=== PATIENT | male | born 1955 | race Caucasian/White ===

== ENCOUNTER 2017-06-27 03:10 | Emergency (ER) | payer OTHER, SELFPAY ==
[2017-06-27 03:13] VITALS: BP 129/83; PULSE 72; RESP 16; TEMP 36.5; O2SAT 94; BMI 28.9
[2017-06-27 03:59] LABS: Absolute Lymphocyte Count 0.93 X10^3/ul (0.83-4.51); Absolute Neutrophil Count 5.7 X10^3/uL (2.0-7.7); Basophil# 0.02 X10^3/uL; Basophil% 0.3 % (0-1); Eosinophil# 0.29 X10^3/uL; Eosinophils% 3.7 % (0-5); Hematocrit 41.4 % (40-54); Hemoglobin 13.8 g/dl (13.0-16.5); Lymphocyte # 0.93 X10^3/ul (4.0); Mean Corp Hgb Conc 33.3 g/gl (32-36); Mean Corpuscular Hgb 29.1 pg (27.0-32.0); Mean Corpuscular Volume 87.3 fL (80-94); Mean Platelet Vol. 12.3 fl (6.2-12.0); Monocyte# 0.78 X10^3/uL; Monocyte% 10.1 % (0-10); Neutrophil # 5.73 X10^3/uL (2.7-7.7); Neutrophil % 73.8 % (47-70); Platelet Count 155 K/mm3 (150-450); RBC Distribution Width CV 13.3 % (11.6-14.6); RBC Distribution Width SD 42.4 fl (35.1-43.9); Red Blood Count 4.74 M/mm3 (4.6-6.2); White Blood Count 7.8 K/mm3 (4.4-11.0)
[2017-06-27 04:02] LABS: POSITIVE COUNT NO; POSITIVE DIFFERENTIAL NO; POSITIVE MORPHOLOGY NO
[2017-06-27 04:16] LABS: Anion Gap 7 (5-15); BUN 22 mg/dL (7-18); BUN/Creat Ratio 22.8 RATIO (10-20); Calcium,Total 8.3 mg/dL (8.5-10.1); Chloride 105 mmol/L (98-107); Creatinine, Serum 0.96 mg/dL (0.70-1.30); EST Glomerular Filtration Rate 84 mL/min (>60); Est Glom Filt Rate - Afr Amer 102 mL/min (>60); Estimated Creatinine Clearance 81.83 ml/min; Glucose 116 mg/dL (74-106); Potassium 4.2 mmol/L (3.5-5.1); Sodium Level 140 mmol/L (136-145)
--- NOTE | 2017-06-27 04:36 | ED.VISSUMM ---
- ER Visit Summary Date of Service: 06/27/17 Chief Complaint: [] Diarrhea, concern for food poisoning History of Present Illness: The patient is a 61 M [] complaining of large episode of diarrhea prior to arrival with concern for possible food poisoning. Patient denies nausea or vomiting. Reports slight tingling in his bilateral upper extremities. Reports calling the nurse line I suggested he come in for evaluation of possible neurologic event. Patient reports he is completely symptomatic now. Physical Examination: [] Afebrile, vital signs stable. 61-year-old male in no acute distress, conversational. Cardiovascular exam is regular rate and rhythm. Lungs are clear to auscultation. Abdomen is soft and nontender. Test Results: [] CBC and BMP are within normal limits. Emergency Department Course and Treatment: [] Patient underwent routine laboratory testing and this was normal. Patient had a very very benign examination. He was encouraged to follow-up with his primary care physician and return if symptoms recur. Treatment Plan: [] Follow-up with PCP. Disposition: [] Discharge, stable. Impression: [] Diarrhea This note was generated with [employer] dictation software. It may contain incorrect words, spelling, and punctuation that were not noted in review of the chart prior to signing ED Disposition - Plan for ED Patient: Chief Complaint: Diarrhea Referrals: Tr Puentes MD [Primary Care Provider] -
--- NOTE | 2017-06-27 04:38 | ED.DEP ---
ED Disposition - Plan for ED Patient: Disposition: Home or Assisted Living Chief Complaint: Diarrhea Instructions: ED Vomiting Diarrhea Nonspecific Ad Referrals: Tr Puentes MD [Primary Care Provider] -
[2017-06-27 04:53] VITALS: BP 152/72; PULSE 77; RESP 16; O2SAT 99
== END 2017-06-27 04:57 | disposition home or self-care (01) ==
PROVIDERS: Emergency Provider Emergency Medicine; Family Provider Family Medicine; PCP Family Medicine
DX: R19.7 Diarrhea, unspecified (principal); R20.2 Paresthesia of skin; I10 Essential (primary) hypertension; Z79.899 Other long term (current) drug therapy
CPT/HCPCS: 80048; 85025; 99282; J7030; A4216

== ENCOUNTER → 2018-05-09 13:51 | Outpatient (CLI) | payer OTHER, SELFPAY ==
[2018-05-09 06:27] VITALS: BMI 26.2
== END ==
PROVIDERS: Family Provider Family Medicine; PCP Family Medicine; Referring Provider Physician Assistant Surgical; Visit Provider Physician Assistant Surgical
DX: J02.9 Acute pharyngitis, unspecified (principal)
CPT/HCPCS: 87081

== ENCOUNTER 2019-03-26 08:00 | Outpatient (RCR) | payer OTHER, SELFPAY ==
[2018-05-09 06:27] VITALS: BMI 26.2
--- NOTE | 2019-01-01 12:07 | HP.PTEVAL ---
Patient's Visit Information CARSON MCCLURE is a 63 year old M referred to Physical Therapy by TOBY VELIZ with a diagnosis of r RCR ASD. Date of Evaluation: 01/01/19 Physical Therapist: Ranjeet Madrigal, PT, RIANNA, SCS, CSCS - Visit Plan Frequency: 1-2x /Week Duration: 3 Months Plan: plan to see 1xweek for 4 weeksn then gradually increase frequency as we near Phase 3. - Subjective Findings: Mr Mcclure states he began to have shoulder problems after bench pressing on August 25. At the time he rated his pain as 5/10 and has had difficulty sleeping since. He did a conservative bout of PT prior to seeing Dr Wharton. he subsequently had R RCR and ASD surgery on 11.23.18 - Pain Right Shoulder Pain Intensity (Out of 10): 2 Pain Intensity Range: 2, 6 - Objective Mr Mcclure is a pleasant 63 who was referred to our care by Dr Wharton. He presnts 6 weeks from his R RCR repair and ASD on 11.23.18 His incision site is healing well. 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 He denies any numbness or tingling down into his hand. His PROM was shd flexion 80, shd abd 80 and ext rotation 0. MMT was deferred secondary to the healing process. - Goals Goal 1:: Return DEMO HEP and Understand the healing process Goal Time Frame: 1 Week Goal 2:: Associate Curator with respect to ADL and help managment skills Goal Time Frame: 2-4 Weeks Goal 3:: Progress from Phase 1 to Phase 3 program Goal Time Frame: 12-16 Weeks - Rehabilitation Potential Physical Therapy Diagnosis: R rotator cuff repair with decrease ROM and Strength Rehabilitation Potential: Good - Anticipated Interventions Patient/Client Instruction: Educate patient on: Condition, Plan of Care For the Purpose of:: To decrease pain, To decrease swelling/inflammation, To increase ROM Manual Therapy Techniques to Include: Passive ROM For the Purpose of:: To decrease pain, To decrease swelling/inflammation, To increase ROM, To increase flexibility/ROM Thank you for the opportunity to evaluate your patient. For Medicare and Medicare HMO plans, please review the plan of care and approve it. It will need to be FAXED BACK to us at [phone] for Medicare purposes. For Medicare only, by signing this I certify the plan of care. Please let me know if there are questions or concerns regarding this plan of care. Physician Signature: Date:
--- NOTE | 2019-03-26 10:59 | HP.PTDCSUM ---
HP - PT D/C Summary It has been my pleasure to treat CARSON ECKERT under orders from TOBY VELIZ, for the diagnosis of r RCR ASD for a total of 16 visit(s). Discharge Date: 03/26/19 Please see the following information for a summary of their discharge status. - Subjective Subjective: Doing well eager to start wellness program - Pain Right Shoulder Pain Intensity (Out of 10): 1 - Overall Improvement % Improvement: 100 - Objective Objective/Function: r. 41.4 20.6. 42.3 32.9 - Goals Goal 1:: Return DEMO HEP and Understand the healing process Goal Progress: Goal Met Goal 2:: Emergency Room Rn with respect to ADL and help managment skills Goal Progress: Goal Met Goal 3:: Progress from Phase 1 to Phase 3 program Goal Progress: Progressing - Plan Plan: dc - D/C Information Discharge Comments: Carson is progressing well we have designed a rehab program for him and he is going to join as a wellness member. He should do fine over jasmine next couple of months. If there are questions or concerns regarding this patient's physical therapy, please feel free to call me at [phone]. Thank you for the referral of this patient. Sincerely, Ranjeet Madrigal, PT, RIANNA, SCS, CSCS
== END 2019-03-26 19:00 | disposition home or self-care (01) ==
LOC: PT 08:00
PROVIDERS: Family Provider Family Medicine; PCP Family Medicine
DX: S46.011D Strain of muscle(s) and tendon(s) of the rotator cuff of right shoulder, subsequent encounter (principal)
CPT/HCPCS: 97014; 97110; 97140; 97161; G0283

== ENCOUNTER 2021-02-24 18:52 | Emergency (ER) | payer OTHER, SELFPAY ==
[2021-02-24 18:53] VITALS: BP 137/92; PULSE 66; RESP 18; TEMP 37.1; O2SAT 99; BMI 24.6
--- NOTE | 2021-02-24 18:57 | CT_ITS ---
STUDY: CT BRAIN WITHOUT CONTRAST REASON FOR EXAM: Male, 65 years old. VISUAL PROBLEMS TECHNIQUE: Transaxial CT imaging of the brain was performed without administration of intravenous contrast material. Individualized dose optimization techniques were used for this CT. COMPARISON: None FINDINGS: Normal calvarium. Normal soft tissues. Normal size ventricles and extra-axial spaces for the patient''s age. Normal white matter tracts of the cerebral hemispheres. Normal basal ganglia and thalami. Normal brainstem. Normal cerebellum. There are calcifications noted in the distal vertebral arteries. There are calcifications noted in the cavernous carotid arteries. This is consistent for atherosclerotic disease. There is no intracranial hemorrhage. There are no findings of an acute ischemic infarction. There is sinus disease. ASPECTS 10 CT/Brain/Head without Contrast IMPRESSION: There are no acute intracranial findings. Electronically Signed: Te Cox MD at 19:39 EST , Service support ,
[2021-02-24 19:58] VITALS: PULSE 60; RESP 14; O2SAT 99
[2021-02-24 20:06] LABS: Absolute Neutrophil Count 3.8 X10^3/uL (2.0-7.7); Basophil# 0.04 X10^3/uL; Basophil% 0.6 % (0-1); Eosinophils% 3.1 % (0-5); Hemoglobin 15.1 g/dL (13.0-16.5); Mean Corp Hgb Conc 32.8 g/dL (32-36); Mean Corpuscular Hgb 28.7 pg (27.0-32.0); Mean Corpuscular Volume 87.5 fL (80-94); Mean Platelet Vol. 11.6 fl (6.2-12.0); Monocyte% 12.2 % (0-10); NRBC Flagged by Analyzer 0 % (0-5); Neutrophil # 3.78 X10^3/uL (2.7-7.7); Neutrophil % 57.8 % (47-70); Platelet Count 227 K/mm3 (150-450); RBC Distribution Width CV 13.2 % (11.6-14.6); RBC Distribution Width SD 42.3 fl (35.1-43.9); Red Blood Count 5.26 M/mm3 (4.6-6.2); White Blood Count 6.5 K/mm3 (4.4-11.0)
--- NOTE | 2021-02-24 20:12 | EKG12_ITS ---
Test Reason : GEN LL Blood Pressure : / mmHG Vent. Rate : 056 BPM Atrial Rate : 056 BPM P-R Int : 172 ms QRS Dur : 100 ms QT Int : 430 ms P-R-T Axes : 057 110 040 degrees QTc Int : 414 ms Sinus bradycardia Otherwise normal ECG Confirmed by DAYLIN GARCIA, ANNABELLE ([id number]), social media editor KAREN SNOW ([id number]) on 02/26/2021 8:23:12 AM Referred By: MARY Confirmed By:ANNABELLE MAO MD
[2021-02-24 20:20] LABS: Anion Gap 6 (5-15); BUN 15 mg/dL (7-18); BUN/Creat Ratio 16.7 RATIO (10-20); Calcium,Total 9.8 mg/dL (8.5-10.1); Chloride 100 mmol/L (98-107); EST Glomerular Filtration Rate 91 mL/min (>60); Est Glom Filt Rate - Afr Amer 110 mL/min (>60); Estimated Creatinine Clearance 82.92 ml/min; Glucose 93 mg/dL (74-106); Potassium 4.4 mmol/L (3.5-5.1); Sodium Level 137 mmol/L (136-145)
--- NOTE | 2021-02-24 20:35 | EX.ED.DYSGE1 ---
HPI History of Present Illness Chief Complaint: General Illness Narrative Narrative: 65-year-old male presenting for evaluation. He states that this morning he had some hearing loss in the left ear, but was not concerned because he wears hearing aids at baseline and his hearing is not that great. He states he noted this while he was washing his left ear. Patient had no other symptoms at that time he denies lightheadedness, dizziness, headache, nausea, vomiting, facial droop, slurred speech, inability to use an extremity, and he was not near syncopal. Patient went to work and was working throughout the day since he felt well. His called to tell him she was here to pick him up, and she noted that his speech sounded little slurred. When he got to the car this was not present. He is unsure if this was due to the mask that he was wearing. He did not have any facial droop. He had none of the symptoms listed above. Patient states that he was in a dark car and felt like he might have been seeing flashing lights on the left side of his left eye. He looked in the backseat to see if his 7-year-old was shining light and pleasant. He is not sure if it was a passing car or another light that had reflected. He states he currently does not have this symptom at all. No history of stroke and no risk factors. [facility] Medical History Asthma Back pain Bloody stools Broken wrist Hemorrhoids Hypertension Home Medications lisinopril 5 mg PO DAILY 02/03/13 [History Last Taken 02/03/13] calcium carbonate 500 mg calcium (1,250 mg) capsule 500 mg PO BID cap 05/09/18 [History Last Taken Unknown] Allergy/AdvReac Type Severity Reaction Status Date / Time No Known Allergies Allergy Verified 02/24/21 18:56 Surgical History H/O hernia repair Social History Smoking Status: Never smoker alcohol intake: never ROS ROS ED Constitutional Constitutional ED: Denies chills or fever(s) Eyes Eyes: Reports other Details: Flashing light left eye ENT ENT ED: Reports rhinorrhea; Denies sore throat Cardiovascular Cardiovascular: Denies chest pain or palpitations Respiratory/Chest Respiratory/Chest: Denies cough or dyspnea Gastrointestinal Gastrointestinal: Denies abdominal pain, nausea or vomiting Genitourinary Genitourinary ED: Denies dysuria or hematuria Musculoskeletal Musculoskeletal: Denies arthralgias or myalgias Integumentary Denies abscess or rash Neurologic Neurologic: Denies headache(s), paresthesias or weakness EXAM Physical Exam Const Vital Signs: 02/24/21 18:53 02/24/21 19:58 02/24/21 19:59 Temperature 98.7 F Temperature Source Temporal Pulse Rate 66 60 Respiratory Rate 18 14 Respiratory Effort Normal Non-Labored Blood Pressure 137/92 H Blood Pressure Mean 107 Pulse Ox 99 99 Oxygen Delivery Method Room Air Room Air 02/24/21 21:13 02/24/21 21:46 Temperature Temperature Source Pulse Rate 60 74 Respiratory Rate 19 H 18 Respiratory Effort Blood Pressure 121/86 H 115/84 H Blood Pressure Mean 97 Pulse Ox 94 98 Oxygen Delivery Method Positive well nourished General Appearance ED: NAD; Negative for pallor HEENT Reports moist mucous membranes Negative for trauma Eyes PERRL and EOMs intact bilaterally Resp normal respiratory effort and clear to auscultation bilaterally Cardio regular rate and regular rhythm Neuro oriented x3, CN's II-XII intact bilaterally and no sensory deficits noted Neuro Narrative: NIH equals 0 Sensorium / Orientation: alert Motor Exam: strength 5/5 throughout Psych mental status grossly normal Skin General Skin Exam: Negative for jaundice or pallor MDM MDM MDM Narrative Medical decision making narrative: Patient's neurologic exam is normal. It is unclear whether he actually had slurred speech but he has not felt well. No facial droop or other signs or symptoms of stroke has occurred. It is unclear whether it was because of his mask but he does not think he was slurring his speech. Patient also has a vague symptom of seeing some lights in the left side of his left eye however is unsure if this is a passing car or another light on the road that he saw. He does not have this symptom currently. His blood work including CBC, BMP, troponin are normal. EKG on my interpretation is a sinus bradycardia with a ventricular rate of 56 bpm without sign of ischemic change. Chest x-ray on my interpretation shows no acute cardiopulmonary process and the radiologist does agree. CT of the brain is negative. I do not feel this patient had a TIA and he does not have any neurologic findings. He also does not have any risk factors for stroke. His ABCD2 score makes him low risk. His only risk factor is his age over 60 if you do not include the speech disturbance. It is 2 if you include it. And is unclear whether the patient even had a slurred speech or it was his mask over the phone. Either way he would be extremely low risk.Patient is counseled on this and I feel he is safe to be discharged home to follow-up with his primary care physician. I did also encourage him to follow-up with an endocrinology physician. Impression: 1. Visual disturbance Lab Data Labs: Laboratory Results - last 24 hr 02/24/21 02/24/21 02/24/21 19:59 19:59 19:59 WBC 6.5 RBC 5.26 Hgb 15.1 Hct 46.0 MCV 87.5 MCH 28.7 MCHC 32.8 RDW Std Deviation 42.3 RDW Coeff of Hoa 13.2 Plt Count 227 MPV 11.6 Immature Gran % (Auto) 0.300 Neut % (Auto) 57.8 Lymph % (Auto) 26.0 Grayson % (Auto) 12.2 H Eos % (Auto) 3.1 Baso % (Auto) 0.6 Absolute Neuts (auto) 3.8 Absolute Lymphs (auto) 1.70 Nucleated RBC % 0 Sodium 137 Potassium 4.4 Chloride 100 Carbon Dioxide 31.0 Anion Gap 6 BUN 15 Creatinine 0.90 Estim Creat Clear Calc 82.92 Est GFR (MDRD) Af Amer 110 Est GFR (MDRD) Non-Af 91 BUN/Creatinine Ratio 16.7 Glucose 93 Calcium 9.8 Troponin I High Sens 5 Radiography Diagnostic Testing: Clinical Impression(s) from Imaging Studies Brain CT 02/24/21 18:57 IMPRESSION: There are no acute intracranial findings. Electronically Signed: Te Cox MD at 19:39 EST , Service support , Discharge Plan Triage Chief Complaint: General Illness ED Provider: Raul Cooper Dx/Rx/DC Orders Prescriptions: No Action calcium carbonate 500 mg calcium (1,250 mg) capsule 500 mg calcium (1,250 mg) capsule 500 mg PO BID RF: 0 lisinopril 5 MG tablet 5 mg PO DAILY RF: 0 Primary Care Provider: Tr Puentes Referrals: Tr Puentes MD [Primary Care Provider] - Activity Restrictions/Additional Instructions: You were seen today for light flashing in the left eye as well as possible slurred speech. Your neurologic exam is normal today. All of your blood work and imaging is normal. Your constellation of symptoms does not appear to be a TIA or a stroke. I believe you are safe to follow-up with your primary care provider. Disposition Disposition: Home, Self Care Discharge Date/Time: 02/24/21 21:48
[2021-02-24 21:02] LABS: Troponin-I HS 5 pg/mL (3.0-78.0)
[2021-02-24 21:13] VITALS: BP 121/86; PULSE 60; RESP 19; O2SAT 94
[2021-02-24 21:46] VITALS: BP 115/84; PULSE 74; RESP 18; O2SAT 98
== END 2021-02-24 21:48 | disposition home or self-care (01) ==
PROVIDERS: Emergency Medicine; Emergency Provider Student in an Organized Health Care Education/Training Program; PCP Family Medicine
DX: H53.9 Unspecified visual disturbance (principal); I10 Essential (primary) hypertension; J45.909 Unspecified asthma, uncomplicated; Z79.899 Other long term (current) drug therapy
CPT/HCPCS: 70450; 80048; 84484; 85025; 93005; 99284; A4216

== ENCOUNTER 2022-05-06 06:35 | Emergency (ER) | payer MEDICARE, SELFPAY ==
[2022-05-06 06:36] VITALS: BP 119/66; PULSE 78; RESP 18; TEMP 36.2; O2SAT 100; BMI 25.3
--- NOTE | 2022-05-06 06:56 | EKG12_ITS ---
Test Reason : DIZZY Blood Pressure : / mmHG Vent. Rate : 081 BPM Atrial Rate : 081 BPM P-R Int : 184 ms QRS Dur : 102 ms QT Int : 388 ms P-R-T Axes : 061 144 044 degrees QTc Int : 450 ms Normal sinus rhythm Incomplete right bundle branch block Right ventricular hypertrophy with repolarization abnormality Nonspecific T wave abnormality Abnormal ECG Confirmed by YOSELIN GARCIA, DOMINICK ([id number]), news videotape editor KAREN SNOW ([id number]) on 05/07/2022 10:21:14 AM Referred By: KALIA Confirmed By:DOMINICK WYATT MD
--- NOTE | 2022-05-06 06:58 | EX.ED.DYSGE1 ---
HPI History of Present Illness Chief Complaint: Weakness Informant: patient Onset/Context/Timing Onset: Today Current Severity: Mild Maximum Severity: Moderate Narrative Narrative: Patient presents secondary to a near syncopal episode. Patient states that he woke around 3:00 this morning which is not unusual for him. He got up for short time and made some chili. He went back to bed and when he awoke at 6 did not feel well. He states he had a very heavy feeling in his stomach. He became lightheaded, sweaty, dizzy. He thought that he may pass out. He called 911 himself but started to feel better before EMS arrived. He denies chest pain or palpitations. [facility] Medical History Asthma Back pain Bloody stools Broken wrist Hemorrhoids Hypertension Home Medications lisinopril 5 mg tablet 5 mg PO DAILY 02/03/13 [History Last Taken 02/03/13] calcium carbonate 500 mg calcium (1,250 mg) capsule 500 mg PO BID 05/09/18 [History Last Taken Unknown] Allergy/AdvReac Type Severity Reaction Status Date / Time No Known Allergies Allergy Verified 05/06/22 06:42 Surgical History H/O hernia repair Social History Smoking Status: Never smoker alcohol intake: never ROS ROS ED Constitutional Constitutional ED: Denies chills or fever(s) Eyes Eyes: Denies change in vision or discharge from eye(s) ENT ENT ED: Denies discharge from eye(s), rhinorrhea or sore throat Cardiovascular Cardiovascular: Denies chest pain or palpitations Respiratory/Chest Respiratory/Chest: Denies cough or dyspnea Gastrointestinal Gastrointestinal: Reports abdominal pain and nausea; Denies diarrhea or vomiting Genitourinary Genitourinary ED: Denies difficulty urinating or dysuria Musculoskeletal Musculoskeletal: Denies back pain or extremity pain Integumentary Denies Abrasions or rash Neurologic Neurologic: Reports weakness; Denies headache(s) Psychiatric Psychiatric: Denies anxiety or depression Allergic/Immunologic Allergic/Immunologic ED: Denies lip swelling or urticaria EXAM Physical Exam Const Vital Signs: 05/06/22 06:36 05/06/22 06:36 Temperature 97.1 F L Temperature Source Temporal Pulse Rate 78 Respiratory Rate 18 Respiratory Effort Normal Respiratory Pattern Normal Blood Pressure 119/66 Blood Pressure Mean 83 Pulse Ox 100 Oxygen Delivery Method Room Air Positive well nourished and well developed General Appearance ED: well developed HEENT Reports normocephalic and head/scalp atraumatic Eyes PERRL and EOMs intact bilaterally Neck supple Chest Wall inspection of chest normal and palpation of chest normal Resp normal respiratory effort and clear to auscultation bilaterally Cardio regular rate and regular rhythm GI non-tender Auscultation: hypoactive bowel sounds Palpation: soft Back/Spine no CVA tenderness Extremity normal to inspection Neuro oriented x3 and no sensory deficits noted Sensorium / Orientation: alert Motor Exam: strength 5/5 throughout Psych mental status grossly normal Skin no rashes or lesions noted MDM MDM MDM Narrative Medical decision making narrative: Patient is placed on electronic device monitor. EKG obtained to evaluate for cardiac arrhythmia or ischemia. Lab work obtained to evaluate for leukocytosis, anemia, electrolyte derangement. Patient's evaluation and work-up was initiated the end of my shift. Patient will be signed out to oncoming physician for further monitoring and treatment. Discharge Plan Triage Chief Complaint: Weakness ED Provider: Vani Reyes Dx/Rx/DC Orders Clinical Impression: Near syncope Prescriptions: No Action calcium carbonate 500 mg calcium (1,250 mg) capsule 500 mg calcium (1,250 mg) capsule 500 mg PO BID lisinopril 5 MG tablet 5 mg PO DAILY Primary Care Provider: Tr Puentes Referrals: Tr Puentes MD [Primary Care Provider] -
[2022-05-06 07:13] LABS: Absolute Lymphocyte Count 0.43 X10^3/uL (0.83-4.51); Absolute Neutrophil Count 7.4 X10^3/uL (2.0-7.7); Basophil# 0.02 X10^3/uL; Basophil% 0.2 % (0-1); Eosinophil# 0.11 X10^3/uL; Eosinophils% 1.3 % (0-5); Hematocrit 44.3 % (40-54); Hemoglobin 14.6 g/dL (13.0-16.5); Lymphocyte # 0.43 X10^3/ul (0.83-4.51); Lymphocyte % 5.1 % (19-41); Mean Corpuscular Hgb 29.3 pg (27.0-32.0); Mean Corpuscular Volume 88.8 fL (80-94); Mean Platelet Vol. 12.3 fl (6.2-12.0); Monocyte# 0.55 X10^3/uL; Monocyte% 6.5 % (0-10); NRBC Flagged by Analyzer 0 % (0-5); Neutrophil # 7.37 X10^3/uL (2.7-7.7); Neutrophil % 86.7 % (47-70); POSITIVE DIFFERENTIAL YES; Platelet Count 165 K/mm3 (150-450); RBC Distribution Width CV 13.3 % (11.6-14.6); RBC Distribution Width SD 43.3 fl (35.1-43.9); Red Blood Count 4.99 M/mm3 (4.6-6.2); White Blood Count 8.5 K/mm3 (4.4-11.0)
[2022-05-06 07:19] LABS: Differential Indicated SCAN CRITERIA MET
[2022-05-06] MEDS: 0.9% Normal Saline 1,000 ML 150 ML IV (07:26)
[2022-05-06 07:36] LABS: AST(SGOT) 21 U/L (15-37); Alanine Aminotransfer ALT/SGPT 28 U/L (16-61); Albumin, Serum 3.6 g/dL (3.2-5.0); Alkaline Phosphatase 68 U/L (45-117); Anion Gap 8 (5-15); BUN 24 mg/dL (7-18); BUN/Creat Ratio 22.9 RATIO (10-20); Bilirubin, Direct 0.17 mg/dL (0.00-0.30); Calcium,Total 8.4 mg/dL (8.5-10.1); Chloride 104 mmol/L (98-107); Creatinine, Serum 1.05 mg/dL (0.70-1.30); EST Glomerular Filtration Rate 75 mL/min (>60); Est Glom Filt Rate - Afr Amer 91 mL/min (>60); Estimated Creatinine Clearance 70.14 ml/min; Globulin 3.9 g/dL (2.2-4.2); Glucose 153 mg/dL (74-106); Potassium 4.2 mmol/L (3.5-5.1); Protein, Total 7.5 g/dL (6.4-8.2); Sodium Level 138 mmol/L (136-145); Troponin-I HS (w/2H Reflex) 3 pg/mL (3.0-78.0)
[2022-05-06 09:05] LABS: Reflex Troponin-HS? (from REC) Y
[2022-05-06 09:31] LABS: Troponin-I HS 4 pg/mL (3.0-78.0)
[2022-05-06 10:20] VITALS: BP 134/69; PULSE 75; RESP 16; O2SAT 98
== END 2022-05-06 10:21 | disposition home or self-care (01) ==
PROVIDERS: Emergency Provider Emergency Medicine; PCP Family Medicine; Visit Provider Emergency Medicine
DX: R55 Syncope and collapse (principal); I10 Essential (primary) hypertension; R53.1 Weakness; Z79.899 Other long term (current) drug therapy
CPT/HCPCS: 80048; 80076; 84484; 85025; 93005; 99285; J7030; A4216

== ENCOUNTER → 2022-05-31 | Outpatient (CLI) | payer MEDICARE, SELFPAY ==
--- NOTE | 2022-05-31 10:29 | STEWCON_ITS ---
Reason For Study: CHEST PAIN Stress Results Protocol: Thomas Protocol WITH DEFINITY Maximum Predicted HR: 155 bpm Target HR: 132 bpm % Maximum Predicted HR: 86 % DurationHeart Rate Stage (mm:ss) (bpm) BP Comment BASELINE 59 132/843.5 CC DEFINITY FOR TEST STAGE 1 3:00 109 160/86 STAGE 2 3:00 125 158/86 STAGE 3 3:00 133 162/82 RECOVERY 86 130/88 Stress Duration: 9:00 mm:ss Maximum Stress HR: 133 bpm Baseline Echocardiogram Findings Stress Echo Wall motion Data Resting WM Intermediate WM Stress WM Doppler Measurements & Calculations TR max marissa: 230.1 cm/sec TR max P.2 mmHg ECHO/Stress Test Echo W/Contrast Interpretation Summary Exercise stress echo. 66-year-old lady with a history of chest pain. Stress protocol: Resting EKG demonstrates normal sinus rhythm with an incomplete right bundle br anch block and a rate of 57 bpm. Resting blood pressure is 132/84 mmHg. The patient exercised accordi ng to the regular Thomas protocol for total duration of 9 minutes. Patient completed stage III of the Thomas protocol. The maximum heart rate attained was 164 bpm which was 105% of max impacted hear t rate the maximum workload was 10.1 metabolic equivalents. At rest there were no ST or T wave lynn nges noted to suggest ischemia and at peak exercise upsloping ST changes only were noted but did not meet the criteria for ischemia. No clinical angina was noted the test was terminated due to the targe t heart rate being achieved. The peak blood pressure was 162/82 which was a good blood pressure re sponse to exercise and the rate-pressure product was 21,700. Stress echocardiogram. The resting echocardiogram performed with Definity enhancement demonstrated pre served left ventricular systolic function at rest and with exercise there was improvement i n all blount with reduction in cavity size and improvement of ejection fraction to 60%. Conclusion: Normal exercise stress echo with no evidence of ischemia and good functional ae robic capacity. Ordering Physician: Marsha Butts Performed By: Homer Thomson RCS
== END | disposition home or self-care (01) ==
LOC: CVS 10:25
PROVIDERS: PCP Family Medicine; Visit Provider Physician Assistant
DX: R55 Syncope and collapse (principal); R42 Dizziness and giddiness; R61 Generalized hyperhidrosis; R07.89 Other chest pain; R01.1 Cardiac murmur, unspecified
CPT/HCPCS: 93017; 93350; Q9957; A4216; C8928

== ENCOUNTER 2024-09-15 18:04 | Emergency (ER) | payer MEDICARE, SELFPAY ==
[2024-09-15 18:04] VITALS: BP 147/87; PULSE 81; RESP 16; TEMP 36.8; O2SAT 97; BMI 23.6
--- NOTE | 2024-09-15 18:34 | RAD_ITS ---
PROCEDURE: RIBS UNI MIN 3V W/PA CHEST 09/15/2024 REASON FOR EXAM: PAIN TECHNIQUE: RIBS UNI MIN 3V W/PA CHEST COMPARISON: None. FINDINGS: Hardware: None. Heart: The heart is normal in size. Tortuous thoracic aorta. Retrocardiac lucency, compatible with hiatal hernia. Lungs: Low left lung volume. Bibasilar atelectasis/scarring. Bones: Bilateral glenohumeral joint arthrosis. Thoracolumbar spondylosis with scoliosis of the lower thoracic and upper lumbar spine. Probable left anterior mid rib fracture deformity. RAD/Ribs Uni Min 3V w/PA Chest IMPRESSION: Probable left anterior mid rib fracture deformity. Reading Location: [id number]
--- NOTE | 2024-09-15 18:40 | EDS_ITS ---
HPI History of Present Illness Chief Complaint: Chest Other Informant: patient Narrative Narrative: Presenting pain left rib bending over on his lawnmower 2:30 PM. Pain worse with movement. No dyspnea. History of GERD and hiatal hernia on omeprazole. Denies gastric ulcer history. No medications taken. No osteopenia history. Prior similar symptoms: No PFSH PFSH Medical History Broken wrist Back pain Bloody stools Asthma Hemorrhoids Hypertension Home Medications ?Medication ?Instructions ?Recorded ?Last Taken ?Type lisinopril 5 mg tablet 5 mg PO DAILY 02/03/1302/03 History calcium carbonate 500 mg PO BID 05/09/18 Unkno wn History Allergy/AdvReac Type Severity Reaction Status Date / Time No Known Allergies Allergy Verified 09/15/24 18:04 Surgical History H/O hernia repair Social History Smoking Status: Never smoker alcohol intake: never ROS ROS ED Constitutional Constitutional ED: Denies fever(s) Cardiovascular Cardiovascular: Denies chest pain Respiratory/Chest Respiratory/Chest: Reports other Details: Left rib pain ; Denies cough or dyspnea Gastrointestinal Gastrointestinal: Denies diarrhea or vomiting Musculoskeletal Musculoskeletal: Denies none Integumentary Denies rash or wounds Neurologic Neurologic: Denies weakness EXAM Physical Exam Const Vital Signs: 09/15/24 18:04 09/15/24 19:54 Temperature 98.2 F 98.9 F Temperature Source Oral Pulse Rate 81 61 Respiratory Rate 16 18 Blood Pressure 147/87 H 137/83 H Blood Pressure Mean 107 101 Pulse Ox 97 100 Oxygen Delivery Method Room Air Positive well nourished and well developed General Appearance ED: well developed HEENT normocephalic and atraumatic Eyes General Eye ED: Yes normal appearance of both eyes Neck full ROM Chest Wall Chest Narrative: Reproduced tenderness left lateral lower ribs with no crepitus. Resp normal respiratory effort and normal air movement Resp Narrative: Symmetric breath sounds. Cardio regular rate and regular rhythm GI soft to palpation Extremity normal to inspection and full ROM Neuro oriented x3 Skin no rashes or lesions noted and no wounds MDM MDM MDM Narrative Medical decision making narrative: Interventions / MDM: Differential diagnosis: Rib strain, rib fracture Diagnosis considered but do not suspect: Pneumothorax however image negative. My EKG interpretation: N/A Imaging independently reviewed and interpreted by myself: 4 view left ribs with PA chest x-ray: Single left anterior rib fracture no pneumothorax. External documents reviewed: N/A Test considered but not ordered:N/A ED course: Patient declines any pain medicines. Reproducible lab rib pain. Left rib series x-ray ordered for further evaluation. X-ray also read by radiology left anterior rib fracture. No pneumothorax. Discussed results with patient. He declines incentive spirometer states he will take deep breath he will use Tylenol as needed. Outpatient follow-up with his doctors. All questions were answered. Re-evaluation: stable Disposition discussed with patient/family/significant other: Patient Case discussed with consulting clinician: N/A This note was generated with [employer] dictation software. It may contain incorrect words, spelling, and punctuation that were not noted in checking the note before signing. Radiography Diagnostic Testing: Clinical Impression(s) from Imaging Studies Ribs w/Chest X-Ray 09/15/24 18:34 IMPRESSION: Probable left anterior mid rib fracture deformity. Reading Location: [facility] Discharge Plan Triage Chief Complaint: Chest Other ED Provider: Sarkis Wilson Dx/Rx/DC Orders Clinical Impression: Closed rib fracture, Rib sprain Instructions: ED Rib Fracture Prescriptions: No Action calcium carbonate 500 mg calcium (1,250 mg) capsule 500 mg PO BID lisinopril 5 MG tablet 5 mg PO DAILY Primary Care Provider: Tr Puentes Referrals: Tr Puentes MD [Primary Care Provider] - 1 Week Activity Restrictions/Additional Instructions: Left anterior rib fracture appears to be rib 8. No pneumothorax. Use Tylenol 1 g every 6 hours as needed. Take deep breaths multiple times a day. Follow-up with your doctor. Print Language: Macedonian Disposition Disposition: Home, Self Care Discharge Date/Time: 09/15/24 19:55
--- OUTSIDE RECORDS SUMMARY | 2024-09-15 18:57 | XMS RPT_ITS | CCD ---
Author Organization [facility] CliniSyct Care Team Providers Care Care Nurse Rn Name Role Phone Tr Montana MD Primary Care Provider [phone] Dr. Tr Montana Primary Care Provider Dr. Raudel Sheridan Attending Provider [phone] Tr Montana MD Primary Care Provider Raudel Sheridan Attending Unavailable Tr Montana Primary Care Unavailable Marsha Moreau Attending Unavailable Tr [place] Primary Care Unavailable Tr [place] Primary Care Unavailable Vani Reyes Attending Unavailable TR [place] Primary Care Unavailable SELF Referring Unavailable MARSHA BUTTS Referring Unavailable TR [place] Primary Care Unavailable MARSHA BUTTS Referring Unavailable TR [place] Primary Care Unavailable MARSHA BUTTS Referring Unavailable TR [place] Primary Care Unavailable MARSHA BUTTS Referring Unavailable TR [place] Primary Care Unavailable MARSHA BUTTS Referring Unavailable TR [place] Primary Care Unavailable TR [place] Primary Care Unavailable SELF Referring Unavailable Tr [place] MD Primary Care Provider TR [place] Primary Care Unavailable PROVIDER, UNKNOWN Attending Unavailable PROVIDER, UNKNOWN Admitting Unavailable Tr [place] MD Primary Care Provider TR [place] MD Primary Care Physician OLIMPIA GAMBLE MD Attending Unavailable TR [place] MD Primary Care Unavailable Paul STOKES Hailey Unavailable Marsha Butts PA-C Unavailable Hailey Miller APRN.CNP Unavailable Benjamín LEON Marsha Unavailable MARSHA BUTTS Attending Unavailable TR [place] Primary Care Unavailable TR [place] Attending Unavailable TR [place] Primary Care Unavailable TR [place] Primary Care Unavailable TR [place] Primary Care Unavailable TR [place] Attending Unavailable TR [place] Primary Care Unavailable TR [place] Attending Unavailable TR [place] Primary Care Unavailable TR [place] Attending Unavailable TR [place] Primary Care Unavailable TR [place] Primary Care Unavailable TR [place] Referring Unavailable TR [place] Primary Care Unavailable TR [place] Attending Unavailable TR [place] Primary Care Unavailable TR [place] Referring Unavailable TR [place] Primary Care Unavailable Medications Current Medications Medication Drug Class(es) Dates Sig (Normalized) Sig (Original) amoxicillin 875 mg / clavulanate 125 mg oral tablet (2 sources) Penicillin-class Antibacterial Start: 03-02-2024 End: 03-05-2024 take 1 tablet by mouth twice daily amoxicillin-clav ulanate potassium (AUGMENTIN) 875-125 mg per tablet Take 1 tablet by mouth two times a day for 3 days. 6 tablet 03/02/2024 03/05/2024 Active Start: 09-20-2023 End: 09-25-2023 take 1 tablet by mouth every twelve hours amoxicillin-clavulanate 875 mg-125 mg or al tablet 1 tab(s), Oral, q12h, X 5 day(s), # 10 tab(s), 0 Refill(s), 09/25/23 6:43:00 AM EDT, Pharmacy: [id number], 172.7, cm, 09/20/23 6:27:00 EDT, Height, 70.5, kg, 09/20/23 6:27:00 EDT, Dosing Weight Start Date: 09/20/23 Stop Date: 09/25/23 Status: Ordered calcium carbonate 1250 mg oral capsule (4 sources) Start: 05-09-2018 take 1 capsule by mouth twice daily calcium carbonate 500 mg calcium (1,250 mg) capsule Active 500 MG PO TWICE A DAY May 09, 2018 1:00am Start: 06-27-2017 End: 05-09-2018 take 500 mg by mouth once daily Calcium Carbonate Discontinued 500 MG PO DAILY June 27, 2017 12:00am May 09, 2018 7:17am calcium carbonate 1500 mg / cholecalciferol 200 unt oral tablet (20 sources) Vitamin D Start: 03-15-2013 take 1 tablet by mouth once daily calcium carbonate 600 mg-cholecalciferol 200 units 600 mg-5 mcg (200 unit) tab Take 1 tablet by mouth once daily. 03/15/2013 Active Comment on above: Take 1 tablet by fidencio once daily. GLUC/CHND/OM3/DHA/EPA /FISH/STR (GLUCOSAMINE CHONDROITIN PLUS ORAL) (20 sources) End: 09-03-2024 GLUC/CHND/OM3/DHA/EPA/F ABILIO/STR (GLUCOSAMINE CHONDROITIN PLUS ORAL) Take by mouth. 09/03/2024 Discontinued GLUC/CHND/OM3/DH A/EPA/FISH/STR (GLUCOSAMINE CHONDROITIN PLUS ORAL) Take by mouth. Active GLUC/CHND/OM3/DH A/EPA/FISH/STR (GLUCOSAMINE CHONDROITIN PLUS ORAL) Take by mouth. 0 Active Comment on above: Take by mouth. iv contrast (will be provided with radiology test) (1 source) Start: 023 End: 023 inject 1 dose intravenously once iv contrast (will be provided with radiology test) MRI Brain Inject, intravenously, once for 1 dose.No IV access, insert saline lock prior to beginning of sedation, infusion, injection of imaging exam.Discontinue saline lock post exam. If Pt. has a central line or IVAD, may access for administration according to line specific nursing protocol.Once exam is complete flush line and de-access according to line specific nursing protocol in the MR contrast administration guidelines link 1 Each 0 07/07/2022 07/08/2022 Active Comment on above: MRI Brain Inject, in travenously, once for 1 dose.No IV access, insert saline lock prior to beginning of sedation, infusion, injection of imaging exam.Discontinue saline lock post exam. If Pt. has a central line or IVAD, may access for administration according to line specific nursing protocol.Once exam is complete flush line and de-access according to line specific nursing protocol in the MR contrast administration guidelines link lisinopril 5 mg oral tablet (20 sources) Angiotensin Converting Enzyme Inhibitor Start: 025 take 1 tablet by mouth once daily lisinopril (ZESTRIL) 5 mg tablet Take 1 tablet by mouth once daily. 90 tablet 1 09/03/2024 Active Start: 04-04-2023 End: 09-03-2024 take 1 tablet by mouth once daily lisinopril (ZESTRIL) 5 mg tablet Take 1 tablet by mouth once daily. 90 tablet 1 02/07/2024 09/03/2024 Discontinued Start: 10-13-2022 take 1 tablet by fidencio th once daily lisinopril (ZESTRIL) 5 mg tablet Take 1 tablet by mouth once daily. 90 tablet 1 10/13/2022 Active Start: 02-03-2013 End: 02-16-2022 take 1 tablet by mouth once daily lisinopril (ZESTRIL, PRINIVIL) 5 mg tablet Take 1 tablet by mouth once daily. 90 tablet 1 07/14/2020 01/05/2021 Discontinued Comment on above: Take 1 tablet by fidencio th once daily. nystatin [id number] unt/ml topical cream (1 source) Polyene Antifungal Start: End: nystatin (MYCOSTATIN) cream Indications: Rash Apply 1 application to affected area three times a day for 7 days. 30 g 2 12/05/2023 12/12/2023 Active omeprazole 40 mg delayed release oral capsule (20 sources) Proton Pump Inhibitor Start: 3 End: take 1 capsule by mouth once daily omeprazole (PRILOSEC) 40 mg capsule Take 1 capsule by mouth once daily. 30 capsule 5 06/26/2024 12/23/2024 Active Start: 11-30-2022 End: 02-28-2023 take 1 capsule by mouth once daily omeprazole (PRILOSEC) 40 mg capsule Take 1 capsule by mouth once daily. 30 capsule 2 11/30/2022 02/28/2023 Active Comment on above: Take 1 capsule by mo [facility] once daily. oxyCODONE hydrochloride 5 mg oral tablet (2 sources) Opioid Agonist Start: 4 End: take 1 tablet by mouth every six hours as needed oxyCODONE IR (ROXICODONE) 5 mg immediate release tablet Indications: Bilateral recurrent inguinal hernia without obstruction or gangrene Take 1 tablet by mouth every 6 hours as needed for up to 3 days. 12 tablet 0 08/04/2023 08/07/2023 Active perflutren lipid microspheres 1.3 mL in NaCl (PF) 0.9% 10 mL injection (DEFINITY) (20 sources) Start: End: perflutren lipid microspheres 1.3 mL in NaCl (PF) 0.9% 10 mL injection (DEFINITY) polyethylene glycol 3350 76807 mg powder for oral solution (20 sources) Osmotic Laxative polyethylene gl ycol 3350 17 gram/dose powder Take 17 g by mouth once daily. Dissolve dose in 4 - 8 ounces of liquid and take as directed. Active Comment on above: Take 17 g by mouth o nce daily. Dissolve dose in 4 - 8 ounces of liquid and take as directed. Polyethylene Glycols (10 sources) End: polyethylene glycol 3350 (MIRALAX ORAL) Take by mouth once daily. 0 06/09/2022 Discontinued polyethylene gly col 3350 (MIRALAX ORAL) Take by mouth once daily. 0 Active Comment on above: Take by mouth once d aily. 125 ml sodium chloride 9 mg/ml prefilled syringe (20 sources) Start: 05-10-2022 End: 08-10-2023 sodium chloride 0.9 % (flush) 10 mL (BD POSIFLUSH) Completed/Discontinued Medications Medication Drug Class(es) Dates Sig (Normalized) Sig (Original) docusate sodium 100 mg oral capsule (3 sources) Start: 07-14-2020 End: 07-20-2021 take 1 capsule by mouth once daily docusate sodium (COLACE) 100 mg capsule Take 1 capsule by mouth once daily. 90 capsule 1 07/14/2020 07/20/2021 Discontinued Comment on above: Take 1 capsule by [facility] once daily. fluconazole 200 mg oral tablet (6 sources) Azole Antifungal Start: 12-06-2022 End: 05-25-2023 fluconazole (DIFLUCAN) 200 mg tablet Take TWO tablets by mouth on day 1, then take ONE tablet by mouth daily on days 2-14 15 tablet 0 12/06/2022 05/25/2023 Discontinued (Course of therapy completed) Comment on above: Take TWO tablets by mouth on day 1, then take ONE tablet by mouth daily on days 2-14 fluticasone propionate 0.05 mg/actuat metered dose nasal spray (20 sources) Corticosteroid Start: 05-27-2022 End: 11-09-2022 take 2 spray(s) by mouth once daily fluticasone (FLONASE) 50 mcg/actuation nasal spray Use 2 Sprays in each nostril once daily. Rinse mouth after use. 1 Each 0 05/27/2022 11/09/2022 Discontinued Comment on above: Use 2 Sprays in each nostril once daily. Rinse mouth after use. Zrmeveqtghx-N1-Ijh wellia Serr (2 sources) Start: 06-27-2017 End: 05-09-2018 Yfxkklhstks-A3-Zmx wellia Serr Discontinued 1 EACH PO DAILY June 27, 2017 12:00am May 09, 2018 7:17am Start: 06-27-2017 End: 05-09-2018 Drtdmfdihws-F5-Dmvmovxob Ser r Discontinued 1 EACH PO DAILY June 26, 2017 11:00pm May 09, 2018 6:17am meclizine hydrochloride 25 mg oral tablet (7 sources) Antiemetic Start: 06-09-2022 take 1 tablet by mouth every six hours as needed meclizine (ANTIVERT) 25 mg tab Take 1 tablet by mouth every 6 hours as needed (dizziness). 30 tablet 0 06/09/2022 Active Comment on above: Take 1 tablet by fidencio th every 6 hours as needed (dizziness). pantoprazole 20 mg delayed release oral tablet (1 source) Proton Pump Inhibitor Start: 07-14-2020 End: 01-05-2021 take 1 tablet by mouth once daily before breakfast pantoprazole DR (PROTONIX) 20 mg tablet Take 1 tablet by mouth daily before breakfast. Take on empty stomach, 1/2 hr before meal. 90 tablet 1 07/14/2020 01/05/2021 Discontinued Problems Active Problems Problem Classification Problem Date Documented Da te Episodic/Chronic Administrative/social admission (20 sources) Advance directive discussed with patient; Translations: [Other specified counseling] Onset: 2 Episodic Anxiety disorders (20 sources) Anxiety; Translations: [Anxiety disorder, unspecified] Onset: 9 02-08-2019 Chronic Asthma (20 sources) Mild intermittent asthma; Translations: [Mild intermittent asthma, uncomplicated] Onset: 9 Chronic Cardiac dysrhythmias (20 sources) Supraventricular tachycardia; Translations: [Supraventricular tachycardia] Onset: 7 Chronic Chronic ulcer of skin (2 sources) Pressure ulcer of unspecified buttock, unstageable; Translations: [Pressure ulcer, buttock] Onset: 4 12-16-2023 Chronic Disorders of lipid metabolism (20 sources) Mixed hyperlipidemia; Translations: [Mixed hyperlipidemia] Onset: 0 Chronic E Codes: Natural/environment (1 source) Rat bite; Translations: [Bitten by rat, initial encounter] Onset: 4 Episodic Esophageal disorders (20 sources) Gastroesophageal reflux disease without esophagitis; Translations: [Gastro-esophageal reflux disease without esophagitis] Onset: 8 Chronic Esophageal disorders (1 source) Fungal esophagitis; Translations: [Fungal esophagitis] 12-06-2022 Episodic Essential hypertension (20 sources) Essential hypertension; Translations: [Essential (primary) hypertension] Onset: 5 Chronic Gastritis and duodenitis (1 source) Gastroduodenitis; Translations: [Gastroduodenitis, unspecified, without bleeding] 01-10-2023 Episodic Heart valve disorders (1 source) Heart murmur; Translations: [Cardiac murmur, unspecified] Episodic Hyperplasia of prostate (20 sources) Benign prostatic hyperplasia; Translations: [Benign prostatic hyperplasia without lower urinary tract symptoms] Onset: 6 11-05-2015 Chronic Immunizations and screening for infectious disease (3 sources) Vaccination needed; Translations: [Encounter for immunization] Onset: 5 Episodic Malaise and fatigue (1 source) Weakness; Translations: [Weakness] Onset: 3 Episodic Occlusion or stenosis of precerebral arteries (20 sources) Left carotid artery stenosis; Translations: [Occlusion and stenosis of left carotid artery] Onset: 3 06-03-2022 Chronic Open wounds of extremities (1 source) Open wound of toe; Translations: [Unspecified open wound of unspecified toe(s) without damage to nail, initial encounter] Onset: 4 Episodic Other acquired deformities (20 sources) Scoliosis deformity of spine; Translations: [Scoliosis, unspecified] Onset: 0 Chronic Other aftercare (1 source) Wound finding; Translations: [Encounter for other specified aftercare] 03-02-2024 Episodic Other connective tissue disease (2 sources) Pain of left heel; Translations: [Pain in left foot] Episodic Other ear and sense organ disorders (20 sources) Decreased hearing ; Translations: [Unspecified hearing loss, unspecified ear] Onset: 9 03-05-2019 Chronic Other ear and sense organ disorders (2 sources) Sensorineural hearing loss, bilateral; Translations: [Sensorineural hearing loss, bilateral] Chronic Other gastrointestinal disorders (2 sources) Dysphagia; Translations: [Dysphagia, unspecified] 12-06-2022 Episodic Other nervous system disorders (1 source) Unsteady when standing; Translations: [Unsteadiness on feet] Episodic Other nervous system disorders (5 sources) Impairment of balance; Translations: [Other abnormalities of gait and mobility] Episodic Other nervous system disorders (1 source) Other abnormalities of gait and mobility; Translations: [Imbalance] Onset: 3 Episodic Other non-traumatic joint disorders (1 source) Effusion of right knee joint; Translations: [Effusion, right knee] 10-08-2023 Episodic Other non-traumatic joint disorders (1 source) Bilateral wrist pain; Translations: [Pain in right wrist] 08-27-2020 Episodic Other screening for suspected conditions (not mental disorders or infectious disease) (20 sources) Patient encounter status; Translations: [Encounter for screening for malignant neoplasm of prostate] Onset: 6 07-06-2015 Episodic Other skin disorders (1 source) Excessive sweating; Translations: [Generalized hyperhidrosis] Episodic Other skin disorders (1 source) Eruption; Translations: [Rash and other nonspecific skin eruption] 12-05-2023 Episodic Other skin disorders (3 sources) [place] - lesion ; Translations: [Corns and callosities] Onset: 5 02-07-2024 Episodic Other skin disorders (1 source) Corns and callosities; Translations: [[place]] Onset: 5 Episodic Other upper respiratory infections (3 sources) Acute pharyngitis; Translations: [Acute pharyngitis, unspecified] 05-09-2018 Episodic Residual codes; unclassified (2 sources) History of hernia repair; Translations: [Other specified postprocedural states] 08-18-2023 Episodic Screening and history of mental health and substance abuse codes (1 source) Encounter for screening for depression; Translations: [Screening for depression] Onset: 5 Episodic Syncope (5 sources) Near syncope; Translations: [Syncope and collapse] Onset: 3 05-06-2022 Episodic Unclassified (1 source) Physical Therapy Onset: 3 Past or Other Problems Problem Classification Problem Date Documented Da te Episodic/Chronic Abdominal hernia (20 sources) Hiatal hernia; Translations: [Diaphragmatic hernia without obstruction or gangrene] Onset: 05-25-2023 01-10-2023 Episodic Anal and rectal conditions (20 sources) Anal fissure; Translations: [Anal fissure, unspecified] Onset: 05-27-2009 05-17-2014 Episodic Conditions associated with dizziness or vertigo (20 sources) Lightheadedness; Translations: [Dizziness and giddiness] Onset: 06-28-2022 Episodic Diabetes mellitus without complication (20 sources) Hyperglycemia; Translations: [Impaired fasting glucose] Onset: 01-26-2010 Episodic Gastrointestinal hemorrhage (20 sources) Blood-tinged feces; Translations: [Melena] Onset: 05-27-2009 Resolved: 08-03-2010 Episodic Genitourinary symptoms and ill-defined conditions (20 sources) Microscopic hematuria; Translations: [Other microscopic hematuria] Onset: 01-17-2018 Episodic Hemorrhoids (20 sources) External hemorrhoids; Translations: [Residual hemorrhoidal skin tags] Onset: 11-15-2017 11-15-2017 Episodic Neoplasms of unspecified nature or uncertain behavior (20 sources) Neoplasm of uncertain behavior of skin; Translations: [Neoplasm of uncertain behavior of skin] Onset: 02-12-2006 Resolved: 07-28-2009 07-28-2009 Episodic Nonspecific chest pain (20 sources) Atypical chest pain; Translations: [Other chest pain] Onset: 06-19-2007 Resolved: 03-12-2008 Episodic Other male genital disorders (20 sources) Disorder of prostate; Translations: [Disorder of prostate, unspecified] Onset: 07-06-2015 05-25-2023 Episodic Other non-traumatic joint disorders (20 sources) Chronic pain of right upper limb; Translations: [Pain in right shoulder] Onset: 09-07-2018 02-08-2019 Episodic Residual codes; unclassified (20 sources) Active living will ; Translations: [Other specified health status] Onset: 02-16-2022 Episodic Spondylosis; intervertebral disc disorders; other back problems (20 sources) Backache; Translations: [Dorsalgia, unspecified] Onset: 10-06-2009 05-17-2014 Episodic Sprains and strains (20 sources) Traumatic rupture of rotator cuff; Translations: [Strain of muscle(s) and tendon(s) of the rotator cuff of right shoulder, initial encounter] Onset: 11-06-2018 02-08-2019 Episodic Viral infection (20 sources) Verruca vulgaris; Translations: [Viral wart, unspecified] Onset: 09-02-2009 Resolved: 08-03-2010 11-09-2022 Episodic Results Test Name Value Interpretation Reference Range Facility [facility] 09-03-2024 CNOV Office Visit (FAMPWS ) CARSON MCCLURE ([id number]) 1955 M Date Time Provider Department 09/03/24 7:00 AM [facility] [place] [facility] During your visit today, we recorded the following information about you: Pulse Respiration Blood pressure Weight 82/minute 16/minute 128/70 75.8 kg Height 1.715 m Tr Montana MD 09/03/2024 8:32 AM Signed Carson Ruiz Kami is a 68 year old male here for a Medicare wellness visit. Medicare Health Risk Assessment General Health Good Exercise: Minutes/Day 30 min Exercise: Days/Week 4 days Alcohol: Daily Use Never Alcohol: Drinks/Day Patient does not drink Alcohol: 6 or more drinks Never Feel off balance Yes Concerns: Teeth/Dentures No Concerns: Sexual function Yes Troubled by feelings Anxious; Stressed Frequency: Eating healthy diet Nearly every day ADLs requiring help None of the above Safety precautions in home/vehicle No Smoke, vape, chews tobacco No Difficulty hearing Yes, I wear a hearing aid Difficulty seeing No Current Providers Specialists: I have reviewed specialist-related care of the patient in the medical record. Current care team: Patient Care Team: Tr [place] MD as PCP - General (Family Medicine) Hailey Miller APRN.TIER AND DETONATOR as Rn Case Manager Hospice (Family Medicine) Marsha Butts PA-C as Rn Case Manager Hospice (Family Medicine) Optho Medical/Family history review Reviewed and updated problem list, medical/surgical/family/soci al history, medications, and allergies. Opioid use review Opioid Medications (last 90 days) No data to display Anxiety/Depression screening PHQ-2 Score: 0 (Lower risk for depression) DENNIS-7 Score: 1 (Minimal Anxiety) Recommendation: no further intervention at this time Cognitive screening Cognitive screening reviewed and No further action needed (score 3-5). Functional Observation Was the patient's Timed Up AND Go test unsteady or >= 12 seconds? No Advance Care Planning Surrogate decision maker and/or advance care plan documented Measurements BP 128/70 Pulse 82 Resp 16 Ht 171.5 cm (5' 7.5) Wt 75.8 kg (167 lb) SpO2 96% BMI 25.77 kg/m? Vision Screening: Follows with optometry/ophthalmology Assessment/Plan Medicare annual wellness visit, subsequent (Z00.00) - Counseled on healthy diet and regular exercise - Fall avoidance information provided - Personalized prevention plan provided See Below Chief Complaint Patient presents with: Medicare Wellness Exam HPI Carson Mcclure is a 68 year old male who presents here today for Chronic Medical Conditions. and Medicare Annual Visit. Patient presents for routine follow up. PMH HLP, HTN, SVT, elevated glucose, GERD, hemorrhoids, BPH, and anxiety. Patient has been doing well. No new issues or concerns. Past medical history, appointments, medications, allergies reviewed. Previous Medical History PAST MEDICAL HISTORY Diagnosis Date Advance directive discussed with patient 02/16/2022 Discussed: 01/2022 Anal fissure 05/27/2009 Anxiety 11/06/2018 Backache, unspecified 10/06/2009 Benign non-nodular prostatic hyperplasia without lower urinary tract symptoms 11/05/2015 Childhood asthma without complication 11/06/2018 Chronic right shoulder pain 09/07/2018 Closed fracture of left distal radius 02/05/2013 Decreased hearing 03/05/2019 Elevated fasting glucose 01/26/2010 Elevated hemoglobin A1c 01/26/2010 Encounter for Medicare annual wellness exam 07/28/2009 Last done: 02/16/2022 Essential hypertension 05/17/2014 External hemorrhoids 11/15/2017 GERD without esophagitis 06/13/[address] 02/16/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 20-40% on L. 0-19% on R SVT (supraventricular tachycardia) (HCC) 03/31/2016 Traumatic complete tear of right rotator cuff 11/06/2018 S/p 10/[address] Wharton [facility] adult exam 07/28/2009 Last done: Previous Surgical History PAST SURGICAL HISTORY Procedure Laterality Date COLONOSCOPY 12/17/2015 repeat due 2025 COLONOSCOPY FLX DX W/COLLJ SPEC WHEN PFRMD 11/03/2007 Colonoscopy recheck 10 yrs COLONOSCOPY FLX DX W/COLLJ SPEC WHEN PFRMD 10/28/2020 EGD 11/30/2022 repeat 3-4 years ESOPHAGOGASTRODUODENOSCOPY TRANSORAL DIAGNOSTIC 05/20/2016 EGD ESOPHAGOGASTRODUODENOSCOPY TRANSORAL DIAGNOSTIC 10/28/2020 repeat in 3-4 years FRACTURE SURGERY HERNIA REPAIR HX 1961, 1982 x 2 right/left OPEN RX DISTAL RADIUS FX, INTRA-ARTICULAR, 3+ FRAG 02/07/2013 ORIF left distal radius with locking plate ORIF CARPOMETACARPAL DISLOC,COMPLX/JOSE REPAIR INGUINAL HERNIA Right 08/04/2023 and repair of recurrent left inguinal hernia- Dr. Marion REPAIR ROTATOR CUFF,ACUTE Right 10/2018 TONSILLECTOMY PRIMARY/SECONDARY Tonsillectomy Family History FAMILY HISTOR (more content not included)... Normal [facility] CNPNon 05-03-2024 [facility] CARSON MCCLURE ([id number]) 1955 M Date Time Provider Department 05/03/24 TR [place] During your visit today, we recorded the following information about you: Tr [place] MD 05/03/2024 8:45 PM Signed Let patient know US of neck arteries shows no increase in narrowwing. Will repeat in 3 years. Ana Boone RN 05/04/2024 11:31 AM Signed Called and left a voicemail for the Patient to call back and ask for a nurse to receive the providers message. ALFREDITO Wilson Stephanie, RN 05/04/2024 12:10 PM Signed Patient notified of results and provider's instructions. Patient verbalizes understanding. Idalia Mora RN Allergies As of Date: 05/03/2024 (No Known Allergies) Date Reviewed: 04/05/2024 Reviewed by: Rocio Belle MA - Fully Assessed Reason for Visit: Results [95] Primary Visit Diagnosis:Stenosis of left carotid artery [I65.22] Prescriptions as of 05/04/2024 - lisinopril (ZESTRIL) 5 mg tablet Take 1 tablet by mouth once daily. - omeprazole (PRILOSEC) 40 mg capsule Take 1 capsule by mouth once daily. - polyethylene glycol 3350 17 gram/dose powder Take 17 g by mouth once daily. Dissolve dose in 4 - 8 ounces of liquid and take as directed. - GLUC/CHND/OM3/DHA/EPA/FISH/S TR (GLUCOSAMINE CHONDROITIN PLUS ORAL) Take by mouth. - calcium carbonate 600 mg-cholecalciferol 200 units 600 mg-5 mcg (200 unit) tab Take 1 tablet by mouth once daily. Meds Comments as of 10/12/2022: October 12, 2022: Patient reports no changes to medications in the last 30 days. Elisabeth Siddiqi, ALFREDITO Problem List As Of Date 05/03/2024 Noted Resolved Neoplasm of Uncertain Behavior of Skin [D48.5] 02/12/2006 07/28/2009 CHEST PAIN NOS [R07.9] 06/19/2007 03/12/2008 Anal fissure [K60.2] 05/27/2009 Rectal bleeding [K62.5] 05/27/2009 08/03/2010 Encounter for Medicare annual wellness exam [Z0*07/28/2009 Class: Chronic Scoliosis [M41.9] 09/02/2009 Mixed hyperlipidemia [E78.2] 09/02/2009 Wart [B07.9] 09/02/2009 08/03/2010 Backache, unspecified [M54.9] 10/06/2009 Elevated hemoglobin A1c [R73.09] 01/26/2010 Essential hypertension [I10] 05/17/2014 Prostate disorder [N42.9] 07/06/2015 Benign non-nodular prostatic hyperplasia withou*11/05/2015 Colon cancer screening [Z12.11] 11/05/2015 SVT (supraventricular tachycardia) (HCC) [I47.1*03/31/2016 GERD without esophagitis [K21.9] 06/13/2017 External hemorrhoids [K64.4] 11/15/2017 Chronic right shoulder pain [M25.511, G89.29] 09/07/2018 Childhood asthma without complication [J45.909] 11/06/2018 Anxiety [F41.9] 11/06/2018 Traumatic complete tear of right rotator cuff [*11/06/2018 Decreased hearing [H91.90] 03/05/[address] [Z78.9] 02/16/2022 Advance directive discussed with patient [Z71.8*02/16/2022 Stenosis of left carotid artery [I65.22] 06/03/2022 Medication management [Z79.899] 05/25/2023 Encounter Status:Closed by RAYNE YANG on 05/04/24 Normal [facility] US CAROTID ARTERIES JINA VAS LABon 05-03-2024 US CAROTID ARTERIES JINA VAS LAB Non-Invasive Vascular Laboratory [facility] Carotid Duplex Bilateral/Complete Date of service/time: 05/03/2024 8:04:46 AM Name: MR. CARSON MCCLURE Date of : 1955 Age: 68 years Gender: M Clinical Indication Follow-up study on a patient with known carotid disease and dizziness. TECHNIQUE -------- A carotid duplex ultrasound examination was performed, including grayscale imaging and color Doppler and spectral Doppler examination of the below mentioned arteries. FINDINGS -------- RIGHT SIDE Common carotid artery: Origin: PSV: 68 cm/s. EDV: 12 cm/s. Proximal: PSV: 103 cm/s. EDV: 21 cm/s. Mid: PSV: 100 cm/s. EDV: 25 cm/s. Distal: PSV: 78 cm/s. EDV: 17 cm/s. Mild heterogeneous plaque at distal. Internal carotid artery: Origin: PSV: 95 cm/s. EDV: 22 cm/s. Proximal: PSV: 60 cm/s. EDV: 16 cm/s. Mid: PSV: 40 cm/s. EDV: 14 cm/s. Distal: PSV: 52 cm/s. EDV: 21 cm/s. Mild homogeneous plaque at origin. ICA/CCA Ratio: 1.2 External carotid artery: Origin: PSV: 71 cm/s. EDV: 16 cm/s. Subclavian artery: Origin: PSV: 142 cm/s. EDV: 20 cm/s. plaque at origin. Innominate artery: PSV: 91 cm/s. EDV: 14 cm/s. Vertebral artery: PSV: 40 cm/s. EDV: 17 cm/s. LEFT SIDE Common carotid artery: Proximal: PSV: 104 cm/s. EDV: 24 cm/s. Mid: PSV: 105 cm/s. EDV: 30 cm/s. Distal: PSV: 71 cm/s. EDV: 26 cm/s. Mild homogeneous plaque from mid to distal. Internal carotid artery: Origin: PSV: 109 cm/s. EDV: 48 cm/s. Proximal: PSV: 63 cm/s. EDV: 25 cm/s. Mid: PSV: 39 cm/s. EDV: 16 cm/s. Distal: PSV: 75 cm/s. EDV: 31 cm/s. Moderate heterogeneous plaque at origin. ICA/CCA Ratio: 1.5 External carotid artery: Origin: PSV: 93 cm/s. EDV: 22 cm/s. Subclavian artery: Proximal: PSV: 87 cm/s. EDV: 0 cm/s. Vertebral artery: PSV: 28 cm/s. EDV: 11 cm/s. IMPRESSION Please note: the new carotid interpretation criteria are used as recommended by [facility]. When compared with the prior study, of 06/02/2022 no significant change is noted on the right side and no significant change is noted on the left side. RIGHT SIDE Common carotid artery: Plaque visualized without evidence of hemodynamically significant stenosis. Internal carotid artery: <50% stenosis consistent with mild carotid artery disease. Vertebral artery: Patent and antegrade flow noted. Subclavian artery: Plaque visualized without evidence of hemodynamically significant stenosis. LEFT SIDE Common carotid artery: Plaque visualized without evidence of hemodynamically significant stenosis. Internal carotid artery: <50% stenosis consistent with mild carotid artery disease. Vertebral artery: Patent and antegrade flow noted. Technologist: Emily Miles [facility] Ordering physician: TR [place] Interpreting physician: CHRISTY Gr DO Final CC [facility] Image : [id number] [email or web address] See Link below for Image Normal [facility] CNOVon 04-05-2024 CNOV Office Visit (FAMPWS ) CARSON MCCLURE ([id number]) 1955 M Date Time Provider Department 04/05/24 4:40 PM TR [place] During your visit today, we recorded the following information about you: Blood pressure Weight Height 118/73 74.4 kg 1.715 m Tr [place] MD 04/05/2024 8:40 PM Signed Chief Complaint No chief complaint on file. HPI Carson Mcclure is a 68 year old male who presents here today for increased vertigo Patient presents for routine follow up. PMH HLP, HTN, SVT, elevated glucose, GERD, hemorrhoids, BPH, and anxiety. Patient has had vertigo in the past and had therapy to treat it. Yesterday was the worse it has been in some time. Noting it with getting up out of bed. May of been a mild spin and if he closed his eyes he felt like he was walking funny. With his eyes open he ws not running into [place]. No facial weakness, numbness, difficulty talking or swallowing. No numbness or weakness in his arms or legs. No syncope, chest pain, papillations or shortness of breath. Today feels ok. In the last few days denied any URI symptoms. Over [place] had a URI which has resolved. Past medical history, appointments, medications, allergies reviewed. Previous Medical History PAST MEDICAL HISTORY Diagnosis Date Advance directive discussed with patient 02/16/2022 Discussed: 01/2022 Anal fissure 05/27/2009 Anxiety 11/06/2018 Backache, unspecified 10/06/2009 Benign non-nodular prostatic hyperplasia without lower urinary tract symptoms 11/05/2015 Childhood asthma without complication 11/06/2018 Chronic right shoulder pain 09/07/2018 Closed fracture of left distal radius 02/05/2013 Decreased hearing 03/05/2019 Elevated fasting glucose 01/26/2010 Elevated hemoglobin A1c 01/26/2010 Encounter for Medicare annual wellness exam 07/28/2009 Last done: 02/16/2022 Essential hypertension 05/17/2014 External hemorrhoids 11/15/2017 GERD without esophagitis 06/13/[address] 02/16/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 20-40% on L. 0-19% on R SVT (supraventricular tachycardia) (HCC) 03/31/2016 Traumatic complete tear of right rotator cuff 11/06/2018 S/p 10/[address] Wharton [facility] adult exam 07/28/2009 Last done: Previous Surgical History PAST SURGICAL HISTORY Procedure Laterality Date COLONOSCOPY 12/17/2015 repeat due 2025 COLONOSCOPY FLX DX W/COLLJ SPEC WHEN PFRMD 11/03/2007 Colonoscopy recheck 10 yrs COLONOSCOPY FLX DX W/COLLJ SPEC WHEN PFRMD 10/28/2020 EGD 11/30/2022 repeat 3-4 years ESOPHAGOGASTRODUODENOSCOPY TRANSORAL DIAGNOSTIC 05/20/2016 EGD ESOPHAGOGASTRODUODENOSCOPY TRANSORAL DIAGNOSTIC 10/28/2020 repeat in 3-4 years FRACTURE SURGERY HERNIA REPAIR HX 196, 1982 x 2 right/left OPEN RX DISTAL RADIUS FX, INTRA-ARTICULAR, 3+ FRAG 02/07/2013 ORIF left distal radius with locking plate ORIF CARPOMETACARPAL DISLOC,COMPLX/JOSE REPAIR INGUINAL HERNIA Right 08/04/2023 and repair of recurrent left inguinal hernia- Dr. Marion REPAIR ROTATOR CUFF,ACUTE Right 10/2018 TONSILLECTOMY PRIMARY/SECONDARY Tonsillectomy Family History FAMILY HISTORY Problem Relation Age of Onset Alzheimer's Disease Mother Heart Mother pacemaker other (scoliosis) Mother s/p spinal fusion Diabetes Father later in life Hypertension Father and CHF Psychiatry Sister bipolar Alzheimer's Disease Sister Dx in 50's other (scoliosis) Son s/p spinal fusion Heart Maternal Grandfather [place] Anesthesia Problems No Family History Patient Allergies ALLERGIES No Known Allergies Current Medications Current Outpatient Medications on File Prior to Visit Medication Sig lisinopril (ZESTRIL) 5 mg tablet Take 1 tablet by mouth once daily. omeprazole (PRILOSEC) 40 mg capsule Take 1 capsule by mouth once daily. polyethylene glycol 3350 17 gram/dose powder Take 17 g by mouth once daily. Dissolve dose in 4 - 8 ounces of liquid and take as directed. GLUC/CHND/OM3/DHA/EPA/FISH/S TR (GLUCOSAMINE CHONDROITIN PLUS ORAL) Take by mouth. calcium carbonate 600 mg-cholecalciferol 200 units 600 mg-5 mcg (200 unit) tab Take 1 tablet by mouth once daily. No current facility-administered medications on file prior to visit. Social History Social History Tobacco Use Smoking status: Never Smokeless tobacco: Never Vaping Use Vaping status: Never Used Substance Use Topics Alcohol use: No Drug use: No Review of Symptoms REVIEW OF SYSTEMS See HPI EXAM: BP 118/73 Ht 171.5 cm (5' 7.5) Wt 74.4 kg (164 lb) BMI 25.31 kg/m? General Appearance: Well appearing, alert, in no acute distress, well-hydrated, well nourished.. Eyes: Anicteric sclera. Pupils are equally round and reactive to light. Extraocular moveme (more content not included)... Normal [facility] HbA1c (Bld)on 04-04-2024 Average glucose Estimated from glycated hemoglobin (Bld) [Mass/Vol] 126 mg/dL Normal [facility] Comment on above: Order Comment: Alexandra hurtado Type: BLOOD SPECIMENOrdering Facility: [facility] Address: [address] [place] [address] Result Comment: eAG: (Estimated average glucose) is a calculated value from HgbA1c and is manufacturers service representative of the average blood glucose level in the last 2-3 month period. Performed By: #### 5 5454-3 ####[facility] [id number] [place] [address] [place] HbA1c (Bld) [Mass fraction] 6.0 % High 4.3-5.6 [facility] Comment on above: Order Comment: Alexandra hurtado Type: BLOOD SPECIMENOrdering Facility: [facility] Address: [address] [place] [address] Result Comment: Amer ican Diabetes Association guidelines indicate that patients with HgbA1c in the range 5.7-6.4% are at increased risk for development of diabetes, and intervention by lifestyle modification may be beneficial. HgbA1c greater or equal to 6.5% is considered diagnostic of diabetes. Performed By: #### 5 5454-3 ####[facility] [id number] [place] [address] [place] LIPID PANEL, NONFASTINGon Cholesterol [Mass/Vol] 195 mg/dL Normal <200 [facility] Comment on above: Order Comment: Alexandra hurtado Type: BLOOD SPECIMENOrdering Facility: [facility] Address: [address] [place] [address] Result Comment: <200 mg/dL, Desirable 200-239 mg/dL, Borderline high >239 mg/dL, High Performed By: #### L IPNF ####[facility] [id number] [place] [address] [place] HDL CHOLESTEROL, NF 52 mg/dL Normal >39 [facility] Comment on above: Order Comment: Alexandra genesis Type: BLOOD SPECIMENOrdering Facility: [facility] Address: [address] [place] [address] Result Comment: 40-5 9 mg/dL, Acceptable >59 mg/dL, High: Negative risk factor for coronary heart disease <40 mg/dL, Low: Positive risk factor for coronary heart disease Performed By: #### L IPNF ####[facility] [id number] [address] [place] LDL CHOLESTEROL, NF 134 mg/dL High <100 [facility] Comment on above: Order Comment: Alexandra [facility] Type: BLOOD SPECIMENOrdering Facility: [facility] Address: [address] [place] [address] Result Comment: <100 mg/dL, Optimal 100-129 mg/dL, Near optimal/above optimal 130-159 mg/dL, Borderline high 160-189 mg/dL, High >189 mg/dL, Very high Secondary prevention optimal LDL Cholesterol levels are recommended to be < 70 mg/dL Performed By: #### L IPNF ####[facility] [id number] [address] [place] LDL/HDL RATIO, NF 2.58 mg/dL High <2.54 [facility] Comment on above: Order Comment: Aelxandra [facility] Type: BLOOD SPECIMENOrdering Facility: [facility] Address: [address] [place] [address] Result Comment: Jose briseno: 1. National Cholesterol Education Program ATP III Guideline At-A-Glance Quick Desk Reference: National Heart, Lung, and Blood [place]. National Institutes of Health. 2001: NIH Publication No. 01-3305. 2. An International Atherosclerosis Society position paper: global recommendations for the management of dyslipidemia: executive summary, Atherosclerosis. 2014: 232(2):410-413. Performed By: #### L IPNF ####[facility] [id number] [place] [address] [place] NON HDL CHOL, NF 143 mg/dL High <130 [facility] Comment on above: Order Comment: Speci men Type: BLOOD SPECIMENOrdering Facility: [facility] Address: [address] [place] [address] Result Comment: <130 mg/dL, Optimal 130-159 mg/dL, Near optimal/above optimal 160-189 mg/dL, Borderline high 190-219 mg/dL, High >219 mg/dL, Very high Secondary prevention optimal non HDL Cholesterol levels are recommended to be <100 mg/dL Performed By: #### L IPNF ####[facility] [id number] [place] [address] [place] T CHOL/HDL RATIO NF 3.75 mg/dL Normal <5.10 [facility] Comment on above: Order Comment: Speci men Type: BLOOD SPECIMENOrdering Facility: [facility] Address: [address] [place] [address] Performed By: #### L IPNF ####[facility] [id number] [place] [address] [place] TRIGLYCERIDES, NF 44 mg/dL Normal <150 [facility] Comment on above: Order Comment: Speci men Type: BLOOD SPECIMENOrdering Facility: [facility] Address: [address] [place] [address] Result Comment: <150 mg/dL, Normal 150-199 mg/dL, Borderline high 200-499 mg/dL, High >499 mg/dL, Very high Performed By: #### L IPNF ####[facility] [id number] [place] [address] [place] VLDL CHOLESTEROL, NF 9 mg/dL Normal <30 [facility] Comment on above: Order Comment: Speci men Type: BLOOD SPECIMENOrdering Facility: [facility] Address: [address] [place], [place] [id number] Performed By: #### L IP ####[facility] LABMARC[facility] [id number] [place]A [place]ADEZ [id number] [id number] [place] CNOVon 03-02-2024 CNOV Office Visit (UCWSTR ) CARSON MCCLURE ([id number]) 1955 M Date Time Provider Department 03/02/24 6:30 PM ELISA COOLEY WSTR During your visit today, we recorded the following information about you: Temperature Pulse Respiration Blood pressure 98 degrees 65/minute 18/minute 128/79 Weight 73.5 kg Elisa Cooley PA-C 03/02/2024 6:46 PM Signed This note was created using [employer] The[employer]. Subjective Carson Mcclure is a 68 year old male. HPI Patient presents with a chief complaint of a wound check. His right fourth finger had a open paper cut from a day or 2 ago. Today he was picking up a rat trap with that hand that was bloody. He is unsure if he had touched the rat with that finger but was concerned that he had an open wound and was handling the trap. His last tetanus was in 2022. No fever or chills. He did wash it out. Review of Systems Skin: Cut to right ring finger All other systems reviewed and are negative. PAST MEDICAL HISTORY Diagnosis Date Advance directive discussed with patient 02/16/2022 Discussed: 01/2022 Anal fissure 05/27/2009 Anxiety 11/06/2018 Backache, unspecified 10/06/2009 Benign non-nodular prostatic hyperplasia without lower urinary tract symptoms 11/05/2015 Childhood asthma without complication 11/06/2018 Chronic right shoulder pain 09/07/2018 Closed fracture of left distal radius 02/05/2013 Decreased hearing 03/05/2019 Elevated fasting glucose 01/26/2010 Elevated hemoglobin A1c 01/26/2010 Encounter for Medicare annual wellness exam 07/28/2009 Last done: 02/16/2022 Essential hypertension 05/17/2014 External hemorrhoids 11/15/2017 GERD without esophagitis 06/13/[address] 02/16/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 20-40% on L. 0-19% on R SVT (supraventricular tachycardia) (HCC) 03/31/2016 Traumatic complete tear of right rotator cuff 11/06/2018 S/p 10/[address] Wharton [facility] adult exam 07/28/2009 Last done: Current Outpatient Medications Medication Sig Dispense Refill lisinopril (ZESTRIL) 5 mg tablet Take 1 tablet by mouth once daily. 90 tablet 1 omeprazole (PRILOSEC) 40 mg capsule Take 1 capsule by mouth once daily. 30 capsule 5 polyethylene glycol 3350 17 gram/dose powder Take 17 g by mouth once daily. Dissolve dose in 4 - 8 ounces of liquid and take as directed. GLUC/CHND/OM3/DHA/EPA/FISH/S TR (GLUCOSAMINE CHONDROITIN PLUS ORAL) Take by mouth. calcium carbonate 600 mg-cholecalciferol 200 units 600 mg-5 mcg (200 unit) tab Take 1 tablet by mouth once daily. amoxicillin-clavulanate potassium (AUGMENTIN) 875-125 mg per tablet Take 1 tablet by mouth two times a day for 3 days. 6 tablet 0 No current facility-administered medications for this visit. PAST SURGICAL HISTORY Procedure Laterality Date COLONOSCOPY 12/17/2015 repeat due 2025 COLONOSCOPY FLX DX W/COLLJ SPEC WHEN PFRMD 11/03/2007 Colonoscopy recheck 10 yrs COLONOSCOPY FLX DX W/COLLJ SPEC WHEN PFRMD 10/28/2020 EGD 11/30/2022 repeat 3-4 years ESOPHAGOGASTRODUODENOSCOPY TRANSORAL DIAGNOSTIC 05/20/2016 EGD ESOPHAGOGASTRODUODENOSCOPY TRANSORAL DIAGNOSTIC 10/28/2020 repeat in 3-4 years FRACTURE SURGERY HERNIA REPAIR HX 1961, 1982 x 2 right/left OPEN RX DISTAL RADIUS FX, INTRA-ARTICULAR, 3+ FRAG 02/07/2013 ORIF left distal radius with locking plate ORIF CARPOMETACARPAL DISLOC,COMPLX/JOSE REPAIR INGUINAL HERNIA Right 08/04/2023 and repair of recurrent left inguinal hernia- Dr. Marion REPAIR ROTATOR CUFF,ACUTE Right 10/2018 TONSILLECTOMY PRIMARY/SECONDARY Tonsillectomy FAMILY HISTORY Problem Relation Age of Onset Alzheimer's Disease Mother Heart Mother pacemaker other (scoliosis) Mother s/p spinal fusion Diabetes Father later in life Hypertension Father and CHF Psychiatry Sister bipolar Alzheimer's Disease Sister Dx in 50's other (scoliosis) Son s/p spinal fusion Heart Maternal Grandfather [place] Anesthesia Problems No Family History Social History Tobacco Use Smoking status: Never Smokeless tobacco: Never Vaping Use Vaping status: Never Used Substance Use Topics Alcohol use: No Drug use: No Objective BP 128/79 Pulse 65 Temp 36.7 ?C (98 ?F) Resp 18 Wt 73.5 kg (162 lb 0.6 oz) SpO2 98% BMI 25.00 kg/m? Physical Exam Vitals reviewed. Constitutional: Appearance: Normal appearance. HENT: Head: Normocephalic and atraumatic. Musculoskeletal: Hands: Comments: Patient has a 1 cm laceration to the distal tip of the right ring finger. Subacute. No active bleeding. Wound is clean and dry. No signs of infection. Skin: General: Skin is warm and dry. Neurological: Mental Status: He is alert. Assessment and Plan ASSESSMENT/PLAN: 1. Visit for wound check - (more content not included)... [facility] CAR[facility]CCLURE ([id number]) 1955 M Date Time Provider Department 03/02/24 [facility] [place] [facility] During your visit today, we recorded the following information about you: Ana Boone RN 03/02/2024 9:28 AM Signed Pt called in and reports he has a rat problem at his house. He states he has a paper cut on the hand he has been using to dispose of the rats and picking up the traps with the blood on them with. He states the cut is open. Pt denies redness, warmth, red streak, fever, or oozing. Pt wanted to know if he would need to get on an antibiotic. Pts last TDAP was 11/15/17. Please call and advise. Tr [place] MD 03/02/2024 11:31 AM Signed Advise patient we would need to see the area to determine if an antibiotic is need. However based on the description provided I would say most likely not. Ana Boone RN 03/02/2024 11:55 AM Signed Pt called and is notified of providers message and instructions. Pt voices understanding. He states he wouldn't be able to get here until 4 pm. He states he may go to , even though he doesn't think the area touched anything. Ana Boone RN Allergies As of Date: 03/02/2024 (No Known Allergies) Date Reviewed: 02/07/2024 Reviewed by: Tr [place] MD - Fully Assessed Reason for Visit: Patient Update [1234] Patient Question [6777] Prescriptions as of 03/02/2024 - lisinopril (ZESTRIL) 5 mg tablet Take 1 tablet by mouth once daily. - omeprazole (PRILOSEC) 40 mg capsule Take 1 capsule by mouth once daily. - polyethylene glycol 3350 17 gram/dose powder Take 17 g by mouth once daily. Dissolve dose in 4 - 8 ounces of liquid and take as directed. - GLUC/CHND/OM3/DHA/EPA/FISH/S TR (GLUCOSAMINE CHONDROITIN PLUS ORAL) Take by mouth. - calcium carbonate 600 mg-cholecalciferol 200 units 600 mg-5 mcg (200 unit) tab Take 1 tablet by mouth once daily. Meds Comments as of 10/12/2022: October 12, 2022: Patient reports no changes to medications in the last 30 days. Elisabeth Siddiqi RN Problem List As Of Date 03/02/2024 Noted Resolved Neoplasm of Uncertain Behavior of Skin [D48.5] 02/12/2006 07/28/2009 CHEST PAIN NOS [R07.9] 06/19/2007 03/12/2008 Anal fissure [K60.2] 05/27/2009 Rectal bleeding [K62.5] 05/27/2009 08/03/2010 Encounter for Medicare annual wellness exam [Z0*07/28/2009 Class: Chronic Scoliosis [M41.9] 09/02/2009 Mixed hyperlipidemia [E78.2] 09/02/2009 Wart [B07.9] 09/02/2009 08/03/2010 Backache, unspecified [M54.9] 10/06/2009 Elevated hemoglobin A1c [R73.09] 01/26/2010 Essential hypertension [I10] 05/17/2014 Prostate disorder [N42.9] 07/06/2015 Benign non-nodular prostatic hyperplasia withou*11/05/2015 Colon cancer screening [Z12.11] 11/05/2015 SVT (supraventricular tachycardia) (HCC) [I47.1*03/31/2016 GERD without esophagitis [K21.9] 06/13/2017 External hemorrhoids [K64.4] 11/15/2017 Chronic right shoulder pain [M25.511, G89.29] 09/07/2018 Childhood asthma without complication [J45.909] 11/06/2018 Anxiety [F41.9] 11/06/2018 Traumatic complete tear of right rotator cuff [*11/06/2018 Decreased hearing [H91.90] 03/05/[address] [Z78.9] 02/16/2022 Advance directive discussed with patient [Z71.8*02/16/2022 Stenosis of left carotid artery [I65.22] 06/03/2022 Medication management [Z79.899] 05/25/2023 Encounter Status:Closed by ANA BOONE on 03/02/24 [facility] Sukhwinder 02-07-2024 CNOV Office Visit (FAMPWS ) CARSON MCCLURE ([id number]) 1955 M Date Time Provider Department 02/07/24 8:00 AM TR [place] During your visit today, we recorded the following information about you: Pulse Respiration Blood pressure Weight 74/minute 16/minute 118/76 73.5 kg Tr [place] MD 02/07/2024 6:22 PM Signed Chief Complaint Patient presents with: F/U 6 months HPI Carson Mcclure is a 68 year old male who presents here today for 6 month follow up . Patient presents for routine follow up. PMH HLP, HTN, SVT, elevated glucose, GERD, hemorrhoids, BPH, and anxiety. Since last being seen. The wart that was frozen is smaller but not resolved on the lateral left palm. Patient had bilateral hernia surgery about 6 months ago and wants to have it rechecked. Past medical history, appointments, medications, allergies reviewed. Previous Medical History PAST MEDICAL HISTORY Diagnosis Date Advance directive discussed with patient 02/16/2022 Discussed: 01/2022 Anal fissure 05/27/2009 Anxiety 11/06/2018 Backache, unspecified 10/06/2009 Benign non-nodular prostatic hyperplasia without lower urinary tract symptoms 11/05/2015 Childhood asthma without complication 11/06/2018 Chronic right shoulder pain 09/07/2018 Closed fracture of left distal radius 02/05/2013 Decreased hearing 03/05/2019 Elevated fasting glucose 01/26/2010 Elevated hemoglobin A1c 01/26/2010 Encounter for Medicare annual wellness exam 07/28/2009 Last done: 02/16/2022 Essential hypertension 05/17/2014 External hemorrhoids 11/15/2017 GERD without esophagitis 06/13/[address] 02/16/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 20-40% on L. 0-19% on R SVT (supraventricular tachycardia) (HCC) 03/31/2016 Traumatic complete tear of right rotator cuff 11/06/2018 S/p 10/[address] Wharton [facility] adult exam 07/28/2009 Last done: Previous Surgical History PAST SURGICAL HISTORY Procedure Laterality Date COLONOSCOPY 12/17/2015 repeat due 2025 COLONOSCOPY FLX DX W/COLLJ SPEC WHEN PFRMD 11/03/2007 Colonoscopy recheck 10 yrs COLONOSCOPY FLX DX W/COLLJ SPEC WHEN PFRMD 10/28/2020 EGD 11/30/2022 repeat 3-4 years ESOPHAGOGASTRODUODENOSCOPY TRANSORAL DIAGNOSTIC 05/20/2016 EGD ESOPHAGOGASTRODUODENOSCOPY TRANSORAL DIAGNOSTIC 10/28/2020 repeat in 3-4 years FRACTURE SURGERY HERNIA REPAIR HX 196, 1983 x 2 right/left OPEN RX DISTAL RADIUS FX, INTRA-ARTICULAR, 3+ FRAG 02/07/2013 ORIF left distal radius with locking plate ORIF CARPOMETACARPAL DISLOC,COMPLX/JOSE REPAIR INGUINAL HERNIA Right 08/04/2023 and repair of recurrent left inguinal hernia- Dr. Marion REPAIR ROTATOR CUFF,ACUTE Right 10/2018 TONSILLECTOMY PRIMARY/SECONDARY Tonsillectomy Family History FAMILY HISTORY Problem Relation Age of Onset Alzheimer's Disease Mother Heart Mother pacemaker other (scoliosis) Mother s/p spinal fusion Diabetes Father later in life Hypertension Father and CHF Psychiatry Sister bipolar Alzheimer's Disease Sister Dx in 50's other (scoliosis) Son s/p spinal fusion Heart Maternal Grandfather [place] Anesthesia Problems No Family History Patient Allergies ALLERGIES No Known Allergies Current Medications Current Outpatient Medications on File Prior to Visit Medication Sig omeprazole (PRILOSEC) 40 mg capsule Take 1 capsule by mouth once daily. lisinopril (ZESTRIL) 5 mg tablet Take 1 tablet by mouth once daily. polyethylene glycol 3350 17 gram/dose powder Take 17 g by mouth once daily. Dissolve dose in 4 - 8 ounces of liquid and take as directed. GLUC/CHND/OM3/DHA/EPA/FISH/S TR (GLUCOSAMINE CHONDROITIN PLUS ORAL) Take by mouth. calcium carbonate 600 mg-cholecalciferol 200 units 600 mg-5 mcg (200 unit) tab Take 1 tablet by mouth once daily. No current facility-administered medications on file prior to visit. Social History Social History Tobacco Use Smoking status: Never Smokeless tobacco: Never Vaping Use Vaping status: Never Used Substance Use Topics Alcohol use: No Drug use: No Review of Symptoms REVIEW OF SYSTEMS GENERAL: No weight loss, malaise or fevers NECK: Negative for lumps, goiter, pain and significant neck swelling RESPIRATORY: Negative for cough, hemoptysis, wheezing, COPD, dyspnea or shortness of breath CARDIOVASCULAR: Negative for chest pain, leg swelling, hypertension, CHF or palpitations GI: No nausea, vomiting, or diarrhea and No heartburn or reflux symptoms PSYCH: anxiety has been stable. ENDOCRINE: Negative for cold or heat intolerance, polyuria, polydipsia and goiter NEURO: No history of headaches, syncope, paralysis, seizures or tremors Skin: see HPI EXAM: BP 132/88 Pulse 74 Resp 16 (more content not included)... Normal [facility] CNOVon 01-20-2024 CNOV Office Visit (FAMPWS ) CARSON MCCLURE ([id number]) 1955 M Date Time Provider Department 01/20/24 8:00 AM [facility] [facility] During your visit today, we recorded the following information about you: Pulse Respiration Blood pressure Weight 72/minute 16/minute 112/74 73.5 kg Tr Montana MD 01/20/2024 9:39 AM Signed Chief Complaint Patient presents with: Wart HPI Carson Mcclure is a 68 year old male who presents here today for wart removal. Patient has a wart on the medial side of the right palm near the wrist. Has been treated twice already with cryo. Here to get retreated. Past medical history, appointments, medications, allergies reviewed. Previous Medical History PAST MEDICAL HISTORY Diagnosis Date Advance directive discussed with patient 02/16/2022 Discussed: 01/2022 Anal fissure 05/27/2009 Anxiety 11/06/2018 Backache, unspecified 10/06/2009 Benign non-nodular prostatic hyperplasia without lower urinary tract symptoms 11/05/2015 Childhood asthma without complication 11/06/2018 Chronic right shoulder pain 09/07/2018 Closed fracture of left distal radius 02/05/2013 Decreased hearing 03/05/2019 Elevated fasting glucose 01/26/2010 Elevated hemoglobin A1c 01/26/2010 Encounter for Medicare annual wellness exam 07/28/2009 Last done: 02/16/2022 Essential hypertension 05/17/2014 External hemorrhoids 11/15/2017 GERD without esophagitis 06/13/[address] 02/16/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 20-40% on L. 0-19% on R SVT (supraventricular tachycardia) (HCC) 03/31/2016 Traumatic complete tear of right rotator cuff 11/06/2018 S/p 10/[address] Wharton Well adult exam 07/28/2009 Last done: Previous Surgical History PAST SURGICAL HISTORY Procedure Laterality Date COLONOSCOPY 12/17/2015 repeat due 2025 COLONOSCOPY FLX DX W/COLLJ SPEC WHEN PFRMD 11/03/2007 Colonoscopy recheck 10 yrs COLONOSCOPY FLX DX W/COLLJ SPEC WHEN PFRMD 10/28/2020 EGD 11/30/2022 repeat 3-4 years ESOPHAGOGASTRODUODENOSCOPY TRANSORAL DIAGNOSTIC 05/20/2016 EGD ESOPHAGOGASTRODUODENOSCOPY TRANSORAL DIAGNOSTIC 10/28/2020 repeat in 3-4 years FRACTURE SURGERY HERNIA REPAIR HX 1961, 1982 x 2 right/left OPEN RX DISTAL RADIUS FX, INTRA-ARTICULAR, 3+ FRAG 02/07/2013 ORIF left distal radius with locking plate ORIF CARPOMETACARPAL DISLOC,COMPLX/JOSE REPAIR INGUINAL HERNIA Right 08/04/2023 and repair of recurrent left inguinal hernia- Dr. Marion REPAIR ROTATOR CUFF,ACUTE Right 10/2018 TONSILLECTOMY PRIMARY/SECONDARY Tonsillectomy Family History FAMILY HISTORY Problem Relation Age of Onset Alzheimer's Disease Mother Heart Mother pacemaker other (scoliosis) Mother s/p spinal fusion Diabetes Father later in life Hypertension Father and CHF Psychiatry Sister bipolar Alzheimer's Disease Sister Dx in 50's other (scoliosis) Son s/p spinal fusion Heart Maternal Grandfather [place] Anesthesia Problems No Family History Patient Allergies ALLERGIES No Known Allergies Current Medications Current Outpatient Medications on File Prior to Visit Medication Sig omeprazole (PRILOSEC) 40 mg capsule Take 1 capsule by mouth once daily. lisinopril (ZESTRIL) 5 mg tablet Take 1 tablet by mouth once daily. polyethylene glycol 3350 17 gram/dose powder Take 17 g by mouth once daily. Dissolve dose in 4 - 8 ounces of liquid and take as directed. GLUC/CHND/OM3/DHA/EPA/FISH/S TR (GLUCOSAMINE CHONDROITIN PLUS ORAL) Take by mouth. calcium carbonate 600 mg-cholecalciferol 200 units 600 mg-5 mcg (200 unit) tab Take 1 tablet by mouth once daily. No current facility-administered medications on file prior to visit. Social History Social History Tobacco Use Smoking status: Never Smokeless tobacco: Never Vaping Use Vaping status: Never Used Substance Use Topics Alcohol use: No Drug use: No Review of Symptoms REVIEW OF SYSTEMS See HPI EXAM: BP 112/74 (BP Site: Left Arm, BP Position: Sitting, BP Cuff Size: Regular Adult) Pulse 72 Resp 16 Wt 73.5 kg (162 lb) BMI 25.00 kg/m? General Appearance: Well appearing, alert, in no acute distress, well-hydrated, well nourished.. Skin: wart on the medial right palm near the wrist. . Health Maintenance List Depression Screening Never done Influenza Vaccine(1) due on 11/27/2023 Covid-19 Vaccine( season) due on 11/27/2023 BP Controlled (<130/80) due on 05/25/2024 Annual PCP Team Chronic Disease Visit due on 12/15/2024 Colorectal Cancer Screening due on 10/28/2025 Diabetes Screening due on 05/30/2026 Lipid Screening due on 05/30/2028 Prostate Cancer Screening Discussion due on 05/30/2028 DTaP,Tdap,Td Vaccine(4 - Td or Tdap) due on 01/25/2033 Casey (more content not included)... Normal [facility] CNOVon 12-16-2023 CNOV Office Visit (FAMPWS ) CARSON MCCLURE ([id number]) 1955 M Date Time Provider Department 12/16/23 4:20 PM TR [place] [facility] During your visit today, we recorded the following information about you: Pulse Respiration Blood pressure Weight 72/minute 18/minute 122/82 73 kg Tr Montana MD 12/16/2023 5:13 PM Signed Chief Complaint Patient presents with: Rash HPI Carson Mcclure is a 68 year old male who presents here today for ongoing rash. Patient was seen in on 12/05/2023 for rash and given nystatin cream. Location of rash? On bilateral butt checks Any improvement? No No itching Patient still works and does sit a lot in chair during the day. Past medical history, appointments, medications, allergies reviewed. Previous Medical History PAST MEDICAL HISTORY Diagnosis Date Advance directive discussed with patient 02/16/2022 Discussed: 01/2022 Anal fissure 05/27/2009 Anxiety 11/06/2018 Backache, unspecified 10/06/2009 Benign non-nodular prostatic hyperplasia without lower urinary tract symptoms 11/05/2015 Childhood asthma without complication 11/06/2018 Chronic right shoulder pain 09/07/2018 Closed fracture of left distal radius 02/05/2013 Decreased hearing 03/05/2019 Elevated fasting glucose 01/26/2010 Elevated hemoglobin A1c 01/26/2010 Encounter for Medicare annual wellness exam 07/28/2009 Last done: 02/16/2022 Essential hypertension 05/17/2014 External hemorrhoids 11/15/2017 GERD without esophagitis 06/13/[address] 02/16/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 20-40% on L. 0-19% on R SVT (supraventricular tachycardia) (HCC) 03/31/2016 Traumatic complete tear of right rotator cuff 11/06/2018 S/p 10/[address] Wharton Well adult exam 07/28/2009 Last done: Previous Surgical History PAST SURGICAL HISTORY Procedure Laterality Date COLONOSCOPY 12/17/2015 repeat due 2025 COLONOSCOPY FLX DX W/COLLJ SPEC WHEN PFRMD 11/03/2007 Colonoscopy recheck 10 yrs COLONOSCOPY FLX DX W/COLLJ SPEC WHEN PFRMD 10/28/2020 EGD 11/30/2022 repeat 3-4 years ESOPHAGOGASTRODUODENOSCOPY TRANSORAL DIAGNOSTIC 05/20/2016 EGD ESOPHAGOGASTRODUODENOSCOPY TRANSORAL DIAGNOSTIC 10/28/2020 repeat in 3-4 years FRACTURE SURGERY HERNIA REPAIR HX 196, 1982 x 2 right/left OPEN RX DISTAL RADIUS FX, INTRA-ARTICULAR, 3+ FRAG 02/07/2013 ORIF left distal radius with locking plate ORIF CARPOMETACARPAL DISLOC,COMPLX/JOSE REPAIR INGUINAL HERNIA Right 08/04/2023 and repair of recurrent left inguinal hernia- Dr. Marion REPAIR ROTATOR CUFF,ACUTE Right 10/2018 TONSILLECTOMY PRIMARY/SECONDARY Tonsillectomy Family History FAMILY HISTORY Problem Relation Age of Onset Alzheimer's Disease Mother Heart Mother pacemaker other (scoliosis) Mother s/p spinal fusion Diabetes Father later in life Hypertension Father and CHF Psychiatry Sister bipolar Alzheimer's Disease Sister Dx in 50's other (scoliosis) Son s/p spinal fusion Heart Maternal Grandfather [place] Anesthesia Problems No Family History Patient Allergies ALLERGIES No Known Allergies Current Medications Current Outpatient Medications on File Prior to Visit Medication Sig lisinopril (ZESTRIL) 5 mg tablet Take 1 tablet by mouth once daily. omeprazole (PRILOSEC) 40 mg capsule Take 1 capsule by mouth once daily. polyethylene glycol 3350 17 gram/dose powder Take 17 g by mouth once daily. Dissolve dose in 4 - 8 ounces of liquid and take as directed. GLUC/CHND/OM3/DHA/EPA/FISH/S TR (GLUCOSAMINE CHONDROITIN PLUS ORAL) Take by mouth. calcium carbonate 600 mg-cholecalciferol 200 units 600 mg-5 mcg (200 unit) tab Take 1 tablet by mouth once daily. No current facility-administered medications on file prior to visit. Social History Social History Tobacco Use Smoking status: Never Smokeless tobacco: Never Vaping Use Vaping status: Never Used Substance Use Topics Alcohol use: No Drug use: No Review of Symptoms REVIEW OF SYSTEMS See HPI EXAM: BP 122/82 (BP Site: Right Arm, BP Position: Sitting, BP Cuff Size: Regular Adult) Pulse 72 Resp 18 Wt 73 kg (161 lb) BMI 24.84 kg/m? Skin: has some erythema and dryness of skin over the ischial tuberosities on both sides. . Health Maintenance List Depression Screening Never done Covid-19 Vaccine(2022- season) due on 11/27/2023 Influenza Vaccine(1) due on 11/27/2023 BP Controlled (<130/80) due on 05/25/2024 Annual PCP Team Chronic Disease Visit due on 05/31/2024 Colorectal Cancer Screening due on 10/28/2025 Diabetes Screening due on 05/30/2026 Lipid Screening due on 05/30/2028 Prostate Cancer Screening Discussion due on 05/30/2028 DTaP,Tdap,Td Vaccine(4 - Td or Tdap) due on more content not included)... Normal [facility] CNPNon 12-14-2023 CNPN Telephone ([facility]) CARSON MCCLURE ([id number]) 1955 Date Time Provider Department 12/14[facility]23 [facility] During your visit today, we recorded the following information about you: Rene Echeverria RN 12/14/2023 2:55 PM Signed Patient cancelled tonight at 7 pm, appt with Dr. Montana. Reports he is working tonight. Patient kept the appt for Tuesday, 12-15. Suleman Weinstein MA 12/14/2023 2:59 PM Signed Noted. Just was offering because we had cancellation. Suleman Weinstein MA Allergies As of Date: 12/14/2023 (No Known Allergies) Date Reviewed: 12/05/2023 Reviewed by: Emily Lamas MA - Fully Assessed Reason for Visit: Cancelled appt [Other] Prescriptions as of 12/14/2023 - lisinopril (ZESTRIL) 5 mg tablet Take 1 tablet by mouth once daily. - omeprazole (PRILOSEC) 40 mg capsule Take 1 capsule by mouth once daily. - polyethylene glycol 3350 17 gram/dose powder Take 17 g by mouth once daily. Dissolve dose in 4 - 8 ounces of liquid and take as directed. - GLUC/CHND/OM3/DHA/EPA/FISH/S TR (GLUCOSAMINE CHONDROITIN PLUS ORAL) Take by mouth. - calcium carbonate 600 mg-cholecalciferol 200 units 600 mg-5 mcg (200 unit) tab Take 1 tablet by mouth once daily. Meds Comments as of 10/12/2022: October 12, 2022: Patient reports no changes to medications in the last 30 days. Elisabeth Siddiqi RN Problem List As Of Date 12/14/2023 Noted Resolved Neoplasm of Uncertain Behavior of Skin [D48.5] 02/12/2006 07/28/2009 CHEST PAIN NOS [R07.9] 06/19/2007 03/12/2008 Anal fissure [K60.2] 05/27/2009 Rectal bleeding [K62.5] 05/27/2009 08/03/2010 Encounter for Medicare annual wellness exam [Z0*07/28/2009 Class: Chronic Scoliosis [M41.9] 09/02/2009 Mixed hyperlipidemia [E78.2] 09/02/2009 Wart [B07.9] 09/02/2009 08/03/2010 Backache, unspecified [M54.9] 10/06/2009 Elevated hemoglobin A1c [R73.09] 01/26/2010 Essential hypertension [I10] 05/17/2014 Prostate disorder [N42.9] 07/06/2015 Benign non-nodular prostatic hyperplasia withou*11/05/2015 Colon cancer screening [Z12.11] 11/05/2015 SVT (supraventricular tachycardia) (HCC) [I47.1*03/31/2016 GERD without esophagitis [K21.9] 06/13/2017 External hemorrhoids [K64.4] 11/15/2017 Chronic right shoulder pain [M25.511, G89.29] 09/07/2018 Childhood asthma without complication [J45.909] 11/06/2018 Anxiety [F41.9] 11/06/2018 Traumatic complete tear of right rotator cuff [*11/06/2018 Decreased hearing [H91.90] 03/05/[address] [Z78.9] 02/16/2022 Advance directive discussed with patient [Z71.8*02/16/2022 Stenosis of left carotid artery [I65.22] 06/03/2022 Medication management [Z79.899] 05/25/2023 Inguinal hernia, right [K40.90] 05/25/2023 Bilateral recurrent inguinal hernia without obs*08/04/2023 Encounter Status:Closed by SULEMAN WEINSTEIN on 12/14/23 Normal [facility] CNOVon 12-05-2023 CNOV Office Visit (UCWSTR ) KAMICARSON ([id number]) 1955 M Date Time Provider Department 12/05/23 7:30 AM [facility] During your visit today, we recorded the following information about you: Temperature Pulse Respiration Blood pressure 97.8 degrees 78/minute 20/minute 140/76 Weight 72 kg Christel Mei APRN.TIER AND DETONATOR 12/05/2023 8:08 AM Signed Subjective HPI HPI Carson Tawanda Mcclure is a 68 year old male who presents today for CC of spots on skin/buttocks. This started 1 day ago. Has tried nothing for relief. Symptoms are worsened by nothing. Never had this before. Denies trouble with bm and urinating. Denies fever. .Patient presents with: Rash: Has two spots on buttocks x 1 day PAST MEDICAL HISTORY 02/16/2022: Advance directive discussed with patient Comment: Discussed: 01/202205/27/2009: Anal fissure 11/06/2018: Anxiety 10/06/2009: Backache, unspecified 11/05/2015: Benign non-nodular prostatic hyperplasia without lower urinary tract symptoms 11/06/2018: Childhood asthma without complication 09/07/2018: Chronic right shoulder pain 02/05/2013: Closed fracture of left distal radius 03/05/2019: Decreased hearing 01/26/2010: Elevated fasting glucose 01/26/2010: Elevated hemoglobin A1c 07/28/2009: Encounter for Medicare annual wellness exam Comment: Last done: 02/16/2022 05/17/2014: Essential hypertension 11/15/2017: External hemorrhoids 06/13/2017: GERD without esophagitis 02/16/2022: Living will in place 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 20-40% on L. 0-19% on R 03/31/2016: SVT (supraventricular tachycardia) ([facility]) 11/06/2018: Traumatic complete tear of right rotator cuff Comment: S/p 10/[address] Wharton 07/28/2009: Well adult exam Comment: Last done: PAST SURGICAL HISTORY 12/17/2015: COLONOSCOPY Comment: repeat due 202511/03/2007: COLONOSCOPY FLX DX W/COLLJ SPEC WHEN PFRMD Comment: Colonoscopy recheck 10 yrs 10/28/2020: COLONOSCOPY FLX DX W/COLLJ SPEC WHEN PFRMD 11/30/2022: EGD Comment: repeat 3-4 years 05/20/2016: ESOPHAGOGASTRODUODENOSCOPY TRANSORAL DIAGNOSTIC Comment: EGD 10/28/2020: ESOPHAGOGASTRODUODENOSCOPY TRANSORAL DIAGNOSTIC Comment: repeat in 3-4 years No date: FRACTURE SURGERY 1961, 1982: HERNIA REPAIR HX Comment: x 2 right/left 02/07/2013: OPEN RX DISTAL RADIUS FX, INTRA-ARTICULAR, 3+ FRAG Comment: ORIF left distal radius with locking plate No date: ORIF CARPOMETACARPAL DISLOC,COMPLX/JOSE 08/04/2023: REPAIR INGUINAL HERNIA; Right Comment: and repair of recurrent left inguinal hernia- Dr. Marion 10/2018: REPAIR ROTATOR CUFF,ACUTE; Right No date: TONSILLECTOMY PRIMARY/SECONDARY Comment: Tonsillectomy ALLERGIES Patient has no known allergies. MEDICATIONS lisinopril (ZESTRIL) 5 mg tablet Take 1 tablet by mouth once daily. omeprazole (PRILOSEC) 40 mg capsule Take 1 capsule by mouth once daily. polyethylene glycol 3350 17 gram/dose powder Take 17 g by mouth once daily. Dissolve dose in 4 - 8 ounces of liquid and take as directed. GLUC/CHND/OM3/DHA/EPA/FISH/S TR (GLUCOSAMINE CHONDROITIN PLUS ORAL) Take by mouth. calcium carbonate 600 mg-cholecalciferol 200 units 600 mg-5 mcg (200 unit) tab Take 1 tablet by mouth once daily. nystatin (MYCOSTATIN) cream Apply 1 application to affected area three times a day for 7 days. FAMILY HISTORY Problem Relation Age of Onset Alzheimer's Disease Mother Heart Mother pacemaker other (scoliosis) Mother s/p spinal fusion Diabetes Father later in life Hypertension Father and CHF Psychiatry Sister bipolar Alzheimer's Disease Sister Dx in 50's other (scoliosis) Son s/p spinal fusion Heart Maternal Grandfather [place] Anesthesia Problems No Family History Social History Tobacco Use Smoking status: Never Smokeless tobacco: Never Vaping Use Vaping status: Never Used Substance Use Topics Alcohol use: No Drug use: No ROS Objective Blood pressure 140/76, pulse 78, temperature 36.6 ?C (97.8 ?F), resp. rate 20, weight 72 kg (158 lb 11.7 oz), SpO2 96%. Physical Exam Constitutional: General: He is not in acute distress. Appearance: He is not toxic-appearing or diaphoretic. HENT: Head: Normocephalic and atraumatic. Pulmonary: Effort: Pulmonary effort is normal. No accessory muscle usage or respiratory distress. Skin: Neurological: Mental Status: He is alert and oriented to person, place, and time. ASSESSMENT/PLAN: 1. Rash - ICD9: 782.1, ICD10: R21 -use medication as prescribed -follow up if symptoms persist, worsen, change - NYSTATIN 100,000 UNIT/GRAM TOPICAL CREAM Christel Mei APRN.TIER AND DETONATOR Allergies As of Date: 12/05/2023 (No Known Allergies) Date Reviewed: 12/05/2023 Reviewed by: Adams, (more content not included)... Normal [facility] CNOVon 10-08-2023 CNOV Office Visit (UCWSTR ) CARSON MCCLURE ([id number]) 1955 M Date Time Provider Department 10/08/23 3:00 PM NICOLETTE JOHNSON [facility] During your visit today, we recorded the following information about you: Temperature Pulse Respiration Blood pressure 97.7 degrees 87/minute 20/minute 125/84 Weight 72 kg Nicolette Johnson APRN.CNP 10/08/2023 3:15 PM Signed This note was created using NoteWriter. Subjective Carson Mcclure is a 68 year old male. 68 year old male with PMH HTN, hyperlipidemia, SVT, asthma, GERD and scoliosis presents for knee complaints. Acute onset Right knee Noticed yesterday, but could have been there longer. Citing that the lump is not painful Denies redness or streaking Denies reduced or limited ROM Denies pain Denies numbness or tingling. States that he was doing bird dog exercises 3 days a week 5 days prior to that he was in a crawl space Endorses he has a history of bursitis of knees but that was painful States he is leaving for vacation tomorrow. The history is provided by the patient. No spanish language lecturer was used. Musculoskeletal Problem This is a new problem. The current episode started yesterday. The problem occurs constantly. The problem has been unchanged. Pertinent negatives include no abdominal pain, anorexia, arthralgias, change in bowel habit, chest pain, chills, congestion, coughing, diaphoresis, fatigue, fever, headaches, joint swelling, myalgias, nausea, neck pain, numbness, rash, sore throat, swollen glands, urinary symptoms, vertigo, visual change, vomiting or weakness. Nothing aggravates the symptoms. He has tried nothing for the symptoms. The treatment provided no relief. PAST MEDICAL HISTORY Diagnosis Date Advance directive discussed with patient 02/16/2022 Discussed: 01/2022 Anal fissure 05/27/2009 Anxiety 11/06/2018 Backache, unspecified 10/06/2009 Benign non-nodular prostatic hyperplasia without lower urinary tract symptoms 11/05/2015 Childhood asthma without complication 11/06/2018 Chronic right shoulder pain 09/07/2018 Closed fracture of left distal radius 02/05/2013 Decreased hearing 03/05/2019 Elevated fasting glucose 01/26/2010 Elevated hemoglobin A1c 01/26/2010 Encounter for Medicare annual wellness exam 07/28/2009 Last done: 02/16/2022 Essential hypertension 05/17/2014 External hemorrhoids 11/15/2017 GERD without esophagitis 06/13/[address] 02/16/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 20-40% on L. 0-19% on R SVT (supraventricular tachycardia) (HCC) 03/31/2016 Traumatic complete tear of right rotator cuff 11/06/2018 S/p 10/[address] Wharton Well adult exam 07/28/2009 Last done: PAST SURGICAL HISTORY Procedure Laterality Date COLONOSCOPY 12/17/2015 repeat due 2025 COLONOSCOPY FLX DX W/COLLJ SPEC WHEN PFRMD 11/03/2007 Colonoscopy recheck 10 yrs COLONOSCOPY FLX DX W/COLLJ SPEC WHEN PFRMD 10/28/2020 EGD 11/30/2022 repeat 3-4 years ESOPHAGOGASTRODUODENOSCOPY TRANSORAL DIAGNOSTIC 05/20/2016 EGD ESOPHAGOGASTRODUODENOSCOPY TRANSORAL DIAGNOSTIC 10/28/2020 repeat in 3-4 years FRACTURE SURGERY HERNIA REPAIR HX 1961, 1982 x 2 right/left OPEN RX DISTAL RADIUS FX, INTRA-ARTICULAR, 3+ FRAG 02/07/2013 ORIF left distal radius with locking plate ORIF CARPOMETACARPAL DISLOC,COMPLX/JOSE REPAIR INGUINAL HERNIA Right 08/04/2023 and repair of recurrent left inguinal hernia- Dr. Marion REPAIR ROTATOR CUFF,ACUTE Right 10/2018 TONSILLECTOMY PRIMARY/SECONDARY Tonsillectomy ALLERGIES Patient has no known allergies. MEDICATIONS omeprazole (PRILOSEC) 40 mg capsule Take 1 capsule by mouth once daily. lisinopril (ZESTRIL) 5 mg tablet Take 1 tablet by mouth once daily. polyethylene glycol 3350 17 gram/dose powder Take 17 g by mouth once daily. Dissolve dose in 4 - 8 ounces of liquid and take as directed. GLUC/CHND/OM3/DHA/EPA/FISH/S TR (GLUCOSAMINE CHONDROITIN PLUS ORAL) Take by mouth. calcium carbonate 600 mg-cholecalciferol 200 units 600 mg-5 mcg (200 unit) tab Take 1 tablet by mouth once daily. FAMILY HISTORY Problem Relation Age of Onset Alzheimer's Disease Mother Heart Mother pacemaker other (scoliosis) Mother s/p spinal fusion Diabetes Father later in life Hypertension Father and CHF Psychiatry Sister bipolar Alzheimer's Disease Sister Dx in 50's other (scoliosis) Son s/p spinal fusion Heart Maternal Grandfather [place] Anesthesia Problems No Family History Social History Tobacco Use Smoking status: Never Smokeless tobacco: Never Vaping Use Vaping Use: Never used Substance Use Topics Alcohol use: No Drug use: No Review of Systems Constitutional: Negative for chills, diaphoresis, fatigue and fever. HENT: N (more content not included)... [facility] ANES POSTPROC EVALon 024 ANES POSTPROC EVAL HNO ID: [id number] Author: VANI LUONG MD Service: Anesthesiology Author Type: Anesthesiologist Type: Anesthesia Postprocedure Evaluation Filed: 08/04/2023 13:35 Note Text: POST ANESTHESIA EVALUATION NOTE : 1955 Procedure Summary Date: 08/04/23 Room / Location: [place] [address] / [place] Anesthesia Start: 1121 Anesthesia Stop: 1235 Procedure: LAPAROSCOPY SURGICAL REPAIR INITIAL INGUINAL HERNIA WITH TOTAL EXTRA PERITONEAL REPAIR (Bilateral: Groin) Diagnosis: Unilateral recurrent inguinal hernia without obstruction or gangrene (Unilateral recurrent inguinal hernia without obstruction or gangrene [K40.91]) Surgeons: Kim Marion MD Responsible Provider: Vani Luong MD Anesthesia Type: general ASA Status: 3 Anesthesia Type: general Airway Type: ETT Last Vitals Vitals Value Taken Time BP 124/82 08/04/23 1320 Temp 36.5 ?C (97.7 ?F) 08/04/23 1233 Pulse 49 08/04/23 1320 Resp 18 08/04/23 1320 SpO2 98 % 08/04/23 1320 Post Anesthesia Patient Status Patient Evaluation: PACU. PACU/ICU Patient Condition: stable. Anticipated Disposition: phase 2 then home. Neurological Status: aware and responsive. Pulmonary Status: breathing comfortably on room air Airway Control: returned to baseline unsupported. Cardiovascular Status: stable. Pain Management: clinically adequate - multimodal analgesia pain management approach Postoperative Hydration: acceptable. Intraoperative Events: no significant anesthesia events Post Operative Nausea/Vomiting Status: no significant post operative nausea or vomiting Recommendation: continue current plan of care. Anesthesia Observations No notable events were associated with this procedure. Documented by Kelly Leahy APRN.FITTING ROOM INSPECTOR 08/04/2023 12:35 PM EDT SIGNATURE: Vani Luong MD PATIENT NAME: Carson Mcclure DATE: August 04, 2023 TIME: 1:35 PM CSN: [id number] [facility] ANES PRE-OPon 08-04-2023 ANES PRE-OP HNO ID: [id number] Author: VANI LUONG MD Service: Anesthesiology Author Type: Anesthesiologist Type: Anesthesia Preprocedure Evaluation Filed: 08/04/2023 10:45 Note Text: ANESTHESIOLOGY DAY OF SURGERY NOTE : 1955 Procedure Information Date/Time: 08/04/23 1130 Procedure: LAPAROSCOPY SURGICAL REPAIR INITIAL INGUINAL HERNIA WITH TOTAL EXTRA PERITONEAL REPAIR (Right) - LAPAROSCOPY SURGICAL REPAIR INITIAL INGUINAL HERNIA WITH TOTAL EXTRA PERITONEAL REPAIR [59761] [place] Surgeons: Kim Marion MD Estimated body mass index is 24.54 kg/m? as calculated from the following: Height as of 07/11/23: 171.5 cm (5' 7.5). Weight as of 07/11/23: 72.1 kg (159 lb). Most recent hematocrit and potassium results: Hematocrit 43.6 05/31/2023 Potassium 4.5 05/31/2023 Relevant Problems CARDIO (+) Essential hypertension (+) External hemorrhoids (+) SVT (supraventricular tachycardia) (HCC) (+) Stenosis of left carotid artery GI (+) GERD without esophagitis PULMONARY (+) Childhood asthma without complication I - PHYSICAL EVALUATION AIRWAY Patient intubated: No. Tracheostomy tube not present Mallampati: II. TM distance: >3 FB. Neck ROM: full ROM without neurological symptoms. Mouth opening: adequate. Short neck: no. Thick neck: no DENTAL Dental findings: teeth intact. Additional exam findings: yes. CARDIOVASCULAR Rhythm: regular Rate: normal PULMONARY Breath sounds clear to auscultation. II - ANESTHESIA PLAN ASA Score: 3 Anesthetic Plan: general Airway type: ETT The patient is not a current smoker. NPO Status: adequate Beta Wero Monitoring Plan Monitoring plan: Standard ASA. Post Procedure Analgesic Plan Postoperative analgesic plan: parenteral or oral opioids and multimodal analgesia. Informed Consent Anesthetic risks, benefits, alternatives, personnel and consent discussed: yes. Patient / Responsible Libertarian agrees to proceed: yes Patient / Surrogate agrees to blood products: yes DNR status not reviewed with patient and/or family prior to surgery. Significant changes in the patient condition since the History and Physical, not otherwise documented in primary service progress note: no. Potential Anesthesia issues that may suggest increased risk of complications or contraindication to planned procedure: none. No vitals data found for the desired time range. No current facility-administered medications on file as of 08/04/2023. Outpatient Medications as of 08/04/2023 Medication Sig omeprazole (PRILOSEC) 40 mg capsule Take 1 capsule by mouth once daily. lisinopril (ZESTRIL) 5 mg tablet Take 1 tablet by mouth once daily. polyethylene glycol 3350 17 gram/dose powder Take 17 g by mouth once daily. Dissolve dose in 4 - 8 ounces of liquid and take as directed. GLUC/CHND/OM3/DHA/EPA/FISH/S TR (GLUCOSAMINE CHONDROITIN PLUS ORAL) Take by mouth. calcium carbonate 600 mg-cholecalciferol 200 units 600 mg-5 mcg (200 unit) tab Take 1 tablet by mouth once daily. I have interviewed and examined the patient. I have reviewed the medical record and/or the pre-anesthesia evaluation, pertinent labs, and test results. This contains updated information obtained within 48 hours of Surgery/Procedure. SIGNATURE: Vani Luong MD PATIENT NAME: Carson Mcclure DATE: August 04, 2023 TIME: 10:45 AM CSN: [id number] [facility] BRIEF OP NOTon 08-04-2023 BRIEF OP NOT HNO ID: [id number] Author: KIM MARION MD Service: General Surgery Author Type: Physician Type: Brief Op Note Filed: 08/04/2023 12:53 Note Text: BRIEF OPERATIVE / PROCEDURE NOTE LOG ID: [id number] SURGERY/PROCEDURE DATE: 08/04/2023 INCISION/PROCEDURE START TIME: 11:37 AM INCISION CLOSE/PROCEDURE END TIME: 12:25 PM SURGEON(S)/PROCEDURALIST(S) AND CERTIFIED PESTICIDE APPLICATOR(S): Surgeon(s) and Role: * Kim Marion MD - Primary Nurse Practitioner: Angelina Britt APRN.CNP Registered Nurse Plant Taxonomy Teacher: Malika Silveira RN SURGERY/PROCEDURE(S): lap TEPP BIH repair with mesh ANESTHESIA: General FINDINGS: see report ESTIMATED BLOOD LOSS: min SPECIMENS: None COMPLICATIONS: None CLOSURE TECHNIQUE: Primary PRE-OP/PRE-PROCEDURE DIAGNOSIS: RIH POST-OP/POST-PROCEDURE DIAGNOSIS: BI # [id number] SIGNATURE: Kim Marion MD PATIENT NAME: Carson Mcclure DATE: August 04, 2023 TIME: 12:24 PM [facility] NURSING PROGon 08-04-2023 NURSING PROG HNO ID: [id number] Author: JAMIE MUIR RN Service: ? Author Type: Registered Nurse Type: Nursing Progress Note Filed: 08/04/2023 15:18 Note Text: Patient ambulated to bathroom with slow, steady gait. Patient able to void without difficulty. Patient states ready for discharge. [facility] OPERATIVE NOon 08-04-2023 OPERATIVE NO HNO ID: [id number] Author: KIM MARION MD Service: General Surgery Author Type: Physician Type: Operative Report Filed: 08/04/2023 13:51 Note Text: [facility] - Operative Report CARSON MCCLURE : 1955 AGE: 67. SEX: M PATIENT TYPE: A H[facility] [place] LOCATION: [facility] ATTENDING PHYSICIAN: Kim Marion M.D. CSN NUMBER: [id number] DATE OF SURGERY/PROCEDURE: 08/04/2023 INCISION/PROCEDURE START TIME: 11:37 a.m. INCISION CLOSE/PROCEDURE END TIME: 12:25 p.m. PREOPERATIVE DIAGNOSIS: Right inguinal hernia. POSTOPERATIVE DIAGNOSIS: Right inguinal hernia and recurrent left inguinal hernia. SURGEON: Kim Marion M.D. CERTIFIED PESTICIDE APPLICATOR: Malika Silveira RN. SURGERY/PROCEDURE: Laparoscopic total extraperitoneal, preperitoneal bilateral inguinal hernia repair with mesh. ANESTHESIA: General anesthesia. BLOOD LOSS: Minimal. INDICATIONS FOR PROCEDURE: The patient is a 67-year-old gentleman who presents with a right inguinal hernia. He now presents for laparoscopic repair with mesh. Risks including bleeding, infection, nerve injury, ischemic orchitis and recurrent hernia were explained, and he would like to proceed. DESCRIPTION OF PROCEDURE: The patient was identified and brought to the operating room, placed in supine position. After general anesthesia was obtained, the abdomen was prepped and draped in sterile fashion. An incision was made just below the umbilicus using a 15 blade scalpel. The right anterior rectus sheath was identified and divided just to the right of the midline. The preperitoneal space was then identified. A dissecting balloon was then placed into the preperitoneal space. This was inflated and visualized and noted to be within good position. A structural balloon was then placed and the preperitoneal space was insufflated with CO2 gas to a pressure of 15 mmHg. Upon inspection, there was no evidence of injury. Two 5 mm trocars were placed in lower midline under direct visualization without complication. Attention was then turned to the right side. He had a large direct hernia present. The peritoneum was from Braydon ligament using blunt dissection. The peritoneum was then from the lateral wall using blunt dissection. He did not have an indirect inguinal hernia. Once adequate dissection was performed, a medium-sized right-sided Medtronic Dextile mesh was chosen. This was placed in the preperitoneal space. This was tacked medially to Braydon ligament, laterally to the abdominal wall and anteriorly to the abdominal wall using AbsorbaTack. Five tacks were placed along the medial edge to prevent recurrence. Attention was then turned to the left side. He had a previous open repair on the left. He had the start of a direct hernia on the left as well. I therefore proceeded with laparoscopic repair on the left. The peritoneum was from the lateral wall using blunt dissection. Braydon ligament was from overlying fatty tissue. He did not have an indirect hernia. Once adequate dissection was performed, a medium size left-sided Medtronic Dextile mesh was chosen. This was placed in the preperitoneal space. This was tacked medially to Braydon ligament, laterally to the abdominal wall, and anteriorly to the abdominal wall using AbsorbaTack. Three tacks were placed in the Braydon ligament. There was entry into the peritoneal cavity, which was inherent to the procedure and will not cause long-term consequences. I placed a Veress needle for decompression in the left mid abdomen. The port sites were injected with 0.25% Marcaine without evidence for bleeding. The fascia was closed using #1 Maxon x2. Incisions were closed with 3-0 Vicryl, 5-0 Vicryl, and Exofin. All counts were correct at the end of the case. The patient tolerated the procedure well. He was taken to recovery room in good condition. Kim Marion M.D. SAGRARIO:[id number] /[id number] [facility] CNTHERAPYon 03-25-2023 CNTHERAPY OT/PT/Speech Visit ( AKPTG) CARSON MCCLURE ([id number]) 1955 M Date Time Provider Department 03/25/23 7:00 AM TOOTIE MARCOS Date Time Provider Department Center 03/25/2023 7:00 AM [id number] [facility] Reason for Visit: Physical Therapy [503] PT Discharge [752] Primary Visit Diagnosis:Dizziness [R42] Allergies As of Date: 03/25/2023 (No Known Allergies) Date Reviewed: 01/25/2023 Reviewed by: Marichuy Torres LPN - Fully Assessed Prescriptions as of 05/30/2023 - omeprazole (PRILOSEC) 40 mg capsule Take 1 capsule by mouth once daily. - lisinopril (ZESTRIL) 5 mg tablet Take 1 tablet by mouth once daily. - polyethylene glycol 3350 17 gram/dose powder Take 17 g by mouth once daily. Dissolve dose in 4 - 8 ounces of liquid and take as directed. - GLUC/CHND/OM3/DHA/EPA/FISH/S TR (GLUCOSAMINE CHONDROITIN PLUS ORAL) Take by mouth. - calcium carbonate 600 mg-cholecalciferol 200 units 600 mg-5 mcg (200 unit) tab Take 1 tablet by mouth once daily. Facility-Administered Medications as of 05/30/2023 - perflutren lipid microspheres 1.3 mL in NaCl (PF) 0.9% 10 mL injection (DEFINITY) - sodium chloride 0.9 % (flush) 10 mL (BD POSIFLUSH) Meds Comments as of 10/12/2022: October 12, 2022: Patient reports no changes to medications in the last 30 days. Elisabeth Siddiqi RN [facility] CNTHERAPYon 03-11-2023 CNTHERAPY OT/PT/Speech Visit ( AZPTG) CARSON MCCLURE ([id number]) 1955 M Date Time Provider Department 03/11/23 7:00 AM TOOTIE MARCOS Date Time Provider Department Center 03/11/2023 7:00 AM [id number] [facility] Reason for Visit: Physical Therapy [503] Primary Visit Diagnosis:Dizziness [R42] Other Visit Diagnosis:Imbalance [R26.89] Allergies As of Date: 03/11/2023 (No Known Allergies) Date Reviewed: 01/25/2023 Reviewed by: Marichuy Torres LPN - Fully Assessed Prescriptions as of 03/11/2023 - omeprazole (PRILOSEC) 40 mg capsule Take 1 capsule by mouth once daily. - fluconazole (DIFLUCAN) 200 mg tablet Take TWO tablets by mouth on day 1, then take ONE tablet by mouth daily on days 2-14 - lisinopril (ZESTRIL) 5 mg tablet Take 1 tablet by mouth once daily. - polyethylene glycol 3350 17 gram/dose powder Take 17 g by mouth once daily. Dissolve dose in 4 - 8 ounces of liquid and take as directed. - GLUC/CHND/OM3/DHA/EPA/FISH/S TR (GLUCOSAMINE CHONDROITIN PLUS ORAL) Take by mouth. - calcium carbonate 600 mg-cholecalciferol 200 units 600 mg-5 mcg (200 unit) tab Take 1 tablet by mouth once daily. Facility-Administered Medications as of 03/11/2023 - perflutren lipid microspheres 1.3 mL in NaCl (PF) 0.9% 10 mL injection (DEFINITY) - sodium chloride 0.9 % (flush) 10 mL (BD POSIFLUSH) Meds Comments as of 10/12/2022: October 12, 2022: Patient reports no changes to medications in the last 30 days. Elisabeth Siddiqi RN [facility] CNTHERAPYon 02-04-2023 CNTHERAPY OT/PT/Speech Visit ( AZPTG) CARSON MCCLURE ([id number]) 1955 M Date Time Provider Department 02/04/23 7:00 AM TOOTIE MARCOS Date Time Provider Department Center 02/04/2023 7:00 AM [id number] [facility] REBECCA MORGAN Reason for Visit: PT Progress Note [4376] Primary Visit Diagnosis:Dizziness [R42] Other Visit Diagnosis:Imbalance [R26.89] Allergies As of Date: 02/04/2023 (No Known Allergies) Date Reviewed: 01/25/2023 Reviewed by: Marichuy Torres LPN - Fully Assessed Prescriptions as of 03/25/2023 - omeprazole (PRILOSEC) 40 mg capsule Take 1 capsule by mouth once daily. - fluconazole (DIFLUCAN) 200 mg tablet Take TWO tablets by mouth on day 1, then take ONE tablet by mouth daily on days 2-14 - lisinopril (ZESTRIL) 5 mg tablet Take 1 tablet by mouth once daily. - polyethylene glycol 3350 17 gram/dose powder Take 17 g by mouth once daily. Dissolve dose in 4 - 8 ounces of liquid and take as directed. - GLUC/CHND/OM3/DHA/EPA/FISH/S TR (GLUCOSAMINE CHONDROITIN PLUS ORAL) Take by mouth. - calcium carbonate 600 mg-cholecalciferol 200 units 600 mg-5 mcg (200 unit) tab Take 1 tablet by mouth once daily. Facility-Administered Medications as of 03/25/2023 - perflutren lipid microspheres 1.3 mL in NaCl (PF) 0.9% 10 mL injection (DEFINITY) - sodium chloride 0.9 % (flush) 10 mL (BD POSIFLUSH) Meds Comments as of 10/12/2022: October 12, 2022: Patient reports no changes to medications in the last 30 days. Elisabeth Siddiqi RN [facility] CNTHERAPYon 12-24-2022 CNTHERAPY OT/PT/Speech Visit ( AKPTG) CARSON MCCLURE ([id number]) 1955 M Date Time Provider Department 12/24/22 7:00 AM HEMANTIDALIAAKPTG Date Time Provider Department Center 12/24/2022 7:00 AM [id number] [facility] RE[facility]CCA [facility] Reason for Visit: Physical Therapy [503] Primary Visit Diagnosis:Dizziness [R42] Other Visit Diagnosis:Imbalance [R26.89] Allergies As of Date: 12/24/2022 (No Known Allergies) Date Reviewed: 11/30/2022 Reviewed by: Constance Cornelius RN - Fully Assessed Prescriptions as of 12/24/2022 - fluconazole (DIFLUCAN) 200 mg tablet Take TWO tablets by mouth on day 1, then take ONE tablet by mouth daily on days 2-14 - omeprazole (PRILOSEC) 40 mg capsule Take 1 capsule by mouth once daily. - lisinopril (ZESTRIL) 5 mg tablet Take 1 tablet by mouth once daily. - polyethylene glycol 3350 17 gram/dose powder Take 17 g by mouth once daily. Dissolve dose in 4 - 8 ounces of liquid and take as directed. - GLUC/CHND/OM3/DHA/EPA/FISH/S TR (GLUCOSAMINE CHONDROITIN PLUS ORAL) Take by mouth. - calcium carbonate 600 mg-cholecalciferol 200 units 600 mg-5 mcg (200 unit) tab Take 1 tablet by mouth once daily. Facility-Administered Medications as of 12/24/2022 - perflutren lipid microspheres 1.3 mL in NaCl (PF) 0.9% 10 mL injection (DEFINITY) - sodium chloride 0.9 % (flush) 10 mL (BD POSIFLUSH) Meds Comments as of 10/12/2022: October 12, 2022: Patient reports no changes to medications in the last 30 days. Elisabeth Siddiqi RN [facility] CNTHERAPYon 12-10-2022 CNTHERAPY OT/PT/Speech Visit ( AKPTG) CARSON MCCLURE ([id number]) 1955 M Date Time Provider Department 12/10/22 7:00 AM ATIF MARCOSPTCourtney Date Time Provider Department Center 12/10/2022 7:00 AM [id number] [facility] Reason for Visit: Physical Therapy [503] Primary Visit Diagnosis:Dizziness [R42] Other Visit Diagnosis:Imbalance [R26.89] Allergies As of Date: 12/10/2022 (No Known Allergies) Date Reviewed: 11/30/2022 Reviewed by: Constance Cornelius RN - Fully Assessed Prescriptions as of 12/10/2022 - fluconazole (DIFLUCAN) 200 mg tablet Take TWO tablets by mouth on day 1, then take ONE tablet by mouth daily on days 2-14 - omeprazole (PRILOSEC) 40 mg capsule Take 1 capsule by mouth once daily. - lisinopril (ZESTRIL) 5 mg tablet Take 1 tablet by mouth once daily. - polyethylene glycol 3350 17 gram/dose powder Take 17 g by mouth once daily. Dissolve dose in 4 - 8 ounces of liquid and take as directed. - GLUC/CHND/OM3/DHA/EPA/FISH/S TR (GLUCOSAMINE CHONDROITIN PLUS ORAL) Take by mouth. - calcium carbonate 600 mg-cholecalciferol 200 units 600 mg-5 mcg (200 unit) tab Take 1 tablet by mouth once daily. Facility-Administered Medications as of 12/10/2022 - perflutren lipid microspheres 1.3 mL in NaCl (PF) 0.9% 10 mL injection (DEFINITY) - sodium chloride 0.9 % (flush) 10 mL (BD POSIFLUSH) Meds Comments as of 10/12/2022: October 12, 2022: Patient reports no changes to medications in the last 30 days. Elisabeth Siddiqi RN [facility] SURGICAL PATHOLOGYon 023 Case Report Surgical Pathology R eport Case: [id number] Authorizing Provider: Andrez Dye MD Collected: 11/30/2022 08:10 AM Ordering Location: Ambulatory Surgery Received: 11/30/2022 01:17 PM Pathologist: Trav White MD Specimens: A) - ANTRUM (STOMACH) BIOPSY, Antral bx for H/H B) - ESOPHAGOGASTRIC JUNCTION BIOPSY C) - ESOPHAGUS MID BIOPSY [facility] Diagnosis Comment A. No microorganisms compatible with Helicobacter Pylori like organisms are identified by routine H&E-stained sections. [facility] FINAL DIAGNOSIS A. Stomach, antrum, biopsy: - Gastric antral body type mucosa with mild chronic inactive gastritis; see comment. B. Esophagogastric junction, biopsy: - Squamous mucosa with ulceration admixed with rare fungal elements (contamination cannot be ruled out) and focal actively inflamed gastric mucosa; negative for intestinal metaplasia or dysplasia. C. Esophagus, mid, biopsy: - Squamous mucosa with no pathologic diagnostic abnormality; negative for intraepithelial eosinophils. [facility] Gross Description A. ANTRUM (STOMACH) BIOPSY Received in formalin is one piece of bailey, soft tissue measuring 0.3 x 0.2 x 0.2 cm. Totally submitted in cassette A1. B. ESOPHAGOGASTRIC JUNCTION BIOPSY Received in formalin are two pieces of bailey, soft tissue aggregating to 0.6 x 0.2 x 0.2 cm. Totally submitted in cassette B1. C. ESOPHAGUS MID BIOPSY Received in formalin is one piece of bailey-white, soft tissue measuring 0.3 x 0.2 x 0.2 cm. Totally submitted in cassette C1. Gross examination performed at [facility], [address] [place] [address] 11/30/2022 9:04 PM [facility] Performing Lab Diagnostic interpret ation performed at [facility], [address] [facility] [address] CLIA# [id number] Electric Distribution Engineer: Trav White M.D. [facility] EGD DIAGNOSTICon 11-30-2022 [facility] CNTHERAPYon 11-24-2022 CNTHERAPY OT/PT/Speech Visit ( AKPTG) CARSON MCCLURE ([id number]) 1955 M Date Time Provider Department 11/24/22 8:45 AM TOOTIE MARCOS During your visit today, we recorded the following information about you: Idalia Marcos PT, DPT 11/24/2022 10:20 AM Signed Episode Visit Count: 2 Therapist That Will Accept/Oversee The Plan Of Care: Helena Marcos Start of Care Date: 09/29/22 Onset Date: 05/28/22 Plan of Care Certification Date: 11/24/22 Next Certification Due Date: 02/22/23 RE[facility]ABIL[facility]ATION AND SPORTS THERAPY PHYSICAL THERAPY PROGRESS REPORT PLAN OF CARE UPDATE: Assessment: Carson Ruiz Mcclure demonstrates minimal change in symptome secondary limited compliance with home exericse program and synchronizing schedules for PT appointments. He has progressed toward goals. Patient continues to present with impairments in symptom management that interfere with . Current prognosis is Good due to: current objective clinical presentation . Patient demonstrates difficulty with dynamic movements with head turns. He has greatest restriction with horizontal and vertical head turns with walking forward and backwards. He demonstrates walking with tandem as a difficult task both forward and backwards. We initiated a home exercise program that can compete complete daily that he was encouraged to incorporate throughout his day. We will transition his program to once every 2 to 3 weeks to advance his home exercise program to resolve his symptoms of dizziness. He will benefit from continued skilled therapy services to meet the updated goals for this plan of care as noted below. Goals for Episode of Care: created on 09/29/22 through 02/22/23 Independent with home exercise program. (progressing) Patient will demonstrate improvements in Dizziness Handicap Inventory by 10 points (progressing) Patient will improve ABC scale by 10 points. (progressing) Patient will return to 180 turns in martial arts with trace report of dizziness. (progressing) Patient will return to prior level of function with trace report of Dizziness. (progressing) Planned Interventions, Frequency, and Duration: 1x every other week, 12 weeks Total Number of Visits Planned: 6 Patient to be seen for Therapeutic exercise (12784), Therapeutic activities (72877), Neuromuscular re-education (86362), Manual therapy (84063), Self-fpc management (02072), Gait Training (78426), Patient/Family/Caregiver Education PLAN FOR NEXT VISIT: Progress vestibular rehab exercises. SUBJECTIVE: Dizziness, currently: 0/10. He took an antibiotic. He reports that did not help with is balance. Patient has not been consistent with his home exercise program. He reports not doing home exercise program two times daily. He feels his balance deficit is the same. Symptom provocation: turning, dipping and turning Pain: Pain Pain Level: 0 PROMIS Scales Higher is Better 11/23/2022 09/29/2022 06/28/2022 Phys Func - Score 46 (within normal limits) 47 (within normal limits) 45 (within normal limits) Phys Func - Percentile 34 % 38 % 31 % Self-Eff Symptom - Score 49 (Average) 48 (Average) 51 (Average) Self-Eff Symptom - Percentile 46 % 42 % 54 % T-scores: mean of general population = 50. 5 points is clinically meaningfully difference Percentiles provide an indication of how the patient's score ranks in relation to the general population. Higher percentile rankings indicate better function/quality of life. 50th percentile is the average of the general population and indicates half of respondents had a worse score. OBJECTIVE MEASURES WITH LEVEL OF FUNCTION: Functional Gait Assessment Gait level surface : 3 - Normal- walks 20' no assist device, good speed, no imbalance, normal gait pattern Change in gait speed: 3 - Normal- albe to smoothly change walking speed without loss of balance or gait deivations. Shows significant difference in walking speeds Gait and horizontal head turns: 2 - Mild impairment- performs R/L head turns smoothly with slight change in gait velocity, minor disruption to smooth gait path or uses assistive device Gait and vertical head turns: 2 - Mild impairment- performs up/ down head turns smoothly with slight change in gait velocity, minor disruption to smooth gait path or uses assistive device Gait and pivot: 3 - Normal- pivot turn safely within 3 sec, stops quickly, no loss of balance Step over obstacle: 3 - Normal- is able to steop over box without changing speed, no evidence of imbalance Gait with narrow base of support : 2 - Mild impairment- ambulates 7-9 steps Gait with eyes closed : 2 - Mild impairment- walks 20' uses assist device, slower speed, mild gait deviation, deviates 6-10 outside of 12 walkway Ambulates backward : 3 - Normal- walks 20' no assist device, good speed, no imbalance, normal gai (more content not included)... Normal [facility] CNTHERAPYon 09-29-2022 CNTHERAPY OT/PT/Speech Visit ( AZPT) CARSON MCCLURE ([id number]) 1955 M Date Time Provider Department 09/29/22 12:30 PM TOOTIE MARCOS During your visit today, we recorded the following information about you: Idalia Marcos PT, DPT 09/29/2022 2:48 PM Signed Episode Visit Count: 1 Therapist That Will Accept/Oversee The Plan Of Care: Nicolette Kerr Start of Care Date: 09/29/22 Onset Date: 05/28/22 Plan of Care Certification Date: 06/28/22 Next Certification Due Date: 08/02/22 Patient Identified by Name and Date of : Yes REHABILITATION AND SPORTS THERAPY PHYSICAL THERAPY EVALUATION PLAN OF CARE: Assessment: Carson Mcclure presents with diagnosis of dizziness that interferes with physical activities, recreational activities, bending . He presents with impairments in balance, coordination, patient reported outcome measures, and symptom management. PROMIS? (Patient-Reported Outcomes Measurement Information System) scores were reviewed and all domains identified as within normal limits. Prognosis for therapy is . Patient presents with disequilibrium. He would benefit from retraining of vestibular and somatosensory system to return to high level activity with trace report of imbalance. He will benefit from skilled therapy services to meet the goals established for this plan of care as noted below. Goals for Episode of Care: created on 09/29/22 through Independent with home exercise program. Patient will demonstrate improvements in Dizziness Handicap Inventory by 10 points. Patient will improve ABC scale by 10 points. Patient will return to 180 turns in martial arts with trace report of dizziness. Patient will return to prior level of function with trace report of dizziness. Planned Interventions, Frequency, and Duration: Planned Treatment Interventions: Patient demonstrates good understanding of plan of care and treatment. The above goals and plan of care were discussed and agreed upon by patient/family. SUBJECTIVE: Carson Mcclure is a 67 year old male seen today for dizziness. Patient reports his had COVID in March. He reports a couple weeks after that he thought he was having a heart attack. He went to the ER. He has symptoms of dizziness. He reports the next day at work he felt his equilibrium was off. 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 His symptoms became more apparent when he returned to [employer]. He does [employer]. He noticed his symptoms with 180 turns. He had physical therapy evaluation. He did not continue with exercises prescribed. He has had an MRI and MRA. He had some sinus type symptoms. He has no hearing loss for his age. He is to follow up with primary. He was on vacation for a couple a weeks. He was hiking up a mountain on vacation. He noticed his balance was off. He feels his balance is off in his head. He feels like his ankles don't have the strength that they used to. 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 Recreation / Current Exercise: weight lifting, cardio workouts and small amount of martial arts Hobbies / Interests: karate, football, basketball Intake Information: Prescription present Falls Interview: No positive findings with falls interview Vestibular Symptom onset: sudden Dizziness: Yes Description: off sensation Rating of current symptoms: 0/10 Frequency: Intermittent Duration: seconds Symptoms worsened by: (180 turns) Symptoms improved by: none Imbalance: Yes Imbalance Comments: turning 180 degrees Fall Assessment: No falls Motion Sickness: None Headache: No Neck Symptoms: No Jaw Symptoms: No Ear Symptoms: Yes Description: fullness Rating of current symptoms: 4/10 Location: both ears equally Frequency: (uncertain of frequency) Hearing Changes: No recent changes Tinnitus: No recent changes History of Syncope: No History of Migraine: No Denies: neuropathy, focal weakness, headaches, neurological complaints, paresthesia, visual changes, tremors Reports: dizziness Pain: PROMIS Scales Higher is Better 09/29/2022 06/28/2022 Phys Func - Score 47 (within normal limits) 45 (within normal limits) Phys Func - Percentile 38 % 31 % Self-Eff Symptom - Score 48 (Average) 51 (Average) Self-Eff Symptom - Percentile 42 % 54 % T-scores: mean of general population = 50. 5 points is clinically meaningfully difference Percentiles provide an indication of how the patient's score ranks in relation to t (more content not included)... Normal [facility] Stress Test Echo W/Contrasto n 05-31-2022 Stress Test Echo W/Contrast [facility] [address] [place] [address] Stress Test Echo W/Contrast MR#: [id number] Acct: [id number] Name: CARSON MCCLURE Rep #: [id number] : 1955 66 From: Raudel Sheridan MD Primary Care: Dr. Tr Montana MD Status: REG I Ordering Dr: Marsha Butts Sex: M C Reason For Study: CHEST PAIN Stress Results Protocol: Thomas Protocol WITH DEFINITY Maximum Predicted HR: 155 bpm Target HR: 132 bpm % Maximum Predicted HR: 86 % DurationHeart Rate Stage (mm:ss) (bpm) BP Comment BASELINE 59 132/843.5 CC DEFINITY FOR TEST STAGE 1 3:00 109 160/86 STAGE 2 3:00 125 158/86 STAGE 3 3:00 133 162/82 RECOVERY 86 130/88 Stress Duration: 9:00 mm:ss Maximum Stress HR: 133 bpm Baseline Echocardiogram Findings Stress Echo Wall motion Data Resting WM Intermediate WM Stress WM Doppler Measurements Calculations TR max marissa: 230.1 cm/sec TR max P.2 mmHg ECHO/Stress Test Echo W/Contrast Interpretation Summary Exercise stress echo. 66-year-old lady with a history of chest pain. Stress protocol: Resting EKG demonstrates normal sinus rhythm with an incomplete right bundle branch block and a rate of 57 bpm. Resting blood pressure is 132/84 mmHg. The patient exercised according to the regular Thomas protocol for total duration of 9 minutes. Patient completed stage III of the Thomas protocol. The maximum heart rate attained was 164 bpm which was 105% of max impacted heart rate the maximum workload was 10.1 metabolic equivalents. At rest there were no ST or T wave changes noted to suggest ischemia and at peak exercise upsloping ST changes only were noted but did not meet the criteria for ischemia. No clinical angina was noted the test was terminated due to the target heart rate being achieved. The peak blood pressure was 162/82 which was a good blood pressure response to exercise and the rate-pressure product was 21,700. Stress echocardiogram. The resting echocardiogram performed with Definity enhancement demonstrated preserved left ventricular systolic function at rest and with exercise there was improvement in all blount with reduction in cavity size and improvement of ejection fraction to 60%. Conclusion: Normal exercise stress echo with no evidence of ischemia and good functional aerobic capacity. Ordering Physician: Marsha Butts Performed By: oHmer Thomson RCS 05/31/22 1150 Date Raudel Sheridan MD CC: MURTAZA Butts; Dr. Tr Montana MD Date Dictated: 05/31/22 1049 Date Transcribed: 05/31/22 1150 [employer]: Signed Normal [facility] 12 Lead EKGon 05-06-2022 12 Lead EKG [facility] [address] [place] [address] 12 Lead EKG 05/06/22 0655 MR#: [id number] Acct: [id number] Name: CARSON MCCLURE Rep #: [id number] : 1955 66 From: Raudel Sheridan MD Attending Dr: Status: DEP ER Ordering Dr: Vani Reyes MD Date: 05/06/22 Location: ED Sex: M C Admitted: Test Reason : DIZZY Blood Pressure : / mmHG Vent. Rate : 081 BPM Atrial Rate : 081 BPM P-R Int : 184 ms QRS Dur : 102 ms QT Int : 388 ms P-R-T Axes : 061 144 044 degrees QTc Int : 450 ms Normal sinus rhythm Incomplete right bundle branch block Right ventricular hypertrophy with repolarization abnormality Nonspecific T wave abnormality Abnormal ECG Confirmed by RAUDEL SHERIDAN MD ([id number]), film and video editor ANA SNOW ([id number]) on 05/07/2022 10:21:14 AM Referred By: KALIA Confirmed By:RAUDEL SHERIDAN MD 05/07/22 1021 Date Raudel Sheridan MD CC: Dr. Tr Montana MD; Dr. Vani Reyes MD Signed [facility] Absolute lymphocyte countOrd ered By: Dr. Reyes on 05-06-2022 Lymphocytes Auto (Unsp spec) [#/Vol] 0.43 10*3/uL 0.83-4.51 [facility] Basic Metabolic Profile (BMP )on 05-06-2022 BUN/CRE 22.9 RATIO High 10-20 [facility] Comment on above: Order Comment: 1 Y Performed By: #### L 500.2500, L100.0100, L500.3400, [id number] #### [facility] [address] [place], [address] CA,Total 8.4 mg/dL Low 8.5-10.1 [facility] Comment on above: Order Comment: 1 Y Performed By: #### L 500.2500, L100.0100, L500.3400, [id number] #### [facility] [address] [place], [address] Chloride [Moles/Vol] 104 mmol/L Normal 98-107 [facility] Comment on above: Order Comment: 1 Y Performed By: #### L 500.2500, L100.0100, L500.3400, [id number] #### [facility] [address] [place], [address] CO2 [Moles/Vol] 26.0 mmol/L Normal 21.0-32.0 [facility] Comment on above: Order Comment: 1 Y Performed By: #### L 500.2500, L100.0100, L500.3400, [id number] #### [facility] [address] [place], [address] Creatinine [Mass/Vol] 1.05 mg/dL Normal 0.70-1.30 [facility] Comment on above: Order Comment: 1 Y Result Comment: The validity of the calculated GFR GFRAA in patients over 70 years has not been determined. Clinical correlation is essential. Performed By: #### L 500.2500, L100.0100, L500.3400, L501.5425 #### [facility] [address] [place], [address] ECRCL 70.14 ml/min Normal [facility] Comment on above: Order Comment: 1 Y Performed By: #### L 500.2500, L100.0100, L500.3400, L501.5425 #### [facility] [address] [place], [address] EST GFR - AA 91 mL/min Normal >60 [facility] Comment on above: Order Comment: 1 Y Result Comment: Afri can Armenian GFR Calc Performed By: #### L 500.2500, L100.0100, L500.3400, L501.5425 #### [facility] [address] [place], [address] GAP 8 Normal 5-15 [facility] Comment on above: Order Comment: 1 Y Performed By: #### L 500.2500, L100.0100, L500.3400, L501.5425 #### [facility] [address] [place], [address] GFR/1.73 sq M.predicted among non-blacks MDRD (S/P/Bld) [Vol rate/Area] 75 mL/min/{1.73_m2} Normal >60 [facility] Comment on above: Order Comment: 1 Y Result Comment: Non- GFR Calc Performed By: #### L 500.2500, L100.0100, L500.3400, L501.5425 #### [facility] [address] [place], [address] Glucose [Mass/Vol] 153 mg/dL High 74-106 [facility] Comment on above: Order Comment: 1 Y Result Comment: Fast ing Glucose result greater than or equal to 126 mg/dL suggests DIABETES MELLITUS per A.D.A. criteria. Performed By: #### L 500.2500, L100.0100, L500.3400, L501.5425 #### [facility] [address] [place], [address] Potassium [Moles/Vol] 4.2 mmol/L Normal 3.5-5.1 [facility] Comment on above: Order Comment: 1 Y Performed By: #### L 500.2500, L100.0100, L500.3400, L501.5425 #### [facility] [address] [place], [address] Sodium [Moles/Vol] 138 mmol/L Normal 136-145 [facility] Comment on above: Order Comment: 1 Y Performed By: #### L 500.2500, L100.0100, L500.3400, L501.5425 #### [facility] [address] [place], [address] Urea nitrogen [Mass/Vol] 24 mg/dL High 7-18 [facility] Comment on above: Order Comment: 1 Y Performed By: #### L 500.2500, L100.0100, L500.3400, L501.5425 #### [facility] [address] [place], [address] Basophil percentageOrdered B y: Dr. Reyes on 05-06-2022 Basophils/100 WBC (Bld) 0.2 % 0-1 [facility] Bilirubin [Mass/Vol] 0.60 mg/dL 0.20-1.00 [facility] Comment on above: For patients on eltr ombopag therapy, use of Dimension [place] TBIL is not recommended. Chloride [Moles/Vol] 104 mmol/L 98-107 [facility] Eosinophils/100 WBC (Bld) 1.3 % 0-5 [facility] Glucose [Mass/Vol] 153 mg/dL 74-106 [facility] Comment on above: Fasting Glucose resu lt greater than or equal to 126 mg/dL suggests DIABETES MELLITUS per A.D.A. criteria. Neutrophils (Bld) [#/Vol] 7.4 10*3/uL 2.0-7.7 [facility] Neutrophils/100 WBC (Bld) 86.7 % 47-70 [facility] Potassium [Moles/Vol] 4.2 mmol/L 3.5-5.1 [facility] Protein [Mass/Vol] 7.5 g/dL 6.4-8.2 [facility] Sodium [Moles/Vol] 138 mmol/L 136-145 [facility] WBC (Bld) [#/Vol] 8.5 10*3/uL 4.4-11.0 [facility] Blood erythrocytes count (nu mber/volume)Ordered By: Dr. Reyes on 05-06-2022 RBC (Bld) [#/Vol] 4.99 10*6/uL 4.6-6.2 [facility] Blood hemoglobin measurement (mass/volume)Ordered By: Dr. Reyes on 05-06-2022 Hemoglobin (Bld) [Mass/Vol] 14.6 g/dL 13.0-16.5 [facility] Blood lymphocytes/100 leukoc ytesOrdered By: Dr. Reyes on 05-06-2022 Lymphocytes/100 WBC (Bld) 5.1 % 19-41 [facility] Blood monocytes/100 leukocyt esOrdered By: Dr. Reyes on 05-06-2022 Monocytes/100 WBC (Bld) 6.5 % 0-10 [facility] Blood platelet mean volumeOr dered By: Dr. Reyes on 05-06-2022 Platelet mean volume (Bld) [Entitic vol] 12.3 fL 6.2-12.0 [facility] CBC W/Diff, Automatedon 02- Absolute Lymph 0.43 X10 3/uL Low 0.83-4.51 [facility] Comment on above: Performed By: #### L 500.2500, L100.0100, L500.3400, L501.5425 #### [facility] [address] [place], [address] Absolute Neut 7.4 X10 3/uL Normal 2.0-7.7 [facility] Comment on above: Performed By: #### L 500.2500, L100.0100, L500.3400, L501.5425 #### [facility] [address] [place], [address] Basophils/100 WBC (Bld) 0.2 % Normal 0-1 [facility] Comment on above: Performed By: #### L 500.2500, L100.0100, L500.3400, L501.5425 #### [facility] [address] [place], [address] Eosinophils/100 WBC (Bld) 1.3 % Normal 0-5 [facility] Comment on above: Performed By: #### L 500.2500, L100.0100, L500.3400, L501.5425 #### [facility] [address] [place], [address] Erythrocyte distribution width (RBC) [Ratio] 13.3 % Normal 11.6-14.6 [facility] Comment on above: Performed By: #### L 500.2500, L100.0100, L500.3400, L501.5425 #### [facility] [address] [place], [address] Hematocrit (Bld) [Volume fraction] 44.3 % Normal 40-54 [facility] Comment on above: Performed By: #### L 500.2500, L100.0100, L500.3400, L501.5425 #### [facility] [address] [place], [address] Hemoglobin (Bld) [Mass/Vol] 14.6 g/dL Normal 13.0-16.5 [facility] Comment on above: Performed By: #### L 500.2500, L100.0100, L500.3400, L501.5425 #### [facility] [address] [place], [address] IG% 0.200 Normal 0.0-0.9 [facility] Comment on above: Result Comment: IG% - Immature Granulocytes (promyelocytes, myelocytes and metamyelocytes) > 1% indicates that a LEFT SHIFT is Present. Performed By: #### L 500.2500, L100.0100, L500.3400, L501.5425 #### [facility] [address] [place], [address] Lymphocytes/100 WBC (Bld) 5.1 % Low 19-41 [facility] Comment on above: Performed By: #### L 500.2500, L100.0100, L500.3400, L501.5425 #### [facility] [address] [place], [address] MCH (RBC) [Entitic mass] 29.3 pg Normal 27.0-32.0 [facility] Comment on above: Performed By: #### L 500.2500, L100.0100, L500.3400, L501.5425 #### [facility] [address] [place], [address] MCHC (RBC) [Mass/Vol] 33.0 g/dL Normal 32-36 [facility] Comment on above: Performed By: #### L 500.2500, L100.0100, L500.3400, L501.5425 #### [facility] [address] [place], [address] MCV (RBC) [Entitic vol] 88.8 fL Normal 80-94 [facility] Comment on above: Performed By: #### L 500.2500, L100.0100, L500.3400, L501.5425 #### [facility] [address] [place], [address] Monocytes/100 WBC (Bld) 6.5 % Normal 0-10 [facility] Comment on above: Performed By: #### L 500.2500, L100.0100, L500.3400, L501.5425 #### [facility] [address] [place], [address] Neutrophils/100 WBC (Bld) 86.7 % High 47-70 [facility] Comment on above: Performed By: #### L 500.2500, L100.0100, L500.3400, L501.5425 #### [facility] [address] [place], [address] Nucleated RBC (Bld) [#/Vol] 0 10*3/uL Normal 0-5 [facility] Comment on above: Performed By: #### L 500.2500, L100.0100, L500.3400, L501.5425 #### [facility] [address] [place], [address] Platelet mean volume (Bld) [Entitic vol] 12.3 fL High 6.2-12.0 [facility] Comment on above: Performed By: #### L 500.2500, L100.0100, L500.3400, L501.5425 #### [facility] [address] [place], [address] Platelets (Bld) [#/Vol] 165 10*3/uL Normal 150-450 [facility] Comment on above: Performed By: #### L 500.2500, L100.0100, L500.3400, L501.5425 #### [facility] [address] [place], [address] RBC (Bld) [#/Vol] 4.99 10*6/uL Normal 4.6-6.2 [facility] Comment on above: Performed By: #### L 500.2500, L100.0100, L500.3400, L501.5425 #### [facility] [address] [place], [address] RDW SD 43.3 fl Normal 35.1-43.9 [facility] Comment on above: Performed By: #### L 500.2500, L100.0100, L500.3400, L501.5425 #### [facility] [address] [place], [address] WBC (Bld) [#/Vol] 8.5 10*3/uL Normal 4.4-11.0 [facility] Comment on above: Performed By: #### L 500.2500, L100.0100, L500.3400, L501.5425 #### [facility] [address] [place], [address] Determination of erythrocyte mean corpuscular volume (MCV)Ordered By: Dr. Reyes on 05-06-2022 MCV (RBC) [Entitic vol] 88.8 fL 80-94 [facility] Direct bilirubinOrdered By: Dr. Reyes on 05-06-2022 Bilirubin.direct [Mass/Vol] 0.17 mg/dL 0.00-0.30 [facility] Emergency Department Summary on 05-06-2022 Emergency Department Summary [facility] Medical Records Department [address] [place] [address] Emergency Department Summary 05/06/22 MR#: [id number] Acct: [id number] Name: CARSON MCCLURE Rep #: [id number] : 1955 66 From: Vani Reyes MD PCP: Dr. Tr [place] MD Status[facility] ER Location: ED ADDENDUM by Dr. Pj Lyman DO on 05/06/22 at 1006 Care of the patient was turned over to al. CBC was reviewed and was within normal limits. Comprehensive metabolic profile was reviewed and was within normal limits. Initial high-sensitivity troponin was reviewed and was normal at 3. 2-hour repeat high-sensitivity troponin was reviewed and was normal at 4. Patient has a HEART score of 3. Patient was advised that this is low risk for acute cardiac event. Patient is feeling better on reevaluation. Patient has had no further episodes of chest pain or angina equivalent. Patient was instructed to follow-up with his primary care physician in 3 to 5 days. Patient was instructed return if worse in any way. Patient understood and was agreeable with the plan. All questions were answered. 05/06/22 1006 Cosigner Signature (if applicable): cc: Dr. Tr Montana MD * Signed HPI History of Present Illness Chief Complaint: Weakness Informant: patient Onset/Context/Timing Onset: Today Current Severity: Mild Maximum Severity: Moderate Narrative Narrative: Patient presents secondary to a near syncopal episode. Patient states that he woke around 3:00 this morning which is not unusual for him. He got up for short time and made some chili. He went back to bed and when he awoke at 6 did not feel well. He states he had a very heavy feeling in his stomach. He became lightheaded, sweaty, dizzy. He thought that he may pass out. He called 911 himself but started to feel better before EMS arrived. He denies chest pain or palpitations. [facility] Medical History Asthma Back pain Bloody stools Broken wrist Hemorrhoids Hypertension Home Medications lisinopril 5 mg tablet 5 mg PO DAILY 02/03/13 [History Last Taken 02/03/13] calcium carbonate 500 mg calcium (1,250 mg) capsule 500 mg PO BID 05/09/18 [History Last Taken Unknown] Allergy/AdvReac Type Severity Reaction Status Date / Time No Known Allergies Allergy Verified 05/06/22 06:42 Surgical History H/O hernia repair Social History Smoking Status: Never smoker alcohol intake: never ROS ROS ED Constitutional Constitutional ED: Denies chills or fever(s) Eyes Eyes: Denies change in vision or discharge from eye(s) ENT ENT ED: Denies discharge from eye(s), rhinorrhea or sore throat Cardiovascular Cardiovascular: Denies chest pain or palpitations Respiratory/Chest Respiratory/Chest: Denies cough or dyspnea Gastrointestinal Gastrointestinal: Reports abdominal pain and nausea; Denies diarrhea or vomiting Genitourinary Genitourinary ED: Denies difficulty urinating or dysuria Musculoskeletal Musculoskeletal: Denies back pain or extremity pain Integumentary Denies Abrasions or rash Neurologic Neurologic: Reports weakness; Denies headache(s) Psychiatric Psychiatric: Denies anxiety or depression Allergic/Immunologic Allergic/Immunologic ED: Denies lip swelling or urticaria EXAM Physical Exam Const Vital Signs: 05/06/22 06:36 05/06/22 06:36 Temperature 97.1 F L Temperature Source Temporal Pulse Rate 78 Respiratory Rate 18 Respiratory Effort Normal Respiratory Pattern Normal Blood Pressure 119/66 Blood Pressure Mean 83 Pulse Ox 100 Oxygen Delivery Method Room Air Positive well nourished and well developed General Appearance ED: well developed HEENT Reports normocephalic and head/scalp atraumatic Eyes PERRL and EOMs intact bilaterally Neck supple Chest Wall inspection of chest normal and palpation of chest normal Resp normal respiratory effort and clear to auscultation bilaterally Cardio regular rate and regular rhythm GI non-tender Auscultation: hypoactive bowel sounds Palpation: soft Back/Spine no CVA tenderness Extremity normal to inspection Neuro oriented x3 and no sensory deficits noted Sensorium / Orientation: alert Motor Exam: strength 5/5 throughout Psych mental status grossly normal Skin no rashes or lesions noted MDM MDM MDM Narrative Medical decision making narrative: Patient is placed on court monitor. EKG obtained to evaluate for cardiac arrhythmia or ischemia. Lab work obtained to evaluate for leukocytosis, anemia, electrolyte derangement. Patient's evaluation and work-up was initiated the end of my shift. Patient will be signed out to onc (more content not included)... Normal [facility] Hematocrit Auto (Bld) [Volum e fraction]Ordered By: Dr. Reyes on 05-06-2022 Hematocrit (Bld) [Volume fraction] 44.3 % 40-54 [facility] [id number] 05-06-2022 TROPONIN-I HS 4 pg/mL Normal 3.0-78.0 [facility] Comment on above: Result Comment: Plea se Note: New Test Units and Gender Specific Reference Ranges. For more information see Policy Stat Procedure [place] High Sensitivity Troponin (TNIH) and attachments. Performed By: #### L 501.4020 #### [facility] [address] [place], [address] [id number] 05-06-2022 TROPONIN-I HS 3 pg/mL Normal 3.0-78.0 [facility] Comment on above: Order Comment: 1 Y Result Comment: Plea se Note: New Test Units and Gender Specific Reference Ranges. For more information see Policy Stat Procedure [place] High Sensitivity Troponin (TNIH) and attachments. Performed By: #### L 500.2500, L100.0100, L500.3400, L501.5425 #### [facility] [address] [place], [address] Laboratory - Chemistry and C hemistry - challengeOrdered By: Dr. Reyes on 05-06-2022 ALP [Catalytic activity/Vol] 68 U/L 45-117 [facility] ALT [Catalytic activity/Vol] 28 U/L 16- [facility] CO2 [Moles/Vol] 26.0 mmol/L 21.0-32.0 [facility] Globulin (S) [Mass/Vol] 3.9 g/dL 2.2-4.2 [facility] Urea nitrogen/Creatinine [Mass ratio] 22.9 mg/mg 10-20 [facility] Laboratory - Hematology and Cell countsOrdered By: Dr. Reyes on 05-06-2022 Erythrocyte distribution width (RBC) [Entitic vol] 43.3 fL 35.1-43.9 [facility] Erythrocyte distribution width (RBC) [Ratio] 13.3 % 11.6-14.6 [facility] Immature granulocytes/100 WBC (Bld) 0.200 % 0.0-0.9 [facility] Comment on above: IG% - Immature Granu locytes (promyelocytes, myelocytes and metamyelocytes) > 1% indicates that a LEFT SHIFT is Present. MCH (RBC) [Entitic mass] 29.3 pg 27.0-32.0 [facility] Nucleated RBC/100 WBC (Bld) [Ratio] 0 % 0-5 [facility] Liver Profileon 05-06-2022 Albumin [Mass/Vol] 3.6 g/dL Normal 3.2-5.0 [facility] Comment on above: Order Comment: 1 Y Performed By: #### L 500.2500, L100.0100, L500.3400, L501.5425 #### [facility] [address] [place], [address] ALK P 68 U/L Normal 45-117 [facility] Comment on above: Order Comment: 1 Y Performed By: #### L 500.2500, L100.0100, L500.3400, L501.5425 #### [facility] [address] [place], [address] ALT [Catalytic activity/Vol] 28 U/L Normal 16- [facility] Comment on above: Order Comment: 1 Y Performed By: #### L 500.2500, L100.0100, L500.3400, L501.5425 #### [facility] [address] [place], [address] AST [Catalytic activity/Vol] 21 U/L Normal 15-37 [facility] Comment on above: Order Comment: 1 Y Performed By: #### L 500.2500, L100.0100, L500.3400, L501.5425 #### [facility] [address] [place], [address] Bilirubin [Mass/Vol] 0.60 mg/dL Normal 0.20-1.00 [facility] Comment on above: Order Comment: 1 Y Result Comment: For patients on eltrombopag therapy, use of Dimension [place] TBIL is not recommended. Performed By: #### L 500.2500, L100.0100, L500.3400, L501.5425 #### [facility] [address] [place], [address] Bilirubin.direct [Mass/Vol] 0.17 mg/dL Normal 0.00-0.30 [facility] Comment on above: Order Comment: 1 Y Performed By: #### L 500.2500, L100.0100, L500.3400, L501.5425 #### [facility] [address] [place], [address] Globulin (S) [Mass/Vol] 3.9 g/dL Normal 2.2-4.2 [facility] Comment on above: Order Comment: 1 Y Performed By: #### L 500.2500, L100.0100, L500.3400, [id number] #### [facility] [address] [place], [address] T PROT 7.5 g/dL Normal 6.4-8.2 [facility] Comment on above: Order Comment: 1 Y Performed By: #### L 500.2500, L100.0100, L500.3400, [id number] #### [facility] [place], [address] MCHC Auto (RBC) [Mass/Vol]Or dered By: Dr. Reyes on 05-06-2022 MCHC (RBC) [Mass/Vol] 33.0 g/dL 32-36 [facility] No Panel InformationOrdered By: Dr. Reyes on 05-06-2022 Troponin I High Sensitivity 4 pg/mL 3.0-78.0 [facility] Comment on above: Please Note: New [place] t Units and Gender Specific Reference Ranges. For more information see Policy Stat Procedure [place] High Sensitivity Troponin (TNIH) and attachments. Estimated Creatinine Clearance Calc 70.14 ml/min [facility] Estimated GFR (MDRD) Amer 91 mL/min >60 [facility] Comment on above: GFR Calc Estimated GFR (MDRD) Non-Af Amer 75 mL/min >60 [facility] Comment on above: Non- GFR Calc Platelets bldOrdered By: Dr. Reyes on 05-06-2022 Platelets (Bld) [#/Vol] 165 10*3/uL 150-450 [facility] Serum or plasma albumin abena urement (mass/volume)Ordered By: Dr. Reyes on 05-06-2022 Albumin [Mass/Vol] 3.6 g/dL 3.2-5.0 [facility] Serum or plasma calcium abena urement (mass/volume)Ordered By: Dr. Reyes on 05-06-2022 Calcium [Mass/Vol] 8.4 mg/dL 8.5-10.1 [facility] Serum or plasma creatinine m easurement (mass/volume)Ordered By: Dr. Reyes on 05-06-2022 Creatinine [Mass/Vol] 1.05 mg/dL 0.70-1.30 [facility] Comment on above: The validity of the calculated GFR & GFRAA in patients over 70 years has not been determined. Clinical correlation is essential. Serum or plasma urea nitroge n measurement (mass/volume)Ordered By: Dr. Reyes on 05-06-2022 Urea nitrogen [Mass/Vol] 24 mg/dL 7-18 [facility] Thin prep Papanicolaou smear with manual screeningOrdered By: Dr. Reyes on 05-06-2022 Thin prep Papanicolaou smear with manual screening 21 U/L 15-37 [facility] Thin prep Papanicolaou smear with manual screening 8 5-15 [facility] XR Foot - left AP and Latera l and obliqueon 02-17-2021 IMPRESSION: Degenera tive changes in the left foot as described above. [employer]: ATTILA Transcribe Date/Time: Feb 17 2021 10:26A Dictated by : MARITO RAY MD This examination was interpreted and the report reviewed and electronically signed by: MARITO RAY MD on Feb 17 2021 10:29AM [facility] DIVISION OF RADIOLOGY * * *Final Report* * * DATE OF EXAM: Feb 17 2021 10:05AM WOX 5336 - XR FOOT 3V AP/LAT/OBL LT / PROCEDURE REASON: Pain of left heel * * * * Physician Interpretation * * * * EXAM TITLE: XR FOOT 3V AP/LAT/OBL LT EXAM DATE/TIME: 02/17/2021 10:05 AM COMPARISON: None CLINICAL INDICATION/HISTORY: Pain in the left heel. TECHNIQUE: AP, lateral and oblique views of the left foot are presented. FINDINGS: No acute fractures or subluxations are noted. There are degenerative changes involving the second and third metatarsophalangeal joints. There appears to be ankle joint space narrowing, with osteophyte formation. No calcaneal enthesophyte seen. The mineralization of the bones is normal. There is no significant soft tissue swelling or abnormal soft tissue calcification. DIV[facility]OLOGY [facility] * * *Final Report* * * DATE OF EXAM: Feb 17 2021 10:05AM WOX 5336 - XR FOOT 3V AP/LAT/OBL LT / PROCEDURE REASON: Pain of left heel * * * * Physician Interpretation * * * * EXAM TITLE: XR FOOT 3V AP/LAT/OBL LT EXAM DATE/TIME: 02/17/2021 10:05 AM COMPARISON: None CLINICAL INDICATION/HISTORY: Pain in the left heel. TECHNIQUE: AP, lateral and oblique views of the left foot are presented. FINDINGS: No acute fractures or subluxations are noted. There are degenerative changes involving the second and third metatarsophalangeal joints. There appears to be ankle joint space narrowing, with osteophyte formation. No calcaneal enthesophyte seen. The mineralization of the bones is normal. There is no significant soft tissue swelling or abnormal soft tissue calcification. IMPRESSION IMPRESSION: Degenerative changes in the left foot as described above. [employer]: ATTILA Transcribe Date/Time: Feb 17 2021 10:26A Dictated by : MARITO RAY MD This examination was interpreted and the report reviewed and electronically signed by: MARITO RAY MD on Feb 17 2021 10:29AM EST [facility] Radiology Study observation (narrative) [facility] XR Foot - left AP and Latera l and obliqueOrdered By: [facility] Provider on 02-17-2021 [facility] XR Wrist - bilateral PA and Lateral and Obliqueon 08-27-2020 IMPRESSION: Postsurgical change. No complication. No acute osseous abnormality identified. [employer]: ATTILA Transcribe Date/Time: Aug 27 2020 6:31P Dictated by : MICKI MORALES MD This examination was interpreted and the report reviewed and electronically signed by: MICKI MORALES MD on Aug 27 2020 6:32PM EST DIVISION OF RADIOLOGY * * *Final Report* * * DATE OF EXAM: Aug 27 2020 6:30PM WOX 5621 - XR WRIST 3V PA/LAT/OBL JINA / PROCEDURE REASON: multiple diagnoses * * * * Physician Interpretation * * * * Left wrist radiographs HISTORY: 64 years old Clinical information: Bilateral wrist pain Bilateral wrist pain Bilateral mcwilliams wrist pain after catching himself during a fall. Hx of left wrist surgery in 2012. TECHNIQUE: Images: XR WRIST 3V PA/LAT/OBL JINA Comparison: None. RESULT: Findings: Volar fixation plate and screws involving the distal radius. Narrowing of the radiocarpal joint space. Osteophyte formation involving the distal radius. Osteophyte formation involving the distal trapezium. No acute fracture or dislocation. Remote fracture of the ulnar styloid process. No soft tissue abnormality identified. DIVISION OF RADIOLOGY Provider, [facility] - 08/27/2020 * * *Final Report* * * DATE OF EXAM: Aug 27 2020 6:30PM WOX 5621 - XR WRIST 3V PA/LAT/OBL JINA / PROCEDURE REASON: multiple diagnoses * * * * Physician Interpretation * * * * Left wrist radiographs HISTORY: 64 years old Clinical information: Bilateral wrist pain Bilateral wrist pain Bilateral mcwilliams wrist pain after catching himself during a fall. Hx of left wrist surgery in 2012. TECHNIQUE: Images: XR WRIST 3V PA/LAT/OBL JINA Comparison: None. RESULT: Findings: Volar fixation plate and screws involving the distal radius. Narrowing of the radiocarpal joint space. Osteophyte formation involving the distal radius. Osteophyte formation involving the distal trapezium. No acute fracture or dislocation. Remote fracture of the ulnar styloid process. No soft tissue abnormality identified. IMPRESSION IMPRESSION: Postsurgical change. No complication. No acute osseous abnormality identified. [employer]: PSCB Transcribe Date/Time: Aug 27 2020 6:31P Dictated by : MICKI MORALES MD This examination was interpreted and the report reviewed and electronically signed by: MICKI MORALES MD on Aug 27 2020 6:32PM EST [facility] Radiology Study observation (narrative) [facility] XR Wrist - bilateral PA and Lateral and ObliqueOrdered By: [facility] Provider on 08-27-2020 [facility] Vital Signs Date Time Vital Sign Value Performing Clinician Facility 09-03-2024 07:00-0400 Body height 171.5 cm Tr Montana MD Work Phone: [facility] 09-03-2024 07:00-0400 Body mass index (BMI) [Ratio] 25.77 kg/m2 Tr Montana MD Work Phone: [facility] 09-03-2024 07:00-0400 Body weight 75.75 kg Tr Montana MD Work Phone: [facility] 09-03-2024 07:00-0400 Diastolic blood pressure 70 mm[Hg] Tr Montana MD Work Phone: [facility] 09-03-2024 07:00-0400 Heart rate 82 /min Tr Montana MD Work Phone: [facility] 09-03-2024 07:00-0400 Respiratory rate 16 /min Tr Montana MD Work Phone: [facility] 09-03-2024 07:00-0400 SaO2% (BldA) [Mass fraction] 96 % Tr Montana MD Work Phone: [facility] 09-03-2024 07:00-0400 Systolic blood pressure 128 mm[Hg] Tr Montana MD Work Phone: [facility] 04-05-2024 16:49-0500 Diastolic blood pressure 73 mm[Hg] Tr Montana MD Work Phone: [facility] 04-05-2024 16:49-0500 Systolic blood pressure 118 mm[Hg] Tr Montana MD Work Phone: [facility] 04-05-2024 16:35-0500 Body height 171.5 cm Tr Montana MD Work Phone: [facility] 04-05-2024 16:35-0500 Body mass index (BMI) [Ratio] 25.31 kg/m2 Tr Montana MD Work Phone: [facility] 04-05-2024 16:35-0500 Body weight 74.39 kg Tr Montana MD Work Phone: [facility] 03-02-2024 18:30-0500 Body mass index (BMI) [Ratio] 25 kg/m2 Elisa Athy PA-C Work Phone: [facility] 03-02-2024 18:30-0500 Body temperature 98.01 [degF] Elisa Athy PA-C Work Phone: [facility] 03-02-2024 18:30-0500 Body weight 73.5 kg Elisa Athy PA-C Work Phone: [facility] 03-02-2024 18:30-0500 Diastolic blood pressure 79 mm[Hg] Elisa Athy PA-C Work Phone: [facility] 03-02-2024 18:30-0500 Heart rate 65 /min Elisa Athy PA-C Work Phone: [facility] 03-02-2024 18:30-0500 Respiratory rate 18 /min Elisa Susany PA-C Work Phone: [facility] 03-02-2024 18:30-0500 SaO2% (BldA) [Mass fraction] 98 % Elisa Athy PA-C Work Phone: [facility] 03-02-2024 18:30-0500 Systolic blood pressure 128 mm[Hg] Elisa Susany PA-C Work Phone: [facility] 02-07-2024 08:26-0500 Diastolic blood pressure 76 mm[Hg] Tr Montana MD Work Phone: [facility] 02-07-2024 08:26-0500 Systolic blood pressure 118 mm[Hg] Tr Montana MD Work Phone: [facility] 02-07-2024 08:06-0500 Body mass index (BMI) [Ratio] 25 kg/m2 Tr Montana MD Work Phone: [facility] 02-07-2024 08:06-0500 Body weight 73.48 kg Tr Montana MD Work Phone: [facility] 02-07-2024 08:06-0500 Heart rate 74 /min Tr Montana MD Work Phone: [facility] 02-07-2024 08:06-0500 Respiratory rate 16 /min Tr Montana MD Work Phone: [facility] 01-20-2024 08:07-0400 Body mass index (BMI) [Ratio] 25 kg/m2 Tr Montana MD Work Phone: [facility] 01-20-2024 08:07-0400 Body weight 73.48 kg Tr Montana MD Work Phone: [facility] 01-20-2024 08:07-0400 Diastolic blood pressure 74 mm[Hg] Tr Montana MD Work Phone: [facility] 01-20-2024 08:07-0400 Heart rate 72 /min Tr Montana MD Work Phone: [facility] 01-20-2024 08:07-0400 Respiratory rate 16 /min Tr Montana MD Work Phone: [facility] 01-20-2024 08:07-0400 Systolic blood pressure 112 mm[Hg] Tr Montana MD Work Phone: [facility] 12-16-2023 16:30-0400 Body mass index (BMI) [Ratio] 24.84 kg/m2 Tr Montana MD Work Phone: [facility] 12-16-2023 16:30-0400 Body weight 73.03 kg Tr Montana MD Work Phone: [facility] 12-16-2023 16:30-0400 Diastolic blood pressure 82 mm[Hg] Tr Montana MD Work Phone: [facility] 12-16-2023 16:30-0400 Heart rate 72 /min Tr Montana MD Work Phone: [facility] 12-16-2023 16:30-0400 Respiratory rate 18 /min Tr Montana MD Work Phone: [facility] 12-16-2023 16:30-0400 Systolic blood pressure 122 mm[Hg] Tr Montana MD Work Phone: [facility] 12-05-2023 07:26-0400 Body mass index (BMI) [Ratio] 24.49 kg/m2 Christel Mei APRN.TIER AND DETONATOR Work Phone: [facility] 12-05-2023 07:26-0400 Body temperature 97.81 [degF] Christel Mei FRAUD INVESTIGATOR.TIER AND DETONATOR Work Phone: [facility] 12-05-2023 07:26-0400 Body weight 72 kg Christel Mei APRN.TIER AND DETONATOR Work Phone: [facility] 12-05-2023 07:26-0400 Diastolic blood pressure 76 mm[Hg] Christel Mei FRAUD INVESTIGATOR.TIER AND DETONATOR Work Phone: [facility] 12-05-2023 07:26-0400 Heart rate 78 /min Christel Sigifredo FRAUD INVESTIGATOR.TIER AND DETONATOR Work Phone: [facility] 12-05-2023 07:26-0400 Respiratory rate 20 /min Christel Mei FRAUD INVESTIGATOR.TIER AND DETONATOR Work Phone: [facility] 12-05-2023 07:26-0400 SaO2% (BldA) [Mass fraction] 96 % Christel Sigifredo FRAUD INVESTIGATOR.TIER AND DETONATOR Work Phone: [facility] 12-05-2023 07:26-0400 Systolic blood pressure 140 mm[Hg] Christel Sigifredo FRAUD INVESTIGATOR.TIER AND DETONATOR Work Phone: [facility] 10-08-2023 14:56-0400 Body mass index (BMI) [Ratio] 24.49 kg/m2 Nicolette Johnson FRAUD INVESTIGATOR.TIER AND DETONATOR Work Phone: [facility] 10-08-2023 14:56-0400 Body temperature 97.7 [degF] Nicolette Johnson FRAUD INVESTIGATOR.TIER AND DETONATOR Work Phone: [facility] 10-08-2023 14:56-0400 Body weight 72 kg Nicolette Johnson FRAUD INVESTIGATOR.TIER AND DETONATOR Work Phone: [facility] 10-08-2023 14:56-0400 Diastolic blood pressure 84 mm[Hg] Nicolette Johnson FRAUD INVESTIGATOR.TIER AND DETONATOR Work Phone: [facility] 10-08-2023 14:56-0400 Heart rate 87 /min Nicolette Johnson FRAUD INVESTIGATOR.TIER AND DETONATOR Work Phone: [facility] 10-08-2023 14:56-0400 Respiratory rate 20 /min Nicolette Johnson FRAUD INVESTIGATOR.TIER AND DETONATOR Work Phone: [facility] 10-08-2023 14:56-0400 SaO2% (BldA) [Mass fraction] 96 % Nicolette Johnson FRAUD INVESTIGATOR.TIER AND DETONATOR Work Phone: [facility] 10-08-2023 14:56-0400 Systolic blood pressure 125 mm[Hg] Nicolette Johnson FRAUD INVESTIGATOR.TIER AND DETONATOR Work Phone: [facility] 09-20-2023 06:27-0400 Blood Pressure Cuff Size OLIMPIA GAMBLE MD [facility] 09-20-2023 06:27-0400 Blood Pressure Location OLIMPIA GAMBLE MD [facility] 09-20-2023 06:27-0400 Blood Pressure Method OLIMPIA GAMBLE MD [facility] 09-20-2023 06:27-0400 Body height 172.7 cm OLIMPIA GAMBLE MD [facility] 09-20-2023 06:27-0400 Body temperature 97.16 [degF] OLIMPIA GAMBLE MD [facility] 09-20-2023 06:27-0400 Body weight 70.5 kg OLIMPIA GAMBLE MD [facility] 09-20-2023 06:27-0400 Diastolic Blood Pressure Non-Invasive 64 mm[Hg] OLIMPIA GAMBLE MD [facility] 09-20-2023 06:27-0400 Heart rate 77 /min OLIMPIA GAMBLE MD [facility] 09-20-2023 06:27-0400 Respiratory rate 16 /min OLIMPIA GAMBLE MD [facility] 09-20-2023 06:27-0400 Systolic Blood Pressure Non-Invasive 133 mm[Hg] OLIMPIA GAMBLE MD [facility] 07-11-2023 06:52-0400 Body height 171.5 cm [employer] Work Phone: [facility] 07-11-2023 06:52-0400 Body weight 72.12 kg [employer] Work Phone: [facility] 06-17-2023 08:29-0400 Body height 170.2 cm Andrez Dye MD Work Phone: [facility] 06-17-2023 08:29-0400 Body temperature 97.81 [degF] Andrez Dye MD Work Phone: [facility] 06-17-2023 08:29-0400 Body weight 73.57 kg Andrez Dye MD Work Phone: [facility] 06-17-2023 08:29-0400 Diastolic blood pressure 80 mm[Hg] Andrez Dye MD Work Phone: [facility] 06-17-2023 08:29-0400 Heart rate 95 /min Andrez Dye MD Work Phone: [facility] 06-17-2023 08:29-0400 SaO2% (BldA) [Mass fraction] 97 % Andrez Dye MD Work Phone: [facility] 06-17-2023 08:29-0400 Systolic blood pressure 122 mm[Hg] Andrez Dye MD Work Phone: [facility] 06-01-2023 10:43-0500 Body weight 74.84 kg Tr Montana MD Work Phone: [facility] 06-01-2023 10:43-0500 Diastolic blood pressure 86 mm[Hg] Tr Montana MD Work Phone: [facility] 06-01-2023 10:43-0500 Heart rate 64 /min Tr Montana MD Work Phone: [facility] 06-01-2023 10:43-0500 Respiratory rate 16 /min Tr Montana MD Work Phone: [facility] 06-01-2023 10:43-0500 Systolic blood pressure 138 mm[Hg] Tr Montana MD Work Phone: [facility] 05-25-2023 08:33-0500 Diastolic blood pressure 82 mm[Hg] Tr Montana MD Work Phone: [facility] 05-25-2023 08:33-0500 Systolic blood pressure 128 mm[Hg] Tr Montana MD Work Phone: [facility] 05-25-2023 07:57-0500 Body height 168.9 cm Tr Montana MD Work Phone: [facility] 05-25-2023 07:57-0500 Body weight 74.84 kg Tr Montana MD Work Phone: [facility] 05-25-2023 07:57-0500 Heart rate 80 /min Tr Montana MD Work Phone: [facility] 05-25-2023 07:57-0500 Respiratory rate 16 /min Tr Montana MD Work Phone: [facility] 05-25-2023 07:57-0500 SaO2% (BldA) [Mass fraction] 96 % Tr Montana MD Work Phone: [facility] 11-30-2022 08:51-0400 Diastolic blood pressure 72 mm[Hg] Andrez Dye MD Work Phone: [facility] 11-30-2022 08:51-0400 Heart rate 64 /min Andrez Dye MD Work Phone: [facility] 11-30-2022 08:51-0400 Respiratory rate 16 /min Andrez Dye MD Work Phone: [facility] 11-30-2022 08:51-0400 SaO2% (BldA) [Mass fraction] 97 % Andrez Dye MD Work Phone: [facility] 11-30-2022 08:51-0400 Systolic blood pressure 120 mm[Hg] Andrez Dye MD Work Phone: [facility] 11-30-2022 07:30-0400 Body temperature 97.59 [degF] Andrez Dye MD Work Phone: [facility] 11-09-2022 10:59-0400 Body weight 77.56 kg Tr Montana MD Work Phone: [facility] 11-09-2022 10:59-0400 Diastolic blood pressure 86 mm[Hg] Tr Montana MD Work Phone: [facility] 11-09-2022 10:59-0400 Heart rate 64 /min Tr Montana MD Work Phone: [facility] 11-09-2022 10:59-0400 Respiratory rate 16 /min Tr Montana MD Work Phone: [facility] 11-09-2022 10:59-0400 Systolic blood pressure 128 mm[Hg] Tr Montana MD Work Phone: [facility] 11-02-2022 08:17-0400 Body weight 76.2 kg Hailey Miller FRAUD INVESTIGATOR.TIER AND DETONATOR Work Phone: [facility] 11-02-2022 08:17-0400 Diastolic blood pressure 70 mm[Hg] Hailey Miller FRAUD INVESTIGATOR.TIER AND DETONATOR Work Phone: [facility] 11-02-2022 08:17-0400 Heart rate 68 /min Hailey Miller FRAUD INVESTIGATOR.TIER AND DETONATOR Work Phone: [facility] 11-02-2022 08:17-0400 Respiratory rate 14 /min Hailey Miller FRAUD INVESTIGATOR.TIER AND DETONATOR Work Phone: [facility] 11-02-2022 08:17-0400 Systolic blood pressure 110 mm[Hg] Hailey Miller FRAUD INVESTIGATOR.TIER AND DETONATOR Work Phone: [facility] 07-07-2022 07:25-0400 Body temperature 97.59 [degF] Libra Coloner PA-C Work Phone: [facility] 07-07-2022 07:25-0400 Body weight 77.2 kg Libra Coloner PA-C Work Phone: [facility] 07-07-2022 07:25-0400 Respiratory rate 18 /min Libra Coloner PA-C Work Phone: [facility] 07-07-2022 07:25-0400 SaO2% (BldA) [Mass fraction] 95 % Libra Smith PA-C Work Phone: [facility] 06-09-2022 07:15-0400 Body weight 75.75 kg Marsha Butts PA-C Work Phone: [facility] 06-09-2022 07:15-0400 Diastolic blood pressure 88 mm[Hg] Marshapaul Butts PA-C Work Phone: [facility] 06-09-2022 07:15-0400 Heart rate 76 /min Marsha Butts PA-C Work Phone: [facility] 06-09-2022 07:15-0400 Respiratory rate 16 /min Marsha Butts PA-C Work Phone: [facility] 06-09-2022 07:15-0400 Systolic blood pressure 126 mm[Hg] Marsha Butts PA-C Work Phone: [facility] 05-27-2022 07:04-0500 Body weight 75.3 kg Marsha Butts PA-C Work Phone: [facility] 05-27-2022 07:04-0500 Diastolic blood pressure 74 mm[Hg] Marsha Butts PA-C Work Phone: [facility] 05-27-2022 07:04-0500 Heart rate 81 /min Marshapaul Butts PA-C Work Phone: [facility] 05-27-2022 07:04-0500 Respiratory rate 18 /min Marsha Butts PA-C Work Phone: [facility] 05-27-2022 07:04-0500 SaO2% (BldA) [Mass fraction] 96 % Marsha Butts PA-C Work Phone: [facility] 05-27-2022 07:04-0500 Systolic blood pressure 110 mm[Hg] Marsha Butts PA-C Work Phone: [facility] 05-10-2022 07:19-0500 Body weight 75.3 kg Marsha Butts PA-C Work Phone: [facility] 05-10-2022 07:19-0500 Diastolic blood pressure 80 mm[Hg] Marsha Butts PA-C Work Phone: [facility] 05-10-2022 07:19-0500 Heart rate 75 /min Marsha HAUSER-C Work Phone: [facility] 05-10-2022 07:19-0500 Respiratory rate 16 /min Marsha HAUSER-C Work Phone: [facility] 05-10-2022 07:19-0500 Systolic blood pressure 122 mm[Hg] Marsha HAUESR-C Work Phone: [facility] 05-06-2022 10:20-0500 Diastolic blood pressure 69 mm[Hg] [facility] 05-06-2022 10:20-0500 Heart rate 75 /min [facility] 05-06-2022 10:20-0500 Respiratory rate 16 /min [facility] 05-06-2022 10:20-0500 SaO2% (BldA) [Mass fraction] 98 % [facility] 05-06-2022 10:20-0500 Systolic blood pressure 134 mm[Hg] [facility] 05-06-2022 06:36-0500 Body height 175.26 cm [facility] 05-06-2022 06:36-0500 Body mass index (BMI) [Ratio] 25.3 kg/m2 [facility] 05-06-2022 06:36-0500 Body temperature 97.1 [degF] [facility] 05-06-2022 06:36-0500 Body weight 77.9 kg [facility] 02-16-2022 09:01-0500 Diastolic blood pressure 80 mm[Hg] Tr Montana MD Work Phone: [facility] 02-16-2022 09:01-0500 Systolic blood pressure 122 mm[Hg] Tr Montana MD Work Phone: [facility] 02-16-2022 08:41-0500 Body height 169.5 cm Tr Montana MD Work Phone: [facility] 02-16-2022 08:41-0500 Body weight 75.3 kg Tr Montana MD Work Phone: [facility] 02-16-2022 08:41-0500 Heart rate 76 /min Tr Montana MD Work Phone: [facility] 02-16-2022 08:41-0500 Respiratory rate 16 /min Tr Montana MD Work Phone: [facility] 08-13-2021 07:53-0400 Body height 175.3 cm Andrez Dye MD Work Phone: [facility] 08-13-2021 07:53-0400 Body temperature 98.1 [degF] Andrez Dye MD Work Phone: [facility] 08-13-2021 07:53-0400 Body weight 76.2 kg Andrez Dye MD Work Phone: [facility] 08-13-2021 07:53-0400 Diastolic blood pressure 86 mm[Hg] Andrez Dye MD Work Phone: [facility] 08-13-2021 07:53-0400 Heart rate 90 /min Andrez Dye MD Work Phone: [facility] 08-13-2021 07:53-0400 SaO2% (BldA) [Mass fraction] 97 % Andrez Dye MD Work Phone: [facility] 08-13-2021 07:53-0400 Systolic blood pressure 129 mm[Hg] Andrez Dye MD Work Phone: [facility] 07-20-2021 07:44-0400 Body temperature 97.2 [degF] Marsha Butts PA-C Work Phone: [facility] 07-20-2021 07:44-0400 Body weight 77.11 kg Marsha Butts PA-C Work Phone: [facility] 07-20-2021 07:44-0400 Diastolic blood pressure 78 mm[Hg] Marsha Butts PA-C Work Phone: [facility] 07-20-2021 07:44-0400 Heart rate 72 /min Marsha Butts PA-C Work Phone: [facility] 07-20-2021 07:44-0400 Respiratory rate 16 /min Marsha Butts PA-C Work Phone: [facility] 07-20-2021 07:44-0400 Systolic blood pressure 106 mm[Hg] Marsha Butts PA-C Work Phone: [facility] Encounters Encounter Date Encounter Type Care Provider Facility Start: 09-03-2024 End: 09-03-2024 Patient encounter procedure Tr Montana MD Work Phone: [facility] Comment on above: Encounter for Medica re annual wellness exam (Primary Dx); Essential hypertension; Mixed hyperlipidemia; Elevated hemoglobin A1c; GERD without esophagitis; Stenosis of left carotid artery; SVT (supraventricular tachycardia) (HCC); Anxiety; Mild intermittent childhood asthma without complication (HCC); Benign non-nodular prostatic hyperplasia without lower urinary tract symptoms; Advance directive discussed with patient; Need for vaccination; Screening for depression; [place] Start: 09-03-2024 End: 09-03-2024 ambulatory TR [place] Facility:[facility] Start: 06-25-2024 End: 06-26-2024 Refill Tr Montana MD Work Phone: [facility] Comment on above: Refill Request Start: 05-21-2024 End: 05-21-2024 ambulatory Marsha Butts PA-C Work Phone: [facility] Comment on above: URI, acute (Primary Dx) Start: 05-21-2024 End: 05-21-2024 Telemedicine consultation with patient Marsha Butts PA-C Work Phone: [facility] Start: 05-03-2024 End: 05-04-2024 Telephone encounter Tr Montana MD Work Phone: [facility] Comment on above: Results Start: 05-03-2024 End: 05-03-2024 ambulatory TR [place] Facility:[facility] Start: 04-05-2024 End: 04-05-2024 Patient encounter procedure Tr Montana MD Work Phone: [facility] Comment on above: Dizziness (Primary D x); Stenosis of left carotid artery Start: 04-05-2024 End: 04-05-2024 ambulatory TR [place] Facility:[facility] Start: 04-04-2024 End: 04-04-2024 ambulatory TR [place] Facility:[facility] Start: 03-02-2024 End: 03-02-2024 ambulatory TR [place] Facility:[facility] Start: 03-02-2024 End: 03-02-2024 Patient encounter procedure Elisa Cooley PA-C Work Phone: [facility] Comment on above: Visit for wound chec k (Primary Dx) Start: 03-02-2024 End: 03-02-2024 Telephone encounter Tr Montana MD Work Phone: [facility] Comment on above: Patient Update; Yasmin ent Question Start: 02-07-2024 End: 02-07-2024 ambulatory TR [place] Facility:[facility] Start: 02-07-2024 End: 02-07-2024 Patient encounter procedure Tr Montana MD Work Phone: [facility] Comment on above: Essential hypertensi on (Primary Dx); Mixed hyperlipidemia; Elevated hemoglobin A1c; GERD without esophagitis; Stenosis of left carotid artery; Anxiety; [place]; Prostate disorder; Medication management Start: 01-20-2024 End: 01-20-2024 ambulatory TR [place] Facility:[facility] Start: 01-20-2024 End: 01-20-2024 Patient encounter procedure Tr Montana MD Work Phone: [facility] Comment on above: Common wart (Primary Dx); Encounter for immunization Start: 12-22-2023 End: 12-22-2023 Refill Tr Montana MD Work Phone: [facility] Comment on above: Refill Request Start: 12-16-2023 End: 12-16-2023 Patient encounter procedure Tr Montana MD Work Phone: [facility] Comment on above: Pressure injury of b uttock, unstageable, unspecified laterality (HCC) (Primary Dx) Start: 12-16-2023 End: 12-16-2023 ambulatory TR [place] Facility:[facility] Start: 12-14-2023 End: 12-14-2023 Telephone encounter Tr Montana MD Work Phone: [facility] [place] Comment on above: Cancelled appt Start: 12-05-2023 End: 12-05-2023 ambulatory TR NAN Facility:[facility] Start: 12-05-2023 End: 12-05-2023 Patient encounter procedure Christel Mei APRN.TIER AND DETONATOR Work Phone: [facility] Comment on above: Rash (Primary Dx) Start: 10-27-2023 Refill Marsha Solomon on PA-C Work Phone: [facility] Comment on above: Refill Request Start: 10-08-2023 End: 10-09-2023 ambulatory TR [place] Facility:[facility] Start: 10-08-2023 End: 10-08-2023 Patient encounter procedure Nicolette Johnson APRN.TIER AND DETONATOR Work Phone: [facility] Comment on above: Effusion of bursa of right knee (Primary Dx) Start: 09-27-2023 ambulatory Tr woodruff MD Work Phone: [facility] Start: 09-27-2023 Follow-up encounter Tr Motnana MD Work Phone: [facility] Comment on above: ED Follow-up and oth er Start: 09-20-2023 End: 09-20-2023 Emergency department patient visit OLIMPIA GAMBLE MD [facility] Start: 08-31-2023 End: 08-31-2023 Patient encounter procedure Kim Marion MD Work Phone: General Surgery Comment on above: Status post laparosc opic hernia repair (Primary Dx) Start: 08-25-2023 Telephone encounter Kim Marion MD Work Phone: General Surgery Comment on above: Patient Update Start: 08-18-2023 End: 08-18-2023 Patient encounter procedure Kim Marion MD Work Phone: General Surgery Comment on above: Status post laparosc opic hernia repair (Primary Dx) Start: 08-05-2023 Telephone encounter Kim Marion MD Work Phone: General Surgery Comment on above: Patient Question Start: 08-04-2023 End: 08-04-[address] [facility] Facility:[facility] Start: 07-25-2023 Telephone encounter Kim Marion MD Work Phone: General Surgery Comment on above: Patient Question Start: 07-11-2023 End: 07-11-2023 Admission to establishment [facility] Work Phone: [facility] Start: 07-11-2023 End: 07-11-2023 ambulatory [facility] [place] [facility] Work Phone: Pre Anesthesia Comment on above: Pre-op evaluation (P rimary Dx); Unilateral recurrent inguinal hernia without obstruction or gangrene; Essential hypertension; GERD without esophagitis; Mixed hyperlipidemia; SVT (supraventricular tachycardia) (HCC); Mild intermittent childhood asthma without complication; Elevated hemoglobin A1c; Anxiety; Stenosis of left carotid artery; Benign non-nodular prostatic hyperplasia without lower urinary tract symptoms Start: 07-11-2023 End: 07-11-2023 Preprocedural examination done Pac [place] [facility] Work Phone: [facility] Work Phone: Start: 07-06-2023 ambulatory Aidee Degroot [facility] Comment on above: Population Health Na vigation Outreach ([place] [facility] ) Start: 06-30-2023 End: 06-30-2023 Patient encounter procedure Kim Marion MD Work Phone: General Surgery Comment on above: Unilateral recurrent inguinal hernia without obstruction or gangrene (Primary Dx) Start: 06-17-2023 End: 06-17-2023 Patient encounter procedure Andrez Dye MD Work Phone: General Surgery Comment on above: Inguinal hernia, rig ht Start: 06-01-2023 End: 06-01-2023 Patient encounter procedure Tr Montana MD Work Phone: [facility] [place] Comment on above: Common wart (Primary Dx) Start: 05-31-2023 Telephone encounter Tr Montana MD Work Phone: [facility] [place] Comment on above: Results Start: 05-25-2023 End: 05-25-2023 Patient encounter procedure Tr Montana MD Work Phone: [facility] [place] Comment on above: Encounter for Medica re annual wellness exam (Primary Dx); Essential hypertension; Mixed hyperlipidemia; Elevated fasting glucose; GERD without esophagitis; SVT (supraventricular tachycardia) (HCC); Stenosis of left carotid artery; Anxiety; Benign non-nodular prostatic hyperplasia without lower urinary tract symptoms; Inguinal hernia, right; Encounter for immunization; Prostate disorder; Medication management Start: 03-25-2023 End: 03-25-2023 ambulatory MARSHA BUTTS [facility] Start: 03-11-2023 End: 03-11-2023 ambulatory MARSHA BUTTS [facility] Start: 02-04-2023 End: 02-04-2023 ambulatory Idalia Marcos PT, DPT Work Phone: [facility] Comment on above: Dizziness (Primary D x); Imbalance Start: 01-04-2023 ambulatory Ana Sawyer Work Phone: General Surgery Comment on above: Endoscopy results Start: 01-03-2023 End: 01-03-2023 ambulatory Ana Sewell PA-C Work Phone: General Surgery Comment on above: Hiatal hernia (Prima ry Dx); Gastritis and duodenitis; Gastroesophageal reflux disease with esophagitis without hemorrhage Start: 01-03-2023 End: 01-03-2023 Telemedicine consultation with patient Ana Sewell PA-C Work Phone: [facility] Start: 12-24-2022 End: 12-24-2022 ambulatory MARSHA BUTTS Facility:[facility] Start: 12-10-2022 End: 12-10-2022 ambulatory Idalia Marcos PT, DPT Work Phone: [facility] Comment on above: Dizziness (Primary D x); Imbalance Start: 12-06-2022 Telephone encounter Ana mcbride PA-C Work Phone: General Surgery Comment on above: Results Start: 11-30-2022 End: 11-30-2022 Subsequent hospital visit by physician Andrez Dye MD Work Phone: Ambulatory Surgery Comment on above: Hiatal hernia [K44.9 ] Start: 11-24-2022 End: 11-24-2022 ambulatory TR [place] Facility:[facility] Start: 11-24-2022 End: 11-24-2022 ambulatory Idalia Marcos PT, DPT Work Phone: [facility] Comment on above: Dizziness (Primary D x); Imbalance Start: 11-09-2022 End: 11-09-2022 Patient encounter procedure Tr Montana MD Work Phone: [facility] Comment on above: Viral warts, unspeci fied type (Primary Dx) Start: 11-02-2022 End: 11-02-2022 Patient encounter procedure Hailey Miller APRN.TIER AND DETONATOR Work Phone: [facility] Comment on above: Medication managemen t (Primary Dx); GERD without esophagitis; SVT (supraventricular tachycardia) (HCC); Essential hypertension; Mixed hyperlipidemia; Benign non-nodular prostatic hyperplasia without lower urinary tract symptoms; Vestibular disequilibrium, unspecified laterality Start: 10-12-2022 ambulatory Elisabeth Siddiqi RN [facility] Comment on above: Edema Examination (Primary Dx) Start: 10-12-2022 Patient encounter status Kaden Llanes MD Work Phone: [facility] Work Phone: Start: 10-12-2022 Telemedicine consultation with patient Kaden Llanes MD Work Phone: [facility] Start: 09-29-2022 End: 09-29-2022 ambulatory TR [place] Facility:[facility] Start: 09-29-2022 End: 09-29-2022 ambulatory Idalia Marcos PT, DPT Work Phone: [facility] Comment on above: Dizziness (Primary D x); Imbalance Start: 2022 Telephone encounter Tr Montana MD Work Phone: [facility] [place] Comment on above: Release Of Medical R ecords Start: 08-29-2022 ambulatory Marsha Solomon on PA-C Work Phone: [facility] [place] Comment on above: COVID vaccination Start: 08-27-2022 End: 08-27-2022 Patient encounter procedure Rosemary Cutler ELIZABETH Work Phone: Audiology Comment on above: Imbalance (Primary D x); Sensorineural hearing loss (SNHL) of both ears Dizziness Start: 07-19-2022 Telephone encounter Libra huddleston PA-C Work Phone: Neurology Comment on above: Patient Question Start: 07-07-2022 End: 07-07-2022 Patient encounter procedure Libra Smith PA-C Work Phone: Neurology Comment on above: Dizziness (Primary D x); Unsteadiness; Sensorineural hearing loss (SNHL) of both ears; Lightheadedness Start: 06-28-2022 End: 06-28-2022 ambulatory Nicolette Kerr PT [facility] Comment on above: Dizziness (Primary D x) Start: 06-09-2022 End: 06-09-2022 Patient encounter procedure Marsha CHERRYC Work Phone: [facility] [place] Comment on above: Dizziness (Primary D x) Start: 06-03-2022 Telephone encounter Marsha ordonez PA-C Work Phone: [facility] Comment on above: Results Start: 06-02-2022 Chart abstracting Tr leal MD Work Phone: [facility] Comment on above: Cardiology Follow Up (ECHO ) Start: 06-01-2022 Telephone encounter Tr Montana MD Work Phone: [facility] Comment on above: Results Start: 05-31-2022 ambulatory [facility] Start: 05-31-2022 Non-patient / Non-visit Dr. Ab Montana Work Phone: [facility] Start: 05-31-2022 End: 05-31-[address] Tr Montana Work Phone: [facility] Work Phone: Start: 05-31-2022 End: 05-31-[address] Tr Montana Work Phone: [facility]-Cardiovas[facility] Services Start: 05-28-2022 Telephone encounter Marsha CHERRYC Work Phone: [facility] Comment on above: Results Opened In Error Start: 05-27-2022 Telephone encounter Tr Montana MD Work Phone: [facility] Comment on above: Insurance Authorizat ion Start: 05-27-2022 End: 05-27-2022 Patient encounter procedure Marsha Butts PA-C Work Phone: [facility] Comment on above: Dizziness (Primary D x); Lightheaded Start: 05-24-2022 ambulatory Marsha jaramillo PA-C Work Phone: [facility] Comment on above: Equilibrium Start: 05-10-2022 End: 05-10-2022 Patient encounter procedure Marsha Butts PA-C Work Phone: [facility] Comment on above: Near syncope (Primar y Dx); Lightheaded; Diaphoresis; Atypical chest pain; Heart murmur; SVT (supraventricular tachycardia) ([facility]) Start: 05-07-2022 Chart abstracting Tr leal MD Work Phone: [facility] Comment on above: ER F/U ([facility] - Syncop e ) Start: 05-06-2022 Chart abstracting Tr leal MD Work Phone: [facility] Comment on above: ER F/U Start: 05-06-2022 End: 05-06-2022 Emergency department patient visit Tr [place] Facility:[facility] Start: 05-06-2022 End: 05-06-2022 Emergency department patient visit [facility]-Emergency Department Start: 02-21-2022 Telephone encounter Tr Montana MD Work Phone: [facility] Comment on above: Results Start: 02-16-2022 End: 02-16-2022 Patient encounter procedure Tr Montana MD Work Phone: [facility] Comment on above: Well adult exam (Veronica shikha Dx); Essential hypertension; Mixed hyperlipidemia; Elevated fasting glucose; GERD without esophagitis; SVT (supraventricular tachycardia) (HCC); Anxiety; Benign non-nodular prostatic hyperplasia without lower urinary tract symptoms; Living will in place; Advance directive discussed with patient; Prostate cancer screening; Need for vaccination; Encounter for immunization Start: 02-16-2022 End: 02-16-2022 Patient encounter status Tr [place] [facility] Start: 11-07-2021 ambulatory Estefanía [facility] Comment on above: Arm Injury Start: 09-07-2021 Telephone encounter Andrez Dye MD Work Phone: General Surgery Comment on above: Appointment Cancelle d Start: 08-26-2021 End: 08-26-2021 Patient encounter procedure Andrez Dye MD Work Phone: General Surgery Comment on above: Hematochezia (Primar y Dx); Internal hemorrhoids Start: 08-17-2021 ambulatory Marsha Solomon on PA-C Work Phone: [facility] Comment on above: Bats Start: 08-13-2021 End: 08-13-2021 Patient encounter procedure Andrez Dye MD Work Phone: General Surgery Comment on above: Hematochezia (Primar y Dx) Start: 07-21-2021 ambulatory Marsha Solomon clint PA-C Work Phone: [facility] [place] Comment on above: Urine Test Start: 07-21-2021 Telephone encounter Marsha Aurora ordonez PA-C Work Phone: [facility] Comment on above: Results Start: 07-20-2021 End: 07-20-2021 Patient encounter procedure Marsha Benjamín PA-C Work Phone: [facility] [place] Comment on above: Essential hypertensi on (Primary Dx); Mixed hyperlipidemia; Elevated fasting glucose; Scoliosis, unspecified scoliosis type, unspecified spinal region; GERD without esophagitis; Microscopic hematuria; Mild intermittent childhood asthma without complication; SVT (supraventricular tachycardia) (HCC); Pain of left heel Start: 02-17-2021 End: 02-17-2021 Subsequent hospital visit by physician Xr [facility] [employer] Work Phone: Radiology Comment on above: Pain of left heel [M 79.672] Start: 08-27-2020 End: 08-27-2020 Subsequent hospital visit by physician Xr [facility] [employer] Work Phone: Radiology Comment on above: Bilateral wrist pain [M25.531, M25.532] Start: 07-14-2020 Patient encounter status Marsha Benjamín PA-C Work Phone: [facility] Work Phone: Procedures Date Procedure Procedure Detail Performing Clinician Start: 09-03-2024 [employer] COVID-19 VACCINE AGE 12+ YR (COMIRNATY) Tr Montana MD Work Phone: Start: 09-03-2024 Adult depression screening assessment Tr Montana MD Work Phone: Start: 04-04-2024 Lipid 1996 panel - Serum or Plasma Chemo Montana MD Work Phone: Start: 01-20-2024 [employer] COVID-19 VACCINE AGE 12+ YR (COMIRNATY) Tr Montana MD Work Phone: Start: 05-31-2023 Lipid 1996 panel - Serum or Plasma Chemo Montana MD Work Phone: Start: 05-25-2023 [employer]ER[employer] COVID-19 VACCINE (2022- SEASON) AGE 12+ YR Tr Montana MD Work Phone: Start: 11-30-2022 Level iv surg pathology gross&microscopic exam Andrez Dye MD Work Phone: Start: 11-30-2022 Esophagogastroduodenoscopy transoral diagnostic Ana Sewell PA-C Work Phone: Start: 02-16-2022 INFLUENZA SEASONAL QUADRIVALENT HIGH DOSE AGE 65+ Tr Montana MD Work Phone: Start: 02-16-2022 Lipid 1996 panel - Serum or Plasma Hillary Marcos PT, DPT Work Phone: Start: 02-17-2021 Radex foot complete minimum 3 views Lavelle Muse FRAUD INVESTIGATOR.TIER AND DETONATOR Work Phone: Start: 10-28-2020 Colonoscopy Marsha Butts PA-C Work Phone: Start: 08-27-2020 Radex wrist complete minimum 3 views Jolly Pisano FRAUD INVESTIGATOR.TIER AND DETONATOR Work Phone: Start: 07-14-2020 Adult depression screening assessment Marsha Butts PA-C Work Phone: Plan of Treatment Date Care Activity Detail Author Start: 01-25-2033 Urine microalbumin profile DTaP,Tdap,Td Vaccine (4 - Td or Tdap) [facility] Start: 04-04-2029 Lipid panel Lipid Screening [facility] Start: 05-30-2028 Lipid panel Lipid Screening [facility] Start: 05-30-2028 Prostate specific antigen measurement Prostate Cancer Screening Discussion [facility] Start: 11-16-2027 Urine microalbumin profile [facility] Start: 04-04-2027 Diabetes Screening Diabetes Screenin g [facility] Start: 02-16-2027 Lipid 1996 panel - Serum or Plasma Lipid Screening [facility] Start: 02-16-2027 Lipid panel Lipid Screening [facility] Start: 02-16-2027 LIPID SCREEN LIPID SCREEN [facility] Start: 02-16-2027 PROSTATE CANCER SCREENING DISCUSSION PROSTATE CANCER SCREENING DISCUSSION [facility] Start: 02-16-2027 Prostate specific antigen measurement Prostate Cancer Screening Discussion [facility] Start: 07-20-2026 LIPID SCREEN LIPID SCREEN [facility] Start: 05-30-2026 Diabetes Screening Diabetes Screenin g [facility] Start: 10-28-2025 Colonoscopy COLONOSCOPY [facility] Start: 10-28-2025 COLORECTAL CANCER SCREENING COLORECTAL CANCER SCREENING [facility] Start: 10-28-2025 Screening for malign ant neoplasm of colon [facility] Start: 2025 LIPID SCREEN LIPID SCREEN [facility] Start: 2025 PROSTATE CANCER SCREENING DISCUSSION PROSTATE CANCER SCREENING DISCUSSION [facility] Start: 09-03-2025 Annual PCP Team Cash Posting Representative twila Disease Visit Annual PCP Team Chronic Disease Visit [facility] Start: 09-03-2025 BP Controlled (<130/80) BP Controlle d (<130/80) [facility] Start: 09-03-2025 Depression Screening Depression Scre ening [facility] Start: 05-27-2025 DIABETES SCREEN DIABETES SCREEN [facility] Start: 05-27-2025 Diabetes Screening Diabetes Screenin g [facility] Start: 05-21-2025 Annual PCP Team Cash Posting Representative twila Disease Visit Annual PCP Team Chronic Disease Visit [facility] Start: 04-05-2025 Annual PCP Team Cash Posting Representative twila Disease Visit Annual PCP Team Chronic Disease Visit [facility] Start: 04-05-2025 BP Controlled (<130/80) BP Controlle d (<130/80) [facility] Start: 03-02-2025 BP Controlled (<130/80) BP Controlle d (<130/80) [facility] Start: 02-22-2025 End: 05-24-2025 Hemoglobin A1c in Blood HEMOGLOBIN A1C Lab Routine Elevated hemoglobin A1c Expected: 02/22/2025, Expires: 05/24/2025 [facility] Work Phone: Comment on above: Expected: 02/22/2025 , Expires: 05/24/2025 Start: 02-22-2025 End: 05-24-2025 LIPID PANEL, NONFASTING LIPID PANEL, NONFASTING Lab Routine Essential hypertension Mixed hyperlipidemia Expected: 02/22/2025, Expires: 05/24/2025 [facility] Comment on above: Expected: 02/22/2025 , Expires: 05/24/2025 Start: 02-16-2025 DIABETES SCREEN DIABETES SCREEN [facility] Start: 02-06-2025 Annual PCP Team Cash Posting Representative twila Disease Visit Annual PCP Team Chronic Disease Visit [facility] Start: 02-06-2025 BP Controlled (<130/80) BP Controlle d (<130/80) [facility] Start: 01-19-2025 Annual PCP Team Cash Posting Representative twila Disease Visit Annual PCP Team Chronic Disease Visit [facility] Start: 01-19-2025 BP Controlled (<130/80) BP Controlle d (<130/80) [facility] Start: 12-15-2024 Annual PCP Team Cash Posting Representative twila Disease Visit Annual PCP Team Chronic Disease Visit [facility] Start: 08-14-2024 End: 08-14-2024 Patient encounter procedure [facility] Comment on above: medicare wellness Start: 07-27-2024 End: 10-26-2024 Cobalamin (Vitamin B12) [Mass/volume] in Serum or Plasma VITAMIN B12 Lab Routine GERD without esophagitis Medication management Expected: 07/27/2024, Expires: 10/26/2024 [facility] Comment on above: Expected: 07/27/2024 , Expires: 10/26/2024 Start: 07-27-2024 End: 10-26-2024 Comprehensive metabolic 2000 panel - Serum or Plasma COMPREHENSIVE METABOLIC PANEL Lab Routine Essential hypertension Mixed hyperlipidemia Expected: 07/27/2024, Expires: 10/26/2024 [facility] Comment on above: Expected: 07/27/2024 , Expires: 10/26/2024 Start: 07-27-2024 End: 10-26-2024 Hemoglobin A1c in Blood HEMOGLOBIN A1C Lab Routine Elevated hemoglobin A1c Expected: 07/27/2024, Expires: 10/26/2024 [facility] Comment on above: Expected: 07/27/2024 , Expires: 10/26/2024 Start: 07-27-2024 End: 10-26-2024 LIPID PANEL, NONFASTING LIPID PANEL, NONFASTING Lab Routine Essential hypertension Mixed hyperlipidemia Expected: 07/27/2024, Expires: 10/26/2024 [facility] Comment on above: Expected: 07/27/2024 , Expires: 10/26/2024 Start: 07-27-2024 End: 10-26-2024 Magnesium [Mass/volume] in Serum or Plasma MAGNESIUM Lab Routine GERD without esophagitis Medication management Expected: 07/27/2024, Expires: 10/26/2024 [facility] Comment on above: Expected: 07/27/2024 , Expires: 10/26/2024 Start: 07-27-2024 End: 10-26-2024 Prostate specific Ag [Mass/volume] in Serum or Plasma PROSTATE-SPECIFIC ANTIGEN DIAGNOSTIC Lab Routine Prostate disorder Expected: 07/27/2024, Expires: 10/26/2024 [facility] Comment on above: Expected: 07/27/2024 , Expires: 10/26/2024 Start: 07-27-2024 End: 10-26-2024 Urinalysis complete panel - Urine URINALYSIS, WITH MICROSCOPIC Lab Routine Essential hypertension Mixed hyperlipidemia Expected: 07/27/2024, Expires: 10/26/2024 [facility] Comment on above: Expected: 07/27/2024 , Expires: 10/26/2024 Start: 07-20-2024 Covid-19 Vaccine () Covid-19 Vaccine () [facility] Start: 07-20-2024 DIABETES SCREEN DIABETES SCREEN [facility] Start: 05-31-2024 Annual PCP Team Cash Posting Representative twila Disease Visit Annual PCP Team Chronic Disease Visit [facility] Start: 05-25-2024 Annual PCP Team Cash Posting Representative twila Disease Visit Annual PCP Team Chronic Disease Visit [facility] Start: 05-25-2024 BP Controlled (<130/80) BP Controlle d (<130/80) [facility] Start: 05-03-2024 End: 05-03-2024 Patient encounter procedure 05/03/2024 8:00 AM EST Office Visit Vasculary Surgery [address] [place] [address] Dizziness [R42] [facility] Comment on above: Dizziness [R42] Start: 03-28-2024 Advance Directive Discussion Advance Directive Discussion [facility] Start: 02-07-2024 Depression Screening Depression Scre ening [facility] Comment on above: Postponed from 09/10 (Declined at this time) Start: 02-07-2024 End: 05-08-2024 Hemoglobin A1c in Blood HEMOGLOBIN A1C Lab Routine Elevated hemoglobin A1c Expected: 02/07/2024, Expires: 05/08/2024 [facility] Work Phone: Comment on above: Expected: 02/07/2024 , Expires: 05/08/2024 Start: 02-07-2024 End: 05-08-2024 LIPID PANEL, NONFASTING LIPID PANEL, NONFASTING Lab Routine Mixed hyperlipidemia Expected: 02/07/2024, Expires: 05/08/2024 [facility] Comment on above: Expected: 02/07/2024 , Expires: 05/08/2024 Start: 02-07-2024 End: 02-07-2024 Patient encounter procedure 02/07/2024 8:00 AM EST Office Visit [facility] [address] [place] [address] Tr Montana MD [address] [place], [place] [id number] physical [facility] Medicine [facility] Comment on above: physical Start: 01-20-2024 End: 01-20-2024 Patient encounter procedure 01/20/2024 8:00 AM EDT Office Visit Family Kayla Sosa [address] [place] [address] Tr Montana MD [address] [place] [address] wart removal Family [facility] Comment on above: wart removal Start: 12-26-2023 DIABETES SCREEN DIABETES SCREEN [facility] Start: 12-16-2023 End: 12-16-2023 Patient encounter procedure 12/16/2023 4:20 PM EDT Office Visit Family [facility] [address] [place], [place] [id number] Tr Montana MD [address] [place] [address] Rash- as Tx in [facility]: 12-05-23- not better [facility] Comment on above: Rash- as Tx in Exp [facility]: 12-05-23- not better Start: 11-27-2023 Covid-19 Vaccine () Covid-19 Vaccine () [facility] Start: 11-27-2023 Covid-19 Vaccine () Covid-19 Vaccine () [facility] Start: 11-27-2023 Influenza vaccination Influenza Vacc ine (#1) [facility] Start: 11-21-2023 End: 11-21-2023 Patient encounter procedure 11/21/2023 7:00 AM EDT Office Visit [facility] [address] [place] [address] Marsha Butts PA-C [address] [place] [address] 6 month follow up [facility] Comment on above: 6 month follow up Start: 11-10-2023 ANNUAL PCP TEAM 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 TWILA DISEASE VISIT ANNUAL PCP TEAM CHRONIC DISEASE VISIT [facility] Start: 11-03-2023 ANNUAL PCP TEAM 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 TWILA DISEASE VISIT ANNUAL PCP TEAM CHRONIC DISEASE VISIT [facility] Start: 11-03-2023 BP CONTROLLED (<130/80) BP CONTROLLE D (<130/80) [facility] Start: 09-23-2023 Covid-19 Vaccine () Covid-19 Vaccine () [facility] Start: 08-31-2023 End: 08-31-2023 Patient encounter procedure 08/31/2023 3:45 PM EDT Office Visit General Surgery [address] [facility] [address] [place] [address] Kim Marion MD [address] [facility] [address] [place] [address] Post Op Bilateral Inguinal hernia 08/31/23 pesristent pain General Surgery Comment on above: Post Op Bilateral In guinal hernia 08/31/23 pesristent pain Start: 08-18-2023 End: 08-18-2023 Patient encounter procedure 08/18/2023 9:15 AM EDT Office Visit General Surgery [address] [facility] [address] [place] [address] Kim Marion MD [address] [facility] [address] [place] [address] LAPAROSCOPY SURGICAL REPAIR INITIAL INGUINAL HERNIA WITH TOTAL EXTRA PERITONEAL REPAIR [[id number]] General Surgery Comment on above: LAPAROSCOPY SURGICAL REPAIR INITIAL INGUINAL HERNIA WITH TOTAL EXTRA PERITONEAL REPAIR [[id number]] Start: 06-10-2023 ANNUAL PCP TEAM 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 TWILA DISEASE VISIT ANNUAL PCP TEAM CHRONIC DISEASE VISIT [facility] Start: 05-28-2023 ANNUAL PCP TEAM 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 TWILA DISEASE VISIT ANNUAL PCP TEAM CHRONIC DISEASE VISIT [facility] Start: 05-28-2023 BP CONTROLLED (<130/80) BP CONTROLLE D (<130/80) [facility] Start: 05-25-2023 End: 08-24-2023 CBC W Auto Differential panel - Blood CBC + DIFF Lab Routine Medication management Expected: 05/25/2023, Expires: 08/24/2023 [facility] Work Phone: Comment on above: Expected: 05/25/2023 , Expires: 08/24/2023 Start: 05-25-2023 End: 08-24-2023 Cobalamin (Vitamin B12) [Mass/volume] in Serum or Plasma VITAMIN B12 BLOOD Lab Routine GERD without esophagitis Medication management Expected: 05/25/2023, Expires: 08/24/2023 [facility] Work Phone: Comment on above: Expected: 05/25/2023 , Expires: 08/24/2023 Start: 05-25-2023 End: 08-24-2023 Comprehensive metabolic 2000 panel - Serum or Plasma COMP METABOLIC PANEL Lab Routine Essential hypertension Mixed hyperlipidemia Elevated fasting glucose Expected: 05/25/2023, Expires: 08/24/2023 [facility] Work Phone: Comment on above: Expected: 05/25/2023 , Expires: 08/24/2023 Start: 05-25-2023 End: 08-24-2023 Hemoglobin A1c in Blood HGB A1C Lab Routine Elevated fasting glucose Expected: 05/25/2023, Expires: 08/24/2023 [facility] Work Phone: Comment on above: Expected: 05/25/2023 , Expires: 08/24/2023 Start: 05-25-2023 End: 08-24-2023 LIPID PANEL, NONFASTING LIPID PANEL, NONFASTING Lab Routine Essential hypertension Mixed hyperlipidemia Expected: 05/25/2023, Expires: 08/24/2023 [facility] Work Phone: Comment on above: Expected: 05/25/2023 , Expires: 08/24/2023 Start: 05-25-2023 End: 08-24-2023 Magnesium [Mass/volume] in Serum or Plasma MAGNESIUM BLD Lab Routine GERD without esophagitis Medication management Expected: 05/25/2023, Expires: 08/24/2023 [facility] Work Phone: Comment on above: Expected: 05/25/2023 , Expires: 08/24/2023 Start: 05-25-2023 End: 08-24-2023 Prostate specific Ag [Mass/volume] in Serum or Plasma PSA/PROSTSPECAG DIAG Lab Routine Prostate disorder Expected: 05/25/2023, Expires: 08/24/2023 [facility] Work Phone: Comment on above: Expected: 05/25/2023 , Expires: 08/24/2023 Start: 05-25-2023 End: 08-24-2023 Urinalysis complete panel - Urine URINALYSIS, WITH MICROSCOPIC Lab Routine Essential hypertension Mixed hyperlipidemia Expected: 05/25/2023, Expires: 08/24/2023 [facility] Work Phone: Comment on above: Expected: 05/25/2023 , Expires: 08/24/2023 Start: 05-10-2023 ANNUAL PCP TEAM 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 TWILA DISEASE VISIT ANNUAL PCP TEAM CHRONIC DISEASE VISIT [facility] Start: 03-28-2023 Behavioral Health Screening Behavioral Health Screening [facility] Start: 02-16-2023 ANNUAL PCP TEAM 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 TWILA DISEASE VISIT ANNUAL PCP TEAM CHRONIC DISEASE VISIT [facility] Start: 12-31-2022 COVID-19 VACCINE (6 - Moderna series) COVID-19 VACCINE (6 - Moderna series) [facility] Start: 11-26-2022 Covid-19 Vaccine ( season) Covid-19 Vaccine () [facility] Start: 11-26-2022 Influenza vaccination [facility] Start: 11-02-2022 End: 01-02-2023 CBC W Auto Differential panel - Blood CBC + DIFF Lab Routine Medication management Expected: 11/02/2022, Expires: 01/02/2023 [facility] Work Phone: Comment on above: Expected: 11/02/2022 , Expires: 01/02/2023 Start: 11-02-2022 End: 01-02-2023 Comprehensive metabolic 2000 panel - Serum or Plasma COMP METABOLIC PANEL Lab Routine Medication management Expected: 11/02/2022, Expires: 01/02/2023 [facility] Work Phone: Comment on above: Expected: 11/02/2022 , Expires: 01/02/2023 Start: 08-06-2022 End: 10-06-2022 Hemoglobin A1c in Blood HGB A1C Lab Routine Elevated fasting glucose Expected: 08/06/2022, Expires: 10/06/2022 [facility] Work Phone: Comment on above: Expected: 08/06/2022 , Expires: 10/06/2022 Start: 08-06-2022 End: 10-06-2022 LIPID PANEL, NONFASTING LIPID PANEL, NONFASTING Lab Routine Essential hypertension Mixed hyperlipidemia Expected: 08/06/2022, Expires: 10/06/2022 [facility] Work Phone: Comment on above: Expected: 08/06/2022 , Expires: 10/06/2022 Start: 07-20-2022 ANNUAL PCP 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 DISEASE VISIT ANNUAL PCP TEAM CHRONIC DISEASE VISIT [facility] Start: 07-20-2022 BP CONTROLLED (<130/80) BP CONTROLLE D (<130/80) [facility] Start: 05-27-2022 End: 07-27-2022 Basic metabolic 2000 panel - Serum or Plasma [facility] Work Phone: Comment on above: Expected: 05/27/2022 , Expires: 07/27/2022 Start: 05-27-2022 End: 07-27-2022 CBC W Auto Differential panel - Blood [facility] Work Phone: Comment on above: Expected: 05/27/2022 , Expires: 07/27/2022 Start: 05-27-2022 End: 07-27-2022 Thyrotropin [Units/volume] in Serum or Plasma [facility] Work Phone: Comment on above: Expected: 05/27/2022 , Expires: 07/27/2022 Start: 03-28-2022 ADVANCE DIRECTIVE DISCUSSION ADVANCE DIRECTIVE DISCUSSION [facility] Start: 03-28-2022 DEPRESSION ASSESSMENT DEPRESSION ASS ESSMENT [facility] Start: 02-16-2022 End: 04-18-2022 Comprehensive metabolic 2000 panel - Serum or Plasma [facility] Work Phone: Comment on above: Expected: 02/16/2022 , Expires: 04/18/2022 Start: 02-16-2022 End: 04-18-2022 Hemoglobin A1c in Blood [facility] Work Phone: Comment on above: Expected: 02/16/2022 , Expires: 04/18/2022 Start: 02-16-2022 End: 04-18-2022 LIPID PANEL, NONFASTING [facility] Work Phone: Comment on above: Expected: 02/16/2022 , Expires: 04/18/2022 Start: 02-16-2022 End: 04-18-2022 Prostate specific Ag [Mass/volume] in Serum or Plasma [facility] Work Phone: Comment on above: Expected: 02/16/2022 , Expires: 04/18/2022 Start: 02-16-2022 End: 04-18-2022 Thyrotropin [Units/volume] in Serum or Plasma [facility] Work Phone: Comment on above: Expected: 02/16/2022 , Expires: 04/18/2022 Start: 02-16-2022 End: 04-18-2022 Urinalysis complete panel - Urine [facility] Work Phone: Comment on above: Expected: 02/16/2022 , Expires: 04/18/2022 Start: 11-26-2021 Influenza vaccination INFLUENZA (#1) [facility] Start: 10-30-2021 COVID-19 VACCINE (5 - Booster for Moderna series) COVID-19 VACCINE (5 - Booster for Moderna series) [facility] Start: 2021 ADVANCE DIRECTIVE DISCUSSION ADVANCE DIRECTIVE DISCUSSION [facility] Start: 07-21-2021 End: 09-20-2021 Urinalysis complete panel - Urine URINALYSIS, WITH MICROSCOPIC Lab Routine Proteinuria, unspecified type Expected: 07/21/2021, Expires: 09/20/2021 [facility] Work Phone: Comment on above: Expected: 07/21/2021 , Expires: 09/20/2021 Start: 07-14-2021 Adult depression screening assessment DEPRESSION SCREENING [facility] Start: 06-03-2021 COVID-19 VACCINE (4 - Booster for Moderna series) COVID-19 VACCINE (4 - Booster for Moderna series) [facility] Start: 11-10-2016 FECAL OCCULT BLOOD FECAL OCCULT BLOO D [facility] Start: 11-10-2016 Screening for malign ant neoplasm of colon Fecal Occult Blood [facility] Start: 2016 RSV Vaccine (1 - 1-d ose 60+ series) RSV Vaccine (1 - 1-dose 60+ series) [facility] Start: 2001 COLOGUARD (FIT-DNA) COLOGUARD (FIT-D NA) [facility] Start: [address] COLONOGRAPHY [facility] Start: 2001 Screening for malign ant neoplasm of colon [facility] Start: 2001 SIGMOIDOSCOPY SIGMOIDOSCOPY [facility] Start: 1974 BP CONTROLLED (<130/80) BP CONTROLLE D (<130/80) [facility] Start: 1974 Depression Screening Depression Scre ening [facility] Start: 1962 PNEUMOCOCCAL (1 - PCV) PNEUMOCOCCAL (1 - PCV) [facility] Start: 1962 PNEUMOCOCCAL: 65+ (1 - PCV) PNEUMOCOCCAL: 65+ (1 - PCV) [facility] End: 08-06-2023 Mra head w/o contrst material MRA BRAIN WO IVCON Radiology Routine Dizziness Unsteadiness Lightheadedness 1 Occurrences starting 07/07/2022 until 08/06/2023 [facility] Work Phone: Comment on above: 1 Occurrences starti ng 07/07/2022 until 08/06/2023 End: 08-06-2023 Mri brain brain stem w/o w/contrast material MRI BRAIN WO/W IVCON Radiology Routine Dizziness Unsteadiness Sensorineural hearing loss (SNHL) of both ears 1 Occurrences starting 07/07/2022 until 08/06/2023 [facility] Work Phone: Comment on above: 1 Occurrences starti ng 07/07/2022 until 08/06/2023 Patient Education ED Near-Fainti ng, Uncertain Cause [facility] Work Phone: Patient referral [facility] Work Phone: PT PLAN OF CARE CERTIFICATION PT PLAN OF CARE CERTIFICATION Procedures Routine Dizziness Ordered: 06/28/2022 [facility] Comment on above: Ordered: 06/28/2022 End: 05-10-2023 STRESS ECHO TREADMILL STRESS ECHO TREADMILL Cardiology Routine Near syncope Lightheaded Diaphoresis Atypical chest pain Heart murmur 1 Occurrences starting 05/10/2022 until 05/10/2023 [facility] Work Phone: Comment on above: 1 Occurrences starti ng 05/10/2022 until 05/10/2023 End: 04-05-2025 US Carotid arteries - bilateral US CAROTID ARTERIES [facility] Lab Routine Dizziness Stenosis of left carotid artery 1 Occurrences starting 04/05/2024 until 04/05/2025 [facility] Work Phone: Comment on above: 1 Occurrences starti ng 04/05/2024 until 04/05/2025 End: 05-25-2023 US CAROTID ARTERIES [facility] US CAROTID ARTERIES [facility] Vascular Lab Routine Near syncope Lightheaded 1 Occurrences starting 05/25/2022 until 05/25/2023 [facility] Work Phone: Comment on above: 1 Occurrences starti ng 05/25/2022 until 05/25/2023 [facility] Immunizations Immunization Date Immunization Notes Care Provider [facility] 09-03-2024 COVID-19 vaccine, ag e 12+ yr (PFIZER-BIONTECH COMIRNATY) Tr Montana MD Work Phone: [facility] 01-20-2024 COVID-19 vaccine, ag e 12+ yr (PFIZER-BIONTECH COMIRNATY) Tr Montana MD Work Phone: [facility] 01-20-2024 influenza, high dose seasonal, preservative-free Tr Montana MD Work Phone: [facility] 05-25-2023 COVID-19 vaccine, ag e 12+ yr, season (PFIZER-BIONTECH) Tr Montana MD Work Phone: [facility] 02-21-2023 influenza, high dose seasonal, preservative-free Tr Montana MD Work Phone: [facility] 02-21-2023 respiratory syncytia l virus (RSV) vaccine, adjuvanted (AREXVY) Tr Montnaa MD Work Phone: [facility] 02-21-2023 influenza virus vaccine, unspecified formulation Tr Montana MD Work Phone: [facility] 01-25-2023 tetanus and diphther ia toxoids, adsorbed, preservative free, for adult use (5 Lf of tetanus toxoid and 2 Lf of diphtheria toxoid) Idalia Marcos PT, DPT Work Phone: [facility] 02-16-2022 influenza, high-dose , quadrivalent vaccine (FLUZONE HIGH DOSE QUADRIVALENT) Tr Montana MD Work Phone: [facility] 02-16-2022 pneumococcal (PCV20) vaccine, 20 valent (PREVNAR 20) rT Montana MD Work Phone: [facility] 02-16-2022 pneumococcal Conjugate, unspecified formulation Tr Montana MD Work Phone: [facility] Work Phone: 02-16-2022 influenza virus vaccine, unspecified formulation Idalia Marcos PT, DPT Work Phone: [facility] 02-03-2021 COVID-19 vaccine, fu ll dose (MODERNA) Marsha Butts PA-C Work Phone: [facility] 01-05-2021 zoster vaccine recombinant Marsha Butts PA-C Work Phone: [facility] 07-14-2020 zoster vaccine recombinant Marsha Butts PA-C Work Phone: [facility] 11-15-2017 tetanus toxoid, reduced diphtheria toxoid, and acellular pertussis vaccine, adsorbed Marsha Butts PA-C Work Phone: [facility] 01-10-2017 influenza, injectabl e, quadrivalent, contains preservative Marsha Butts PA-C Work Phone: [facility] Work Phone: 09-06-2013 measles, mumps and rubella virus vaccine Marsha Butts PA-C Work Phone: [facility] 08-06-2013 measles, mumps and rubella virus vaccine Marsha HAUSER-C Work Phone: [facility] 12-26-2012 influenza virus vaccine, unspecified formulation Marsha HAUSER-C Work Phone: [facility] 01-06-2011 influenza virus vaccine, unspecified formulation Marsha Butts PA-C Work Phone: [facility] Work Phone: 03-12-2008 tetanus toxoid, reduced diphtheria toxoid, and acellular pertussis vaccine, adsorbed Marsha Butts PA-C Work Phone: [facility] 01-25-2008 influenza virus vaccine, unspecified formulation Marsha HAUSER-C Work Phone: [facility] 03-28-2007 tetanus toxoid, adsorbed Marsha Butts PA-C Work Phone: [facility] Payers Date Payer Category Payer Self-pay [id number] 2021 [facility] [id number] 2021 Medicare [id number] 2020 Unknown [employer] INSURED [id number] 2020-Present [phone] [address] [place] [address] [facility] [id number] 2019 Unknown [id number] 2003 Private Health Insurance [facility] [id number] 2003 Unknown [id number] 1956 Unknown [id number] Unknown [facility] [id number] Unknown [id number] Unknown [id number] Unknown [id number] Social History Date Type Detail Facility Start: 03-19-2011 End: 02-16-2022 Tobacco smoking status NHIS Never smoked tobacco [facility] Work Phone: Start: 07-20-2021 End: 09-03-2024 Alcohol intake Current non-drinker of alcohol (finding) [facility] Start: 07-18-2021 End: 02-16-2022 History SDOH Alcohol Frequency 1 [facility] Start: 07-18-2021 End: 02-16-2022 History SDOH Alcohol Std Drinks 98 [facility] Start: 07-18-2021 End: 02-16-2022 History SDOH Social Connections Phone 4 [facility] Start: 07-18-2021 End: 02-16-2022 History SDOH Social Connections Get Together 2 [facility] Start: 07-18-2021 End: 02-16-2022 History SDOH Social Connections Taoism 3 [facility] Start: 02-07-2019 Education 18 [facility] Start: 1955 Sex Assigned At Male [facility] Start: 07-28-2020 End: 02-16-2022 Exposure to SARS-CoV-2 (event) Not sure [facility] Start: 03-19-2011 End: 02-16-2022 Tobacco use and exposure Smokeless tobacco non-user [facility] Work Phone: Start: 02-16-2022 History SDOH Alcohol Std Drinks 0 [facility] Start: 05-06-2022 End: 05-06-2022 Tobacco smoking status NHIS Unknown if ever smoked [facility] Start: 02-16-2022 End: 08-11-2022 History of Social function [facility] Start: 02-16-2022 End: 08-11-2022 Social connection and isolation panel [facility] How often do you get together with friends or relatives? Patient refused [facility] Do you belong to any clubs or organizations such as hinduism groups, unions, fraternal or athletic groups, or school groups? Yes [facility] Are you now , , , , never or living with a partner? [facility] How often to you hav e a drink containing alcohol? Never [facility] How hard is it for y ou to pay for the very basics like food, housing, medical care, and heating Not very hard [facility] Do you feel stress - tense, restless, nervous, or anxious, or unable to sleep at night because your mind is troubled all the time - these days [OSQ] Only a little [facility] (I/We) worried lili er (my/our) food would run out before (I/we) got money to buy more. Never true [facility] In the past 12 month s, was there a time when you were not able to pay the mortgage or rent on time? No [facility] Start: 08-27-2019 Gender identity Identifies as male gender (finding) [facility] Start: 08-27-2019 Sexual orientation Heterosexual (finding) [facility] Do you feel stress - tense, restless, nervous, or anxious, or unable to sleep at night because your mind is troubled all the time - these days [OSQ] To some extent [facility] Tobacco smoking status No Smokin g Status Entered [facility] Procedure Code Equipment Code Equipment Original Text Equipment Identifier Dates Mgt-Wb-U-Kind Implant - [id number]_[facility] Start: 02-07-2013 Comment on above: Description: plate Enh-Kz-N-Kind Implant - [id number] [id number]_[facility] Start: 02-07-2013 Comment on above: Description: screw Ihc-Pc-S-Kind Implant - [id number]_[facility] Start: 11-22-2018 Comment on above: Description: SpeedBr idge implant system with scorpion- multifire needle Screw Bn 2.7mm 16mm Lcp Ss - [id number]_[facility] Start: 02-07-2013 Comment on above: Description: screw Screw Bn 2.4mm 22mm Lcp Ss - [id number]_[facility] Start: 02-07-2013 Comment on above: Description: screw Screw Bn 2.4mm 20mm Lcp Ss - [id number]_[facility] Start: 02-07-2013 Comment on above: Description: screw Screw Bn 2.4mm 18mm Lcp Ss - [id number]_[facility] Start: 02-07-2013 Comment on above: Description: screw Wire Fix 1.25mm 150mm Krsh Ss - [id number] [id number]_[facility] Start: 02-07-2013 Comment on above: Description: k-wire Med Dextile Lt 13cm X 9cm (5.1' X 3.5'') - [id number]_[facility] Start: 08-04-2023 Med Dextile Rt 13cm X 9cm (5.1' X 3.5'') - [id number]_[facility] Start: 08-04-2023 Functional Status Date Assessment Result Facility 09-03-2024 Total score [AUDIT-C] 0 09/04/19 25 3:39 AM EDT User, Ezequiel [facility] 09-03-2024 How often to you hav e a drink containing alcohol? Never 09/03/2024 3:39 AM EDT User, Ezequiel Almeida [facility] 09-03-2024 Functional status Patient does n ot drink 09/03/2024 3:39 AM EDT UserEzequiel Patient does not drink [facility] 09-03-2024 How often do you hav e 6 or more drinks on 1 occasion? Never 09/03/2024 3:39 AM EDT UserEzequiel Never [facility] 09-20-2023 Functional Status Independent [place] Sandeep gonzales [facility] 07-02-2014 Are you deaf, or do you have serious difficulty hearing No 07/02/2014 6:27 PM Ramona Duke RN No [facility] Work Phone: 07-02-2014 Are you blind, or do you have serious difficulty seeing, even when wearing glasses No 07/02/2014 6:27 PM Ramona Duke RN No [facility] 07-02-2014 Do you have serious difficulty walking or climbing stairs No 07/02/2014 6:27 PM Ramona Duke RN No [facility] 07-02-2014 Do you have difficul ty dressing or bathing No 07/02/2014 6:27 PM Ramona Duke RN No [facility] 07-02-2014 Because of a physica l, mental, or emotional condition, do you have difficulty doing errands alone such as visiting a physician's office or shopping No 07/02/2014 6:27 PM Ramona Duke RN No [facility] Mental Status Date Assessment Result Facility 09-20-2023 Mental Status Orientation Oriented x 4 [facility] 05-06-2022 Cognitive function Level Of Cons ciousness Awake;Alert;Appropriate;Fol lows Commands [facility] Work Phone: 07-02-2014 Because of a physica l, mental, or emotional condition, do you have serious difficulty concentrating, remembering, or making decisions No 07/02/2014 6:27 PM Ramona Duke RN No [facility] Clinical Notes 09-02-2009 to 09-03-2024 Patient InstructionsTr Montana MD - 09/03/2024 6:54 AM EDTTelephone Encounter - Rayne Ynag LPN - 06/25/2024 4:50 PM Marsha Chow PA-C - 05/21/2024 7:18 AM EST Note Date & Type Note Facility 09-03-2024 Instructions Tr Montana MD - 09/03/2024 7:06 AM EDT Please bring in copies of your power of collections attorney for health care and living will. Please get labs and urine test done on or after 02/22/2025 prior to your next visit. Screening schedule The following prevention plan is recommended: Depression Screening Never done Advance Directive Discussion due on 03/28/2024 Covid-19 Vaccine( season) due on 07/20/2024 WHAT YOU CAN DO TO PREVENT FALLS Many falls can be prevented. By making some changes, you can lower your chances of falling. Four things YOU can do to prevent falls for you* and your caregiver 1. Begin a regular exercise program Exercise is one of the most important ways to lower your chances of falling. It makes you stronger and helps you feel better. Exercises that improve balance and coordination (like Samuel Chi) are the most helpful. Lack of exercise leads to weakness and increases your chances of falling. Ask your doctor or health care provider about the best type of exercise program for you. 2. Have your health care provider review your medicines Have your doctor or pharmacist review all the medicines you take, even eoxp-dpz-[id number] medicines. As you get older, the way medicines work in your body can change. Some medicines, or combinations of medicines, can make you sleepy or dizzy and can cause you to fall. 3. Have your vision checked Have your eyes checked by an eye doctor at least once a year. You may be wearing the wrong glasses or have a condition like glaucoma or cataracts that limits your vision. Poor vision can increase your chances of falling. 4. Make your home safer About half of all falls happen at home. To make your home safer: Remove things you can trip over (like papers, books, clothes, and shoes) from stairs and places where you walk. Remove small throw rugs or use double-sided tape to keep the rugs from slipping. Keep items you use often in cabinets you can reach easily without using a step stool. Have grab bars put in next to your toilet and in the tub or shower. Use non-slip mats in the bathtub and on shower floors. Improve the lighting in your home. As you get older, you need brighter lights to see well. Hang light-weight curtains or shades to reduce glare. Have handrails and lights put in on all staircases. Wear shoes both inside and outside the house. Avoid going barefoot or wearing slippers. For more information, contact: Centers for Disease Control and Prevention www.cdc.gov/injury * This information may not apply if you have certain medical conditions. documented in this encounter [facility] 09-03-2024 Note HNO ID: [id number] Author: TR MONTANA MD Service: ? Author Type: Physician Type: Progress Notes Filed: 09/03/2024 08:32 Note Text: Carson Mcclure is a 68 year old male here for a Medicare wellness visit. Medicare Health Risk Assessment General Health Good Exercise: Minutes/Day 30 min Exercise: Days/Week 4 days Alcohol: Daily Use Never Alcohol: Drinks/Day Patient does not drink Alcohol: 6 or more drinks Never Feel off balance Yes Concerns: Teeth/Dentures No Concerns: Sexual function Yes Troubled by feelings Anxious; Stressed Frequency: Eating healthy diet Nearly every day ADLs requiring help None of the above Safety precautions in home/vehicle No Smoke, vape, chews tobacco No Difficulty hearing Yes, I wear a hearing aid Difficulty seeing No Current Providers Specialists: I have reviewed specialist-related care of the patient in the medical record. Current care team: Patient Care Team: Tr Montana MD as PCP - General (Family Medicine) Hailey Miller APRN.CNP as Rn Case Manager Hospice (Family Medicine) Marsha Butts PA-C as Rn Case Manager Hospice (Family Medicine) Optho Medical/Family history review Reviewed and updated problem list, medical/surgical/family/social history, medications, and allergies. Opioid use review Opioid Medications (last 90 days) No data to display Anxiety/Depression screening PHQ-2 Score: 0 (Lower risk for depression) DENNIS-7 Score: 1 (Minimal Anxiety) Recommendation: no further intervention at this time Cognitive screening Cognitive screening reviewed and No further action needed (score 3-5). Functional Observation Was the patient's Timed Up AND Go test unsteady or >= 12 seconds? No Advance Care Planning Surrogate decision maker and/or advance care plan documented Measurements BP 128/70 Pulse 82 Resp 16 Ht 171.5 cm (5' 7.5) Wt 75.8 kg (167 lb) SpO2 96% BMI 25.77 kg/m? Vision Screening: Follows with optometry/ophthalmology Assessment/Plan Medicare annual wellness visit, subsequent (Z00.00) - Counseled on healthy diet and regular exercise - Fall avoidance information provided - Personalized prevention plan provided See Below Chief Complaint Patient presents with: Medicare Wellness Exam HPI Carson Mcclure is a 68 year old male who presents here today for Chronic Medical Conditions. and Medicare Annual Visit. Patient presents for routine follow up. PMH HLP, HTN, SVT, elevated glucose, GERD, hemorrhoids, BPH, and anxiety. Patient has been doing well. No new issues or concerns. Past medical history, appointments, medications, allergies reviewed. Previous Medical History PAST MEDICAL HISTORY Diagnosis Date Advance directive discussed with patient 02/16/2022 Discussed: 01/2022 Anal fissure 05/27/2009 Anxiety 11/06/2018 Backache, unspecified 10/06/2009 Benign non-nodular prostatic hyperplasia without lower urinary tract symptoms 11/05/2015 Childhood asthma without complication 11/06/2018 Chronic right shoulder pain 09/07/2018 Closed fracture of left distal radius 02/05/2013 Decreased hearing 03/05/2019 Elevated fasting glucose 01/26/2010 Elevated hemoglobin A1c 01/26/2010 Encounter for Medicare annual wellness exam 07/28/2009 Last done: 02/16/2022 Essential hypertension 05/17/2014 External hemorrhoids 11/15/2017 GERD without esophagitis 06/13/[address] 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 20-40% on L. 0-19% on R SVT (supraventricular tachycardia) (HCC) 03/31/2016 Traumatic complete tear of right rotator cuff 11/06/2018 S/p 10/[address] Wharton Well adult exam 07/28/2009 Last done: Previous Surgical History PAST SURGICAL HISTORY Procedure Laterality Date COLONOSCOPY 12/17/2015 repeat due 2025 COLONOSCOPY FLX DX W/COLLJ SPEC WHEN PFRMD 11/03/2007 Colonoscopy recheck 10 yrs COLONOSCOPY FLX DX W/COLLJ SPEC WHEN PFRMD 10/28/2020 EGD 11/30/2022 repeat 3-4 years ESOPHAGOGASTRODUODENOSCOPY TRANSORAL DIAGNOSTIC 05/20/2016 EGD ESOPHAGOGASTRODUODENOSCOPY TRANSORAL DIAGNOSTIC 10/28/2020 repeat in 3-4 years FRACTURE SURGERY HERNIA REPAIR HX 1961, 1982 x 2 right/left OPEN RX DISTAL RADIUS FX, INTRA-ARTICULAR, 3+ FRAG 02/07/2013 ORIF left distal radius with locking plate ORIF CARPOMETACARPAL DISLOC,COMPLX/JOSE REPAIR INGUINAL HERNIA Right 08/04/2023 and repair of recurrent left inguinal hernia- Dr. Marion REPAIR ROTATOR CUFF,ACUTE Right 10/2018 TONSILLECTOMY PRIMARY/SECONDARY Tonsillectomy Family History FAMILY HISTORY Problem Relation Age of Onset Alzheimer's Disease Mother Heart Mother pacemaker other (scoliosis) Mother s/p spinal fusion Diabetes Father later in life Hypertension Father and CHF Psychiatry Sister bipolar Alzheimer's Disease Sister Dx in 50's other (more content not included)... [facility] 09-03-2024 History of Present illness Narrative Images from the original note were not included. Carson Mcclure is a 68 year old male here for a Medicare wellness visit. Medicare Health Risk Assessment General Health Good Exercise: Minutes/Day 30 min Exercise: Days/Week 4 days Alcohol: Daily Use Never Alcohol: Drinks/Day Patient does not drink Alcohol: 6 or more drinks Never Feel off balance Yes Concerns: Teeth/Dentures No Concerns: Sexual function Yes Troubled by feelings Anxious; Stressed Frequency: Eating healthy diet Nearly every day ADLs requiring help None of the above Safety precautions in home/vehicle No Smoke, vape, chews tobacco No Difficulty hearing Yes, I wear a hearing aid Difficulty seeing No Current Providers Specialists: I have reviewed specialist-related care of the patient in the medical record. Current care team: Patient Care Team: Tr Montana MD as PCP - General (Family Medicine) Hailey Miller APRN.OCTAVIO as Rn Case Manager Hospice (Family Medicine) Marsha Butts PA-C as Rn Case Manager Hospice (Family Medicine) Optho Medical/Family history review Reviewed and updated problem list, medical/surgical/family/social history, medications, and allergies. Opioid use review Opioid Medications (last 90 days) No data to display Anxiety/Depression screening PHQ-2 Score: 0 (Lower risk for depression) DENNIS-7 Score: 1 (Minimal Anxiety) Recommendation: no further intervention at this time Cognitive screening Cognitive screening reviewed and No further action needed (score 3-5). Functional Observation Was the patient's Timed Up & Go test unsteady or >= 12 seconds? No Advance Care Planning Surrogate decision maker and/or advance care plan documented Measurements BP 128/70 Pulse 82 Resp 16 Ht 171.5 cm (5' 7.5) Wt 75.8 kg (167 lb) SpO2 96% BMI 25.77 kg/m Vision Screening: Follows with optometry/ophthalmology Assessment/Plan Medicare annual wellness visit, subsequent (Z00.00) - Counseled on healthy diet and regular exercise - Fall avoidance information provided - Personalized prevention plan provided See Below Chief Complaint Patient presents with: Medicare Wellness Exam HPI Carson Mcclure is a 68 year old male who presents here today for Chronic Medical Conditions. and Medicare Annual Visit. Patient presents for routine follow up. PMH HLP, HTN, SVT, elevated glucose, GERD, hemorrhoids, BPH, and anxiety. Patient has been doing well. No new issues or concerns. Past medical history, appointments, medications, allergies reviewed. Previous Medical History PAST MEDICAL HISTORY Diagnosis Date Advance directive discussed with patient 02/16/2022 Discussed: 01/2022 Anal fissure 05/27/2009 Anxiety 11/06/2018 Backache, unspecified 10/06/2009 Benign non-nodular prostatic hyperplasia without lower urinary tract symptoms 11/05/2015 Childhood asthma without complication 11/06/2018 Chronic right shoulder pain 09/07/2018 Closed fracture of left distal radius 02/05/2013 Decreased hearing 03/05/2019 Elevated fasting glucose 01/26/2010 Elevated hemoglobin A1c 01/26/2010 Encounter for Medicare annual wellness exam 07/28/2009 Last done: 02/16/2022 Essential hypertension 05/17/2014 External hemorrhoids 11/15/2017 GERD without esophagitis 06/13/[address] 02/16/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 20-40% on L. 0-19% on R SVT (supraventricular tachycardia) ([facility]) 03/31/2016 Traumatic complete tear of right rotator cuff 11/06/2018 S/p 10/[address] Wharton Well adult exam 07/28/2009 Last done: Previous Surgical History PAST SURGICAL HISTORY Procedure Laterality Date COLONOSCOPY 12/17/2015 repeat due 2025 COLONOSCOPY FLX DX W/COLLJ SPEC WHEN PFRMD 11/03/2007 Colonoscopy recheck 10 yrs COLONOSCOPY FLX DX W/COLLJ SPEC WHEN PFRMD 10/28/2020 EGD 11/30/2022 repeat 3-4 years ESOPHAGOGASTRODUODENOSCOPY TRANSORAL DIAGNOSTIC 05/20/2016 EGD ESOPHAGOGASTRODUODENOSCOPY TRANSORAL DIAGNOSTIC 10/28/2020 repeat in 3-4 years FRACTURE SURGERY HERNIA REPAIR HX 1961, 1982 x 2 right/left OPEN RX DISTAL RADIUS FX, INTRA-ARTICULAR, 3+ FRAG 02/07/2013 ORIF left distal radius with locking plate ORIF CARPOMETACARPAL DISLOC,COMPLX/JOSE REPAIR INGUINAL HERNIA Right 08/04/2023 and repair of recurrent left inguinal hernia- Dr. Marion REPAIR ROTATOR CUFF,ACUTE Right 10/2018 TONSILLECTOMY PRIMARY/SECONDARY <AGE 12 Tonsillectomy Family History FAMILY HISTORY Problem Relation Age of Onset Alzheimer's Disease Mother Heart Mother pacemaker other (scoliosis) Mother s/p spinal fusion Diabetes Father later in life Hypertension Father and CHF Psychiatry Sister bipolar Alzheimer's Disease Sister Dx in 50's other (scoliosis) Son s/p spinal fusion Heart Maternal Grandfather [place] Anesthesia Problems No Family History Patient Allergies ALLERGIES No Known Allergies Current Medications Current Outpatient Medications on File Prior to Visit Medication Sig omeprazole (PRILOSEC) 40 mg capsule Take 1 capsule by mouth once daily. lisinopril (ZESTRIL) 5 mg tablet Take 1 tablet by mouth once daily. polyethylene glycol 3350 17 gram/dose powder Take 17 g by mouth once daily. Dissolve dose in 4 - 8 ounces of liquid and take as directed. GLUC/CHND/OM3/DHA/EPA/FISH/STR (GLUCOSAMINE CHONDROITIN PLUS ORAL) Take by mouth. calcium carbonate 600 mg-cholecalciferol 200 units 600 mg-5 mcg (200 unit) tab Take 1 tablet by mouth once daily. No current facility-administered medications on file prior to visit. Social History Social History Tobacco Use Smoking status: Never Smokeless tobacco: Never Vaping Use Vaping status: Never Used Substance Use Topics Alcohol use: No Drug use: No Review of Symptoms REVIEW OF SYSTEMS GENERAL: No weight loss, malaise or fevers HEENT: Negative for frequent or significant headaches, No changes in hearing or vision, no nose bleeds or other nasal problems NECK: Negative for lumps, goiter, pain and significant neck swelling RESPIRATORY: Negative for cough, hemoptysis, wheezing, COPD, dyspnea or shortness of breath CARDIOVASCULAR: Negative for chest pain, leg swelling, hypertension, CHF or palpitations GI: No nausea, vomiting, or diarrhea, No heartburn or reflux symptoms, and no blood : No history of dysuria, frequency or blood MUSCULOSKELETAL: has been getting increased low back pain and has seen chiropractor care. Has a Hx of scoliosis. No pain radiating into the legs or numbness. SKIN: Negative for lesions, rash. Middle of back will be itchy at times. PSYCH: Negative for sleep disturbance, mood disorder and recent psychosocial stressors. Anxiety has been stable. HEMATOLOGY/LYMPHOLOGY: Negative for prolonged bleeding, bruising easily or swollen nodes ENDOCRINE: Negative for cold or heat intolerance, polyuria, polydipsia and goiter NEURO: No history of headaches, syncope, paralysis, seizures or tremors SEE HPI EXAM: BP 128/70 Pulse 82 Resp 16 Ht 171.5 cm (5' 7.5) Wt 75.8 kg (167 lb) SpO2 96% BMI 25.77 kg/m Last 5 Encounter Wt Readings: Date: Wt: 09/03/2024 75.8 kg (167 lb) 04/05/2024 74.4 kg (164 lb) 03/02/2024 73.5 kg (162 lb 0.6 oz) 02/07/2024 73.5 kg (162 lb) 01/20/2024 73.5 kg (162 lb) General Appearance: Well appearing, alert, in no acute distress, well-hydrated, well nourished.. Skin: Skin color, texture, turgor normal, no suspicious rashes or lesions. Has a thickened area at the base of the right thumb palm side. Head: Normocephalic, no masses, lesions, tenderness or abnormalities. Eyes: Anicteric sclera. Pupils are equally round and reactive to light. Extraocular movements are intact. . Ears: External ears, TM's normal, canals clear. Nose/Sinuses: Nares normal, septum midline, mucosa normal, no drainage or sinus tenderness. Oropharynx: Lips, mucosa, and tongue normal, teeth and gums normal, oropharynx normal. Neck: Supple, no adenopathy; thyroid symmetric, normal size, no bruits. Lungs: Lungs clear to auscultation. No wheezing, rhonchi, rales.. Heart: RRR without murmur, gallop, or rubs. No ectopy. Abdomen: Normal abdominal exam, Abdomen soft, non-tender. Bowel sounds normal. No masses, organomegaly. Extremities: No deformities, edema, skin discoloration, Good capillary refill. . Musculoskeletal: Muscular strength intact, No joint swelling, deformity, or tenderness. Peripheral Pulses: Normal. Neurologic: Gait normal. Reflexes normal and symmetric. Sensation to light touch and crainal nerves 2-12 intact.. Genitalia: Normal, Penis normal. No urethral discharge. Scrotum normal to palpation. No hernia.. Rectal: Normal exam. Prostqate slightly enlarged with smooth firm capsule. Health Maintenance List Depression Screening Never done Advance Directive Discussion due on 03/28/2024 Covid-19 Vaccine( season) due on 07/20/2024 BP Controlled (<130/80) due on 04/05/2025 Annual PCP Team Chronic Disease Visit due on 05/21/2025 Colorectal Cancer Screening due on 10/28/2025 Diabetes Screening due on 04/04/2027 Prostate Cancer Screening Discussion due on 05/30/2028 Lipid Screening due on 04/04/2029 DTaP,Tdap,Td Vaccine(4 - Td or Tdap) due on 01/25/2033 Influenza Vaccine Completed RSV Vaccine Completed Hepatitis C Screening Completed Shingrix Vaccine Completed Pneumococcal Vaccine: 50+ Completed Data reviewed Assessment and Plan ASSESSMENT/PLAN: 1. Encounter for Medicare annual wellness exam - ICD9: V70.0, ICD10: Z00.00 (primary diagnosis) - Counseled on healthy diet and regular exercise - Patient counseled on and acknowledged vaccine benefits/risks/side effects; VIS provided: COVID-19 - Follow up for annual exam in one year 2. Essential hypertension - ICD9: 401.9, ICD10: I10 - Controlled - Continue current medications - Recommend home blood pressure monitoring, to bring results to next visit - Encouraged sodium restriction, DASH or Mediterranean diet - Recommend regular aerobic exercise 3. Mixed hyperlipidemia - ICD9: 272.2, ICD10: E78.2 - Control undetermined, due for labs - Counseled on healthy diet and regular exercise 4. Elevated hemoglobin A1c - ICD9: 790.29, ICD10: R73.09 - will await labs. - patient to continue life style changes for control 5. GERD without esophagitis - ICD9: 530.81, ICD10: K21.9 - Continue treatment with Prilosec 40 mg QD 6. Stenosis of left carotid artery - ICD9: 433.10, ICD10: I65.22 - clinically stable await labs. 7. SVT (supraventricular tachycardia) (HCC) - ICD9: 427.89, ICD10: I47.10 - stable clinically not needing Tx. 8. Anxiety - ICD9: 300.00, ICD10: F41.9 - stable not needing Tx. 9. Mild intermittent childhood asthma without complication (HCC) - ICD9: 493.00, ICD10: J45.20 - Mild intermittent asthma stable - Avoidance of triggers recommended 10. Benign non-nodular prostatic hyperplasia without lower urinary tract symptoms - ICD9: 600.90, ICD10: N40.0 - stable no issues. 11. Advance directive discussed with patient - ICD9: V65.49, ICD10: Z71.89 - needs to bring in copies. 12. Need for vaccination - ICD9: V05.9, ICD10: Z23 - P[employer]ER[employer] COVID-19 VACCINE AGE 12+ YR ([place]): given 13. Screening for depression - ICD9: V79.0, ICD10: Z13.31 - DEPRESSION SCREENING 14. [place] - ICD9: 700, ICD10: L84 - discussed paring down area and verbal consent given. Area paired down with a #10 blade. Patient tolerated well. Advise to use a pumas stone to help keep thinned down. Tr Montana MD F/u 6 months routine check lipid and A1c prior. I spent a total of 40 minutes on the date of the service which included preparing to see the patient, [id number] patient care, completing clinical documentation, performing a medically appropriate examination, counseling and educating the patient/family/caregiver and ordering medications, tests, or procedures. SENSITIVE EXAMINATION CONSENT: The sensitive examination was discussed with the Patient or Patient's Authorized Orthotic/Prosthetic Practitioner. As applicable, any other physician, advance practice provider, medical student, or other health professional student that will be observing or involved in the sensitive examination for educational or training purposes was discussed with the Patient or Authorized Orthotic/Prosthetic Practitioner. The Patient or Authorized Orthotic/Prosthetic Practitioner has agreed to proceed with the sensitive examination. documented in this encounter [facility] 06-25-2024 Telephone encounter Note Prescription Refill Information The patient has been identified by name and date of : Yes Caregiver verified no other encounters exist for this prescription request: Yes Caregiver confirmed with patient/requestor that no other refills are due, in the near future, with this provider at this time: Yes The last office visit in the department: 05/21/24 Does the patient have a future office visit with this provider/department: Yes Requested Prescriptions Pending Prescriptions Disp Refills omeprazole (PRILOSEC) 40 mg capsule 30 capsule 5 Sig: Take 1 capsule by mouth once daily. Rayne Yang LPN June 25, 2024 4:50 PM [facility] 06-25-2024 Miscellaneous Notes Prescription Refill Information The patient has been identified by name and date of : Yes Caregiver verified no other encounters exist for this prescription request: Yes Caregiver confirmed with patient/requestor that no other refills are due, in the near future, with this provider at this time: Yes The last office visit in the department: 05/21/24 Does the patient have a future office visit with this provider/department: Yes Requested Prescriptions Pending Prescriptions Disp Refills omeprazole (PRILOSEC) 40 mg capsule 30 capsule 5 Sig: Take 1 capsule by mouth once daily. Rayne Yang LPN June 25, 2024 4:50 PM Prescription Refill Information The patient has been identified by name and date of : Yes Caregiver verified no other encounters exist for this prescription request: Yes Caregiver confirmed with patient/requestor that no other refills are due, in the near future, with this provider at this time: Yes The last office visit in the department: 05-21-24 Does the patient have a future office visit with this provider/department: Yes Requested Prescriptions Pending Prescriptions Disp Refills omeprazole (PRILOSEC) 40 mg capsule 30 capsule 5 Sig: Take 1 capsule by mouth once daily. Vani Martinez June 25, 2024 3:35 PM documented in this encounter [facility] 06-25-2024 Telephone encounter Note Prescription Refill Information The patient has been identified by name and date of : Yes Caregiver verified no other encounters exist for this prescription request: Yes Caregiver confirmed with patient/requestor that no other refills are due, in the near future, with this provider at this time: Yes The last office visit in the department: 05-21-24 Does the patient have a future office visit with this provider/department: Yes Requested Prescriptions Pending Prescriptions Disp Refills omeprazole (PRILOSEC) 40 mg capsule 30 capsule 5 Sig: Take 1 capsule by mouth once daily. Vani Martinez June 25, 2024 3:35 PM [facility] Work Phone: 05-21-2024 Note HNO ID: [id number] Author: MARSHA BUTTS PA-C Service: ? Author Type: Physician Battery Charger Type: Progress Notes Filed: 05/21/2024 07:35 Note Text: DISTANCE HEALTH VISIT MyChart Zoom Video Visit was used for evaluation of this patient. Patient consents to visit. Patient's location: [place] I have communicated my name and active licensure. The patient's identity and physical location were verified at the time of this visit. Either the patient or their legal manufacturers service representative has been informed of the risks and benefits of -- and alternatives to -- treatment through a remote evaluation and consents to proceed with the evaluation remotely. Chief Complaint No chief complaint on file. HPI Carson Mcclure is a 68 year old male who presents here today via virtual for Above Complaints.. +body aches No fever No chills +cough and runny nose +fever. Mostly just rested yesterday and symptoms started on Tuesday. Past medical history, appointments, medications, allergies reviewed. Previous Medical History PAST MEDICAL HISTORY Diagnosis Date Advance directive discussed with patient 02/16/2022 Discussed: 01/2022 Anal fissure 05/27/2009 Anxiety 11/06/2018 Backache, unspecified 10/06/2009 Benign non-nodular prostatic hyperplasia without lower urinary tract symptoms 11/05/2015 Childhood asthma without complication 11/06/2018 Chronic right shoulder pain 09/07/2018 Closed fracture of left distal radius 02/05/2013 Decreased hearing 03/05/2019 Elevated fasting glucose 01/26/2010 Elevated hemoglobin A1c 01/26/2010 Encounter for Medicare annual wellness exam 07/28/2009 Last done: 02/16/2022 Essential hypertension 05/17/2014 External hemorrhoids 11/15/2017 GERD without esophagitis 06/13/[address] 02/16/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 20-40% on L. 0-19% on R SVT (supraventricular tachycardia) ([facility]) 03/31/2016 Traumatic complete tear of right rotator cuff 11/06/2018 S/p 10/[address] Wharton Well adult exam 07/28/2009 Last done: Previous Surgical History PAST SURGICAL HISTORY Procedure Laterality Date COLONOSCOPY 12/17/2015 repeat due 2025 COLONOSCOPY FLX DX W/COLLJ SPEC WHEN PFRMD 11/03/2007 Colonoscopy recheck 10 yrs COLONOSCOPY FLX DX W/COLLJ SPEC WHEN PFRMD 10/28/2020 EGD 11/30/2022 repeat 3-4 years ESOPHAGOGASTRODUODENOSCOPY TRANSORAL DIAGNOSTIC 05/20/2016 EGD ESOPHAGOGASTRODUODENOSCOPY TRANSORAL DIAGNOSTIC 10/28/2020 repeat in 3-4 years FRACTURE SURGERY HERNIA REPAIR HX 1961, 1982 x 2 right/left OPEN RX DISTAL RADIUS FX, INTRA-ARTICULAR, 3+ FRAG 02/07/2013 ORIF left distal radius with locking plate ORIF CARPOMETACARPAL DISLOC,COMPLX/JOSE REPAIR INGUINAL HERNIA Right 08/04/2023 and repair of recurrent left inguinal hernia- Dr. Marion REPAIR ROTATOR CUFF,ACUTE Right 10/2018 TONSILLECTOMY PRIMARY/SECONDARY Tonsillectomy Family History FAMILY HISTORY Problem Relation Age of Onset Alzheimer's Disease Mother Heart Mother pacemaker other (scoliosis) Mother s/p spinal fusion Diabetes Father later in life Hypertension Father and CHF Psychiatry Sister bipolar Alzheimer's Disease Sister Dx in 50's other (scoliosis) Son s/p spinal fusion Heart Maternal Grandfather [place] Anesthesia Problems No Family History Patient Allergies ALLERGIES No Known Allergies Current Medications Current Outpatient Medications on File Prior to Visit Medication Sig lisinopril (ZESTRIL) 5 mg tablet Take 1 tablet by mouth once daily. omeprazole (PRILOSEC) 40 mg capsule Take 1 capsule by mouth once daily. polyethylene glycol 3350 17 gram/dose powder Take 17 g by mouth once daily. Dissolve dose in 4 - 8 ounces of liquid and take as directed. GLUC/CHND/OM3/DHA/EPA/FISH/STR (GLUCOSAMINE CHONDROITIN PLUS ORAL) Take by mouth. calcium carbonate 600 mg-cholecalciferol 200 units 600 mg-5 mcg (200 unit) tab Take 1 tablet by mouth once daily. No current facility-administered medications on file prior to visit. Social History Social History Tobacco Use Smoking status: Never Smokeless tobacco: Never Vaping Use Vaping status: Never Used Substance Use Topics Alcohol use: No Drug use: No Review of Symptoms REVIEW OF SYSTEMS See hpi EXAM: There were no vitals taken for this visit. Any vital signs collected today were done so using patient's home equipment, otherwise no vital signs due to distant health visit. PHYSICAL EXAMINATION: VIDEO EXAM: (if done, performed via video enabled technology) GENERAL: alert and appropriate, in no distress, well-hydrated, well nourished, and happy, smiling, interactive HEAD: normocephalic, no abnormality or lesion noted EYES: no injection and visual acuity is grossly normal EARS: hearing grossly normal NOSE: external nose no (more content not included)... [facility] 05-21-2024 History of Present illness Narrative DISTANCE HEALTH VISIT MyChart Zoom Video Visit was used for evaluation of this patient. Patient consents to visit. Patient's location: [place] I have communicated my name and active licensure. The patient's identity and physical location were verified at the time of this visit. Either the patient or their legal manufacturers service representative has been informed of the risks and benefits of -- and alternatives to -- treatment through a remote evaluation and consents to proceed with the evaluation remotely. Chief Complaint No chief complaint on file. HPI Carson Mcclure is a 68 year old male who presents here today via virtual for Above Complaints.. +body aches No fever No chills +cough and runny nose +fever. Mostly just rested yesterday and symptoms started on Tuesday. Past medical history, appointments, medications, allergies reviewed. Previous Medical History PAST MEDICAL HISTORY Diagnosis Date Advance directive discussed with patient 02/16/2022 Discussed: 01/2022 Anal fissure 05/27/2009 Anxiety 11/06/2018 Backache, unspecified 10/06/2009 Benign non-nodular prostatic hyperplasia without lower urinary tract symptoms 11/05/2015 Childhood asthma without complication 11/06/2018 Chronic right shoulder pain 09/07/2018 Closed fracture of left distal radius 02/05/2013 Decreased hearing 03/05/2019 Elevated fasting glucose 01/26/2010 Elevated hemoglobin A1c 01/26/2010 Encounter for Medicare annual wellness exam 07/28/2009 Last done: 02/16/2022 Essential hypertension 05/17/2014 External hemorrhoids 11/15/2017 GERD without esophagitis 06/13/[address] 02/16/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 20-40% on L. 0-19% on R SVT (supraventricular tachycardia) (HCC) 03/31/2016 Traumatic complete tear of right rotator cuff 11/06/2018 S/p 10/[address] Wharton Well adult exam 07/28/2009 Last done: Previous Surgical History PAST SURGICAL HISTORY Procedure Laterality Date COLONOSCOPY 12/17/2015 repeat due 2025 COLONOSCOPY FLX DX W/COLLJ SPEC WHEN PFRMD 11/03/2007 Colonoscopy recheck 10 yrs COLONOSCOPY FLX DX W/COLLJ SPEC WHEN PFRMD 10/28/2020 EGD 11/30/2022 repeat 3-4 years ESOPHAGOGASTRODUODENOSCOPY TRANSORAL DIAGNOSTIC 05/20/2016 EGD ESOPHAGOGASTRODUODENOSCOPY TRANSORAL DIAGNOSTIC 10/28/2020 repeat in 3-4 years FRACTURE SURGERY HERNIA REPAIR HX 1961, 1982 x 2 right/left OPEN RX DISTAL RADIUS FX, INTRA-ARTICULAR, 3+ FRAG 02/07/2013 ORIF left distal radius with locking plate ORIF CARPOMETACARPAL DISLOC,COMPLX/JOSE REPAIR INGUINAL HERNIA Right 08/04/2023 and repair of recurrent left inguinal hernia- Dr. Marion REPAIR ROTATOR CUFF,ACUTE Right 10/2018 TONSILLECTOMY PRIMARY/SECONDARY <AGE 12 Tonsillectomy Family History FAMILY HISTORY Problem Relation Age of Onset Alzheimer's Disease Mother Heart Mother pacemaker other (scoliosis) Mother s/p spinal fusion Diabetes Father later in life Hypertension Father and CHF Psychiatry Sister bipolar Alzheimer's Disease Sister Dx in 50's other (scoliosis) Son s/p spinal fusion Heart Maternal Grandfather [place] Anesthesia Problems No Family History Patient Allergies ALLERGIES No Known Allergies Current Medications Current Outpatient Medications on File Prior to Visit Medication Sig lisinopril (ZESTRIL) 5 mg tablet Take 1 tablet by mouth once daily. omeprazole (PRILOSEC) 40 mg capsule Take 1 capsule by mouth once daily. polyethylene glycol 3350 17 gram/dose powder Take 17 g by mouth once daily. Dissolve dose in 4 - 8 ounces of liquid and take as directed. GLUC/CHND/OM3/DHA/EPA/FISH/STR (GLUCOSAMINE CHONDROITIN PLUS ORAL) Take by mouth. calcium carbonate 600 mg-cholecalciferol 200 units 600 mg-5 mcg (200 unit) tab Take 1 tablet by mouth once daily. No current facility-administered medications on file prior to visit. Social History Social History Tobacco Use Smoking status: Never Smokeless tobacco: Never Vaping Use Vaping status: Never Used Substance Use Topics Alcohol use: No Drug use: No Review of Symptoms REVIEW OF SYSTEMS See hpi EXAM: There were no vitals taken for this visit. Any vital signs collected today were done so using patient's home equipment, otherwise no vital signs due to distant health visit. PHYSICAL EXAMINATION: VIDEO EXAM: (if done, performed via video enabled technology) GENERAL: alert and appropriate, in no distress, well-hydrated, well nourished, and happy, smiling, interactive HEAD: normocephalic, no abnormality or lesion noted EYES: no injection and visual acuity is grossly normal EARS: hearing grossly normal NOSE: external nose normal without rhinorrhea NECK: full ROM, no cervical LNs noted RESPIRATORY: breathing non-labored CHEST: equal chest rise with normal respiratory effort Health Maintenance List Depression Screening Never done Advance Directive Discussion due on 03/28/2024 Covid-19 Vaccine( season) due on 07/20/2024 Annual PCP Team Chronic Disease Visit due on 04/05/2025 BP Controlled (<130/80) due on 04/05/2025 Colorectal Cancer Screening due on 10/28/2025 Diabetes Screening due on 04/04/2027 Prostate Cancer Screening Discussion due on 05/30/2028 Lipid Screening due on 04/04/2029 DTaP,Tdap,Td Vaccine(4 - Td or Tdap) due on 01/25/2033 Influenza Vaccine Completed RSV Vaccine Completed Hepatitis C Screening Completed Shingrix Vaccine Completed Pneumococcal Vaccine: 50+ Completed Spirometry Discontinued Data reviewed ASSESSMENT/PLAN: 1. URI, acute - ICD9: 465.9, ICD10: J06.9 - Discussed viral etiology and rationale for treatment. - Symptomatic treatment with prn analgesia - Supportive care with fluids and rest - Follow up in 3-5 days if symptoms persist or sooner if worsening of symptoms Marsha Butts PA-C documented in this encounter [facility] 05-04-2024 Telephone encounter Note Patient notified of results and provider's instructions. Patient verbalizes understanding. Idalia Mora RN [facility] 05-04-2024 Miscellaneous Notes Patient notified of results and provider's instructions. Patient verbalizes understanding. Idalia Mora RN Called and left a voicemail for the Patient to call back and ask for a nurse to receive the providers message. Ana Boone RN Let patient know US of neck arteries shows no increase in narrowwing. Will repeat in 3 years. documented in this encounter [facility] 05-04-2024 Telephone encounter Note Called and left a voicemail for the Patient to call back and ask for a nurse to receive the providers message. Ana Boone RN [facility] 05-03-2024 Telephone encounter Note Let patient know US of neck arteries shows no increase in narrowwing. Will repeat in 3 years. [facility] 04-05-2024 History of Present illness Narrative Chief Complaint No chief complaint on file. HPI Carson Mcclure is a 68 year old male who presents here today for increased vertigo Patient presents for routine follow up. PMH HLP, HTN, SVT, elevated glucose, GERD, hemorrhoids, BPH, and anxiety. Patient has had vertigo in the past and had therapy to treat it. Yesterday was the worse it has been in some time. Noting it with getting up out of bed. May of been a mild spin and if he closed his eyes he felt like he was walking funny. With his eyes open he ws not running into blount. No facial weakness, numbness, difficulty talking or swallowing. No numbness or weakness in his arms or legs. No syncope, chest pain, papillations or shortness of breath. Today feels ok. In the last few days denied any URI symptoms. Over Jose had a URI which has resolved. Past medical history, appointments, medications, allergies reviewed. Previous Medical History PAST MEDICAL HISTORY Diagnosis Date Advance directive discussed with patient 02/16/2022 Discussed: 01/2022 Anal fissure 05/27/2009 Anxiety 11/06/2018 Backache, unspecified 10/06/2009 Benign non-nodular prostatic hyperplasia without lower urinary tract symptoms 11/05/2015 Childhood asthma without complication 11/06/2018 Chronic right shoulder pain 09/07/2018 Closed fracture of left distal radius 02/05/2013 Decreased hearing 03/05/2019 Elevated fasting glucose 01/26/2010 Elevated hemoglobin A1c 01/26/2010 Encounter for Medicare annual wellness exam 07/28/2009 Last done: 02/16/2022 Essential hypertension 05/17/2014 External hemorrhoids 11/15/2017 GERD without esophagitis 06/13/[address] 02/16/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 20-40% on L. 0-19% on R SVT (supraventricular tachycardia) (HCC) 03/31/2016 Traumatic complete tear of right rotator cuff 11/06/2018 S/p 10/[address] Wharton Well adult exam 07/28/2009 Last done: Previous Surgical History PAST SURGICAL HISTORY Procedure Laterality Date COLONOSCOPY 12/17/2015 repeat due 2025 COLONOSCOPY FLX DX W/COLLJ SPEC WHEN PFRMD 11/03/2007 Colonoscopy recheck 10 yrs COLONOSCOPY FLX DX W/COLLJ SPEC WHEN PFRMD 10/28/2020 EGD 11/30/2022 repeat 3-4 years ESOPHAGOGASTRODUODENOSCOPY TRANSORAL DIAGNOSTIC 05/20/2016 EGD ESOPHAGOGASTRODUODENOSCOPY TRANSORAL DIAGNOSTIC 10/28/2020 repeat in 3-4 years FRACTURE SURGERY HERNIA REPAIR HX 1961, 1982 x 2 right/left OPEN RX DISTAL RADIUS FX, INTRA-ARTICULAR, 3+ FRAG 02/07/2013 ORIF left distal radius with locking plate ORIF CARPOMETACARPAL DISLOC,COMPLX/JOSE REPAIR INGUINAL HERNIA Right 08/04/2023 and repair of recurrent left inguinal hernia- Dr. Marion REPAIR ROTATOR CUFF,ACUTE Right 10/2018 TONSILLECTOMY PRIMARY/SECONDARY <AGE 12 Tonsillectomy Family History FAMILY HISTORY Problem Relation Age of Onset Alzheimer's Disease Mother Heart Mother pacemaker other (scoliosis) Mother s/p spinal fusion Diabetes Father later in life Hypertension Father and CHF Psychiatry Sister bipolar Alzheimer's Disease Sister Dx in 50's other (scoliosis) Son s/p spinal fusion Heart Maternal Grandfather [place] Anesthesia Problems No Family History Patient Allergies ALLERGIES No Known Allergies Current Medications Current Outpatient Medications on File Prior to Visit Medication Sig lisinopril (ZESTRIL) 5 mg tablet Take 1 tablet by mouth once daily. omeprazole (PRILOSEC) 40 mg capsule Take 1 capsule by mouth once daily. polyethylene glycol 3350 17 gram/dose powder Take 17 g by mouth once daily. Dissolve dose in 4 - 8 ounces of liquid and take as directed. GLUC/CHND/OM3/DHA/EPA/FISH/STR (GLUCOSAMINE CHONDROITIN PLUS ORAL) Take by mouth. calcium carbonate 600 mg-cholecalciferol 200 units 600 mg-5 mcg (200 unit) tab Take 1 tablet by mouth once daily. No current facility-administered medications on file prior to visit. Social History Social History Tobacco Use Smoking status: Never Smokeless tobacco: Never Vaping Use Vaping status: Never Used Substance Use Topics Alcohol use: No Drug use: No Review of Symptoms REVIEW OF SYSTEMS See HPI EXAM: BP 118/73 Ht 171.5 cm (5' 7.5) Wt 74.4 kg (164 lb) BMI 25.31 kg/m General Appearance: Well appearing, alert, in no acute distress, well-hydrated, well nourished.. Eyes: Anicteric sclera. Pupils are equally round and reactive to light. Extraocular movements are intact. . Ears: External ears, TM's normal, canals clear. Nose/Sinuses: Nares normal, septum midline, mucosa normal, no drainage or sinus tenderness. Oropharynx: Lips, mucosa, and tongue normal, teeth and gums normal, oropharynx normal. Neck: Supple, no adenopathy; thyroid symmetric, normal size, no bruits. Lungs: Lungs clear to auscultation. No wheezing, rhonchi, rales.. Heart: RRR without murmur, gallop, or rubs. No ectopy. Musculoskeletal: normal strength Neurologic: Gait normal. Reflexes normal and symmetric. Sensation to light touch and crainal nerves 2-12 intact.. Health Maintenance List Depression Screening Never done Advance Directive Discussion due on 03/28/2024 Annual PCP Team Chronic Disease Visit due on 02/06/2025 BP Controlled (<130/80) due on 03/02/2025 Colorectal Cancer Screening due on 10/28/2025 Diabetes Screening due on 05/30/2026 Lipid Screening due on 05/30/2028 Prostate Cancer Screening Discussion due on 05/30/2028 DTaP,Tdap,Td Vaccine(4 - Td or Tdap) due on 01/25/2033 Influenza Vaccine Completed RSV Vaccine Completed Hepatitis C Screening Completed Shingrix Vaccine Completed Covid-19 Vaccine Completed Pneumococcal Vaccine: 50+ Completed Spirometry Discontinued Data reviewed 04/05/24 1635 04/05/24 1638 04/05/24 1649 BP: 118/73 Height: 171.5 cm (5' 7.5) Weight: 74.4 kg (164 lb) Orthostatic BP: 118/73 130/77 BP Position: Sitting Standing Orthostatic Pulse: 73 82 No symptoms with testing. Latest Ref Rng 04/04/2024 Total Cholesterol, Nonfasting <200 mg/dL 195 Triglycerides, Nonfasting <150 mg/dL 44 HDL Cholesterol, Nonfasting >39 mg/dL 52 LDL Cholesterol, Nonfasting <100 mg/dL 134 (H) Non HDL Cholesterol, Nonfasting <130 mg/dL 143 (H) VLDL Cholesterol, Nonfasting <30 mg/dL 9 Total Chol/HDL Ratio, Nonfasting <5.10 mg/dL 3.75 LDL/HDL Ratio, Nonfasting <2.54 mg/dL 2.58 (H) Hemoglobin A1C 4.3 - 5.6 % 6.0 (H) Estimated Average Glucose mg/dL 126 A/P ASSESSMENT/PLAN: 1. Dizziness - ICD9: 780.4, ICD10: R42 (primary diagnosis) Check - US CAROTID ARTERIES [facility] - suspect a mild vertigo. Does not appear to need Antivert and patient agrees. - advised to do some of his vestibular HEP. 2. Stenosis of left carotid artery - ICD9: 433.10, ICD10: I65.22 Check - US CAROTID ARTERIES [facility] F/u next routine Tr Montana MD documented in this encounter [facility] 04-05-2024 Note HNO ID: [id number] Author: TR [place] MD Service: ? Author Type: Physician Type: Progress Notes Filed: 04/05/2024 20:40 Note Text: Chief Complaint No chief complaint on file. HPI Carson Mcclure is a 68 year old male who presents here today for increased vertigo Patient presents for routine follow up. PMH HLP, HTN, SVT, elevated glucose, GERD, hemorrhoids, BPH, and anxiety. Patient has had vertigo in the past and had therapy to treat it. Yesterday was the worse it has been in some time. Noting it with getting up out of bed. May of been a mild spin and if he closed his eyes he felt like he was walking funny. With his eyes open he ws not running into [place]. No facial weakness, numbness, difficulty talking or swallowing. No numbness or weakness in his arms or legs. No syncope, chest pain, papillations or shortness of breath. Today feels ok. In the last few days denied any URI symptoms. Over Jose had a URI which has resolved. Past medical history, appointments, medications, allergies reviewed. Previous Medical History PAST MEDICAL HISTORY Diagnosis Date Advance directive discussed with patient 02/16/2022 Discussed: 01/2022 Anal fissure 05/27/2009 Anxiety 11/06/2018 Backache, unspecified 10/06/2009 Benign non-nodular prostatic hyperplasia without lower urinary tract symptoms 11/05/2015 Childhood asthma without complication 11/06/2018 Chronic right shoulder pain 09/07/2018 Closed fracture of left distal radius 02/05/2013 Decreased hearing 03/05/2019 Elevated fasting glucose 01/26/2010 Elevated hemoglobin A1c 01/26/2010 Encounter for Medicare annual wellness exam 07/28/2009 Last done: 02/16/2022 Essential hypertension 05/17/2014 External hemorrhoids 11/15/2017 GERD without esophagitis 06/13/[address] 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 20-40% on L. 0-19% on R SVT (supraventricular tachycardia) (HCC) 03/31/2016 Traumatic complete tear of right rotator cuff 11/06/2018 S/p 10/[address] Wharton [facility] adult exam 07/28/2009 Last done: Previous Surgical History PAST SURGICAL HISTORY Procedure Laterality Date COLONOSCOPY 12/17/2015 repeat due 2025 COLONOSCOPY FLX DX W/COLLJ SPEC WHEN PFRMD 11/03/2007 Colonoscopy recheck 10 yrs COLONOSCOPY FLX DX W/COLLJ SPEC WHEN PFRMD 10/28/2020 EGD 11/30/2022 repeat 3-4 years ESOPHAGOGASTRODUODENOSCOPY TRANSORAL DIAGNOSTIC 05/20/2016 EGD ESOPHAGOGASTRODUODENOSCOPY TRANSORAL DIAGNOSTIC 10/28/2020 repeat in 3-4 years FRACTURE SURGERY HERNIA REPAIR HX 1961, 1982 x 2 right/left OPEN RX DISTAL RADIUS FX, INTRA-ARTICULAR, 3+ FRAG 02/07/2013 ORIF left distal radius with locking plate ORIF CARPOMETACARPAL DISLOC,COMPLX/JOSE REPAIR INGUINAL HERNIA Right 08/04/2023 and repair of recurrent left inguinal hernia- Dr. Marion REPAIR ROTATOR CUFF,ACUTE Right 10/2018 TONSILLECTOMY PRIMARY/SECONDARY Tonsillectomy Family History FAMILY HISTORY Problem Relation Age of Onset Alzheimer's Disease Mother Heart Mother pacemaker other (scoliosis) Mother s/p spinal fusion Diabetes Father later in life Hypertension Father and CHF Psychiatry Sister bipolar Alzheimer's Disease Sister Dx in 50's other (scoliosis) Son s/p spinal fusion Heart Maternal Grandfather [place] Anesthesia Problems No Family History Patient Allergies ALLERGIES No Known Allergies Current Medications Current Outpatient Medications on File Prior to Visit Medication Sig lisinopril (ZESTRIL) 5 mg tablet Take 1 tablet by mouth once daily. omeprazole (PRILOSEC) 40 mg capsule Take 1 capsule by mouth once daily. polyethylene glycol 3350 17 gram/dose powder Take 17 g by mouth once daily. Dissolve dose in 4 - 8 ounces of liquid and take as directed. GLUC/CHND/OM3/DHA/EPA/FISH/STR (GLUCOSAMINE CHONDROITIN PLUS ORAL) Take by mouth. calcium carbonate 600 mg-cholecalciferol 200 units 600 mg-5 mcg (200 unit) tab Take 1 tablet by mouth once daily. No current facility-administered medications on file prior to visit. Social History Social History Tobacco Use Smoking status: Never Smokeless tobacco: Never Vaping Use Vaping status: Never Used Substance Use Topics Alcohol use: No Drug use: No Review of Symptoms REVIEW OF SYSTEMS See HPI EXAM: BP 118/73 Ht 171.5 cm (5' 7.5) Wt 74.4 kg (164 lb) BMI 25.31 kg/m? General Appearance: Well appearing, alert, in no acute distress, well-hydrated, well nourished.. Eyes: Anicteric sclera. Pupils are equally round and reactive to light. Extraocular movements are intact. . Ears: External ears, TM's normal, canals clear. Nose/Sinuses: Nares normal, septum midline, mucosa normal, no drainage or sinus tenderness. Oropharynx: Lips, mucosa, and tongue normal, teeth and gums normal, oropharynx no (more content not included)... [facility] 03-02-2024 Note HNO ID: [id number] Author: ELISA COOLEY PA-C Service: ? Author Type: Physician Battery Charger Type: Progress Notes Filed: 03/02/2024 18:46 Note Text: This note was created using [employer]. Subjective Carson Mcclure is a 68 year old male. HPI Patient presents with a chief complaint of a wound check. His right fourth finger had a open paper cut from a day or 2 ago. Today he was picking up a rat trap with that hand that was bloody. He is unsure if he had touched the rat with that finger but was concerned that he had an open wound and was handling the trap. His last tetanus was in 2022. No fever or chills. He did wash it out. Review of Systems Skin: Cut to right ring finger All other systems reviewed and are negative. PAST MEDICAL HISTORY Diagnosis Date Advance directive discussed with patient 02/16/2022 Discussed: 01/2022 Anal fissure 05/27/2009 Anxiety 11/06/2018 Backache, unspecified 10/06/2009 Benign non-nodular prostatic hyperplasia without lower urinary tract symptoms 11/05/2015 Childhood asthma without complication 11/06/2018 Chronic right shoulder pain 09/07/2018 Closed fracture of left distal radius 02/05/2013 Decreased hearing 03/05/2019 Elevated fasting glucose 01/26/2010 Elevated hemoglobin A1c 01/26/2010 Encounter for Medicare annual wellness exam 07/28/2009 Last done: 02/16/2022 Essential hypertension 05/17/2014 External hemorrhoids 11/15/2017 GERD without esophagitis 06/13/[address] 02/16/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 20-40% on L. 0-19% on R SVT (supraventricular tachycardia) ([facility]) 03/31/2016 Traumatic complete tear of right rotator cuff 11/06/2018 S/p 10/[address] Wharton [facility] exam 07/28/2009 Last done: Current Outpatient Medications Medication Sig Dispense Refill lisinopril (ZESTRIL) 5 mg tablet Take 1 tablet by mouth once daily. 90 tablet 1 omeprazole (PRILOSEC) 40 mg capsule Take 1 capsule by mouth once daily. 30 capsule 5 polyethylene glycol 3350 17 gram/dose powder Take 17 g by mouth once daily. Dissolve dose in 4 - 8 ounces of liquid and take as directed. GLUC/CHND/OM3/DHA/EPA/FISH/STR (GLUCOSAMINE CHONDROITIN PLUS ORAL) Take by mouth. calcium carbonate 600 mg-cholecalciferol 200 units 600 mg-5 mcg (200 unit) tab Take 1 tablet by mouth once daily. amoxicillin-clavulanate potassium (AUGMENTIN) 875-125 mg per tablet Take 1 tablet by mouth two times a day for 3 days. 6 tablet 0 No current facility-administered medications for this visit. PAST SURGICAL HISTORY Procedure Laterality Date COLONOSCOPY 12/17/2015 repeat due 2025 COLONOSCOPY FLX DX W/COLLJ SPEC WHEN PFRMD 11/03/2007 Colonoscopy recheck 10 yrs COLONOSCOPY FLX DX W/COLLJ SPEC WHEN PFRMD 10/28/2020 EGD 11/30/2022 repeat 3-4 years ESOPHAGOGASTRODUODENOSCOPY TRANSORAL DIAGNOSTIC 05/20/2016 EGD ESOPHAGOGASTRODUODENOSCOPY TRANSORAL DIAGNOSTIC 10/28/2020 repeat in 3-4 years FRACTURE SURGERY HERNIA REPAIR HX 1961, 1982 x 2 right/left OPEN RX DISTAL RADIUS FX, INTRA-ARTICULAR, 3+ FRAG 02/07/2013 ORIF left distal radius with locking plate ORIF CARPOMETACARPAL DISLOC,COMPLX/JOSE REPAIR INGUINAL HERNIA Right 08/04/2023 and repair of recurrent left inguinal hernia- Dr. Marion REPAIR ROTATOR CUFF,ACUTE Right 10/2018 TONSILLECTOMY PRIMARY/SECONDARY Tonsillectomy FAMILY HISTORY Problem Relation Age of Onset Alzheimer's Disease Mother Heart Mother pacemaker other (scoliosis) Mother s/p spinal fusion Diabetes Father later in life Hypertension Father and CHF Psychiatry Sister bipolar Alzheimer's Disease Sister Dx in 50's other (scoliosis) Son s/p spinal fusion Heart Maternal Grandfather [place] Anesthesia Problems No Family History Social History Tobacco Use Smoking status: Never Smokeless tobacco: Never Vaping Use Vaping status: Never Used Substance Use Topics Alcohol use: No Drug use: No Objective BP 128/79 Pulse 65 Temp 36.7 ?C (98 ?F) Resp 18 Wt 73.5 kg (162 lb 0.6 oz) SpO2 98% BMI 25.00 kg/m? Physical Exam Vitals reviewed. Constitutional: Appearance: Normal appearance. HENT: Head: Normocephalic and atraumatic. Musculoskeletal: Hands: Comments: Patient has a 1 cm laceration to the distal tip of the right ring finger. Subacute. No active bleeding. Wound is clean and dry. No signs of infection. Skin: General: Skin is warm and dry. Neurological: Mental Status: He is alert. Assessment and Plan ASSESSMENT/PLAN: 1. Visit for wound check - ICD9: V58.89, ICD10: Z51.89 Patient had open wound and was handling a rat trap and possibly touched the wrap. Will cover him prophylactically with Augmentin for 3 days. His Td already up-to-date. Follow-up if signs of infection. Patient agreeable. Elisa Cooley PA-C [facility] 03-02-2024 History of Present illness Narrative Images from the original note were not included. This note was created using [employer]. Subjective Carson Mcclure is a 68 year old male. HPI Patient presents with a chief complaint of a wound check. His right fourth finger had a open paper cut from a day or 2 ago. Today he was picking up a rat trap with that hand that was bloody. He is unsure if he had touched the rat with that finger but was concerned that he had an open wound and was handling the trap. His last tetanus was in 2022. No fever or chills. He did wash it out. Review of Systems Skin: Cut to right ring finger All other systems reviewed and are negative. PAST MEDICAL HISTORY Diagnosis Date Advance directive discussed with patient 02/16/2022 Discussed: 01/2022 Anal fissure 05/27/2009 Anxiety 11/06/2018 Backache, unspecified 10/06/2009 Benign non-nodular prostatic hyperplasia without lower urinary tract symptoms 11/05/2015 Childhood asthma without complication 11/06/2018 Chronic right shoulder pain 09/07/2018 Closed fracture of left distal radius 02/05/2013 Decreased hearing 03/05/2019 Elevated fasting glucose 01/26/2010 Elevated hemoglobin A1c 01/26/2010 Encounter for Medicare annual wellness exam 07/28/2009 Last done: 02/16/2022 Essential hypertension 05/17/2014 External hemorrhoids 11/15/2017 GERD without esophagitis 06/13/[address] 02/16/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 20-40% on L. 0-19% on R SVT (supraventricular tachycardia) (HCC) 03/31/2016 Traumatic complete tear of right rotator cuff 11/06/2018 S/p 10/[address] Wharton [facility] adult exam 07/28/2009 Last done: Current Outpatient Medications Medication Sig Dispense Refill lisinopril (ZESTRIL) 5 mg tablet Take 1 tablet by mouth once daily. 90 tablet 1 omeprazole (PRILOSEC) 40 mg capsule Take 1 capsule by mouth once daily. 30 capsule 5 polyethylene glycol 3350 17 gram/dose powder Take 17 g by mouth once daily. Dissolve dose in 4 - 8 ounces of liquid and take as directed. GLUC/CHND/OM3/DHA/EPA/FISH/STR (GLUCOSAMINE CHONDROITIN PLUS ORAL) Take by mouth. calcium carbonate 600 mg-cholecalciferol 200 units 600 mg-5 mcg (200 unit) tab Take 1 tablet by mouth once daily. amoxicillin-clavulanate potassium (AUGMENTIN) 875-125 mg per tablet Take 1 tablet by mouth two times a day for 3 days. 6 tablet 0 No current facility-administered medications for this visit. PAST SURGICAL HISTORY Procedure Laterality Date COLONOSCOPY 12/17/2015 repeat due 2025 COLONOSCOPY FLX DX W/COLLJ SPEC WHEN PFRMD 11/03/2007 Colonoscopy recheck 10 yrs COLONOSCOPY FLX DX W/COLLJ SPEC WHEN PFRMD 10/28/2020 EGD 11/30/2022 repeat 3-4 years ESOPHAGOGASTRODUODENOSCOPY TRANSORAL DIAGNOSTIC 05/20/2016 EGD ESOPHAGOGASTRODUODENOSCOPY TRANSORAL DIAGNOSTIC 10/28/2020 repeat in 3-4 years FRACTURE SURGERY HERNIA REPAIR HX 196, 1982 x 2 right/left OPEN RX DISTAL RADIUS FX, INTRA-ARTICULAR, 3+ FRAG 02/07/2013 ORIF left distal radius with locking plate ORIF CARPOMETACARPAL DISLOC,COMPLX/JOSE REPAIR INGUINAL HERNIA Right 08/04/2023 and repair of recurrent left inguinal hernia- Dr. Marion REPAIR ROTATOR CUFF,ACUTE Right 10/2018 TONSILLECTOMY PRIMARY/SECONDARY <AGE 12 Tonsillectomy FAMILY HISTORY Problem Relation Age of Onset Alzheimer's Disease Mother Heart Mother pacemaker other (scoliosis) Mother s/p spinal fusion Diabetes Father later in life Hypertension Father and CHF Psychiatry Sister bipolar Alzheimer's Disease Sister Dx in 50's other (scoliosis) Son s/p spinal fusion Heart Maternal Grandfather [place] Anesthesia Problems No Family History Social History Tobacco Use Smoking status: Never Smokeless tobacco: Never Vaping Use Vaping status: Never Used Substance Use Topics Alcohol use: No Drug use: No Objective BP 128/79 Pulse 65 Temp 36.7 C (98 F) Resp 18 Wt 73.5 kg (162 lb 0.6 oz) SpO2 98% BMI 25.00 kg/m Physical Exam Vitals reviewed. Constitutional: Appearance: Normal appearance. HENT: Head: Normocephalic and atraumatic. Musculoskeletal: Hands: Comments: Patient has a 1 cm laceration to the distal tip of the right ring finger. Subacute. No active bleeding. Wound is clean and dry. No signs of infection. Skin: General: Skin is warm and dry. Neurological: Mental Status: He is alert. Assessment and Plan ASSESSMENT/PLAN: 1. Visit for wound check - ICD9: V58.89, ICD10: Z51.89 Patient had open wound and was handling a rat trap and possibly touched the wrap. Will cover him prophylactically with Augmentin for 3 days. His Td already up-to-date. Follow-up if signs of infection. Patient agreeable. Elias Cooley PA-C documented in this encounter [facility] 03-02-2024 Telephone encounter Note Pt called and is notified of providers message and instructions. Pt voices understanding. He states he wouldn't be able to get here until 4 pm. He states he may go to [facility], even though he doesn't think the area touched anything. Ana Boone RN [facility] 03-02-2024 Miscellaneous Notes Pt called and is notified of providers message and instructions. Pt voices understanding. He states he wouldn't be able to get here until 4 pm. He states he may go to [facility], even though he doesn't think the area touched anything. Ana Boone RN Advise patient we would need to see the area to determine if an antibiotic is need. However based on the description provided I would say most likely not. Pt called in and reports he has a rat problem at his house. He states he has a paper cut on the hand he has been using to dispose of the rats and picking up the traps with the blood on them with. He states the cut is open. Pt denies redness, warmth, red streak, fever, or oozing. Pt wanted to know if he would need to get on an antibiotic. Pts last TDAP was 11/15/17. Please call and advise. documented in this encounter [facility] 03-02-2024 Telephone encounter Note Advise patient we would need to see the area to determine if an antibiotic is need. However based on the description provided I would say most likely not. [facility] 03-02-2024 Telephone encounter Note Pt called in and reports he has a rat problem at his house. He states he has a paper cut on the hand he has been using to dispose of the rats and picking up the traps with the blood on them with. He states the cut is open. Pt denies redness, warmth, red streak, fever, or oozing. Pt wanted to know if he would need to get on an antibiotic. Pts last TDAP was 11/15/17. Please call and advise. [facility] 02-07-2024 Instructions Tr [place] MD - 02/07/2024 8:38 AM EST Please get labs and urine test done on or after 07/27/2024 prior to your next visit. Please bring in copies of your power of collections attorney for health care and living will. documented in this encounter [facility] 02-07-2024 Note HNO ID: [id number] Author: TR [place] MD Service: ? Author Type: Physician Type: Progress Notes Filed: 02/07/2024 18:22 Note Text: Chief Complaint Patient presents with: F/U 6 months HPI Carson Mcclure is a 68 year old male who presents here today for 6 month follow up . Patient presents for routine follow up. PMH HLP, HTN, SVT, elevated glucose, GERD, hemorrhoids, BPH, and anxiety. Since last being seen. The wart that was frozen is smaller but not resolved on the lateral left palm. Patient had bilateral hernia surgery about 6 months ago and wants to have it rechecked. Past medical history, appointments, medications, allergies reviewed. Previous Medical History PAST MEDICAL HISTORY Diagnosis Date Advance directive discussed with patient 02/16/2022 Discussed: 01/2022 Anal fissure 05/27/2009 Anxiety 11/06/2018 Backache, unspecified 10/06/2009 Benign non-nodular prostatic hyperplasia without lower urinary tract symptoms 11/05/2015 Childhood asthma without complication 11/06/2018 Chronic right shoulder pain 09/07/2018 Closed fracture of left distal radius 02/05/2013 Decreased hearing 03/05/2019 Elevated fasting glucose 01/26/2010 Elevated hemoglobin A1c 01/26/2010 Encounter for Medicare annual wellness exam 07/28/2009 Last done: 02/16/2022 Essential hypertension 05/17/2014 External hemorrhoids 11/15/2017 GERD without esophagitis 06/13/[address] 02/16/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 20-40% on L. 0-19% on R SVT (supraventricular tachycardia) (HCC) 03/31/2016 Traumatic complete tear of right rotator cuff 11/06/2018 S/p 10/[address] Wharton [facility] exam 07/28/2009 Last done: Previous Surgical History PAST SURGICAL HISTORY Procedure Laterality Date COLONOSCOPY 12/17/2015 repeat due 2025 COLONOSCOPY FLX DX W/COLLJ SPEC WHEN PFRMD 11/03/2007 Colonoscopy recheck 10 yrs COLONOSCOPY FLX DX W/COLLJ SPEC WHEN PFRMD 10/28/2020 EGD 11/30/2022 repeat 3-4 years ESOPHAGOGASTRODUODENOSCOPY TRANSORAL DIAGNOSTIC 05/20/2016 EGD ESOPHAGOGASTRODUODENOSCOPY TRANSORAL DIAGNOSTIC 10/28/2020 repeat in 3-4 years FRACTURE SURGERY HERNIA REPAIR HX 196, 1982 x 2 right/left OPEN RX DISTAL RADIUS FX, INTRA-ARTICULAR, 3+ FRAG 02/07/2013 ORIF left distal radius with locking plate ORIF CARPOMETACARPAL DISLOC,COMPLX/JOSE REPAIR INGUINAL HERNIA Right 08/04/2023 and repair of recurrent left inguinal hernia- Dr. Marion REPAIR ROTATOR CUFF,ACUTE Right 10/2018 TONSILLECTOMY PRIMARY/SECONDARY Tonsillectomy Family History FAMILY HISTORY Problem Relation Age of Onset Alzheimer's Disease Mother Heart Mother pacemaker other (scoliosis) Mother s/p spinal fusion Diabetes Father later in life Hypertension Father and CHF Psychiatry Sister bipolar Alzheimer's Disease Sister Dx in 50's other (scoliosis) Son s/p spinal fusion Heart Maternal Grandfather [place] Anesthesia Problems No Family History Patient Allergies ALLERGIES No Known Allergies Current Medications Current Outpatient Medications on File Prior to Visit Medication Sig omeprazole (PRILOSEC) 40 mg capsule Take 1 capsule by mouth once daily. lisinopril (ZESTRIL) 5 mg tablet Take 1 tablet by mouth once daily. polyethylene glycol 3350 17 gram/dose powder Take 17 g by mouth once daily. Dissolve dose in 4 - 8 ounces of liquid and take as directed. GLUC/CHND/OM3/DHA/EPA/FISH/STR (GLUCOSAMINE CHONDROITIN PLUS ORAL) Take by mouth. calcium carbonate 600 mg-cholecalciferol 200 units 600 mg-5 mcg (200 unit) tab Take 1 tablet by mouth once daily. No current facility-administered medications on file prior to visit. Social History Social History Tobacco Use Smoking status: Never Smokeless tobacco: Never Vaping Use Vaping status: Never Used Substance Use Topics Alcohol use: No Drug use: No Review of Symptoms REVIEW OF SYSTEMS GENERAL: No weight loss, malaise or fevers NECK: Negative for lumps, goiter, pain and significant neck swelling RESPIRATORY: Negative for cough, hemoptysis, wheezing, COPD, dyspnea or shortness of breath CARDIOVASCULAR: Negative for chest pain, leg swelling, hypertension, CHF or palpitations GI: No nausea, vomiting, or diarrhea and No heartburn or reflux symptoms PSYCH: anxiety has been stable. ENDOCRINE: Negative for cold or heat intolerance, polyuria, polydipsia and goiter NEURO: No history of headaches, syncope, paralysis, seizures or tremors Skin: see HPI EXAM: BP 132/88 Pulse 74 Resp 16 Wt 73.5 kg (162 lb) BMI 25.00 kg/m? BP 118/76 Pulse 74 Resp 16 Wt 73.5 kg (162 lb) BMI 25.00 kg/m? Last 5 Encounter Wt Readings: Date: Wt: 02/07/2024 73.5 kg (162 lb) 01/20/2024 73.5 kg (162 lb) 12/16/2023 73 kg (161 lb) 12/05/2023 72 kg (158 lb 11.7 (more content not included)... [facility] 02-07-2024 History of Present illness Narrative Chief Complaint Patient presents with: F/U 6 months HPI Carson Mcclure is a 68 year old male who presents here today for 6 month follow up . Patient presents for routine follow up. PMH HLP, HTN, SVT, elevated glucose, GERD, hemorrhoids, BPH, and anxiety. Since last being seen. The wart that was frozen is smaller but not resolved on the lateral left palm. Patient had bilateral hernia surgery about 6 months ago and wants to have it rechecked. Past medical history, appointments, medications, allergies reviewed. Previous Medical History PAST MEDICAL HISTORY Diagnosis Date Advance directive discussed with patient 02/16/2022 Discussed: 01/2022 Anal fissure 05/27/2009 Anxiety 11/06/2018 Backache, unspecified 10/06/2009 Benign non-nodular prostatic hyperplasia without lower urinary tract symptoms 11/05/2015 Childhood asthma without complication 11/06/2018 Chronic right shoulder pain 09/07/2018 Closed fracture of left distal radius 02/05/2013 Decreased hearing 03/05/2019 Elevated fasting glucose 01/26/2010 Elevated hemoglobin A1c 01/26/2010 Encounter for Medicare annual wellness exam 07/28/2009 Last done: 02/16/2022 Essential hypertension 05/17/2014 External hemorrhoids 11/15/2017 GERD without esophagitis 06/13/[address] 02/16/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 20-40% on L. 0-19% on R SVT (supraventricular tachycardia) (HCC) 03/31/2016 Traumatic complete tear of right rotator cuff 11/06/2018 S/p 10/[address] Wharton [facility] adult exam 07/28/2009 Last done: Previous Surgical History PAST SURGICAL HISTORY Procedure Laterality Date COLONOSCOPY 12/17/2015 repeat due 2025 COLONOSCOPY FLX DX W/COLLJ SPEC WHEN PFRMD 11/03/2007 Colonoscopy recheck 10 yrs COLONOSCOPY FLX DX W/COLLJ SPEC WHEN PFRMD 10/28/2020 EGD 11/30/2022 repeat 3-4 years ESOPHAGOGASTRODUODENOSCOPY TRANSORAL DIAGNOSTIC 05/20/2016 EGD ESOPHAGOGASTRODUODENOSCOPY TRANSORAL DIAGNOSTIC 10/28/2020 repeat in 3-4 years FRACTURE SURGERY HERNIA REPAIR HX 1961, 1982 x 2 right/left OPEN RX DISTAL RADIUS FX, INTRA-ARTICULAR, 3+ FRAG 02/07/2013 ORIF left distal radius with locking plate ORIF CARPOMETACARPAL DISLOC,COMPLX/JOSE REPAIR INGUINAL HERNIA Right 08/04/2023 and repair of recurrent left inguinal hernia- Dr. Mairon REPAIR ROTATOR CUFF,ACUTE Right 10/2018 TONSILLECTOMY PRIMARY/SECONDARY <AGE 13 Tonsillectomy Family History FAMILY HISTORY Problem Relation Age of Onset Alzheimer's Disease Mother Heart Mother pacemaker other (scoliosis) Mother s/p spinal fusion Diabetes Father later in life Hypertension Father and CHF Psychiatry Sister bipolar Alzheimer's Disease Sister Dx in 50's other (scoliosis) Son s/p spinal fusion Heart Maternal Grandfather [place] Anesthesia Problems No Family History Patient Allergies ALLERGIES No Known Allergies Current Medications Current Outpatient Medications on File Prior to Visit Medication Sig omeprazole (PRILOSEC) 40 mg capsule Take 1 capsule by mouth once daily. lisinopril (ZESTRIL) 5 mg tablet Take 1 tablet by mouth once daily. polyethylene glycol 3350 17 gram/dose powder Take 17 g by mouth once daily. Dissolve dose in 4 - 8 ounces of liquid and take as directed. GLUC/CHND/OM3/DHA/EPA/FISH/STR (GLUCOSAMINE CHONDROITIN PLUS ORAL) Take by mouth. calcium carbonate 600 mg-cholecalciferol 200 units 600 mg-5 mcg (200 unit) tab Take 1 tablet by mouth once daily. No current facility-administered medications on file prior to visit. Social History Social History Tobacco Use Smoking status: Never Smokeless tobacco: Never Vaping Use Vaping status: Never Used Substance Use Topics Alcohol use: No Drug use: No Review of Symptoms REVIEW OF SYSTEMS GENERAL: No weight loss, malaise or fevers NECK: Negative for lumps, goiter, pain and significant neck swelling RESPIRATORY: Negative for cough, hemoptysis, wheezing, COPD, dyspnea or shortness of breath CARDIOVASCULAR: Negative for chest pain, leg swelling, hypertension, CHF or palpitations GI: No nausea, vomiting, or diarrhea and No heartburn or reflux symptoms PSYCH: anxiety has been stable. ENDOCRINE: Negative for cold or heat intolerance, polyuria, polydipsia and goiter NEURO: No history of headaches, syncope, paralysis, seizures or tremors Skin: see HPI EXAM: BP 132/88 Pulse 74 Resp 16 Wt 73.5 kg (162 lb) BMI 25.00 kg/m BP 118/76 Pulse 74 Resp 16 Wt 73.5 kg (162 lb) BMI 25.00 kg/m Last 5 Encounter Wt Readings: Date: Wt: 02/07/2024 73.5 kg (162 lb) 01/20/2024 73.5 kg (162 lb) 12/16/2023 73 kg (161 lb) 12/05/2023 72 kg (158 lb 11.7 oz) 10/08/2023 72 kg (158 lb 11.7 oz) General Appearance: Well appearing, alert, in no acute distress, well-hydrated, well nourished.. Skin: Skin color, texture, turgor normal, no suspicious rashes or lesions. Has thickened area of skin on the left lateral palm that was previously treated with liquid nitrogen. Neck: Supple, no adenopathy; thyroid symmetric, normal size, no bruits. Lungs: Lungs clear to auscultation. No wheezing, rhonchi, rales.. Heart: RRR without murmur, gallop, or rubs. No ectopy. Abdomen: Normal abdominal exam, Abdomen soft, non-tender. Bowel sounds normal. No masses, organomegaly. Extremities: No deformities, edema, skin discoloration, clubbing or cyanosis. Good capillary refill. . Peripheral Pulses: Normal. Neurologic: Gait normal. Sensation grossly intact.. Genitalia: Normal, Penis normal. No urethral discharge. Scrotum normal to palpation. No hernia.. Health Maintenance List Depression Screening Never done Annual PCP Team Chronic Disease Visit due on 01/19/2025 BP Controlled (<130/80) due on 01/19/2025 Colorectal Cancer Screening due on 10/28/2025 Diabetes Screening due on 05/30/2026 Lipid Screening due on 05/30/2028 Prostate Cancer Screening Discussion due on 05/30/2028 DTaP,Tdap,Td Vaccine(4 - Td or Tdap) due on 01/25/2033 Influenza Vaccine Completed Advance Directive Discussion Completed RSV Vaccine Completed Hepatitis C Screening Completed Shingrix Vaccine Completed Covid-19 Vaccine Completed Pneumococcal Vaccine: 65+ Completed Spirometry Discontinued Data reviewed Latest Ref Rng 05/31/2023 WBC 3.70 - 11.00 k/uL 5.30 RBC 4.20 - 6.00 m/uL 4.93 Hemoglobin 13.0 - 17.0 g/dL 14.5 Hematocrit 39.0 - 51.0 % 43.6 MCV 80.0 - 100.0 fL 88.4 MCH 26.0 - 34.0 pg 29.4 MCHC 30.5 - 36.0 g/dL 33.3 RDW-CV 11.5 - 15.0 % 12.8 Platelet Count 150 - 400 k/uL 189 MPV 9.0 - 12.7 fL 13.0 (H) Neut% % 58.6 Abs Neut (ANC) 1.45 - 7.50 k/uL 3.11 Lymph% % 23.0 Abs Lymph 1.00 - 4.00 k/uL 1.22 [place]% % 13.2 Abs [place] <0.87 k/uL 0.70 Eosin% % 4.2 Abs Eosin <0.46 k/uL 0.22 Baso% % 0.8 Abs Baso <0.11 k/uL 0.04 Immature Gran % % 0.2 IMMATURE GRANS (ABS) <0.10 k/uL <0.03 NRBC /100 WBC 0.0 Absolute nRBC <0.01 k/uL <0.01 DTYPE Auto Color Yellow Yellow Clarity Clear Clear Glucose, Urine Negative Negative Bilirubin, Urine Negative Negative Ketones, Urine Negative Negative Specific [place], Ur 1.005 - 1.030 1.021 Hemoglobin/Blood,Ur Negative Negative pH, Urine <8.5 5.5 Protein, Urine Negative Negative Urobilinogen 0.2-1.0 EU/dL 0.2 EU/dL Nitrites Negative Negative Leukest Negative Negative WBC, Urine 0-5 /HPF 0-5 /HPF RBC, Urine 0-2 /HPF 0-2 /HPF Bacteria Negative /HPF Negative Epithelial Cells /HPF None Seen Hyaline Cast 0 /LPF 0 /LPF Protein, Total 6.3 - 8.0 g/dL 7.5 Albumin 3.9 - 4.9 g/dL 4.4 Calcium 8.5 - 10.2 mg/dL 9.3 Bilirubin, Total 0.2 - 1.3 mg/dL 0.4 Alkaline Phosphatase 38 - 113 U/L 66 AST 14 - 40 U/L 20 ALT 10 - 54 U/L 17 Glucose 74 - 99 mg/dL 106 (H) BUN 9 - 24 mg/dL 18 Creatinine 0.73 - 1.22 mg/dL 0.91 Sodium 136 - 144 mmol/L 138 Potassium 3.7 - 5.1 mmol/L 4.5 Chloride 97 - 105 mmol/L 103 CO2 22 - 30 mmol/L 24 Anion Gap 9 - 18 mmol/L 11 eGFR >=60 mL/min/1.73m 93 Total Cholesterol, Nonfasting <200 mg/dL 180 Triglycerides, Nonfasting <150 mg/dL 38 HDL Cholesterol, Nonfasting >39 mg/dL 48 LDL Cholesterol, Nonfasting <100 mg/dL 124 (H) Non HDL Cholesterol, Nonfasting <130 mg/dL 132 (H) VLDL Cholesterol, Nonfasting <30 mg/dL 8 Total Chol/HDL Ratio, Nonfasting <5.10 mg/dL 3.75 LDL/HDL Ratio, Nonfasting <2.54 mg/dL 2.58 (H) Hemoglobin A1C 4.3 - 5.6 % 6.1 (H) Estimated Average Glucose mg/dL 128 Vitamin B12 232 - 1,245 pg/mL 538 PSA <2.60 ng/mL 0.70 Magnesium 1.7 - 2.3 mg/dL 2.3 A/P ASSESSMENT/PLAN: 1. Essential hypertension - ICD9: 401.9, ICD10: I10 (primary diagnosis) - Controlled - Continue current medications - Recommend home blood pressure monitoring, to bring results to next visit - Encouraged sodium restriction, DASH or Mediterranean diet - Recommend regular aerobic exercise 2. Mixed hyperlipidemia - ICD9: 272.2, ICD10: E78.2 - Control undetermined, due for labs - Counseled on healthy diet and regular exercise 3. Elevated hemoglobin A1c - ICD9: 790.29, ICD10: R73.09 - patient to work on life style changes for control. 4. GERD without esophagitis - ICD9: 530.81, ICD10: K21.9 - Continue treatment with Prilosec 40 mg QD 5. Stenosis of left carotid artery - ICD9: 433.10, ICD10: I65.22 - await lipids. - check US in 2024. 6. Anxiety - ICD9: 300.00, ICD10: F41.9 - stable not needing meds. 7. [place] - ICD9: 700, ICD10: L84 - discussed shaving with a #10 blade and verbal consent given. Area shaved down to new skin without any issues. F/u 6 months extensive check CMP, Lipid, UA, A1c, B12, Mg, PSA prior Tr Montana MD documented in this encounter [facility] 01-20-2024 Note HNO ID: [id number] Author: TR MONTANA MD Service: ? Author Type: Physician Type: Progress Notes Filed: 01/20/2024 09:39 Note Text: Chief Complaint Patient presents with: Wart HPI Carson Mcclure is a 68 year old male who presents here today for wart removal. Patient has a wart on the medial side of the right palm near the wrist. Has been treated twice already with cryo. Here to get retreated. Past medical history, appointments, medications, allergies reviewed. Previous Medical History PAST MEDICAL HISTORY Diagnosis Date Advance directive discussed with patient 02/16/2022 Discussed: 01/2022 Anal fissure 05/27/2009 Anxiety 11/06/2018 Backache, unspecified 10/06/2009 Benign non-nodular prostatic hyperplasia without lower urinary tract symptoms 11/05/2015 Childhood asthma without complication 11/06/2018 Chronic right shoulder pain 09/07/2018 Closed fracture of left distal radius 02/05/2013 Decreased hearing 03/05/2019 Elevated fasting glucose 01/26/2010 Elevated hemoglobin A1c 01/26/2010 Encounter for Medicare annual wellness exam 07/28/2009 Last done: 02/16/2022 Essential hypertension 05/17/2014 External hemorrhoids 11/15/2017 GERD without esophagitis 06/13/[address] 02/16/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 20-40% on L. 0-19% on R SVT (supraventricular tachycardia) (HCC) 03/31/2016 Traumatic complete tear of right rotator cuff 11/06/2018 S/p 10/[address] Wharton [facility] adult exam 07/28/2009 Last done: Previous Surgical History PAST SURGICAL HISTORY Procedure Laterality Date COLONOSCOPY 12/17/2015 repeat due 2025 COLONOSCOPY FLX DX W/COLLJ SPEC WHEN PFRMD 11/03/2007 Colonoscopy recheck 10 yrs COLONOSCOPY FLX DX W/COLLJ SPEC WHEN PFRMD 10/28/2020 EGD 11/30/2022 repeat 3-4 years ESOPHAGOGASTRODUODENOSCOPY TRANSORAL DIAGNOSTIC 05/20/2016 EGD ESOPHAGOGASTRODUODENOSCOPY TRANSORAL DIAGNOSTIC 10/28/2020 repeat in 3-4 years FRACTURE SURGERY HERNIA REPAIR HX 196, 1982 x 2 right/left OPEN RX DISTAL RADIUS FX, INTRA-ARTICULAR, 3+ FRAG 02/07/2013 ORIF left distal radius with locking plate ORIF CARPOMETACARPAL DISLOC,COMPLX/JOSE REPAIR INGUINAL HERNIA Right 08/04/2023 and repair of recurrent left inguinal hernia- Dr. Marion REPAIR ROTATOR CUFF,ACUTE Right 10/2018 TONSILLECTOMY PRIMARY/SECONDARY Tonsillectomy Family History FAMILY HISTORY Problem Relation Age of Onset Alzheimer's Disease Mother Heart Mother pacemaker other (scoliosis) Mother s/p spinal fusion Diabetes Father later in life Hypertension Father and CHF Psychiatry Sister bipolar Alzheimer's Disease Sister Dx in 50's other (scoliosis) Son s/p spinal fusion Heart Maternal Grandfather [place] Anesthesia Problems No Family History Patient Allergies ALLERGIES No Known Allergies Current Medications Current Outpatient Medications on File Prior to Visit Medication Sig omeprazole (PRILOSEC) 40 mg capsule Take 1 capsule by mouth once daily. lisinopril (ZESTRIL) 5 mg tablet Take 1 tablet by mouth once daily. polyethylene glycol 3350 17 gram/dose powder Take 17 g by mouth once daily. Dissolve dose in 4 - 8 ounces of liquid and take as directed. GLUC/CHND/OM3/DHA/EPA/FISH/STR (GLUCOSAMINE CHONDROITIN PLUS ORAL) Take by mouth. calcium carbonate 600 mg-cholecalciferol 200 units 600 mg-5 mcg (200 unit) tab Take 1 tablet by mouth once daily. No current facility-administered medications on file prior to visit. Social History Social History Tobacco Use Smoking status: Never Smokeless tobacco: Never Vaping Use Vaping status: Never Used Substance Use Topics Alcohol use: No Drug use: No Review of Symptoms REVIEW OF SYSTEMS See HPI EXAM: BP 112/74 (BP Site: Left Arm, BP Position: Sitting, BP Cuff Size: Regular Adult) Pulse 72 Resp 16 Wt 73.5 kg (162 lb) BMI 25.00 kg/m? General Appearance: Well appearing, alert, in no acute distress, well-hydrated, well nourished.. Skin: wart on the medial right palm near the wrist. . Health Maintenance List Depression Screening Never done Influenza Vaccine(1) due on 11/27/2023 Covid-19 Vaccine( season) due on 11/27/2023 BP Controlled (<130/80) due on 05/25/2024 Annual PCP Team Chronic Disease Visit due on 12/15/2024 Colorectal Cancer Screening due on 10/28/2025 Diabetes Screening due on 05/30/2026 Lipid Screening due on 05/30/2028 Prostate Cancer Screening Discussion due on 05/30/2028 DTaP,Tdap,Td Vaccine(4 - Td or Tdap) due on 01/25/2033 Advance Directive Discussion Completed RSV Vaccine Completed Hepatitis C Screening Completed Shingrix Vaccine Completed Pneumococcal Vaccine: 65+ Completed Spirometry Discontinued Data reviewed A/P ASSESSMENT/PLAN: 1. Common wart - ICD9: 078.19, ICD10: B07.8 (veronica (more content not included)... [facility] 01-20-2024 History of Present illness Narrative Chief Complaint Patient presents with: Wart HPI Carson Mcclure is a 68 year old male who presents here today for wart removal. Patient has a wart on the medial side of the right palm near the wrist. Has been treated twice already with cryo. Here to get retreated. Past medical history, appointments, medications, allergies reviewed. Previous Medical History PAST MEDICAL HISTORY Diagnosis Date Advance directive discussed with patient 02/16/2022 Discussed: 01/2022 Anal fissure 05/27/2009 Anxiety 11/06/2018 Backache, unspecified 10/06/2009 Benign non-nodular prostatic hyperplasia without lower urinary tract symptoms 11/05/2015 Childhood asthma without complication 11/06/2018 Chronic right shoulder pain 09/07/2018 Closed fracture of left distal radius 02/05/2013 Decreased hearing 03/05/2019 Elevated fasting glucose 01/26/2010 Elevated hemoglobin A1c 01/26/2010 Encounter for Medicare annual wellness exam 07/28/2009 Last done: 02/16/2022 Essential hypertension 05/17/2014 External hemorrhoids 11/15/2017 GERD without esophagitis 06/13/[address] 02/16/2022 DPA: [employer] () Mixed hyperlipidemia 09/02/2009 Prostate disorder 07/06/2015 Scoliosis Stenosis of left carotid artery 06/03/2022 US 05/2022. 20-40% on L. 0-19% on R SVT (supraventricular tachycardia) ([facility]) 03/31/2016 Traumatic complete tear of right rotator cuff 11/06/2018 S/p 10/[address] Wharton [facility] adult exam 07/28/2009 Last done: Previous Surgical History PAST SURGICAL HISTORY Procedure Laterality Date COLONOSCOPY 12/17/2015 repeat due 2025 COLONOSCOPY FLX DX W/COLLJ SPEC WHEN PFRMD 11/03/2007 Colonoscopy recheck 10 yrs COLONOSCOPY FLX DX W/COLLJ SPEC WHEN PFRMD 10/28/2020 EGD 11/30/2022 repeat 3-4 years ESOPHAGOGASTRODUODENOSCOPY TRANSORAL DIAGNOSTIC 05/20/2016 EGD ESOPHAGOGASTRODUODENOSCOPY TRANSORAL DIAGNOSTIC 10/28/2020 repeat in 3-4 years FRACTURE SURGERY HERNIA REPAIR HX 1961, 1982 x 2 right/left OPEN RX DISTAL RADIUS FX, INTRA-ARTICULAR, 3+ FRAG 02/07/2013 ORIF left distal radius with locking plate ORIF CARPOMETACARPAL DISLOC,COMPLX/JOSE REPAIR INGUINAL HERNIA Right 08/04/2023 and repair of recurrent left inguinal hernia- Dr. Marion REPAIR ROTATOR CUFF,ACUTE Right 10/2018 TONSILLECTOMY PRIMARY/SECONDARY <AGE 12 Tonsillectomy Family History FAMILY HISTORY Problem Relation Age of Onset Alzheimer's Disease Mother Heart Mother pacemaker other (scoliosis) Mother s/p spinal fusion Diabetes Father later in life Hypertension Father and CHF Psychiatry Sister bipolar Alzheimer's Disease Sister Dx in 50's other (scoliosis) Son s/p spinal fusion Heart Maternal Grandfather [place] Anesthesia Problems No Family History Patient Allergies ALLERGIES No Known Allergies Current Medications Current Outpatient Medications on File Prior to Visit Medication Sig omeprazole (PRILOSEC) 40 mg capsule Take 1 capsule by mouth once daily. lisinopril (ZESTRIL) 5 mg tablet Take 1 tablet by mouth once daily. polyethylene glycol 3350 17 gram/dose powder Take 17 g by mouth once daily. Dissolve dose in 4 - 8 ounces of liquid and take as directed. GLUC/CHND/OM3/DHA/EPA/FISH/STR (GLUCOSAMINE CHONDROITIN PLUS ORAL) Take by mouth. calcium carbonate 600 mg-cholecalciferol 200 units 600 mg-5 mcg (200 unit) tab Take 1 tablet by mouth once daily. No current facility-administered medications on file prior to visit. Social History Social History Tobacco Use Smoking status: Never Smokeless tobacco: Never Vaping Use Vaping status: Never Used Substance Use Topics Alcohol use: No Drug use: No Review of Symptoms REVIEW OF SYSTEMS See HPI EXAM: BP 112/74 (BP Site: Left Arm, BP Position: Sitting, BP Cuff Size: Regular Adult) Pulse 72 Resp 16 Wt 73.5 kg (162 lb) BMI 25.00 kg/m General Appearance: Well appearing, alert, in no acute distress, well-hydrated, well nourished.. Skin: wart on the medial right palm near the wrist. . Health Maintenance List Depression Screening Never done Influenza Vaccine(1) due on 11/27/2023 Covid-19 Vaccine(2023- season) due on 11/27/2023 BP Controlled (<130/80) due on 05/25/2024 Annual PCP Team Chronic Disease Visit due on 12/15/2024 Colorectal Cancer Screening due on 10/28/2025 Diabetes Screening due on 05/30/2026 Lipid Screening due on 05/30/2028 Prostate Cancer Screening Discussion due on 05/30/2028 DTaP,Tdap,Td Vaccine(4 - Td or Tdap) due on 01/25/2033 Advance Directive Discussion Completed RSV Vaccine Completed Hepatitis C Screening Completed Shingrix Vaccine Completed Pneumococcal Vaccine: 65+ Completed Spirometry Discontinued Data reviewed A/P ASSESSMENT/PLAN: 1. Common wart - ICD9: 078.19, ICD10: B07.8 (primary diagnosis) - aware shaved with #15 blade. Then treated with cryo with a 40 sec thaw phase. Patient tolerated well. 2. Encounter for immunization - ICD9: V03.89, ICD10: Z23 - INFLUENZA VACCINE, PRSV FREE, AGE 65+ YR, HIGH DOSE, TRIVALENT (FLUZONE HIGH-DOSE): given - [employer] COVID-19 VACCINE AGE 12+ YR (COMIRNATY) given - advised patient that this may be a corn and gave some suggestions on prevention of recurrence. Patient maybe getting a recurrent hemorrhoid and seen Hardik in the past. Will let me know if needs referral to see Gen surgery. Tr Montana MD documented in this encounter [facility] 12-22-2023 Telephone encounter Note Prescription Refill Information The patient has been identified by name and date of : Yes Caregiver verified no other encounters exist for this prescription request: Yes Caregiver confirmed with patient/requestor that no other refills are due, in the near future, with this provider at this time: Yes The last office visit in the department: 12/16/23 Does the patient have a future office visit with this provider/department: Yes 01/20/24 Requested Prescriptions Pending Prescriptions Disp Refills omeprazole (PRILOSEC) 40 mg capsule 30 capsule 5 Sig: Take 1 capsule by mouth once daily. Lena Newman LPN December 22, 2023 8:57 AM [facility] 12-22-2023 Miscellaneous Notes Prescription Refill Information The patient has been identified by name and date of : Yes Caregiver verified no other encounters exist for this prescription request: Yes Caregiver confirmed with patient/requestor that no other refills are due, in the near future, with this provider at this time: Yes The last office visit in the department: 12/16/23 Does the patient have a future office visit with this provider/department: Yes 01/20/24 Requested Prescriptions Pending Prescriptions Disp Refills omeprazole (PRILOSEC) 40 mg capsule 30 capsule 5 Sig: Take 1 capsule by mouth once daily. Lena Newman LPN December 22, 2023 8:57 AM documented in this encounter [facility] 12-16-2023 History of Present illness Narrative Chief Complaint Patient presents with: Rash HPI Carson Mcclure is a 68 year old male who presents here today for ongoing rash. Patient was seen in on 12/05/2023 for rash and given nystatin cream. Location of rash? On bilateral butt checks Any improvement? No No itching Patient still works and does sit a lot in chair during the day. Past medical history, appointments, medications, allergies reviewed. Previous Medical History PAST MEDICAL HISTORY Diagnosis Date Advance directive discussed with patient 02/16/2022 Discussed: 01/2022 Anal fissure 05/27/2009 Anxiety 11/06/2018 Backache, unspecified 10/06/2009 Benign non-nodular prostatic hyperplasia without lower urinary tract symptoms 11/05/2015 Childhood asthma without complication 11/06/2018 Chronic right shoulder pain 09/07/2018 Closed fracture of left distal radius 02/05/2013 Decreased hearing 03/05/2019 Elevated fasting glucose 01/26/2010 Elevated hemoglobin A1c 01/26/2010 Encounter for Medicare annual wellness exam 07/28/2009 Last done: 02/16/2022 Essential hypertension 05/17/2014 External hemorrhoids 11/15/2017 GERD without esophagitis 06/13/[address] 02/16/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 20-40% on L. 0-19% on R SVT (supraventricular tachycardia) ([facility]) 03/31/2016 Traumatic complete tear of right rotator cuff 11/06/2018 S/p 10/[address] Wharton Well adult exam 07/28/2009 Last done: Previous Surgical History PAST SURGICAL HISTORY Procedure Laterality Date COLONOSCOPY 12/17/2015 repeat due 2025 COLONOSCOPY FLX DX W/COLLJ SPEC WHEN PFRMD 11/03/2007 Colonoscopy recheck 10 yrs COLONOSCOPY FLX DX W/COLLJ SPEC WHEN PFRMD 10/28/2020 EGD 11/30/2022 repeat 3-4 years ESOPHAGOGASTRODUODENOSCOPY TRANSORAL DIAGNOSTIC 05/20/2016 EGD ESOPHAGOGASTRODUODENOSCOPY TRANSORAL DIAGNOSTIC 10/28/2020 repeat in 3-4 years FRACTURE SURGERY HERNIA REPAIR HX 1961, 1982 x 2 right/left OPEN RX DISTAL RADIUS FX, INTRA-ARTICULAR, 3+ FRAG 02/07/2013 ORIF left distal radius with locking plate ORIF CARPOMETACARPAL DISLOC,COMPLX/JOSE REPAIR INGUINAL HERNIA Right 08/04/2023 and repair of recurrent left inguinal hernia- Dr. Marion REPAIR ROTATOR CUFF,ACUTE Right 10/2018 TONSILLECTOMY PRIMARY/SECONDARY <AGE 12 Tonsillectomy Family History FAMILY HISTORY Problem Relation Age of Onset Alzheimer's Disease Mother Heart Mother pacemaker other (scoliosis) Mother s/p spinal fusion Diabetes Father later in life Hypertension Father and CHF Psychiatry Sister bipolar Alzheimer's Disease Sister Dx in 50's other (scoliosis) Son s/p spinal fusion Heart Maternal Grandfather [place] Anesthesia Problems No Family History Patient Allergies ALLERGIES No Known Allergies Current Medications Current Outpatient Medications on File Prior to Visit Medication Sig lisinopril (ZESTRIL) 5 mg tablet Take 1 tablet by mouth once daily. omeprazole (PRILOSEC) 40 mg capsule Take 1 capsule by mouth once daily. polyethylene glycol 3350 17 gram/dose powder Take 17 g by mouth once daily. Dissolve dose in 4 - 8 ounces of liquid and take as directed. GLUC/CHND/OM3/DHA/EPA/FISH/STR (GLUCOSAMINE CHONDROITIN PLUS ORAL) Take by mouth. calcium carbonate 600 mg-cholecalciferol 200 units 600 mg-5 mcg (200 unit) tab Take 1 tablet by mouth once daily. No current facility-administered medications on file prior to visit. Social History Social History Tobacco Use Smoking status: Never Smokeless tobacco: Never Vaping Use Vaping status: Never Used Substance Use Topics Alcohol use: No Drug use: No Review of Symptoms REVIEW OF SYSTEMS See HPI EXAM: BP 122/82 (BP Site: Right Arm, BP Position: Sitting, BP Cuff Size: Regular Adult) Pulse 72 Resp 18 Wt 73 kg (161 lb) BMI 24.84 kg/m Skin: has some erythema and dryness of skin over the ischial tuberosities on both sides. . Health Maintenance List Depression Screening Never done Covid-19 Vaccine( season) due on 11/27/2023 Influenza Vaccine(1) due on 11/27/2023 BP Controlled (<130/80) due on 05/25/2024 Annual PCP Team Chronic Disease Visit due on 05/31/2024 Colorectal Cancer Screening due on 10/28/2025 Diabetes Screening due on 05/30/2026 Lipid Screening due on 05/30/2028 Prostate Cancer Screening Discussion due on 05/30/2028 DTaP,Tdap,Td Vaccine(4 - Td or Tdap) due on 01/25/2033 Advance Directive Discussion Completed RSV Vaccine Completed Hepatitis C Screening Completed Shingrix Vaccine Completed Pneumococcal Vaccine: 65+ Completed Spirometry Discontinued Data reviewed A/P ASSESSMENT/PLAN: 1. Pressure injury of buttock, unstageable, unspecified laterality (HCC) - ICD9: 707.05, 707.25, ICD10: L89.300 - discussed with patient that this is due to losse of at in the but area and with sitting. Advised use of a OTC moisturizer and getting a gel cushion for his work chair. Tr Montana MD documented in this encounter [facility] 12-16-2023 Note HNO ID: [id number] Author: TR MONTANA MD Service: ? Author Type: Physician Type: Progress Notes Filed: 12/16/2023 17:13 Note Text: Chief Complaint Patient presents with: Rash HPI Carson Mcclure is a 68 year old male who presents here today for ongoing rash. Patient was seen in on 12/05/2023 for rash and given nystatin cream. Location of rash? On bilateral butt checks Any improvement? No No itching Patient still works and does sit a lot in chair during the day. Past medical history, appointments, medications, allergies reviewed. Previous Medical History PAST MEDICAL HISTORY Diagnosis Date Advance directive discussed with patient 02/16/2022 Discussed: 01/2022 Anal fissure 05/27/2009 Anxiety 11/06/2018 Backache, unspecified 10/06/2009 Benign non-nodular prostatic hyperplasia without lower urinary tract symptoms 11/05/2015 Childhood asthma without complication 11/06/2018 Chronic right shoulder pain 09/07/2018 Closed fracture of left distal radius 02/05/2013 Decreased hearing 03/05/2019 Elevated fasting glucose 01/26/2010 Elevated hemoglobin A1c 01/26/2010 Encounter for Medicare annual wellness exam 07/28/2009 Last done: 02/16/2022 Essential hypertension 05/17/2014 External hemorrhoids 11/15/2017 GERD without esophagitis 06/13/[address] 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 20-40% on L. 0-19% on R SVT (supraventricular tachycardia) (HCC) 03/31/2016 Traumatic complete tear of right rotator cuff 11/06/2018 S/p 10/[address] Wharton Well adult exam 07/28/2009 Last done: Previous Surgical History PAST SURGICAL HISTORY Procedure Laterality Date COLONOSCOPY 12/17/2015 repeat due 2025 COLONOSCOPY FLX DX W/COLLJ SPEC WHEN PFRMD 11/03/2007 Colonoscopy recheck 10 yrs COLONOSCOPY FLX DX W/COLLJ SPEC WHEN PFRMD 10/28/2020 EGD 11/30/2022 repeat 3-4 years ESOPHAGOGASTRODUODENOSCOPY TRANSORAL DIAGNOSTIC 05/20/2016 EGD ESOPHAGOGASTRODUODENOSCOPY TRANSORAL DIAGNOSTIC 10/28/2020 repeat in 3-4 years FRACTURE SURGERY HERNIA REPAIR HX 1961, 1982 x 2 right/left OPEN RX DISTAL RADIUS FX, INTRA-ARTICULAR, 3+ FRAG 02/07/2013 ORIF left distal radius with locking plate ORIF CARPOMETACARPAL DISLOC,COMPLX/JOSE REPAIR INGUINAL HERNIA Right 08/04/2023 and repair of recurrent left inguinal hernia- Dr. Marion REPAIR ROTATOR CUFF,ACUTE Right 10/2018 TONSILLECTOMY PRIMARY/SECONDARY Tonsillectomy Family History FAMILY HISTORY Problem Relation Age of Onset Alzheimer's Disease Mother Heart Mother pacemaker other (scoliosis) Mother s/p spinal fusion Diabetes Father later in life Hypertension Father and CHF Psychiatry Sister bipolar Alzheimer's Disease Sister Dx in 50's other (scoliosis) Son s/p spinal fusion Heart Maternal Grandfather [place] Anesthesia Problems No Family History Patient Allergies ALLERGIES No Known Allergies Current Medications Current Outpatient Medications on File Prior to Visit Medication Sig lisinopril (ZESTRIL) 5 mg tablet Take 1 tablet by mouth once daily. omeprazole (PRILOSEC) 40 mg capsule Take 1 capsule by mouth once daily. polyethylene glycol 3350 17 gram/dose powder Take 17 g by mouth once daily. Dissolve dose in 4 - 8 ounces of liquid and take as directed. GLUC/CHND/OM3/DHA/EPA/FISH/STR (GLUCOSAMINE CHONDROITIN PLUS ORAL) Take by mouth. calcium carbonate 600 mg-cholecalciferol 200 units 600 mg-5 mcg (200 unit) tab Take 1 tablet by mouth once daily. No current facility-administered medications on file prior to visit. Social History Social History Tobacco Use Smoking status: Never Smokeless tobacco: Never Vaping Use Vaping status: Never Used Substance Use Topics Alcohol use: No Drug use: No Review of Symptoms REVIEW OF SYSTEMS See HPI EXAM: BP 122/82 (BP Site: Right Arm, BP Position: Sitting, BP Cuff Size: Regular Adult) Pulse 72 Resp 18 Wt 73 kg (161 lb) BMI 24.84 kg/m? Skin: has some erythema and dryness of skin over the ischial tuberosities on both sides. . Health Maintenance List Depression Screening Never done Covid-19 Vaccine( season) due on 11/27/2023 Influenza Vaccine(1) due on 11/27/2023 BP Controlled (<130/80) due on 05/25/2024 Annual PCP Team Chronic Disease Visit due on 05/31/2024 Colorectal Cancer Screening due on 10/28/2025 Diabetes Screening due on 05/30/2026 Lipid Screening due on 05/30/2028 Prostate Cancer Screening Discussion due on 05/30/2028 DTaP,Tdap,Td Vaccine(4 - Td or Tdap) due on 01/25/2033 Advance Directive Discussion Completed RSV Vaccine Completed Hepatitis C Screening Completed Shingrix Vaccine Completed Pneumococcal Vaccine: 65+ Completed Spirometry Discontinued Data reviewed A/P ASSESSMENT/PLAN: 1. Pressure injury of buttock, u (more content not included)... [facility] 12-14-2023 Telephone encounter Note Noted. Just was offering because we had cancellation. Suleman Weinstein MA [facility] 12-14-2023 Miscellaneous Notes Noted. Just was offering because we had cancellation. Suleman Weinstein MA Patient cancelled tonight at 7 pm, appt with Dr. Montana. Reports he is working tonight. Patient kept the appt for Tuesday, -20. documented in this encounter [facility] 12-14-2023 Telephone encounter Note Patient cancelled tonight at 7 pm, appt with Dr. Montana. Reports he is working tonight. Patient kept the appt for Tuesday, 12-15. [facility] 12-05-2023 Note HNO ID: [id number] Author: CHRISTEL MEI APRN.[employer] Service: ? Author Type: Nurse Practitioner Type: Progress Notes Filed: 12/05/2023 08:08 Note Text: Subjective HPI HPI Carson Mcclure is a 68 year old male who presents today for CC of spots on skin/buttocks. This started 1 day ago. Has tried nothing for relief. Symptoms are worsened by nothing. Never had this before. Denies trouble with bm and urinating. Denies fever. .Patient presents with: Rash: Has two spots on buttocks x 1 day PAST MEDICAL HISTORY 02/16/2022: Advance directive discussed with patient Comment: Discussed: 01/202205/27/2009: Anal fissure 11/06/2018: Anxiety 10/06/2009: Backache, unspecified 11/05/2015: Benign non-nodular prostatic hyperplasia without lower urinary tract symptoms 11/06/2018: Childhood asthma without complication 09/07/2018: Chronic right shoulder pain 02/05/2013: Closed fracture of left distal radius 03/05/2019: Decreased hearing 01/26/2010: Elevated fasting glucose 01/26/2010: Elevated hemoglobin A1c 07/28/2009: Encounter for Medicare annual wellness exam Comment: Last done: 02/16/2022 05/17/2014: Essential hypertension 11/15/2017: External hemorrhoids 06/13/2017: GERD without esophagitis 02/16/2022: Living will in place 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 20-40% on L. 0-19% on R 03/31/2016: SVT (supraventricular tachycardia) (HCC) 11/06/2018: Traumatic complete tear of right rotator cuff Comment: S/p 10/[address] Wharton 07/28/2009: Well adult exam Comment: Last done: PAST SURGICAL HISTORY 12/17/2015: COLONOSCOPY Comment: repeat due 202511/03/2007: COLONOSCOPY FLX DX W/COLLJ SPEC WHEN PFRMD Comment: Colonoscopy recheck 10 yrs 10/28/2020: COLONOSCOPY FLX DX W/COLLJ SPEC WHEN PFRMD 11/30/2022: EGD Comment: repeat 3-4 years 05/20/2016: ESOPHAGOGASTRODUODENOSCOPY TRANSORAL DIAGNOSTIC Comment: EGD 10/28/2020: ESOPHAGOGASTRODUODENOSCOPY TRANSORAL DIAGNOSTIC Comment: repeat in 3-4 years No date: FRACTURE SURGERY 1961, 1982: HERNIA REPAIR HX Comment: x 2 right/left 02/07/2013: OPEN RX DISTAL RADIUS FX, INTRA-ARTICULAR, 3+ FRAG Comment: ORIF left distal radius with locking plate No date: ORIF CARPOMETACARPAL DISLOC,COMPLX/JOSE 08/04/2023: REPAIR INGUINAL HERNIA; Right Comment: and repair of recurrent left inguinal hernia- Dr. Marion 10/2018: REPAIR ROTATOR CUFF,ACUTE; Right No date: TONSILLECTOMY PRIMARY/SECONDARY Comment: Tonsillectomy ALLERGIES Patient has no known allergies. MEDICATIONS lisinopril (ZESTRIL) 5 mg tablet Take 1 tablet by mouth once daily. omeprazole (PRILOSEC) 40 mg capsule Take 1 capsule by mouth once daily. polyethylene glycol 3350 17 gram/dose powder Take 17 g by mouth once daily. Dissolve dose in 4 - 8 ounces of liquid and take as directed. GLUC/CHND/OM3/DHA/EPA/FISH/STR (GLUCOSAMINE CHONDROITIN PLUS ORAL) Take by mouth. calcium carbonate 600 mg-cholecalciferol 200 units 600 mg-5 mcg (200 unit) tab Take 1 tablet by mouth once daily. nystatin (MYCOSTATIN) cream Apply 1 application to affected area three times a day for 7 days. FAMILY HISTORY Problem Relation Age of Onset Alzheimer's Disease Mother Heart Mother pacemaker other (scoliosis) Mother s/p spinal fusion Diabetes Father later in life Hypertension Father and CHF Psychiatry Sister bipolar Alzheimer's Disease Sister Dx in 50's other (scoliosis) Son s/p spinal fusion Heart Maternal Grandfather [place] Anesthesia Problems No Family History Social History Tobacco Use Smoking status: Never Smokeless tobacco: Never Vaping Use Vaping status: Never Used Substance Use Topics Alcohol use: No Drug use: No ROS Objective Blood pressure 140/76, pulse 78, temperature 36.6 ?C (97.8 ?F), resp. rate 20, weight 72 kg (158 lb 11.7 oz), SpO2 96%. Physical Exam Constitutional: General: He is not in acute distress. Appearance: He is not toxic-appearing or diaphoretic. HENT: Head: Normocephalic and atraumatic. Pulmonary: Effort: Pulmonary effort is normal. No accessory muscle usage or respiratory distress. Skin: Neurological: Mental Status: He is alert and oriented to person, place, and time. ASSESSMENT/PLAN: 1. Rash - ICD9: 782.1, ICD10: R21 -use medication as prescribed -follow up if symptoms persist, worsen, change - NYSTATIN 100,000 UNIT/GRAM TOPICAL CREAM Christel Mei APRN.[facility] 12-05-2023 History of Present illness Narrative Images from the original note were not included. Subjective HPI HPI Carson Mcclure is a 68 year old male who presents today for CC of spots on skin/buttocks. This started 1 day ago. Has tried nothing for relief. Symptoms are worsened by nothing. Never had this before. Denies trouble with bm and urinating. Denies fever. .Patient presents with: Rash: Has two spots on buttocks x 1 day PAST MEDICAL HISTORY 02/16/2022: Advance directive discussed with patient Comment: Discussed: 01/202205/27/2009: Anal fissure 11/06/2018: Anxiety 10/06/2009: Backache, unspecified 11/05/2015: Benign non-nodular prostatic hyperplasia without lower urinary tract symptoms 11/06/2018: Childhood asthma without complication 09/07/2018: Chronic right shoulder pain 02/05/2013: Closed fracture of left distal radius 03/05/2019: Decreased hearing 01/26/2010: Elevated fasting glucose 01/26/2010: Elevated hemoglobin A1c 07/28/2009: Encounter for Medicare annual wellness exam Comment: Last done: 02/16/2022 05/17/2014: Essential hypertension 11/15/2017: External hemorrhoids 06/13/2017: GERD without esophagitis 02/16/2022: Living will in place 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 20-40% on L. 0-19% on R 03/31/2016: SVT (supraventricular tachycardia) ([facility]) 11/06/2018: Traumatic complete tear of right rotator cuff Comment: S/p 10/[address] Wharton 07/28/2009: Well adult exam Comment: Last done: PAST SURGICAL HISTORY 12/17/2015: COLONOSCOPY Comment: repeat due 202511/03/2007: COLONOSCOPY FLX DX W/COLLJ SPEC WHEN PFRMD Comment: Colonoscopy recheck 10 yrs 10/28/2020: COLONOSCOPY FLX DX W/COLLJ SPEC WHEN PFRMD 11/30/2022: EGD Comment: repeat 3-4 years 05/20/2016: ESOPHAGOGASTRODUODENOSCOPY TRANSORAL DIAGNOSTIC Comment: EGD 10/28/2020: ESOPHAGOGASTRODUODENOSCOPY TRANSORAL DIAGNOSTIC Comment: repeat in 3-4 years No date: FRACTURE SURGERY 1961, 1982: HERNIA REPAIR HX Comment: x 2 right/left 02/07/2013: OPEN RX DISTAL RADIUS FX, INTRA-ARTICULAR, 3+ FRAG Comment: ORIF left distal radius with locking plate No date: ORIF CARPOMETACARPAL DISLOC,COMPLX/JOSE 08/04/2023: REPAIR INGUINAL HERNIA; Right Comment: and repair of recurrent left inguinal hernia- Dr. Marion 10/2018: REPAIR ROTATOR CUFF,ACUTE; Right No date: TONSILLECTOMY PRIMARY/SECONDARY <AGE 13 Comment: Tonsillectomy ALLERGIES Patient has no known allergies. MEDICATIONS lisinopril (ZESTRIL) 5 mg tablet Take 1 tablet by mouth once daily. omeprazole (PRILOSEC) 40 mg capsule Take 1 capsule by mouth once daily. polyethylene glycol 3350 17 gram/dose powder Take 17 g by mouth once daily. Dissolve dose in 4 - 8 ounces of liquid and take as directed. GLUC/CHND/OM3/DHA/EPA/FISH/STR (GLUCOSAMINE CHONDROITIN PLUS ORAL) Take by mouth. calcium carbonate 600 mg-cholecalciferol 200 units 600 mg-5 mcg (200 unit) tab Take 1 tablet by mouth once daily. nystatin (MYCOSTATIN) cream Apply 1 application to affected area three times a day for 7 days. FAMILY HISTORY Problem Relation Age of Onset Alzheimer's Disease Mother Heart Mother pacemaker other (scoliosis) Mother s/p spinal fusion Diabetes Father later in life Hypertension Father and CHF Psychiatry Sister bipolar Alzheimer's Disease Sister Dx in 50's other (scoliosis) Son s/p spinal fusion Heart Maternal Grandfather [place] Anesthesia Problems No Family History Social History Tobacco Use Smoking status: Never Smokeless tobacco: Never Vaping Use Vaping status: Never Used Substance Use Topics Alcohol use: No Drug use: No ROS Objective Blood pressure 140/76, pulse 78, temperature 36.6 C (97.8 F), resp. rate 20, weight 72 kg (158 lb 11.7 oz), SpO2 96%. Physical Exam Constitutional: General: He is not in acute distress. Appearance: He is not toxic-appearing or diaphoretic. HENT: Head: Normocephalic and atraumatic. Pulmonary: Effort: Pulmonary effort is normal. No accessory muscle usage or respiratory distress. Skin: Neurological: Mental Status: He is alert and oriented to person, place, and time. ASSESSMENT/PLAN: 1. Rash - ICD9: 782.1, ICD10: R21 -use medication as prescribed -follow up if symptoms persist, worsen, change - NYSTATIN 100,000 UNIT/GRAM TOPICAL CREAM Christel Mei APRN.[employer] documented in this encounter [facility] 10-27-2023 Telephone encounter Note Prescription Refill Information The patient has been identified by name and date of : Yes Caregiver verified no other encounters exist for this prescription request: Yes Caregiver confirmed with patient/requestor that no other refills are due, in the near future, with this provider at this time: Yes The last office visit in the department: 06/01/23 Does the patient have a future office visit with this provider/department: Yes Requested Prescriptions Pending Prescriptions Disp Refills lisinopril (ZESTRIL) 5 mg tablet 90 tablet 1 Sig: Take 1 tablet by mouth once daily. Rayne Yang LPN October 27, 2023 7:16 AM [facility] 10-27-2023 Miscellaneous Notes Prescription Refill Information The patient has been identified by name and date of : Yes Caregiver verified no other encounters exist for this prescription request: Yes Caregiver confirmed with patient/requestor that no other refills are due, in the near future, with this provider at this time: Yes The last office visit in the department: 06/01/23 Does the patient have a future office visit with this provider/department: Yes Requested Prescriptions Pending Prescriptions Disp Refills lisinopril (ZESTRIL) 5 mg tablet 90 tablet 1 Sig: Take 1 tablet by mouth once daily. Rayne Yang LPN October 27, 2023 7:16 AM documented in this encounter [facility] 10-08-2023 Note HNO ID: [id number] Author: NICOLETTE JOHNSON APRN.[facility] Service: ? Author Type: Nurse Practitioner Type: Progress Notes Filed: 10/08/2023 15:15 Note Text: This note was created using [employer]. Subjective Carson Mcclure is a 68 year old male. 68 year old male with PMH HTN, hyperlipidemia, SVT, asthma, GERD and scoliosis presents for knee complaints. Acute onset Right knee Noticed yesterday, but could have been there longer. Citing that the lump is not painful Denies redness or streaking Denies reduced or limited ROM Denies pain Denies numbness or tingling. States that he was doing bird dog exercises 3 days a week 5 days prior to that he was in a crawl space Endorses he has a history of bursitis of knees but that was painful States he is leaving for vacation tomorrow. The history is provided by the patient. No spanish language lecturer was used. Musculoskeletal Problem This is a new problem. The current episode started yesterday. The problem occurs constantly. The problem has been unchanged. Pertinent negatives include no abdominal pain, anorexia, arthralgias, change in bowel habit, chest pain, chills, congestion, coughing, diaphoresis, fatigue, fever, headaches, joint swelling, myalgias, nausea, neck pain, numbness, rash, sore throat, swollen glands, urinary symptoms, vertigo, visual change, vomiting or weakness. Nothing aggravates the symptoms. He has tried nothing for the symptoms. The treatment provided no relief. PAST MEDICAL HISTORY Diagnosis Date Advance directive discussed with patient 02/16/2022 Discussed: 01/2022 Anal fissure 05/27/2009 Anxiety 11/06/2018 Backache, unspecified 10/06/2009 Benign non-nodular prostatic hyperplasia without lower urinary tract symptoms 11/05/2015 Childhood asthma without complication 11/06/2018 Chronic right shoulder pain 09/07/2018 Closed fracture of left distal radius 02/05/2013 Decreased hearing 03/05/2019 Elevated fasting glucose 01/26/2010 Elevated hemoglobin A1c 01/26/2010 Encounter for Medicare annual wellness exam 07/28/2009 Last done: 02/16/2022 Essential hypertension 05/17/2014 External hemorrhoids 11/15/2017 GERD without esophagitis 06/13/[address] 02/16/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 20-40% on L. 0-19% on R SVT (supraventricular tachycardia) ([facility]) 03/31/2016 Traumatic complete tear of right rotator cuff 11/06/2018 S/p 10/[address] Wharton Well adult exam 07/28/2009 Last done: PAST SURGICAL HISTORY Procedure Laterality Date COLONOSCOPY 12/17/2015 repeat due 2025 COLONOSCOPY FLX DX W/COLLJ SPEC WHEN PFRMD 11/03/2007 Colonoscopy recheck 10 yrs COLONOSCOPY FLX DX W/COLLJ SPEC WHEN PFRMD 10/28/2020 EGD 11/30/2022 repeat 3-4 years ESOPHAGOGASTRODUODENOSCOPY TRANSORAL DIAGNOSTIC 05/20/2016 EGD ESOPHAGOGASTRODUODENOSCOPY TRANSORAL DIAGNOSTIC 10/28/2020 repeat in 3-4 years FRACTURE SURGERY HERNIA REPAIR HX 1961, 1982 x 2 right/left OPEN RX DISTAL RADIUS FX, INTRA-ARTICULAR, 3+ FRAG 02/07/2013 ORIF left distal radius with locking plate ORIF CARPOMETACARPAL DISLOC,COMPLX/JOSE REPAIR INGUINAL HERNIA Right 08/04/2023 and repair of recurrent left inguinal hernia- Dr. Marion REPAIR ROTATOR CUFF,ACUTE Right 10/2018 TONSILLECTOMY PRIMARY/SECONDARY Tonsillectomy ALLERGIES Patient has no known allergies. MEDICATIONS omeprazole (PRILOSEC) 40 mg capsule Take 1 capsule by mouth once daily. lisinopril (ZESTRIL) 5 mg tablet Take 1 tablet by mouth once daily. polyethylene glycol 3350 17 gram/dose powder Take 17 g by mouth once daily. Dissolve dose in 4 - 8 ounces of liquid and take as directed. GLUC/CHND/OM3/DHA/EPA/FISH/STR (GLUCOSAMINE CHONDROITIN PLUS ORAL) Take by mouth. calcium carbonate 600 mg-cholecalciferol 200 units 600 mg-5 mcg (200 unit) tab Take 1 tablet by mouth once daily. FAMILY HISTORY Problem Relation Age of Onset Alzheimer's Disease Mother Heart Mother pacemaker other (scoliosis) Mother s/p spinal fusion Diabetes Father later in life Hypertension Father and CHF Psychiatry Sister bipolar Alzheimer's Disease Sister Dx in 50's other (scoliosis) Son s/p spinal fusion Heart Maternal Grandfather [place] Anesthesia Problems No Family History Social History Tobacco Use Smoking status: Never Smokeless tobacco: Never Vaping Use Vaping Use: Never used Substance Use Topics Alcohol use: No Drug use: No Review of Systems Constitutional: Negative for chills, diaphoresis, fatigue and fever. HENT: Negative for congestion and sore throat. Eyes: Negative for pain, discharge and itching. Respiratory: Negative for apnea, cough, choking and chest tightness. Cardiovascular: Negative for chest pain. Gastrointestinal: Negative for abdominal pain, anorexia, change in bowel habit, (more content not included)... [facility] 10-08-2023 History of Present illness Narrative This note was created using [employer]. Subjective Carson Mcclure is a 68 year old male. 68 year old male with PMH HTN, hyperlipidemia, SVT, asthma, GERD and scoliosis presents for knee complaints. Acute onset Right knee Noticed yesterday, but could have been there longer. Citing that the lump is not painful Denies redness or streaking Denies reduced or limited ROM Denies pain Denies numbness or tingling. States that he was doing bird dog exercises 3 days a week 5 days prior to that he was in a crawl space Endorses he has a history of bursitis of knees but that was painful States he is leaving for vacation tomorrow. The history is provided by the patient. No spanish language lecturer was used. Musculoskeletal Problem This is a new problem. The current episode started yesterday. The problem occurs constantly. The problem has been unchanged. Pertinent negatives include no abdominal pain, anorexia, arthralgias, change in bowel habit, chest pain, chills, congestion, coughing, diaphoresis, fatigue, fever, headaches, joint swelling, myalgias, nausea, neck pain, numbness, rash, sore throat, swollen glands, urinary symptoms, vertigo, visual change, vomiting or weakness. Nothing aggravates the symptoms. He has tried nothing for the symptoms. The treatment provided no relief. PAST MEDICAL HISTORY Diagnosis Date Advance directive discussed with patient 02/16/2022 Discussed: 01/2022 Anal fissure 05/27/2009 Anxiety 11/06/2018 Backache, unspecified 10/06/2009 Benign non-nodular prostatic hyperplasia without lower urinary tract symptoms 11/05/2015 Childhood asthma without complication 11/06/2018 Chronic right shoulder pain 09/07/2018 Closed fracture of left distal radius 02/05/2013 Decreased hearing 03/05/2019 Elevated fasting glucose 01/26/2010 Elevated hemoglobin A1c 01/26/2010 Encounter for Medicare annual wellness exam 07/28/2009 Last done: 02/16/2022 Essential hypertension 05/17/2014 External hemorrhoids 11/15/2017 GERD without esophagitis 06/13/[address] 02/16/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 20-40% on L. 0-19% on R SVT (supraventricular tachycardia) (HCC) 03/31/2016 Traumatic complete tear of right rotator cuff 11/06/2018 S/p 10/[address] Wharton [facility] adult exam 07/28/2009 Last done: PAST SURGICAL HISTORY Procedure Laterality Date COLONOSCOPY 12/17/2015 repeat due 2025 COLONOSCOPY FLX DX W/COLLJ SPEC WHEN PFRMD 11/03/2007 Colonoscopy recheck 10 yrs COLONOSCOPY FLX DX W/COLLJ SPEC WHEN PFRMD 10/28/2020 EGD 11/30/2022 repeat 3-4 years ESOPHAGOGASTRODUODENOSCOPY TRANSORAL DIAGNOSTIC 05/20/2016 EGD ESOPHAGOGASTRODUODENOSCOPY TRANSORAL DIAGNOSTIC 10/28/2020 repeat in 3-4 years FRACTURE SURGERY HERNIA REPAIR HX 1961, 1982 x 2 right/left OPEN RX DISTAL RADIUS FX, INTRA-ARTICULAR, 3+ FRAG 02/07/2013 ORIF left distal radius with locking plate ORIF CARPOMETACARPAL DISLOC,COMPLX/JOSE REPAIR INGUINAL HERNIA Right 08/04/2023 and repair of recurrent left inguinal hernia- Dr. Marion REPAIR ROTATOR CUFF,ACUTE Right 10/2018 TONSILLECTOMY PRIMARY/SECONDARY <AGE 13 Tonsillectomy ALLERGIES Patient has no known allergies. MEDICATIONS omeprazole (PRILOSEC) 40 mg capsule Take 1 capsule by mouth once daily. lisinopril (ZESTRIL) 5 mg tablet Take 1 tablet by mouth once daily. polyethylene glycol 3350 17 gram/dose powder Take 17 g by mouth once daily. Dissolve dose in 4 - 8 ounces of liquid and take as directed. GLUC/CHND/OM3/DHA/EPA/FISH/STR (GLUCOSAMINE CHONDROITIN PLUS ORAL) Take by mouth. calcium carbonate 600 mg-cholecalciferol 200 units 600 mg-5 mcg (200 unit) tab Take 1 tablet by mouth once daily. FAMILY HISTORY Problem Relation Age of Onset Alzheimer's Disease Mother Heart Mother pacemaker other (scoliosis) Mother s/p spinal fusion Diabetes Father later in life Hypertension Father and CHF Psychiatry Sister bipolar Alzheimer's Disease Sister Dx in 50's other (scoliosis) Son s/p spinal fusion Heart Maternal Grandfather [place] Anesthesia Problems No Family History Social History Tobacco Use Smoking status: Never Smokeless tobacco: Never Vaping Use Vaping Use: Never used Substance Use Topics Alcohol use: No Drug use: No Review of Systems Constitutional: Negative for chills, diaphoresis, fatigue and fever. HENT: Negative for congestion and sore throat. Eyes: Negative for pain, discharge and itching. Respiratory: Negative for apnea, cough, choking and chest tightness. Cardiovascular: Negative for chest pain. Gastrointestinal: Negative for abdominal pain, anorexia, change in bowel habit, nausea and vomiting. Musculoskeletal: Negative for arthralgias, joint swelling, myalgias and neck pain. Lump on knee Skin: Negative for rash. Allergic/Immunologic: Negative for environmental allergies, food allergies and immunocompromised state. Neurological: Negative for vertigo, weakness, numbness and headaches. Hematological: Negative for adenopathy. Does not bruise/bleed easily. Psychiatric/Behavioral: Negative for agitation and behavioral problems. Objective BP 125/84 Pulse 87 Temp 36.5 C (97.7 F) Resp 20 Wt 72 kg (158 lb 11.7 oz) SpO2 96% BMI 24.49 kg/m Physical Exam Vitals and nursing note reviewed. Constitutional: General: He is not in acute distress. Appearance: Normal appearance. He is not ill-appearing, toxic-appearing or diaphoretic. HENT: Head: Normocephalic and atraumatic. Right Ear: External ear normal. Left Ear: External ear normal. Nose: Nose normal. No congestion or rhinorrhea. Mouth/Throat: Mouth: Mucous membranes are moist. Pharynx: Oropharynx is clear. No oropharyngeal exudate or posterior oropharyngeal erythema. Eyes: General: Right eye: No discharge. Left eye: No discharge. Extraocular Movements: Extraocular movements intact. Conjunctiva/sclera: Conjunctivae normal. Pupils: Pupils are equal, round, and reactive to light. Cardiovascular: Rate and Rhythm: Normal rate and regular rhythm. Pulses: Normal pulses. Heart sounds: Normal heart sounds. No murmur heard. No friction rub. No gallop. Pulmonary: Effort: Pulmonary effort is normal. No respiratory distress. Breath sounds: Normal breath sounds. No stridor. No wheezing, rhonchi or rales. Chest: Chest wall: No tenderness. Abdominal: General: Abdomen is flat. There is no distension. Palpations: Abdomen is soft. There is no mass. Tenderness: There is no abdominal tenderness. There is no guarding or rebound. Hernia: No hernia is present. Musculoskeletal: General: No swelling, tenderness, deformity or signs of injury. Normal range of motion. Cervical back: Normal range of motion and neck supple. No rigidity or tenderness. Right lower leg: No edema. Left lower leg: No edema. Comments: Right knee with circular like effusion noted to anterior knee No TTP No erythema Full active and passive ROM +neuro +sensation +neuro +sensation No deformity No ecchymosis Ambulatory in exam room Lymphadenopathy: Cervical: No cervical adenopathy. Skin: General: Skin is warm and dry. Capillary Refill: Capillary refill takes less than 2 seconds. Coloration: Skin is not jaundiced or pale. Findings: No bruising, lesion or rash. Neurological: General: No focal deficit present. Mental Status: He is alert and oriented to person, place, and time. Cranial Nerves: No cranial nerve deficit. Sensory: No sensory deficit. Motor: No weakness. Coordination: Coordination normal. Gait: Gait normal. Deep Tendon Reflexes: Reflexes normal. Psychiatric: Mood and Affect: Mood normal. Behavior: Behavior normal. Thought Content: Thought content normal. Assessment and Plan ASSESSMENT/PLAN: 1. Effusion of bursa of right knee - ICD9: 719.06, ICD10: M25.461 Unsure of how long, Denies pain No red flags Full active and passive ROM +neuro +sensation No xray available at time of exam RICE therapy OTC analgesics Return and follow up with PCP and or ortho if symptoms persist Nicolette Johnson APRN.TIER AND DETONATOR documented in this encounter [facility] 09-20-2023 Hospital Discharge instructions Patient Education 09/20/2023 06:43:25 Animal Bite (General) Animal Bite (General) An animal bite can cause a wound deep enough to break the skin. In such cases, the wound is cleaned and then sometimes closed. If the wound is closed, it may not be closed completely. This is so that fluid can drain and prevent the wound from becoming infected. In addition to wound care, a tetanus shot may be given, if needed. Home care Care for the wound as directed. If a dressing was applied to the wound, be sure to change it as directed. Wash your hands well with soap and warm water before and after caring for the wound. This helps lower the risk of infection. If the wound bleeds, place a clean, soft cloth on the wound. Then firmly apply pressure until the bleeding stops. This may take up to 5 minutes. Do not release the pressure and look at the wound during this time. Most skin wounds heal within 10 days. But an infection can occur even with proper treatment. So be sure to watch the wound for signs of infection (see below). Check the wound as often as directed by your healthcare provider. Antibiotics may be prescribed. These help prevent or treat infection. If you re given antibiotics, take them as directed. Also be sure to complete the medicines. Rabies prevention Rabies is a virus that can be carried in certain animals. These can include domestic animals such as dogs and cats. Wild animals such as skunks, raccoons, foxes, and bats can also carry rabies. Pets fully vaccinated against rabies (2 shots) are at very low risk of infection. But because human rabies is almost always fatal, any biting pet should be confined for 10 days as an extra precaution. In general, if there is a risk for rabies, the following steps may need to be taken: If someone s pet dog or cat has bitten you, it should be kept in a secure area for the next 10 days to watch for signs of illness. (If the pet it program auditor won t allow this, contact your local animal control center.) If the dog or cat becomes ill or dies during that time, contact your local animal control center at once so the animal may be tested for rabies. If the pet stays healthy for the next 10 days, there is no danger of rabies in the animal or you. If a stray pet bit you, contact your local animal control center. They can give information on capture, quarantine, and animal rabies testing. If you can t find the animal that bit you in the next 2 days, and if rabies exists in your region, you may need to receive the rabies vaccine series. Call your healthcare provider right away. Or return to the emergency department promptly. All animal bites should be reported to the local animal control center. If you were not given a form to fill out, you can report this yourself. Follow-up care Follow up with your healthcare provider, or as directed. When to seek medical advice Call your healthcare provider right away if any of these occur: Signs of infection: oSpreading redness or warmth from the wound oIncreased pain or swelling oFever of 100.4 F (38 C) or higher, or as directed by your healthcare provider oColored fluid or pus draining from the wound Signs of rabies infection: oHeadache oConfusion oStrange behavior oIncreased salivating and drooling oSeizure Decreased ability to move any body part near the bite area Bleeding that can't be stopped after 5 minutes of firm pressure [id number] The [employer]. [address] [place] [address]. All rights reserved. This information is not intended as a substitute for professional medical care. Always follow your healthcare professional's instructions. Follow Up Care 09/20/2023 06:27:47 With:TR MONTANA MD Address: [address] [place] [address]- When:2-4 days [facility] 09-20-2023 Note Discharge Instructions Thank you for allowing [facility] to assist you with your healthcare needs. The following is important discharge information regarding your hospital visit. Diagnosis from Today's Visit Open wound of toe Rat bite What to Do Next Instructions from Your Care Team No qualifying data available. Post Acute Orders No qualifying data available. You Need to Schedule the Following Appointments Follow Up with TR MONTANA MD When:Within 2-4 days Where:[address] [facility] [place] [address]- Allergies No Known Medication Allergies Medications Please ask your primary doctor or pharmacist before taking any other medication not listed, including over the counter drugs, herbal medications, vitamins and or supplements as they may interact with your home medications. What How Much When Instructions Last Dose New amoxicillin-clavulanate (amoxicillin-clavulanate 875 mg-125 mg oral tablet) 1 tab(s) by mouth Every 12 hours Duration: 5 Days Pickup at [facility] Pharmacy Information [facility]: [address] [place] [place] [phone] Please take this list to your next doctor s visit. Bring all medications you take, including over the counter medications, herbals and other supplements with you to your doctor s visit. Patients and families are reminded to discard old lists and to update any records with all medication providers or retail pharmacies. Education Materials Animal Bite (General) An animal bite can cause a wound deep enough to break the skin. In such cases, the wound is cleaned and then sometimes closed. If the wound is closed, it may not be closed completely. This is so that fluid can drain and prevent the wound from becoming infected. In addition to wound care, a tetanus shot may be given, if needed. Home care Care for the wound as directed. If a dressing was applied to the wound, be sure to change it as directed. Wash your hands well with soap and warm water before and after caring for the wound. This helps lower the risk of infection. If the wound bleeds, place a clean, soft cloth on the wound. Then firmly apply pressure until the bleeding stops. This may take up to 5 minutes. Do not release the pressure and look at the wound during this time. Most skin wounds heal within 10 days. But an infection can occur even with proper treatment. So be sure to watch the wound for signs of infection (see below). Check the wound as often as directed by your healthcare provider. Antibiotics may be prescribed. These help prevent or treat infection. If you re given antibiotics, take them as directed. Also be sure to complete the medicines. Rabies prevention Rabies is a virus that can be carried in certain animals. These can include domestic animals such as dogs and cats. Wild animals such as skunks, raccoons, foxes, and bats can also carry rabies. Pets fully vaccinated against rabies (2 shots) are at very low risk of infection. But because human rabies is almost always fatal, any biting pet should be confined for 10 days as an extra precaution. In general, if there is a risk for rabies, the following steps may need to be taken: If someone s pet dog or cat has bitten you, it should be kept in a secure area for the next 10 days to watch for signs of illness. (If the pet it program auditor won t allow this, contact your local animal control center.) If the dog or cat becomes ill or dies during that time, contact your local animal control center at once so the animal may be tested for rabies. If the pet stays healthy for the next 10 days, there is no danger of rabies in the animal or you. If a stray pet bit you, contact your local animal control center. They can give information on capture, quarantine, and animal rabies testing. If you can t find the animal that bit you in the next 2 days, and if rabies exists in your region, you may need to receive the rabies vaccine series. Call your healthcare provider right away. Or return to the emergency department promptly. All animal bites should be reported to the local animal control center. If you were not given a form to fill out, you can report this yourself. Follow-up care Follow up with your healthcare provider, or as directed. When to seek medical advice Call your healthcare provider right away if any of these occur: Signs of infection: oSpreading redness or warmth from the wound oIncreased pain or swelling oFever of 100.4 F (38 C) or higher, or as directed by your healthcare provider oColored fluid or pus draining from the wound Signs of rabies infection: oHeadache oConfusion oStrange behavior oIncreased salivating and drooling oSeizure Decreased ability to move any body part near the bite area Bleeding that can't be stopped after 5 minutes of firm pressure [id number] [employer]. [address] [place] [address]. All rights reserved. This information is not intended as a substitute for professional medical care. Always follow your healthcare professional's instructions. Additional Information VACCINATE! IT SAVES LIVES! Members of the community who have not yet received the COVID-19 vaccine and would like to receive it can visit one of [facility] vaccine clinics. There are many vaccine clinic locations within the [facility]. For locations and available times, please visit www.gettheshot.coronavirus.[place].gov/. It is important to note that some COVID mobile vaccine clinics are held outdoors and may be canceled in rainy or stormy conditions. To learn more about pediatric vaccinations (ages 5-11), we invite you to visit the [facility] webpage. [email or web address]/[email or web address]-Nrctykltwxt-Frequently-[email or web address] -Questions.html To learn more about the COVID-19 vaccine, we invite you to visit the CDC website for a list of frequently asked questions. https://www.cdc.gov/coronavirus/2019-n cov/vaccines/faq.html [facility] Patient Portal Access Instructions: Stay connected with your healthcare team and access your personal medical information anytime with the [facility] Patient Portal. If you would like a full copy of your medical records please contact the [facility] Medical Records Department Tuesday through Tuesday between 8a.m. and 4:30p.m. Please follow the directions below to access the portal: 1.Access the email account you provided upon registration to the [facility].2.Look for an invitation email from [facility].3.Open the email and access the invitation link: Accept Invitation to [facility]4.Fill in the required [place] to create your account. Sign into [email or web address] with your username and password that you created in the above steps to stay up to date. You can then view a summary of results, a summary of your visits, and the ability to download your summaries to your computer or send the information securely to a physician. Remember that your healthcare information is confidential, so carefully consider who you will allow to register on the [facility] Patient Portal for access to your information. You can also access the [facility] Patient Portal on the [employer] ignacio. Simply click on Health Records under Health Data and then click on the [employer] logo. HOW TO SAFELY DISPOSE OF PRESCRIPTION MEDICATIONS Please use one of the following methods to safely dispose of your unused medications. 1.Use a drug disposal kit: the drug disposal pouch allows you to safely discard your old and unused drugs. Ask your nurse to give you one when you are discharged.2.Visit a local take-back location: Many local pharmacies and police departments have programs that collect old and unwanted prescription drugs. Call your local pharmacy or go to http://[employer].Huango.cn/8N2Be3g to find one close to you.3.Make use of household items: Use cat litter or old coffee grounds to dispose medications if other options are not available. Mix your drugs with these household products, seal them in an airtight container and throw it into the garbage. Call [facility]: [phone] to be sure your drugs can be disposed of in this way. Some medicines may require a different approach.4.Never flush your medications down the toilet. IF YOU HAVE BEEN PRESCRIBED AN OPIOIDS FOR PAIN If you have been prescribed an opioid (such as hydrocodone, oxycodone or morphine), it is critical to understand the possible side effects and risks of opioid pain medications. Even when taken as directed, opioids can have several side effects including: Tolerance, meaning you might need to take more of a medication for the same pain relief. Nausea, vomiting and/or constipation. Sleepiness, dizziness, dry mouth, confusion, depression or itching. Physical dependence, meaning you have withdrawal symptoms when a medication is stopped ? this can develop within a few days. KNOW YOUR RESPONSIBILITIES It is important to know exactly how much and how often to take the opioid pain medications you are prescribed. Never take opioids in higher amounts or more often than prescribed. Do not combine opioids with alcohol or other drugs that cause drowsiness, such as benzodiazepines, also known as benzos, including diazepam and alprazolam, muscle relaxants or sleep aids. Never sell or share prescription opioids. This is illegal. Store opioids in a secure place and out of reach of others (including children, family, friends and visitors). The last page(s) of this document has been signed and retained as a CHART COPY Signatures Patient Education Materials Animal Bite (General) Medication Leaflets My discharge plan and instructions have been reviewed and explained to me and I,MCCLURE CARSON understand my current condition and have read and understand these discharge instructions. I have received a written copy of the plan/instructions. If I have questions, I am aware that I should contact my doctor. Patient/Orthotic/Prosthetic Practitioner Signature: _ Date/Time: Relationship to Patient: Witness Name/Signature: Date/Time: [facility] 09-01-2023 History of Present illness Narrative HPI: Carson returns status post laparoscopic bilateral inguinal hernia repair with mesh performed on August 03. He occasionally will have some intense pain, mainly along the right groin. This will usually last about a minute. EXAM: There were no vitals taken for this visit. Pain mainly over the inguinal canal near Braydon's ligament, likely from a tack. PATHOLOGY: None ASSESSMENT: (Z98.890, Z87.19) Status post laparoscopic hernia repair (primary encounter diagnosis) Returns status post laparoscopic bilateral inguinal hernia repair with mesh performed on August 03. I suspect his intermittent pain is from tacks. I assured him that these will dissolve with time, this may take 3 to 6 months. He can return to see me if his symptoms do not improve. He is comfortable with this plan. No orders found for this visit on 08/31/23. Kim Marion MD documented in this encounter [facility] 08-25-2023 Telephone encounter Note DATE OF SURGERY/PROCEDURE: 08/04/2023 POSTOPERATIVE DIAGNOSIS: Right inguinal hernia and recurrent left inguinal hernia. SURGEON: Kim Marion M.D. SURGERY/PROCEDURE: Laparoscopic total extraperitoneal, preperitoneal bilateral inguinal hernia repair with mesh. Last seen 08/[address] Marion. Patient call and left message that he started having pain and discomfort and would like appt to be seen. Rates pain to right inguinal area 7/10 intermittently. Denies swelling or redness. Incisions are healing well. Taking ibuprofen as needed. Appt made for 08/31/[address] Marion Patient thanked me for the call. [facility] 08-25-2023 Miscellaneous Notes DATE OF SURGERY/PROCEDURE: 08/04/2023 POSTOPERATIVE DIAGNOSIS: Right inguinal hernia and recurrent left inguinal hernia. SURGEON: Kim Marion M.D. SURGERY/PROCEDURE: Laparoscopic total extraperitoneal, preperitoneal bilateral inguinal hernia repair with mesh. Last seen 08/[address] Marion. Patient call and left message that he started having pain and discomfort and would like appt to be seen. Rates pain to right inguinal area 7/10 intermittently. Denies swelling or redness. Incisions are healing well. Taking ibuprofen as needed. Appt made for 08/31/[address] Marion Patient thanked me for the call. documented in this encounter [facility] 08-18-2023 History of Present illness Narrative HPI: Carson returns status post laparoscopic bilateral inguinal hernia repair with mesh. He is doing well. EXAM: There were no vitals taken for this visit. Incisions are healing nicely, no evidence for seroma or recurrent hernia. PATHOLOGY: None ASSESSMENT: (Z98.890, Z87.19) Status post laparoscopic hernia repair (primary encounter diagnosis) Carson returns status post laparoscopic bilateral inguinal hernia repair with mesh. He has had an uncomplicated postoperative course. He can return to see me as needed. No orders found for this visit on 08/18/23. Kim Marion MD documented in this encounter [facility] 08-05-2023 Telephone encounter Note DATE OF SURGERY/PROCEDURE: 08/04/2023 DIAGNOSIS: Right inguinal hernia. POSTOPERATIVE DIAGNOSIS: Right inguinal hernia and recurrent left inguinal hernia. SURGEON: Kim Marion M.D. SURGERY/PROCEDURE: Laparoscopic total extraperitoneal, preperitoneal bilateral inguinal hernia repair with mesh. Post Op 08/18/23 Patient call. He asked if he may do stairs. Patient was advised that medication can be constipating. Advised to drink plenty of fluids such as water and fruit juices and to include plenty of fiber in diet, including fruits and vegetables. Advised patient that swelling and bruising to testicular area is not uncommon following this surgery, but to call if having difficulties voiding. Advised to apply ice for 15 to 20 minutes at a time for intervals during day. Advised to wear more constrictive undershorts. Advised to elevate pelvis/ scrotum with pillow while sitting/lying to help decrease swelling. Patient verbalizes understanding and has no further questions or concerns at this time. Was advised to call as needed for future problems. Encounter closed. [facility] 08-05-2023 Miscellaneous Notes DATE OF SURGERY/PROCEDURE: 08/04/2023 DIAGNOSIS: Right inguinal hernia. POSTOPERATIVE DIAGNOSIS: Right inguinal hernia and recurrent left inguinal hernia. SURGEON: Kim Marion M.D. SURGERY/PROCEDURE: Laparoscopic total extraperitoneal, preperitoneal bilateral inguinal hernia repair with mesh. Post Op 08/18/23 Patient call. He asked if he may do stairs. Patient was advised that medication can be constipating. Advised to drink plenty of fluids such as water and fruit juices and to include plenty of fiber in diet, including fruits and vegetables. Advised patient that swelling and bruising to testicular area is not uncommon following this surgery, but to call if having difficulties voiding. Advised to apply ice for 15 to 20 minutes at a time for intervals during day. Advised to wear more constrictive undershorts. Advised to elevate pelvis/ scrotum with pillow while sitting/lying to help decrease swelling. Patient verbalizes understanding and has no further questions or concerns at this time. Was advised to call as needed for future problems. Encounter closed. documented in this encounter [facility] 08-04-2023 Note HNO ID: [id number] Author: JAMIE MUIR RN Service: ? Author Type: Registered Nurse Type: Nursing Progress Note Filed: 08/04/2023 14:07 Note Text: Patient instructed of need to urinate prior to discharge. Spouse at bedside. Patient taking fluids. [facility] 08-04-2023 Note HNO ID: [id number] Author: KELLY LEAHY APRN.KAYLEIGH Service: Anesthesiology Author Type: Nurse Spanish Linguist Type: Anesthesia Procedure Notes Filed: 08/04/2023 11:33 Note Text: ANESTHESIOLOGY PROCEDURE NOTE Airway General Information Procedure Start Time/Medication Administration: 08/04/2023 11:28 AM Procedure End Time: 08/04/2023 11:28 AM Patient location during procedure: OR Timeout Performed Pre-procedure: timeout performed Consent Obtained: Yes Patient identity confirmed: arm band and patient sedated or unresponsive Staffing Anesthesiologist: Vani Luong MD Performed by: anesthesiologist Indications and Patient Condition Indications for airway management: anesthesia Preoxygenated: yes anesthesia circuit Patient position: sniffing Method: sleep Difficult Mask: No Final Airway Details Final airway type: endotracheal airway Final Endotracheal Airway: ETT Cuffed: yes Successful intubation technique: direct laryngoscopy Blade: Mac Blade size: #4 ETT size (mm): 7.5 Measured from: lips Measurement (cm): 21 Placement verified by: capnometry Cormack-Lehane Classification: grade IIa - partial view of glottis Number of attempts at approach: 1 Airway not difficult SIGNATURE: Kelly Leahy APRN.CRNA PATIENT NAME: Carson Mcclure DATE: August 04, 2023 TIME: 11:33 AM CSN: [id number] [facility] 07-25-2023 Telephone encounter Note Spoke with patient and advised him that Dr Marion will be back in office tomorrow. We will call back to advise if she feels he needs to be seen again in office prior to surgery or if she will assess him day of surgery and will plan to check for the additional hernia at time of surgery. Carson is comfortable with that plan. Please call back [phone] (home) [phone] (work) [phone] (cell) [facility] 07-25-2023 Miscellaneous Notes Spoke with patient and advised him that Dr Marion will be back in office tomorrow. We will call back to advise if she feels he needs to be seen again in office prior to surgery or if she will assess him day of surgery and will plan to check for the additional hernia at time of surgery. Carson is comfortable with that plan. Please call back [phone] (home) [phone] (work) [phone] (cell) Patient called regarding his upcoming hernia surgery scheduled for July Believes that he now has a hernia on the left side Mild discomfort on that side, no other symptoms given Please contact the patient, Carson can be reached at [phone] documented in this encounter [facility] 07-25-2023 Telephone encounter Note Patient called regarding his upcoming hernia surgery scheduled for July Believes that he now has a hernia on the left side Mild discomfort on that side, no other symptoms given Please contact the patient, Carson can be reached at [phone] [facility] 07-11-2023 Instructions Jayleen Marin APRN.CNP - 07/11/2023 7:05 AM EDT PATIENT PREOPERATIVE INSTRUCTIONS Kim Marion MD has scheduled you for your procedure at this surgery center: [facility]: [phone] -- [address] [facility] [address]. Please read below carefully for your personalized instructions. Arrival Time for Surgery: - The Surgery Center or hospital where you are having surgery will call the afternoon before surgery (or Tuesday for Tuesday surgery) with a scheduled arrival time. - If you have not heard by 4 pm, please contact the surgery center above. Please be aware that emergency situations arise, which may delay or change your surgical time. If this happens, we will notify you as soon as possible and regret any inconvenience. Dietary Restrictions: - No solid food after midnight. - You may have 12 ounces of clear liquids (water, clear juices such as apple juice or gatorade, carbonated beverages, clear tea, black coffee, jello) until 2 hours before scheduled arrival at facility. Medications: Unless instructed differently below, stay on all of your medications until your surgery. If you start any new medications after today's visit, please contact your surgeon. Pre-Surgery Med Instructions Medication Instructions omeprazole (PRILOSEC) 40 mg capsule Take the day of surgery with a small sip of water lisinopril (ZESTRIL) 5 mg tablet Do not take for 24 hours prior to surgery polyethylene glycol 3350 17 gram/dose powder Do not take the day of surgery If you are prescribed inhalers for breathing, continue using them. If you take any medications for erectile dysfunction-Cialis (Tadalafil), Levitra, Staxyn (Vardenafil) Viagra (Sildenenafil please do not take these for 48 hours before surgery. If you start any new medications after today's visit, please contact the surgeon's office. Blood Thinning Medications: - Stop NSAIDS (Ibuprofen, Advil, Aleve, Motrin, Celebrex, Mobic, etc.) 7 days before surgery, as directed by your surgeon. - Stop Aspirin 7 days before surgery, as directed by your surgeon. - Stop Vitamin E, ALL multi-vitamins, herbals and dietary supplements 14 days before surgery. - You may take Tylenol (Acetaminophen) or any of your pain medications that do not contain aspirin or NSAIDS as needed. Important Reminders: - If you use CPAP/BIPAP, bring the machine with you to the surgery center. - Candy, mints, and tobacco products are NOT permitted the morning of surgery. - Hearing aids, dentures and glasses may be worn the morning of surgery. - NO jewelry, body piercings, makeup, hairpins or contacts are to be worn the day of surgery. If you develop symptoms such as a fever, cold, or flu, or have other changes to your health within TWO DAYS of scheduled surgery or the morning of surgery, please contact the surgery center above. Personal Belongings: -Please have photo ID and insurance cards. -If you do not have a copy of advance directives on file with us, please bring a copy with you on the day of surgery. - Leave ALL valuables and money at home or with family members. For Outpatient Procedures: - YOU MUST HAVE A RESPONSIBLE SLIP PRESSER TAKE YOU HOME. A DERMATOLOGIST AND DERMATOPATHOLOGIST OR MAIL DISTRIBUTOR CANNOT BE MADE A RESPONSIBLE SLIP PRESSER. - We recommend that a responsible person stays with you overnight to take care of you. - You cannot stay in a hotel alone after outpatient surgery. You will not be permitted to have your surgery, if you do not have someone to take care of you. If you already have an Advance Directive, please fax a copy to [phone] or email to for it to be added to your chart. If you do not have an Advance Directive, you can find the appropriate form and more information at [email or web address]. We recommend that you complete the Advance Directive form found on the website and bring it with you the day of your surgery. It can be witnessed and scanned into your chart that day. Jayleen Marin APRN.TIER AND DETONATOR documented in this encounter [facility] 07-11-2023 History and physical note HISTORY AND PHYSICAL EXAMINATION SERVICE DATE: 07/11/2023 SERVICE TIME: 7:09 AM PRIMARY CARE PHYSICIAN: Tr Montana MD Assessment Patient has the following medical conditions which may affect randee-operative course: Essential hypertension Assessment: stable with Rx. GERD without esophagitis Assessment: on Rx. Mixed hyperlipidemia Assessment: managed with dietary changes. SVT (supraventricular tachycardia) (HCC) Assessment: many years ago. No reoccurrence. No chest or palpitations. Followed with cardiology in the past. Childhood asthma without complication Assessment: Not currently treated. Denies any SOB or wheezing. Elevated hemoglobin A1c Assessment: not on medications. Dietary changes. Hemoglobin A1C (%) Date Value 05/31/2023 6.1 2020 6.1 Anxiety Assessment: stable Stenosis of left carotid artery Assessment: follows with PCP. Rt ICA 0-19%, Lt ICA 20-39% Benign non-nodular prostatic hyperplasia without lower urinary tract symptoms Assessment: no retention. Lorenzana Activity Status Index: METS: Climb a flight of stairs or walk up a hill (5.50 METs) DASI Score: 5.5 Patient denies any chest pain or undue shortness of breath with the above physical activity. Clinical Frailty Scale: 2. Well STOP-Bang Score: Has or is being treated for high blood pressure Patient over 50 years old Male patient Denies snoring loudly Denies feeling tired, fatigued, or sleepy during the daytime Has not been observed to stop breathing or choking/gasping during sleep BMI less than or equal to 35 kg/m^2 Does not have a large neck STOP-Bang Score: 3 [id number] Score: Hypertension history: Yes [id number] Score: ANESTHESIA FINDINGS: Intubation History: No history of difficult intubation. No abnormal airway history Significant Anesthesia Considerations: none Airway History: No history of difficult airway No abnormal airway history I - PHYSICAL EVALUATION AIRWAY Patient intubated: No. Tracheostomy tube not present Mallampati: III. TM distance: >3 FB. Neck ROM: full ROM without neurological symptoms. Mouth opening: adequate. Short neck: no. Thick neck: no Flores present: no Lip Bite Test: I Microretrognathia/Micronagthia/Recesse d Chin: No DENTAL Dental findings: teeth intact. II - ANESTHESIA PLAN Anesthetic Plan: other Anesthetic plan additional comments: *[facility] - anesthesia choice. Beta Wero Monitoring Plan Post Procedure Analgesic Plan Prepared for Surgery: optimally prepared for surgery. CBC and CMP from 05/31/23 reviewd and accepted CONSULTS: Patient does not require consults for optimization at this time Planned Anesthetic: other anesthesia choice The Following Tests/Procedures Have Been Initiated: No orders of the defined types were placed in this encounter. This is a virtual visit using Carbonated Content video visit. It required patient-provider interaction for the medical decision making as documented below. REASON FOR VISIT: Carson Mcclure is a 67 year old male who is scheduled for Procedure(s) with comments: LAPAROSCOPY SURGICAL REPAIR INITIAL INGUINAL HERNIA WITH TOTAL EXTRA PERITONEAL REPAIR (Right) - LAPAROSCOPY SURGICAL REPAIR INITIAL INGUINAL HERNIA WITH TOTAL EXTRA PERITONEAL REPAIR [[id number]] at the request of Dr. Kim Marion for consultation. My final recommendation will be communicated back to the requesting physician by way of shared medical record or letter. Subjective The patient has the following: ACTIVE PROBLEM LIST Anal Fissure Encounter for Medicare Annual Wellness Exam Scoliosis Mixed Hyperlipidemia Backache, unspecified Elevated Hemoglobin A1c Essential Hypertension Prostate Disorder Benign Non-Nodular Prostatic Hyperplasia Without Lower Urinary Tract Symptoms Colon Cancer Screening Svt (Supraventricular Tachycardia) (Hcc) Gerd Without Esophagitis External Hemorrhoids Chronic Right Shoulder Pain Childhood Asthma Without Complication Anxiety Traumatic Complete Tear of Right Rotator Cuff Decreased Hearing Living Will in Place Advance Directive Discussed With Patient Stenosis of Left Carotid Artery Medication Management Inguinal Hernia, Right COVID-19 Immunization Status Covid-19 Vaccine (Series Information) Completed 05/25/2023 Imm Admin: COVID-19 vaccine, age 12+ yr, season (PFIZER-BIONTECH) 08/31/2022 Imm Admin: COVID-19 vaccine, age 12+ yr, bivalent (MODERNA) 09/04/2021 Imm Admin: COVID-19 original vaccine, full dose, monovalent (MODERNA) Only the first 3 history entries have been loaded, but more history exists. CHIEF COMPLAINT: Unilateral recurrent inguinal hernia without obstruction or gangrene HPI: This 67 year old male with a history of Unilateral recurrent inguinal hernia without obstruction or gangrene is scheduled for the above procedure and presents to the [facility] for pre-operative examination. Patient reports hx of hernia in the past. Slight discomfort. Denies any chest pain, SOB, fevers or chills, n/v/d. This is a virtual visit. The visit was conducted using Carbonated Content video visit. It required patient-provider interaction for the medical decision making as documented below. I have communicated my name and active licensure. The patient's identity and physical location were verified at the time of this visit. Either the patient or their legal manufacturers service representative has been informed of the risks and benefits of and alternatives to treatment through a remote evaluation and consents to proceed with the evaluation remotely. REVIEW OF SYSTEMS: General: No weight loss, malaise or fevers. Neurological: No history of TIA's, stroke, INVESTIGATOR CLAIMS tumor, impaired sensorium, hemiplegia, paraplegia or quadraplegia. No neurological symptoms or problems. Respiratory: Positive for: asthma (childhood). Cardiovascular: Left carotid stenosis Positive for: hyperlipidemia and hypertension Negative for: chest pain. GI: See HPI. Positive for: GERD : Positive for: BPH. Endocrine: Pre diabetes . No history of diabetes. Has not taken steroids within the past 30 days. No history of endocrinological symptoms or problems. Hematology: No history of bleeding or clotting disorder. Patient is not taking anti-coagulation or platelet medications. No history of hematological symptoms or problems. Oncology: No history of CA metastasis, chemo within 30 days, or radiotherapy within 90 days. No history of oncological symptoms or problems. Psych: Positive for: anxiety. Musculoskeletal: Negative for joint pain or swelling, back pain or muscle pain. Skin: Negative for lesions, rash and itching. PAST MEDICAL HISTORY Diagnosis Date Advance directive discussed with patient 02/16/2022 Discussed: 01/2022 Anal fissure 05/27/2009 Anxiety 11/06/2018 Backache, unspecified 10/06/2009 Benign non-nodular prostatic hyperplasia without lower urinary tract symptoms 11/05/2015 Childhood asthma without complication 11/06/2018 Chronic right shoulder pain 09/07/2018 Closed fracture of left distal radius 02/05/2013 Decreased hearing 03/05/2019 Elevated fasting glucose 01/26/2010 Elevated hemoglobin A1c 01/26/2010 Encounter for Medicare annual wellness exam 07/28/2009 Last done: 02/16/2022 Essential hypertension 05/17/2014 External hemorrhoids 11/15/2017 GERD without esophagitis 06/13/[address] 02/16/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 20-40% on L. 0-19% on R SVT (supraventricular tachycardia) (HCC) 03/31/2016 Traumatic complete tear of right rotator cuff 11/06/2018 S/p 10/[address] Wharton Well adult exam 07/28/2009 Last done: PAST SURGICAL HISTORY Procedure Laterality Date COLONOSCOPY 12/17/2015 repeat due 2025 COLONOSCOPY FLX DX W/COLLJ SPEC WHEN PFRMD 11/03/2007 Colonoscopy recheck 10 yrs COLONOSCOPY FLX DX W/COLLJ SPEC WHEN PFRMD 10/28/2020 EGD 11/30/2022 repeat 3-4 years ESOPHAGOGASTRODUODENOSCOPY TRANSORAL DIAGNOSTIC 05/20/2016 EGD ESOPHAGOGASTRODUODENOSCOPY TRANSORAL DIAGNOSTIC 10/28/2020 repeat in 3-4 years FRACTURE SURGERY HERNIA REPAIR HX 1961, 1982 x 2 right/left OPEN RX DISTAL RADIUS FX, INTRA-ARTICULAR, 3+ FRAG 02/07/2013 ORIF left distal radius with locking plate ORIF CARPOMETACARPAL DISLOC,COMPLX/JOSE REPAIR ROTATOR CUFF,ACUTE Right 10/2018 TONSILLECTOMY PRIMARY/SECONDARY <AGE 12 Tonsillectomy FAMILY HISTORY Problem Relation Age of Onset Alzheimer's Disease Mother Heart Mother pacemaker other (scoliosis) Mother s/p spinal fusion Diabetes Father later in life Hypertension Father and CHF Psychiatry Sister bipolar Alzheimer's Disease Sister Dx in 50's other (scoliosis) Son s/p spinal fusion Heart Maternal Grandfather [place] Anesthesia Problems No Family History Social History Tobacco Use Smoking status: Never Smokeless tobacco: Never Vaping Use Vaping Use: Never used Substance Use Topics Alcohol use: No Drug use: No Prior to Admission medications as of 07/11/23 0654 Medication Sig Last Dose Taking omeprazole (PRILOSEC) 40 mg capsule Take 1 capsule by mouth once daily. Taking Yes lisinopril (ZESTRIL) 5 mg tablet Take 1 tablet by mouth once daily. Taking Yes polyethylene glycol 3350 17 gram/dose powder Take 17 g by mouth once daily. Dissolve dose in 4 - 8 ounces of liquid and take as directed. Taking Yes GLUC/CHND/OM3/DHA/EPA/FISH/STR (GLUCOSAMINE CHONDROITIN PLUS ORAL) Take by mouth. calcium carbonate 600 mg-cholecalciferol 200 units 600 mg-5 mcg (200 unit) tab Take 1 tablet by mouth once daily. Medication Comments documented by Elisabeth Siddiqi RN on 10/12/2022 at 2012. October 12, 2022: Patient reports no changes to medications in the last 30 days. Elisabeth Siddiqi RN ALLERGIES No Known Allergies Objective PHYSICAL EXAM: (if completed, exam performed via video enabled technology) General: alert and oriented and healthy appearance. Pertinent negatives noted - not distressed. Skin: normal color, no rash or lesions. HEENT: EOM intact. Cardiovascular: Capillary refill < 3 seconds in BL upper extremities. Respiratory: normal breath sounds, no wheezes or crackles. No chest wall deformity or tenderness. Abdomen: soft. Pertinent negatives noted - not distended and not tender. Extremities: no deformity, no edema or tenderness, no joint swelling or clubbing. Neurological: normal cognition and motor skills. PAIN ASSESSMENT: VITALS: Pulse [cap refil < 3 seconds[ Ht 5' 7.5[pt rpt[ (1.72m) Wt 159 lb (72.1kg) BMI 24.52 kg/(m^2). Diagnostic tests reviewed for today's visit: Lab Value Units Date High Low HB 14.5 g/dL 05/31/2023 17.0 13.0 HCT 43.6 % 05/31/2023 51.0 39.0 WBC 5.30 k/uL 05/31/2023 11.00 3.70 PLT 189 k/uL 05/31/2023 400 150 NA 138 mmol/L 05/31/2023 144 136 K 4.5 mmol/L 05/31/2023 5.1 3.7 GLUC 106 mg/dL 05/31/2023 99 74 BUN 18 mg/dL 05/31/2023 24 9 CREAT 0.91 mg/dL 05/31/2023 1.22 0.73 PTSEC No results within date range. INR No results within date range. APTT No results within date range. ALT 17 U/L 05/31/2023 54 10 AST 20 U/L 05/31/2023 40 14 TBILI 0.4 mg/dL 05/31/2023 1.3 0.2 TSH No results within date range. Lab Value Units Date High Low HCGQT No results within date range. UHCG No results within date range. HCG, BODY* No results within date range. Lab Value Units Date High Low ABORHD No results within date range. ABSCREEN No results within date range. Hemoglobin A1C (%) Date Value 05/31/2023 6.1 02/16/2022 6.0 07/20/2021 6.2 2020 6.1 11/06/2018 5.9 11/12/2017 5.8 10/31/2015 6.2 01/19/2013 5.9 No results found for this or any previous visit (from the past 8760 hour(s)). No results found for this or any previous visit (from the past 23231 hour(s)). Instructions Given to Patient: Instructions located in the after visit summary. Patient given verbal and written preop instructions and voices comprehension and compliance. SIGNATURE: Jayleen Marin APRN.CNP PATIENT NAME: Carson Mcclure DATE: July 11, 2023 TIME: 6:44 AM PAGER/CONTACT #: documented in this encounter [facility] 07-06-2023 History of Present illness Narrative POPULATION HEALTH NAVIGATION OUTREACH Action/July 06, 2023 9:38 AM Patient is on TE2 Medication Adherence list for the following medications: lisinopril (ZESTRIL) 5 mg tablet 90 tablet 1 04/04/2023 -- Sig: Take 1 tablet by mouth once daily. Unable to access [employer] portal at this time to review Medication dispense history. Outcome: Per Medication Dispense reconcile: LISINOPRIL 5MG TAB Dispensed: 07/04/2023 12:00 AM Unit strength: 5 Unit form: tablet Days supply: 90 Quantity: 90 tablet Pharmacy: [address] [id number] [facility] [phone] [place] [id number] Authorizing provider: Marsha Butts PA-C [id number] [facility] [id number] Received from: [facility] (Claim History, Ambulatory) Brand or Generic: Generic Reason for Outreach Med Adherence Patient Contacted: No outreach needed: RX filled per reconcile dispense Navigation Signature: Aidee Degroot MA July 06, 2023 9:38 AM documented in this encounter [facility] 06-30-2023 History of Present illness Narrative PROGRESS NOTES PATIENT NAME: Carson Mcclure Assessment ASSESSMENT/PLAN: (K40.91) Unilateral recurrent inguinal hernia without obstruction or gangrene (primary encounter diagnosis) Carson presents with a recurrent right inguinal hernia. We discussed proceeding with laparoscopic repair with mesh. Risks including bleeding, infection, nerve injury, ischemic orchitis, and recurrent hernia were explained and he would like to proceed. Surgery scheduled for August 03. Office Visit on 06/30/23 SURGICAL REQUEST - ELECTIVE (10/2019) SUBJECTIVE CHIEF COMPLAINT: Patient presents with: Follow Up INTERVAL HISTORY OF PRESENT ILLNESS: Carson is a 67-year-old gentleman who presents with a right inguinal hernia. He denies pain. He denies GI symptoms including nausea, vomiting, diarrhea, or constipation. He is status post open right inguinal hernia repair when he was 25 years old. He is unsure whether mesh was utilized. He also had a left inguinal hernia repaired in the past. He presents today for surgical evaluation. HISTORIES: PAST MEDICAL HISTORY Diagnosis Date Advance directive discussed with patient 02/16/2022 Discussed: 01/2022 Anal fissure 05/27/2009 Anxiety 11/06/2018 Backache, unspecified 10/06/2009 Benign non-nodular prostatic hyperplasia without lower urinary tract symptoms 11/05/2015 Childhood asthma without complication 11/06/2018 Chronic right shoulder pain 09/07/2018 Closed fracture of left distal radius 02/05/2013 Decreased hearing 03/05/2019 Elevated fasting glucose 01/26/2010 Elevated hemoglobin A1c 01/26/2010 Encounter for Medicare annual wellness exam 07/28/2009 Last done: 02/16/2022 Essential hypertension 05/17/2014 External hemorrhoids 11/15/2017 GERD without esophagitis 06/13/[address] 02/16/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 20-40% on L. 0-19% on R SVT (supraventricular tachycardia) (HCC) 03/31/2016 Traumatic complete tear of right rotator cuff 11/06/2018 S/p 10/[address] Wharton Well adult exam 07/28/2009 Last done: PAST SURGICAL HISTORY Procedure Laterality Date COLONOSCOPY 12/17/2015 repeat due 2025 COLONOSCOPY FLX DX W/COLLJ SPEC WHEN PFRMD 11/03/2007 Colonoscopy recheck 10 yrs COLONOSCOPY FLX DX W/COLLJ SPEC WHEN PFRMD 10/28/2020 EGD 11/30/2022 repeat 3-4 years ESOPHAGOGASTRODUODENOSCOPY TRANSORAL DIAGNOSTIC 05/20/2016 EGD ESOPHAGOGASTRODUODENOSCOPY TRANSORAL DIAGNOSTIC 10/28/2020 repeat in 3-4 years FRACTURE SURGERY HERNIA REPAIR HX 1961, 1982 x 2 right/left OPEN RX DISTAL RADIUS FX, INTRA-ARTICULAR, 3+ FRAG 02/07/2013 ORIF left distal radius with locking plate ORIF CARPOMETACARPAL DISLOC,COMPLX/JOSE REPAIR ROTATOR CUFF,ACUTE Right 10/2018 TONSILLECTOMY PRIMARY/SECONDARY <AGE 13 Tonsillectomy ALLERGIES: Patient has no known allergies. MEDICATIONS: Current Outpatient Medications Medication Sig omeprazole (PRILOSEC) 40 mg capsule Take 1 capsule by mouth once daily. lisinopril (ZESTRIL) 5 mg tablet Take 1 tablet by mouth once daily. polyethylene glycol 3350 17 gram/dose powder Take 17 g by mouth once daily. Dissolve dose in 4 - 8 ounces of liquid and take as directed. GLUC/CHND/OM3/DHA/EPA/FISH/STR (GLUCOSAMINE CHONDROITIN PLUS ORAL) Take by mouth. calcium carbonate 600 mg-cholecalciferol 200 units 600 mg-5 mcg (200 unit) tab Take 1 tablet by mouth once daily. Current Facility-Administered Medications Medication Dose Route Frequency perflutren lipid microspheres 1.3 mL in NaCl (PF) 0.9% 10 mL injection (DEFINITY) INTRAVENOUS DIRECTED PRN sodium chloride 0.9 % (flush) 10 mL (BD POSIFLUSH) 10 mL INTRAVENOUS DIRECTED PRN FAMILY HISTORY Problem Relation Age of Onset Alzheimer's Disease Mother Heart Mother pacemaker other (scoliosis) Mother s/p spinal fusion Diabetes Father later in life Hypertension Father and CHF Psychiatry Sister bipolar Alzheimer's Disease Sister Dx in 50's Heart Maternal Grandfather [place] other (scoliosis) Son s/p spinal fusion Social History Tobacco Use Smoking status: Never Smokeless tobacco: Never Vaping Use Vaping Use: Never used Substance Use Topics Alcohol use: No Drug use: No OBJECTIVE PHYSICAL EXAM: There were no vitals taken for this visit. General: Well developed, well-nourished, in no distress HEENT: Normocephalic, atraumatic. Extraocular movements intact. Sclera are nonicteric. Heart: Regular rate and rhythm, no murmur Lungs: Clear to auscultation, without wheezes Abdomen: Soft, non tender, positive bowel sounds, no masses, reducible right inguinal hernia, no evidence for left inguinal hernia. No umbilical hernia. Rectal: Not evaluated Extremities: No edema Neurologic: Alert, oriented, and appropriate. DATA: Diagnostic tests reviewed for today's visit: None Kim Marion MD documented in this encounter [facility] 06-17-2023 History of Present illness Narrative HISTORY AND PHYSICAL Carson Mcclure 1955 REFERRING PHYSICIAN: Tr Montana MD CHIEF COMPLAINT: Consult (Inguinal hernia) HPI: Carson is a 67 year old male with a complaint of a bulge without any real discomfort in his right inguinal region. T The patient notes no symptoms of bowel obstruction and denies nausea or vomiting. The patient was seen by his primary care physician who felt the patient has a hernia. Carson was referred for evaluation and treatment. The patient is being seen by me today at the request of Dr. Tr Montana MD for my opinion and advice regarding a symptomatic right inguinal hernia. PAST MEDICAL HISTORY Diagnosis Date Advance directive discussed with patient 02/16/2022 Discussed: 01/2022 Anal fissure 05/27/2009 Anxiety 11/06/2018 Backache, unspecified 10/06/2009 Benign non-nodular prostatic hyperplasia without lower urinary tract symptoms 11/05/2015 Childhood asthma without complication 11/06/2018 Chronic right shoulder pain 09/07/2018 Closed fracture of left distal radius 02/05/2013 Decreased hearing 03/05/2019 Elevated fasting glucose 01/26/2010 Elevated hemoglobin A1c 01/26/2010 Encounter for Medicare annual wellness exam 07/28/2009 Last done: 02/16/2022 Essential hypertension 05/17/2014 External hemorrhoids 11/15/2017 GERD without esophagitis 06/13/[address] 02/16/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 20-40% on L. 0-19% on R SVT (supraventricular tachycardia) (HCC) 03/31/2016 Traumatic complete tear of right rotator cuff 11/06/2018 S/p 10/[address] Wharton [facility] adult exam 07/28/2009 Last done: PAST SURGICAL HISTORY Procedure Laterality Date COLONOSCOPY 12/17/2015 repeat due 2025 COLONOSCOPY FLX DX W/COLLJ SPEC WHEN PFRMD 11/03/2007 Colonoscopy recheck 10 yrs COLONOSCOPY FLX DX W/COLLJ SPEC WHEN PFRMD 10/28/2020 EGD 11/30/2022 repeat 3-4 years ESOPHAGOGASTRODUODENOSCOPY TRANSORAL DIAGNOSTIC 05/20/2016 EGD ESOPHAGOGASTRODUODENOSCOPY TRANSORAL DIAGNOSTIC 10/28/2020 repeat in 3-4 years FRACTURE SURGERY HERNIA REPAIR HX 196, 1982 x 2 right/left OPEN RX DISTAL RADIUS FX, INTRA-ARTICULAR, 3+ FRAG 02/07/2013 ORIF left distal radius with locking plate ORIF CARPOMETACARPAL DISLOC,COMPLX/JOSE REPAIR ROTATOR CUFF,ACUTE Right 10/2018 TONSILLECTOMY PRIMARY/SECONDARY <AGE 13 Tonsillectomy Current Outpatient Medications Medication Sig omeprazole (PRILOSEC) 40 mg capsule Take 1 capsule by mouth once daily. lisinopril (ZESTRIL) 5 mg tablet Take 1 tablet by mouth once daily. polyethylene glycol 3350 17 gram/dose powder Take 17 g by mouth once daily. Dissolve dose in 4 - 8 ounces of liquid and take as directed. GLUC/CHND/OM3/DHA/EPA/FISH/STR (GLUCOSAMINE CHONDROITIN PLUS ORAL) Take by mouth. calcium carbonate 600 mg-cholecalciferol 200 units 600 mg-5 mcg (200 unit) tab Take 1 tablet by mouth once daily. Current Facility-Administered Medications Medication Dose Route Frequency perflutren lipid microspheres 1.3 mL in NaCl (PF) 0.9% 10 mL injection (DEFINITY) INTRAVENOUS DIRECTED PRN sodium chloride 0.9 % (flush) 10 mL (BD POSIFLUSH) 10 mL INTRAVENOUS DIRECTED PRN ALLERGIES: Patient has no known allergies. PERSONAL HISTORY: Social History Tobacco Use Smoking status: Never Smokeless tobacco: Never Vaping Use Vaping Use: Never used Substance Use Topics Alcohol use: No Drug use: No FAMILY HISTORY: FAMILY HISTORY Problem Relation Age of Onset Alzheimer's Disease Mother Heart Mother pacemaker other (scoliosis) Mother s/p spinal fusion Diabetes Father later in life Hypertension Father and CHF Psychiatry Sister bipolar Alzheimer's Disease Sister Dx in 50's Heart Maternal Grandfather [place] other (scoliosis) Son s/p spinal fusion REVIEW OF SYMPTOMS: The review of systems data was entered by the nurse and reviewed by al Nursing Notes: Ashly Ambrose LPN 06/17/2023 8:31 AM Signed REVIEW OF SYSTEMS: General: The patient denies fatigue, denies weight loss, denies weight gain, denies feeling hot, and denies feelings of cold. Eyes: The patient denies glaucoma, denies eye injury/surgery, wears glasses or contacts. Ear/Nose/Throat: The patient denies allergies, denies hayfever, denies ear infections, and denies bloody noses. Cardiovascular: The patient denies chest pain, denies heart disease, NOTES high blood pressure,denies cardiac stent, denies prior heart attack, denies irregular heart beat, NOTES high cholesterol, denies poor circulation, denies heart failure, other cardiac issues, denies claudication, denies cold feet, denies peripheral arterial stent. Respiratory: The patient denies tuberculosis, denies pneumonia, denies frequent cough, denies pulmonary embolism, denies shortness of breath, and denies coughing up blood. Gastrointestinal: The patient denies difficulty swallowing, NOTES acid reflux, denies ulcers, denies vomiting, denies jaundice/hepatitis, denies gallbladder problems, denies black or tarry stools, denies hemorrhoids, denies bleeding from rectum, denies diverticulitis, denies constipation, denies diarrhea, denies loss of stool control, and NOTES hernias. Kidney/Bladder: The patient denies kidney stones, denies urine infections, and denies bloody urine. Skin: The patient denies a history of skin cancer, denies bleeding/changing moles, and denies a history of skin rash. Neurologic: The patient denies a history of epilepsy/convulsions, denies headaches, denies head/spinal injuries, and denies stroke/TIA. Psychiatric: The patient denies psychiatric medications, denies depression, and denies voices, denies substance abuse. Endocrine: The patient denies thyroid disorders, denies diabetes, and denies hormonal problems. Hematologic: The patient denies a history of bruising, denies bleeding, and denies anemia, denies blood clots. Infections: The patient denies a history of measles and mumps, denies rheumatic fever, and denies sexually transmitted diseases. Musculoskeletal: The patient denies back pain/injury, denies back problems, denies sciatica, denies knee/foot trouble, denies arthritis, or denies gout. When was patient's last Mammogram screening? N/A Last Colonoscopy: 2020 Ashly Ambrose LPN PHYSICAL EXAMINATION: General: The patient is 67 year old male, well nourished, well hydrated in no acute distress. The patient is oriented to time, place, and person. VITALS: Blood pressure 122/80, pulse 95, temperature 36.6 C (97.8 F), height 170.2 cm (5' 7), weight 73.6 kg (162 lb 3.2 oz), SpO2 97%. Body mass index is 25.4 kg/m . HEENT: Normal cephalic, ataumatic, pupils are equally round, sclera are anicteric, mucous membranes are moist, oropharynx is clear. Neck has no masses, asymmetry or lymphadenopathy. Thyroid is unremarkable. Respiratory: Clear to auscultation and percussion. Normal respiratory excursion and pattern. Cardiac: Examination is regular rate and rhythm. Abdominal exam: Soft, nontender, with no palpable masses. No hepatosplenomegaly. A small, reducible right inguinal hernia, no left inguinal or umbilical hernias are noted Rectal exam: exam deferred Extremities: no clubbing, cyanosis or edema. No adenopathy. Other: LABORATORY VALUES: As Noted RADIOLOGIC STUDIES: As Noted Assessment IMPRESSION: right inguinal hernia PLAN: We discussed the risks and benefits of repair versus observation. The patient most likely will plan for repair of the hernia in the fall when it is a convenient time. We discussed that if he has symptoms of obstruction he should present to the emergency department. Otherwise he can generally perform his regular activities. When he returns in the fall - My plan is to perform a open right inguinal hernia repair with mesh. The planned surgical procedure was discussed extensively with the patient. The risks, benefits, anticipated outcomes and possible complications were mentioned. Carson undersands that all hernia repair surgery has a chance of recurrence and/or chronic post operative pain. My staff has also explained the procedure in understandable terms and the patient was given the option to take printed material concerning the planned procedure. The patient had the opportunity to ask questions concerning the planned procedure. The patient freely consents to the planned procedure. My findings have been communicated to Dr. Tr Montana MD via shared medical record. This note will be forwarded to Dr. Tr Montana MD. Diagnoses: (K40.90) Inguinal hernia, right Anticipated CPT Code: open right inguinal hernia repair with mesh - 33194-084 Anticipated Anesthetic: MAC with local Patient weight: Blood pressure 122/80, pulse 95, temperature 36.6 C (97.8 F), height 170.2 cm (5' 7), weight 73.6 kg (162 lb 3.2 oz), SpO2 97%. BMI: Body mass index is 25.4 kg/m . Planned antibiotic: Ancef 2gm IVPB fashion buyer to OR SCDs needed - Yes Return to Clinic: The patient is instructed to follow-up with me in the fall when ready to schedule surgery. Andrez Dye MD documented in this encounter [facility] 06-17-2023 Nurse Note REVIEW OF SYSTEMS: General: The patient denies fatigue, denies weight loss, denies weight gain, denies feeling hot, and denies feelings of cold. Eyes: The patient denies glaucoma, denies eye injury/surgery, wears glasses or contacts. Ear/Nose/Throat: The patient denies allergies, denies hayfever, denies ear infections, and denies bloody noses. Cardiovascular: The patient denies chest pain, denies heart disease, NOTES high blood pressure,denies cardiac stent, denies prior heart attack, denies irregular heart beat, NOTES high cholesterol, denies poor circulation, denies heart failure, other cardiac issues, denies claudication, denies cold feet, denies peripheral arterial stent. Respiratory: The patient denies tuberculosis, denies pneumonia, denies frequent cough, denies pulmonary embolism, denies shortness of breath, and denies coughing up blood. Gastrointestinal: The patient denies difficulty swallowing, NOTES acid reflux, denies ulcers, denies vomiting, denies jaundice/hepatitis, denies gallbladder problems, denies black or tarry stools, denies hemorrhoids, denies bleeding from rectum, denies diverticulitis, denies constipation, denies diarrhea, denies loss of stool control, and NOTES hernias. Kidney/Bladder: The patient denies kidney stones, denies urine infections, and denies bloody urine. Skin: The patient denies a history of skin cancer, denies bleeding/changing moles, and denies a history of skin rash. Neurologic: The patient denies a history of epilepsy/convulsions, denies headaches, denies head/spinal injuries, and denies stroke/TIA. Psychiatric: The patient denies psychiatric medications, denies depression, and denies voices, denies substance abuse. Endocrine: The patient denies thyroid disorders, denies diabetes, and denies hormonal problems. Hematologic: The patient denies a history of bruising, denies bleeding, and denies anemia, denies blood clots. Infections: The patient denies a history of measles and mumps, denies rheumatic fever, and denies sexually transmitted diseases. Musculoskeletal: The patient denies back pain/injury, denies back problems, denies sciatica, denies knee/foot trouble, denies arthritis, or denies gout. When was patient's last Mammogram screening? N/A Last Colonoscopy: 2020 MIRI Ferrarially signed by Ashly Ambrose LPN at 06/17/2023 8:31 AM EDT documented in this encounter [facility] 06-01-2023 History of Present illness Narrative Chief Complaint Patient presents with: Wart HPI Carson Mcclure is a 67 year old male who presents here today for wart removal on right hand - Cryo. Patient notified of results. Past medical history, appointments, medications, allergies reviewed. Previous Medical History PAST MEDICAL HISTORY Diagnosis Date Advance directive discussed with patient 02/16/2022 Discussed: 01/2022 Anal fissure 05/27/2009 Anxiety 11/06/2018 Backache, unspecified 10/06/2009 Benign non-nodular prostatic hyperplasia without lower urinary tract symptoms 11/05/2015 Childhood asthma without complication 11/06/2018 Chronic right shoulder pain 09/07/2018 Closed fracture of left distal radius 02/05/2013 Decreased hearing 03/05/2019 Elevated fasting glucose 01/26/2010 Elevated hemoglobin A1c 01/26/2010 Encounter for Medicare annual wellness exam 07/28/2009 Last done: 02/16/2022 Essential hypertension 05/17/2014 External hemorrhoids 11/15/2017 GERD without esophagitis 06/13/[address] 02/16/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 20-40% on L. 0-19% on R SVT (supraventricular tachycardia) (HCC) 03/31/2016 Traumatic complete tear of right rotator cuff 11/06/2018 S/p 10/[address] Wharton [facility] adult exam 07/28/2009 Last done: Previous Surgical History PAST SURGICAL HISTORY Procedure Laterality Date COLONOSCOPY 12/17/2015 repeat due 2025 COLONOSCOPY FLX DX W/COLLJ SPEC WHEN PFRMD 11/03/2007 Colonoscopy recheck 10 yrs COLONOSCOPY FLX DX W/COLLJ SPEC WHEN PFRMD 10/28/2020 EGD 11/30/2022 repeat 3-4 years ESOPHAGOGASTRODUODENOSCOPY TRANSORAL DIAGNOSTIC 05/20/2016 EGD ESOPHAGOGASTRODUODENOSCOPY TRANSORAL DIAGNOSTIC 10/28/2020 repeat in 3-4 years FRACTURE SURGERY HERNIA REPAIR HX 1961, 1982 x 2 right/left OPEN RX DISTAL RADIUS FX, INTRA-ARTICULAR, 3+ FRAG 02/07/2013 ORIF left distal radius with locking plate ORIF CARPOMETACARPAL DISLOC,COMPLX/JOSE REPAIR ROTATOR CUFF,ACUTE Right 10/2018 TONSILLECTOMY PRIMARY/SECONDARY <AGE 13 Tonsillectomy Family History FAMILY HISTORY Problem Relation Age of Onset Alzheimer's Disease Mother Heart Mother pacemaker other (scoliosis) Mother s/p spinal fusion Diabetes Father later in life Hypertension Father and CHF Psychiatry Sister bipolar Alzheimer's Disease Sister Dx in 50's Heart Maternal Grandfather [place] other (scoliosis) Son s/p spinal fusion Patient Allergies ALLERGIES No Known Allergies Current Medications Current Outpatient Medications on File Prior to Visit Medication Sig omeprazole (PRILOSEC) 40 mg capsule Take 1 capsule by mouth once daily. lisinopril (ZESTRIL) 5 mg tablet Take 1 tablet by mouth once daily. polyethylene glycol 3350 17 gram/dose powder Take 17 g by mouth once daily. Dissolve dose in 4 - 8 ounces of liquid and take as directed. GLUC/CHND/OM3/DHA/EPA/FISH/STR (GLUCOSAMINE CHONDROITIN PLUS ORAL) Take by mouth. calcium carbonate 600 mg-cholecalciferol 200 units 600 mg-5 mcg (200 unit) tab Take 1 tablet by mouth once daily. Current Facility-Administered Medications on File Prior to Visit Medication perflutren lipid microspheres 1.3 mL in NaCl (PF) 0.9% 10 mL injection (DEFINITY) sodium chloride 0.9 % (flush) 10 mL (BD POSIFLUSH) Social History Social History Tobacco Use Smoking status: Never Smokeless tobacco: Never Vaping Use Vaping Use: Never used Substance Use Topics Alcohol use: No Drug use: No Review of Symptoms REVIEW OF SYSTEMS See HPI EXAM: BP 138/86 (BP Site: Right Arm, BP Position: Sitting, BP Cuff Size: Regular Adult) Pulse 64 Resp 16 Wt 74.8 kg (165 lb) BMI 26.23 kg/m General Appearance: Well appearing, alert, in no acute distress, well-hydrated, well nourished.. Skin: Skin color, texture, turgor normal, no suspicious rashes. Has a wart on the ventral medial right wrist. Health Maintenance List Annual PCP Team Chronic Disease Visit due on 05/25/2024 BP Controlled (<130/80) due on 05/25/2024 Colorectal Cancer Screening due on 10/28/2025 Diabetes Screening due on 05/30/2026 Lipid Screening due on 05/30/2028 Prostate Cancer Screening Discussion due on 05/30/2028 DTaP,Tdap,Td Vaccine(4 - Td or Tdap) due on 01/25/2033 Influenza Vaccine Completed Advance Directive Discussion Completed Depression Assessment Completed RSV Vaccine Completed Hepatitis C Screening Completed Shingrix Vaccine Completed Covid-19 Vaccine Completed Pneumococcal Vaccine: 65+ Completed Spirometry Discontinued Data reviewed A/P ASSESSMENT/PLAN: 1. Common wart - ICD9: 078.19, ICD10: B07.8 - discussed cryo Tx and verbal consent given. Area on right medial ventral wrist was treated with cryo with a 40 sec thaw phase. Patient tolerated well. Tr Montana MD documented in this encounter [facility] 06-01-2023 Miscellaneous Notes Patient coming for appointment today. Suleman Weinstein MA Let patient know his A1c is still elevated at 6.1%. normal is at or below 5.6% and diabetes is at or above 6.5%. cont to work on reduced sugars, sweets, carbs and starches in diet. The rest of his labs and UA were all ok. documented in this encounter [facility] 05-30-2023 Note HNO ID: [id number] Author: IDALIA MARCOS PT, DPT Service: ? Author Type: Physical Therapist Type: Progress Notes Filed: 05/30/2023 14:24 Note Text: 05/30/2023 [facility] PHYSICAL THERAPY DISCONTINUANCE OF CARE Plan of Care Period: Start of Care Date: 09/29/22 Last Visit Date: 03/25/2023 Therapy Program: Patient did not return for follow up care as planned. Please refer to last visit note for interventions provided for this episode of care. Assessment: Unable to formally assess goal achievement. Reason for Discontinuation of Care: Patient has not returned to therapy or scheduled additional follow-up appointments. Idalia Marcos, PT, DPT [facility] 05-25-2023 Instructions Tr Montana MD - 05/25/2023 8:08 AM EST Screening schedule The following prevention plan is recommended: Covid-19 Vaccine() due on 11/26/2022 Advance Directive Discussion due on 03/28/2023 Depression Assessment due on 03/28/2023 WHAT YOU CAN DO TO PREVENT FALLS Many falls can be prevented. By making some changes, you can lower your chances of falling. Four things YOU can do to prevent falls for you* and your caregiver 1. Begin a regular exercise program Exercise is one of the most important ways to lower your chances of falling. It makes you stronger and helps you feel better. Exercises that improve balance and coordination (like Samuel Chi) are the most helpful. Lack of exercise leads to weakness and increases your chances of falling. Ask your doctor or health care provider about the best type of exercise program for you. 2. Have your health care provider review your medicines Have your doctor or pharmacist review all the medicines you take, even [id number] medicines. As you get older, the way medicines work in your body can change. Some medicines, or combinations of medicines, can make you sleepy or dizzy and can cause you to fall. 3. Have your vision checked Have your eyes checked by an eye doctor at least once a year. You may be wearing the wrong glasses or have a condition like glaucoma or cataracts that limits your vision. Poor vision can increase your chances of falling. 4. Make your home safer About half of all falls happen at home. To make your home safer: Remove things you can trip over (like papers, books, clothes, and shoes) from stairs and places where you walk. Remove small throw rugs or use double-sided tape to keep the rugs from slipping. Keep items you use often in cabinets you can reach easily without using a step stool. Have grab bars put in next to your toilet and in the tub or shower. Use non-slip mats in the bathtub and on shower floors. Improve the lighting in your home. As you get older, you need brighter lights to see well. Hang light-weight curtains or shades to reduce glare. Have handrails and lights put in on all staircases. Wear shoes both inside and outside the house. Avoid going barefoot or wearing slippers. For more information, contact: Centers for Disease Control and Prevention www.cdc.gov/injury * This information may not apply if you have certain medical conditions. documented in this encounter [facility] 05-25-2023 History of Present illness Narrative Carson Mcclure is a 67 year old male here for a Medicare wellness visit. Medicare Health Risk Assessment General Health Very good Exercise: Minutes/Day 150+ min Exercise: Days/Week 4 days Alcohol: Daily Use Never Alcohol: Drinks/Day Patient does not drink Alcohol: 6 or more drinks Never Feel off balance Yes, not as good as it had been but not falling. Concerns: Teeth/Dentures No Concerns: Sexual function Yes Troubled by feelings Anxious, at times but not affecting life Frequency: Eating healthy diet Nearly every day ADLs requiring help None of the above Safety precautions in home/vehicle No Smoke, vape, chews tobacco No Difficulty hearing Yes, I wear a hearing aid Difficulty seeing No Current Providers Specialists: I have reviewed specialist-related care of the patient in the medical record. Current care team: Patient Care Team: Tr Montana MD as PCP - General (Family Medicine) Medical/Family history review Reviewed and updated problem list, medical/surgical/family/social history, medications, and allergies. Opioid use review Opioid Medications (last 90 days) Some values may be hidden. Unless noted otherwise, only the newest values recorded on each date are displayed. Opioid Medications No data to display. Depression screening Depression Screening PHQ-2 Score PHQ-9 Score 05/25/2023 0 - Depression screening tool completed and reviewed. Based on score and interview, patient is not at risk for depression. Screening tool discussed with patient, and I recommended no further intervention at this time. Cognitive screening Cognitive screening reviewed and no further action needed (score 3-5) Functional Observation Was the patient's Timed Up & Go test unsteady or ? 12 seconds? No Advance Care Planning Surrogate decision maker and/or advance care plan documented Measurements BP 140/88 Pulse 80 Resp 16 Ht 5' 6.5 (1.69m) Wt 165 lb (74.8kg) SpO2 96% BMI 26.24 kg/(m^2). Seeing Optho Additional screenings: No results found. Assessment/Plan Medicare annual wellness visit, initial (Z00.00) - Counseled on healthy diet and regular exercise - Fall avoidance information provided - Personalized prevention plan provided See Below Chief Complaint Patient presents with: Medicare Wellness Exam HPI Carson Mcclure is a 67 year old male who presents here today for Chronic Medical Conditions. and Medicare Annual Visit. Patient presents for routine follow up. PMH HLP, HTN, SVT, elevated glucose, GERD, hemorrhoids, BPH, and anxiety. Patient reports he continues to have equilibrium problems and needs to restart vestibular PT as it was helping. Any new concerns today? Spots on back; sleeping with mouth open. However does not snore per and no witnessed apnea. Any recent ER/hospital visits? None Patient has seen PT in the past for dizziness. Patient did see Dr. Dye for EGD 11/2022 Past medical history, appointments, medications, allergies reviewed. Previous Medical History PAST MEDICAL HISTORY Diagnosis Date Advance directive discussed with patient 02/16/2022 Discussed: 01/2022 Anal fissure 05/27/2009 Anxiety 11/06/2018 Asthma childhood Backache, unspecified 10/06/2009 Benign non-nodular prostatic hyperplasia without lower urinary tract symptoms 11/05/2015 Childhood asthma without complication 11/06/2018 Chronic right shoulder pain 09/07/2018 Closed fracture of left distal radius 02/05/2013 Elevated fasting glucose 01/26/2010 Essential hypertension 05/17/2014 External hemorrhoids 11/15/2017 GERD without esophagitis 06/13/[address] 02/16/2022 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 Dio Johnson adult exam 07/28/2009 Last done: Previous Surgical History PAST SURGICAL HISTORY Procedure Laterality Date COLONOSCOPY 12/17/2015 repeat due 2025 COLONOSCOPY FLX DX W/COLLJ SPEC WHEN PFRMD 11/03/2007 Colonoscopy recheck 10 yrs COLONOSCOPY FLX DX W/COLLJ SPEC WHEN PFRMD 10/28/2020 EGD 11/30/2022 repeat 3-4 years ESOPHAGOGASTRODUODENOSCOPY TRANSORAL DIAGNOSTIC 05/20/2016 EGD ESOPHAGOGASTRODUODENOSCOPY TRANSORAL DIAGNOSTIC 10/28/2020 repeat in 3-4 years FRACTURE SURGERY HERNIA REPAIR HX 196, 1983 x 2 right/left OPEN RX DISTAL RADIUS FX, INTRA-ARTICULAR, 3+ FRAG 02/07/2013 ORIF left distal radius with locking plate ORIF CARPOMETACARPAL DISLOC,COMPLX/JOSE REPAIR ROTATOR CUFF,ACUTE Right 10/2018 TONSILLECTOMY PRIMARY/SECONDARY <AGE 12 Tonsillectomy Family History FAMILY HISTORY Problem Relation Age of Onset Alzheimer's Disease Mother Heart Mother pacemaker other (scoliosis) Mother s/p spinal fusion Diabetes Father later in life Hypertension Father and CHF Psychiatry Sister bipolar Alzheimer's Disease Sister Dx in 50's Heart Maternal Grandfather [place] other (scoliosis) Son s/p spinal fusion Patient Allergies ALLERGIES No Known Allergies Current Medications Current Outpatient Medications on File Prior to Visit Medication Sig lisinopril (ZESTRIL) 5 mg tablet Take 1 tablet by mouth once daily. omeprazole (PRILOSEC) 40 mg capsule Take 1 capsule by mouth once daily. fluconazole (DIFLUCAN) 200 mg tablet Take TWO tablets by mouth on day 1, then take ONE tablet by mouth daily on days 2-14 (Patient not taking: Reported on 03/29/2023) polyethylene glycol 3350 17 gram/dose powder Take 17 g by mouth once daily. Dissolve dose in 4 - 8 ounces of liquid and take as directed. GLUC/CHND/OM3/DHA/EPA/FISH/STR (GLUCOSAMINE CHONDROITIN PLUS ORAL) Take by mouth. calcium carbonate 600 mg-cholecalciferol 200 units 600 mg-5 mcg (200 unit) tab Take 1 tablet by mouth once daily. Current Facility-Administered Medications on File Prior to Visit Medication perflutren lipid microspheres 1.3 mL in NaCl (PF) 0.9% 10 mL injection (DEFINITY) sodium chloride 0.9 % (flush) 10 mL (BD POSIFLUSH) Social History Social History Tobacco Use Smoking status: Never Smokeless tobacco: Never Vaping Use Vaping Use: Never used Substance Use Topics Alcohol use: No Drug use: No Review of Symptoms REVIEW OF SYSTEMS GENERAL: No unintentional weight loss, malaise or fevers HEENT: Negative for frequent or significant headaches, No changes in hearing or vision, no nose bleeds or other nasal problems. Has know decreased hearing. NECK: Negative for lumps, goiter, pain and significant neck swelling RESPIRATORY: Negative for cough, hemoptysis, wheezing, COPD, dyspnea or shortness of breath CARDIOVASCULAR: Negative for chest pain, leg swelling, hypertension, CHF or palpitations GI: No nausea, vomiting, or diarrhea, No heartburn or reflux symptoms, and no blood : No history of dysuria, frequency or blood MUSCULOSKELETAL: Negative for joint pain or swelling, back pain or muscle pain SKIN: Negative for lesions, rash, and itching PSYCH: Negative for sleep disturbance, mood disorder and recent psychosocial stressors HEMATOLOGY/LYMPHOLOGY: Negative for prolonged bleeding, bruising easily or swollen nodes ENDOCRINE: Negative for cold or heat intolerance, polyuria, polydipsia and goiter NEURO: No history of headaches, syncope, paralysis, seizures or tremors EXAM: BP 140/88 (BP Site: Left Arm, BP Position: Sitting, BP Cuff Size: Regular Adult) Pulse 80 Resp 16 Ht 168.9 cm (5' 6.5) Wt 74.8 kg (165 lb) SpO2 96% BMI 26.23 kg/m BP 128/82 Pulse 80 Resp 16 Ht 168.9 cm (5' 6.5) Wt 74.8 kg (165 lb) SpO2 96% BMI 26.23 kg/m Last 5 Encounter Wt Readings: Date: Wt: 05/25/2023 74.8 kg (165 lb) 03/29/2023 77.6 kg (171 lb) 01/25/2023 78.2 kg (172 lb 6.4 oz) 11/09/2022 77.6 kg (171 lb) 11/05/2022 76.6 kg (168 lb 12.8 oz) General Appearance: Well appearing, alert, in no acute distress, well-hydrated, well nourished.. Skin: Skin color, texture, turgor normal, no suspicious rashes or lesions. Head: Normocephalic, no masses, lesions, tenderness or abnormalities. Eyes: Anicteric sclera. Pupils are equally round and reactive to light. Extraocular movements are intact. . Ears: External ears, TM's normal, canals clear. Nose/Sinuses: Nares normal, septum midline, mucosa normal, no drainage or sinus tenderness. Oropharynx: Lips, mucosa, and tongue normal, teeth and gums normal, oropharynx normal. Neck: Supple, no adenopathy; thyroid symmetric, normal size, no bruits. Lungs: Lungs clear to auscultation. No wheezing, rhonchi, rales.. Heart: RRR without murmur, gallop, or rubs. No ectopy. Abdomen: Normal abdominal exam, Abdomen soft, non-tender. Bowel sounds normal. No masses, organomegaly. Extremities: No deformities, edema, skin discoloration, Good capillary refill. . Musculoskeletal: Spine range of motion normal. Muscular strength intact, No joint swelling, deformity, or tenderness. Peripheral Pulses: Normal. Neurologic: Gait normal. Reflexes normal and symmetric. Sensation to light touch and crainal nerves 2-12 intact.. Genitalia: Normal, Penis normal. No urethral discharge. Scrotum normal to palpation. Has a indirect inguinal hernia on the right. Rectal: Normal exam. [Prostate enlarged with smooth firm capsule. Health Maintenance List Covid-19 Vaccine( season) due on 11/26/2022 Advance Directive Discussion due on 03/28/2023 Depression Assessment due on 03/28/2023 Annual PCP Team Chronic Disease Visit due on 11/10/2023 BP Controlled (<130/80) due on 03/29/2024 Diabetes Screening due on 05/27/2025 Colorectal Cancer Screening due on 10/28/2025 Lipid Screening due on 02/16/2027 Prostate Cancer Screening Discussion due on 02/16/2027 DTaP,Tdap,Td Vaccine(4 - Td or Tdap) due on 01/25/2033 Influenza Vaccine Completed RSV Vaccine Completed Hepatitis C Screening Completed Shingrix Vaccine Completed Pneumococcal Vaccine: 65+ Completed Spirometry Discontinued Data reviewed A/P ASSESSMENT/PLAN: 1. Encounter for Medicare annual wellness exam - ICD9: V70.0, ICD10: Z00.00 (primary diagnosis) - Counseled on healthy diet and regular exercise - Patient was counseled [id number] by myself (the billing provider) for the following immunizations and vaccine components, including side effects: COVID-19. Patient consents for immunization and understands risks and benefits. A VIS sheet on each immunization was given to the patient. - Follow up for annual exam in one year 2. Essential hypertension - ICD9: 401.9, ICD10: I10 - Controlled - Continue current medications - Recommend home blood pressure monitoring, to bring results to next visit - Encouraged sodium restriction, DASH or Mediterranean diet - Recommend regular aerobic exercise Check - COMP METABOLIC PANEL - URINALYSIS, WITH MICROSCOPIC - LIPID PANEL, NONFASTING 3. Mixed hyperlipidemia - ICD9: 272.2, ICD10: E78.2 - await labs - Counseled on healthy diet and regular exercise - COMP METABOLIC PANEL - URINALYSIS, WITH MICROSCOPIC - LIPID PANEL, NONFASTING 4. Elevated fasting glucose - ICD9: 790.21, ICD10: R73.01 Check - COMP METABOLIC PANEL - HGB A1C - patient to cont work on life style 5. GERD without esophagitis - ICD9: 530.81, ICD10: K21.9 - Continue treatment with Prilosec 40 mg every day Check - VITAMIN B12 BLOOD - MAGNESIUM BLD 6. SVT (supraventricular tachycardia) (HCC) - ICD9: 427.89, ICD10: I47.10 - clinically stable no changes. 7. Stenosis of left carotid artery - ICD9: 433.10, ICD10: I65.22 - cont to work on aggressive lipid control. 8. Anxiety - ICD9: 300.00, ICD10: F41.9 - stable and for the most part not a frequent occurrence. 9. Benign non-nodular prostatic hyperplasia without lower urinary tract symptoms - ICD9: 600.90, ICD10: N40.0 - clinically stable 10. Inguinal hernia, right - ICD9: 550.90, ICD10: K40.90 - CONSULT TO GENERAL SURGERY 11. Encounter for immunization - ICD9: V03.89, ICD10: Z23 - [employer] COVID-19 VACCINE (2022- SEASON) AGE 12+ YR: given 12. Prostate disorder - ICD9: 602.9, ICD10: N42.9 Check - PSA/PROSTSPECAG DIAG 13. Medication management - ICD9: V58.69, ICD10: Z79.899 Check - VITAMIN B12 BLOOD - CBC + DIFF - MAGNESIUM BLD Requested Prescriptions Signed Prescriptions Disp Refills omeprazole (PRILOSEC) 40 mg capsule 30 capsule 5 Sig: Take 1 capsule by mouth once daily. F/u in 6 months routine. I spent a total of 40 minutes on the date of the service which included preparing to see the patient, [id number] patient care, completing clinical documentation, performing a medically appropriate examination, counseling and educating the patient/family/caregiver and ordering medications, tests, or procedures. Tr Montana MD documented in this encounter [facility] 03-25-2023 Note HNO ID: [id number] Author: Idalia Marcos, PT, DPT Service: ? Author Type: Physical Therapist Type: Progress Notes Filed: 03/25/2023 7:50 AM Note Text: Episode Visit Count: 7 Therapist That Will Accept/Oversee The Plan Of Care: Helena Marcos Start of Care Date: 09/29/22 Onset Date: 05/28/22 Plan of Care Certification Date: 02/04/23 Next Certification Due Date: 05/05/22 REHABILITATION AND SPORTS THERAPY PHYSICAL THERAPY PROGRESS REPORT PLAN OF CARE UPDATE: Assessment: Carson Mcclure demonstrates . He has progressed toward goals. Patient continues to present with impairments in symptom management that interfere with . Current prognosis is Good due to: current objective clinical presentation . Patient's demonstrating steady improvement. He continues to complain of difficulty with turning and activities and lower lid areas. On this date we focused on VOR activities with rotation and static and dynamic activities. Patient had provocation of his symptoms. We will continue physical therapy every other week for 2 visits and then progressed towards discharge as he is making excellent progress. He will benefit from continued skilled therapy services to meet the updated goals for this plan of care as noted below. Goals for Episode of Care: created on 09/29/22 through 05/05/23 Independent with home exercise program. (progressing) Patient will demonstrate improvements in Dizziness Handicap Inventory by 10 points (progressing) Patient will improve ABC scale by 10 points. (progressing) Patient will return to 180 turns in martial arts with trace report of dizziness. (progressing) Patient will return to prior level of function with trace report of Dizziness. (progressing) Planned Interventions, Frequency, and Duration: 1x every other week, 6 weeks Total Number of Visits Planned: 3 Patient to be seen for Therapeutic exercise (38859), Neuromuscular re-education (48274), Manual therapy (28457), Therapeutic activities (20191), Self-fpc management (28933), Gait Training (92001), Patient/Family/Caregiver Education PLAN FOR NEXT VISIT: Progress high level vestibular exercises. SUBJECTIVE: . He is doing his exercise as able. He noticed his symptoms while playing basketball with his and son. He noticed greater difference as the daylight dimmed. I like all the things you have given me to do. Pain: PROMIS Scales Higher is Better 03/11/2023 02/04/2023 12/24/2022 Phys Func - Score 48 (within normal limits) 46 (within normal limits) 47 (within normal limits) Phys Func - Percentile 42% 34% 38% Self-Eff Symptom - Score 46 (Average) 48 (Average) 46 (Average) Self-Eff Symptom - Percentile 34% 42% 34% T-scores: mean of general population = 50. 5 points is clinically meaningfully difference Percentiles provide an indication of how the patient's score ranks in relation to the general population. Higher percentile rankings indicate better function/quality of life. 50th percentile is the average of the general population and indicates half of respondents had a worse score. OBJECTIVE MEASURES WITH LEVEL OF FUNCTION: TREATMENT: Neuromuscular Re-Education: 1: Reassessment 2: x1 viewing popsicle: horizonatal while turning, alternating clockwise and counterwise, x7 eaach 3: x1 viewing, popiscle sttick: horizontal, left only 5 times, right only 5 times, 3 sets 4: x1 viewing, popiscle sttick: vertical, left only 5 times, right only 5 times, 3 sets 5: dynamic x1 viewing on popsicle stick: horizontal with 3 rotations with VOR at the end, 4 laps turning right 6: dynamic x1 viewing on popsicle stick: horizontal with 3 rotations with VOR at the end, 4 laps turning left 13: Reviewed DHI and ABC scale scores. Skilled Intervention: Patient education as noted. Skilled judgment used to assess appropriate program for vestibular function. Self-Jail Management: 1: DHI: 18 (Increased by 2 points) 2: ABC scale: 95.375% (Increased from 80) Skilled Intervention: Documentation of self assessment tools. Home Exercise Program Assigned: 1: dynamic x1 viewing on popsicle stick: horizontal with 3 rotations with VOR at the end, 4 laps turning right 2: dynamic x1 viewing on popsicle stick: horizontal with 3 rotations with VOR at the end, 4 laps turning left Billing Neuromuscular Re-Education Treatment Minutes: 38 Skilled Treatment Time Minutes (timed and untimed codes): 38 Total Session Time (minutes): 39 Session Start Time : 704 Session Stop Time : 743 Idalia Marcos PT, DPT [facility] 03-11-2023 Note HNO ID: [id number] Author: Idalia Marcos PT, DPT Service: ? Author Type: Physical Therapist Type: Progress Notes Filed: 03/11/2023 8:23 AM Note Text: Episode Visit Count: 6 Therapist That Will Accept/Oversee The Plan Of Care: Helena Marcos Start of Care Date: 09/29/22 Onset Date: 05/28/22 Plan of Care Certification Date: 11/24/22 Next Certification Due Date: 02/22/23 REHABILITATION AND SPORTS THERAPY PHYSICAL THERAPY TREATMENT NOTE ASSESSMENT: Carson Mcclure tolerated the session with signs of imbalance with stepping activities. He demonstrated need for verbal cues with dynamic saccadic eye movements to maintain neutral head position. Patient's tolerance to therapeutic interventions was monitored throughout session and modifications were made using clinical reasoning.. The patient will continue to benefit from ongoing skilled physical therapy to progress toward set goals. PLAN FOR NEXT VISIT: Patient to follow up in two weeks. SUBJECTIVE: [facility] He notices he needs to work on maintaining hydration. He has difficulty with 180 turns or dips. He has difficulty with heel toe walking with his eyes closed. He went hiking at [place] on Tuesday. He reports his said he did pretty well. Pain: OBJECTIVE MEASURES WITH LEVEL OF FUNCTION: TREATMENT: Neuromuscular Re-Education: 1: dynamic step over burton's carry, 4, 6, 8 and airex with 180 degree turn 2: dynamic step over burton's carry, 4, 6, 8 and airex with 180 degree turn with dual tasking, even/odd numbers 3: dynamic saccadic eye movements: horizontal, 5 laps 4: dynamic saccadic eye movements: vertical, 5 laps 5: Updated home exercise program. Added dynamic saccadic eye exercises in horizontal and vertical plane. Skilled Intervention: Skilled judgment used to assess appropriate program for balance and coordination activity. Skilled judgment used to assess appropriate program for vestibular function. Home Exercise Program Assigned: 1: dynamic saccadic eye exercises: horizontal and vertical Billing Neuromuscular Re-Education Treatment Minutes: 38 Skilled Treatment Time Minutes (timed and untimed codes): 38 Total Session Time (minutes): 38 Session Start Time : 0700 Session Stop Time : 737 Idalia Marcos PT, DPT [facility] 02-04-2023 Note HNO ID: [id number] Author: Idalia Marcos, IRAIS, DPT Service: ? Author Type: Physical Therapist Type: Progress Notes Filed: 03/25/2023 7:14 AM Note Text: Episode Visit Count: 5 Therapist That Will Accept/Oversee The Plan Of Care: Helena Marcos Start of Care Date: 09/29/22 Onset Date: 05/28/22 Plan of Care Certification Date: 02/04/23 Next Certification Due Date: 05/05/22 REHABILITATION AND SPORTS THERAPY PHYSICAL THERAPY PROGRESS REPORT PLAN OF CARE UPDATE: Assessment: Carson Mcclure demonstrates no significant changes. Patient reports limited time to complete home exercise program. He maintained Dizziness Handicap Inventory and ABC scale. He feels he needs more frequent sessions to maintain compliance with home exercise program. He has the same goals and we will try to progress therapy. Patient continues to present with impairments in balance, gait, patient reported outcome measures, and symptom management that interfere with . Current prognosis is Good due to: current objective clinical presentation . Patient continue to demonstrate difficulty with single leg balance with and without dual tasks. Patient has symptom provocation one time per day. He scores low on [place] PPPD questionnaire. He will benefit from continued skilled therapy services to meet the updated goals for this plan of care as noted below. Goals for Episode of Care: created on 09/29/22 through 05/05/23 Independent with home exercise program. (progressing) Patient will demonstrate improvements in Dizziness Handicap Inventory by 10 points (progressing) Patient will improve ABC scale by 10 points. (progressing) Patient will return to 180 turns in martial arts with trace report of dizziness. (progressing) Patient will return to prior level of function with trace report of Dizziness. (progressing) Planned Interventions, Frequency, and Duration: 1x every other week, 12 weeks Total Number of Visits Planned: 6 Patient to be seen for Therapeutic exercise (41915), Therapeutic activities (91106), Neuromuscular re-education (00100), Manual therapy (12299), Self-fpc management (95274), Gait Training (47934), Patient/Family/Caregiver Education SUBJECTIVE: Dizziness: 0/10. He reports he is the same. He reports he has been doing his exercises 10 minutes per night. He needs the accountability. I notice it every so often. He is getting his symptoms 1 time per day. I am moving around doing typical things. He did not try walking on the tires. He felt an uneasy sensation at the top of the slides last year. I think I have been dealing with this longer than April. He has not run for a couple years due to back. Everything is really stiff. Pain: Pain Pain Level: 0 PROMIS Scales Higher is Better 03/11/2023 02/04/2023 12/24/2022 Phys Func - Score 48 (within normal limits) 46 (within normal limits) 47 (within normal limits) Phys Func - Percentile 42% 34% 38% Self-Eff Symptom - Score 46 (Average) 48 (Average) 46 (Average) Self-Eff Symptom - Percentile 34% 42% 34% T-scores: mean of general population = 50. 5 points is clinically meaningfully difference Percentiles provide an indication of how the patient's score ranks in relation to the general population. Higher percentile rankings indicate better function/quality of life. 50th percentile is the average of the general population and indicates half of respondents had a worse score. OBJECTIVE MEASURES WITH LEVEL OF FUNCTION: Oculomotor Testing Fixation Present Ocular ROM: WNL Spontaneous Nystagmus: No nystagmus Smooth pursuit: Horizontal, Vertical and Diagonal all WNL Saccadic eye movements: Horizontal, vertical and oblique all WNL. Head Thrusts: Negative VOR cancelation: Negative VOR to slow head movements: Positive X1 Viewing - Vertical: n Oculomotor Testing Fixation Removed Head Shake: Negative Mobility Sit To Stand: Independent Stand To Sit: Independent Gait Weight Bearing Status: FWB Gait: Independent Gait Distance (feet): community distances Gait Device: None Gait Deviations: General Deviations Gait Observation: wide steppage gait pattern Functional Gait Assessment Gait level surface : 3 - Normal- walks 20' no assist device, good speed, no imbalance, normal gait pattern Change in gait speed: 3 - Normal- albe to smoothly change walking speed without loss of balance or gait deivations. Shows significant difference in walking speeds Gait and horizontal head turns: 2 - Mild impairment- performs R/L head turns smoothly with slight change in gait velocity, minor disruption to smooth gait path or uses assistive device Gait and vertical head turns: 2 - Mild impairment- performs up/ down head turns smoothly with slight change in gait velocity, minor disruption to smooth gait path or uses assistive device Gait and pivot: 3 - Normal- pivot turn safely within 3 sec, stops quickly, (more content not included)... [facility] 02-04-2023 History of Present illness Narrative Episode Visit Count: 5 Therapist That Will Accept/Oversee The Plan Of Care: Helena Marcos Start of Care Date: 09/29/22 Onset Date: 05/28/22 Plan of Care Certification Date: 11/24/22 Next Certification Due Date: 02/22/23 REHABILITATION AND SPORTS THERAPY PHYSICAL THERAPY PROGRESS REPORT PLAN OF CARE UPDATE: Assessment: Carson Mcclure demonstrates no significant changes. Patient reports limited time to complete home exercise program. He maintained Dizziness Handicap Inventory and ABC scale. He feels he needs more frequent sessions to maintain compliance with home exercise program. He has the same goals and we will try to progress therapy. Patient continues to present with impairments in balance, gait, patient reported outcome measures, and symptom management that interfere with . Current prognosis is Good due to: current objective clinical presentation . Patient continue to demonstrate difficulty with single leg balance with and without dual tasks. Patient has symptom provocation one time per day. He scores low on [place] PPPD questionnaire. He will benefit from continued skilled therapy services to meet the updated goals for this plan of care as noted below. Goals for Episode of Care: created on 09/29/22 through 05/05/23 Independent with home exercise program. (progressing) Patient will demonstrate improvements in Dizziness Handicap Inventory by 10 points (progressing) Patient will improve ABC scale by 10 points. (progressing) Patient will return to 180 turns in martial arts with trace report of dizziness. (progressing) Patient will return to prior level of function with trace report of Dizziness. (progressing) Planned Interventions, Frequency, and Duration: 1x every other week, 12 weeks Total Number of Visits Planned: 6 Patient to be seen for Therapeutic exercise (38233), Therapeutic activities (69077), Neuromuscular re-education (83899), Manual therapy (87954), Self-fpc management (34362), Gait Training (58553), Patient/Family/Caregiver Education SUBJECTIVE: Dizziness: 0/10. He reports he is the same. He reports he has been doing his exercises 10 minutes per night. He needs the accountability. I notice it every so often. He is getting his symptoms 1 time per day. I am moving around doing typical things. He did not try walking on the tires. He felt an uneasy sensation at the top of the slides last year. I think I have been dealing with this longer than April. He has not run for a couple years due to back. Everything is really stiff. Pain: Pain Pain Level: 0 PROMIS Scales Higher is Better 02/04/2023 12/24/2022 11/23/2022 Phys Func - Score 46 (within normal limits) 47 (within normal limits) 46 (within normal limits) Phys Func - Percentile 34 % 38 % 34 % Self-Eff Symptom - Score 48 (Average) 46 (Average) 49 (Average) Self-Eff Symptom - Percentile 42 % 34 % 46 % T-scores: mean of general population = 50. 5 points is clinically meaningfully difference Percentiles provide an indication of how the patient's score ranks in relation to the general population. Higher percentile rankings indicate better function/quality of life. 50th percentile is the average of the general population and indicates half of respondents had a worse score. OBJECTIVE MEASURES WITH LEVEL OF FUNCTION: Oculomotor Testing Fixation Present Ocular ROM: WNL Spontaneous Nystagmus: No nystagmus Smooth pursuit: Horizontal, Vertical and Diagonal all WNL Saccadic eye movements: Horizontal, vertical and oblique all WNL. Head Thrusts: Negative VOR cancelation: Negative VOR to slow head movements: Positive X1 Viewing - Vertical: n Oculomotor Testing Fixation Removed Head Shake: Negative Mobility Sit To Stand: Independent Stand To Sit: Independent Gait Weight Bearing Status: FWB Gait: Independent Gait Distance (feet): community distances Gait Device: None Gait Deviations: General Deviations Gait Observation: wide steppage gait pattern Functional Gait Assessment Gait level surface : 3 - Normal- walks 20' no assist device, good speed, no imbalance, normal gait pattern Change in gait speed: 3 - Normal- albe to smoothly change walking speed without loss of balance or gait deivations. Shows significant difference in walking speeds Gait and horizontal head turns: 2 - Mild impairment- performs R/L head turns smoothly with slight change in gait velocity, minor disruption to smooth gait path or uses assistive device Gait and vertical head turns: 2 - Mild impairment- performs up/ down head turns smoothly with slight change in gait velocity, minor disruption to smooth gait path or uses assistive device Gait and pivot: 3 - Normal- pivot turn safely within 3 sec, stops quickly, no loss of balance Step over obstacle: 3 - Normal- is able to steop over box without changing speed, no evidence of imbalance Gait with narrow base of support : 2 - Mild impairment- ambulates 7-9 steps Gait with eyes closed : 2 - Mild impairment- walks 20' uses assist device, slower speed, mild gait deviation, deviates 6-10 outside of 12 walk[address] Ambulates backward : 3 - Normal- walks 20' no assist device, good speed, no imbalance, normal gait pattern, deviates no more than 6 outside 12 [address] Steps: 2 - Mild impairment- alternating feet, must use rail Functional Gait Assessment Total : 25 TREATMENT: Neuromuscular Re-Education: 1: Reassessment 2: tandem walking with dual task walking forward and backward - 1 lap 3: tandem walking: forward and backward with punch balloon taps, 3 laps 4: backwards walking with eyes open with balloon taps, 5 laps 5: forward walking with eyes closed, 5 laps 6: Reviewed DHI, ABC scale and [place]. 7: Updated plan of care. Patient agreeabel to continuing every other week to improve accountability. 8: Patient to continue current home exercise program. Skilled Intervention: Patient education as noted. Skilled Intervention: Patient was educated in proper exercise technique and purpose for exercises. Skilled judgment was used in selection of appropriate interventions. Correct performance of neuromuscular interventions exercises was facilitated with verbal and visual cuing. Patient education as noted. Skilled judgment used to assess appropriate program for vestibular function. Self-Jail Management: 1: DHI: 16 (Maintained) 2: ABC scale: 80% 3: [place] PPPD Questionaire: 5 Skilled Intervention: Documentation of self assessment tools. Billing Neuromuscular Re-Education Treatment Minutes: 38 Skilled Treatment Time Minutes (timed and untimed codes): 38 Total Session Time (minutes): 45 Session Start Time : 0700 Session Stop Time : 0745 Idalia Marcos PT, DPT documented in this encounter [facility] 01-03-2023 History of Present illness Narrative In lieu of an in-person visit due to COVID-19 concerns, a virtual visit was performed on the patient. Patient is aware that I am not fully able to assess symptoms and do a full physical examination including vital signs assessment at this time. Patient consents to this encounter. No video was used in the evaluation of this patient, as the patient preferred a telephone call. I personally called patient by telephone. FOLLOW UP VISIT - ENDOSCOPY NAME: Carson Ruiz [facility] NO.: [id number] DATE OF SERVICE: 01/03/2023 : 1955 REFERRING PHYSICIAN: Tr Montana MD Carson is a patient I am following with Dr. Dye. Per my office note from 11/05/22: The patient is a 67 year old male who presents today to discuss repeat upper endoscopy. Carson notes over the last few months has noted increase in acid reflux symptoms, as well as dysphagia with certain foods such as jerky. Denies nausea, vomiting, hematemesis or dark stools. Patient denies any change in bowel habits, weight changes, blood in stools, black tarry stools or abdominal pain. He is up to date on colonoscopy-last in 2020 with repeat recommended in 5 years based on adenomatous polyp. Carson has undergone prior upper endoscopy. Last EGD by Dr. Dye 10/28/20 with finding of small type-II paraesophageal hernia. Dr. Dye had recommended follow-up endoscopy in 3-4 years to monitor the hiatal hernia. Patient denies chest pain, shortness of breath or recent hospitalizations. Denies problems with sedation in the past. Dr. Dye performed upper endoscopy on 11/30/22. Findings per operative report showed: - Normal examined jejunum. - Duodenitis. - Gastritis. Biopsied. - Medium-sized hiatal hernia. - Type 2 /paraesophageal hiatal hernia. - Mildly severe reflux esophagitis with no bleeding. Biopsied. - Normal middle third of esophagus. Biopsied. Pathology demonstrated: FINAL DIAGNOSIS A. Stomach, antrum, biopsy: - Gastric antral body type mucosa with mild chronic inactive gastritis; see comment. B. Esophagogastric junction, biopsy: - Squamous mucosa with ulceration admixed with rare fungal elements (contamination cannot be ruled out) and focal actively inflamed gastric mucosa; negative for intestinal metaplasia or dysplasia. C. Esophagus, mid, biopsy: - Squamous mucosa with no pathologic diagnostic abnormality; negative for intraepithelial eosinophils. Diagnosis Comment SP LAB A. No microorganisms compatible with Helicobacter Pylori like organisms are identified by routine H&E-stained sections. Patient was prescribed antifungal medication which he has completed The patient notes no new complaints since the procedure. Assessment IMPRESSION: esophagitis with some fungal elements noted on biopsy. Type 2 paraesophageal hernia. Gastritis and duodenitis PLAN: The operative findings and pathology report were reviewed with the patient, and the patient has had the opportunity to ask questions and have questions answered. If the patient notes any problems or changes in bowel function, the patient should contact me immediately. Lifestyle and dietary modifications as discussed Recommend repeat EGD in 3-4 years for monitoring of hiatal hernia, or refer to specialist if this becomes symptomatic Patient verbalized understanding of all above and agreed with the plan Diagnoses: (K44.9) Hiatal hernia (primary encounter diagnosis) (K29.90) Gastritis and duodenitis (K21.00) Gastroesophageal reflux disease with esophagitis without hemorrhage I spent a total of 24 minutes on the date of the service which included preparing to see the patient, completing clinical documentation, obtaining and/or reviewing separately obtained history, counseling and educating the patient/family/caregiver, communicating with other HCPs (not separately reported), independently interpreting results (not separately reported), and communicating results to the patient/family/caregiver. Ana Sewell PA-C documented in this encounter [facility] 12-24-2022 Note HNO ID: [id number] Author: Idalia Marcos, PT, DPT Service: ? Author Type: Physical Therapist Type: Progress Notes Filed: 12/24/2022 9:27 AM Note Text: Episode Visit Count: 4 Therapist That Will Accept/Oversee The Plan Of Care: Helena Marcos Start of Care Date: 09/29/22 Onset Date: 05/28/22 Plan of Care Certification Date: 11/24/22 Next Certification Due Date: 02/22/23 REHABILITATION AND SPORTS THERAPY PHYSICAL THERAPY TREATMENT NOTE ASSESSMENT: Carson Mcclure tolerated the session with no issues. He demonstrated difficulty with balance activities with eyes closed. We avoided cervical range of motion on this date secondary to aggravation to cervical spine. We added cervical retractions with and without over pressure to home exercise program. Patient's tolerance to therapeutic interventions was monitored throughout session and modifications were made using clinical reasoning. Patient required combination of verbal, visual and tactile cues throughout session.. The patient will continue to benefit from ongoing skilled physical therapy to progress toward set goals. PLAN FOR NEXT VISIT: Patient to follow up at the end on May SUBJECTIVE: Dizziness: 04/06 Patient reports his son has hand foot mouth disease. He feels well. He is wearing a mask precautionary. He is asymptomatic. Pain: Pain Pain Level: 0 OBJECTIVE MEASURES WITH LEVEL OF FUNCTION: TREATMENT: Therapeutic Exercise: 1: cervical retrations, 5, x20 2: cervical retractions with over pressure, 5, 2x10 Skilled Intervention: Patient was educated in proper exercise technique and purpose for exercises. Skilled judgment was provided in selection of appropriate interventions. Correct performance of therapeutic exercises was facilitated with verbal and visual cuing. Patient education as noted. Neuromuscular Re-Education: 1: tandem walking foward and backward, 2 laps 2: tandem walking forward and backward on airex, 5 laps 3: tandem walking one step forward and backward on airex, x20 4: side step on airex, eyes open, x4 laps 5: side step on airex, eyes closed, 10 laps 6: forward and backward walking with eyes closed, 7 laps with verbal cues 7: Updated home exercise program. See below. Skilled Intervention: Skilled judgment used to assess appropriate program for balance and coordination activity. Patient education as noted. Skilled judgment used to assess appropriate program for vestibular function. Access Code: [email or web address] URL: [email or web address] Date: 12/24/2022 Prepared by: Idalia Marcos Exercises - Seated Cervical Retraction - 3 x daily - 7 x weekly - 3 sets - 10 reps - 5 hold - Cervical Retractions with Ovre Pressure - 3 x daily - 7 x weekly - 3 sets - 10 reps - 5 hold - Cross-Over Stepping (BKA) - 1 x daily - 7 x weekly - 1 sets - 10 reps - Braided Sidestepping with Arms Crossing - 1 x daily - 7 x weekly - 1 sets - 10 reps Billing Therapeutic Exercise Treatment Minutes: 8 Neuromuscular Re-Education Treatment Minutes: 30 Skilled Treatment Time Minutes (timed and untimed codes): 40 Total Session Time (minutes): 40 Session Start Time : 704 Session Stop Time : 744 Idalia Marcos PT, [facility] Note HNO ID: [id number] Author: Idalia Marcos PT, DPT Service: ? Author Type: Physical Therapist Type: Progress Notes Filed: 12/10/2022 7:48 AM Note Text: Episode Visit Count: 3 Therapist That Will Accept/Oversee The Plan Of Care: Helena Marcos Start of Care Date: 09/29/22 Onset Date: 05/28/22 Plan of Care Certification Date: 11/24/22 Next Certification Due Date: 02/22/23 REHABILITATION AND SPORTS THERAPY PHYSICAL THERAPY TREATMENT NOTE ASSESSMENT: Carson Mcclure tolerated the session with no issues. He demonstrated difficulty with tandem stance activities. Patient had difficulty maintaining bands and tandem stance on the Airex turning his head left and right and with vertical head turns. Patient use intermittent upper extremity support to compensate. Patient demonstrated no need to move his head or track with his eyes with 4 to backward walking noodle taps. Patient was able to adjust easily without any signs of loss of balance. Patient's tolerance to therapeutic interventions was monitored throughout session and modifications were made using clinical reasoning. Patient required combination of verbal, visual and tactile cues throughout session. The patient will continue to benefit from ongoing skilled physical therapy to progress toward set goals. PLAN FOR NEXT VISIT: Progress vestibular rehab exercises. SUBJECTIVE: Dizziness: 06/04 He has been doing his home exericse program. He has challenge with the heel toe talking. He feels improvement. He had a birthday libertarian for his son, he didn't notice dizziness moving coolers around. He isn't noticing his symptoms as much day by day. Pain: Pain Pain Level: 0 OBJECTIVE MEASURES WITH LEVEL OF FUNCTION: TREATMENT: Neuromuscular Re-Education: 1: tandem walking forward and backward, 2 laps 2: tandem walking, airex, forward and backward, 4 laps with UE support 3: tandem stance on airex, horizontal head turns, 1x60 with finger tip support 4: tandem stance, x1 viewing: horizontal, 5 laps 5: tandem stance, x1 viewing: vertical, 5 laps 6: dynamic x1 viewing: horizontal and vertical, forward and backward, 5 laps 7: single leg balance with balloon taps, x15, 5 rounds each 8: single leg balance, sustained 9: forward and backward noodle taps, 8 laps 10: Updated home exercise program to include tandem stance with horizontal and vertical head movements Skilled Intervention: Skilled judgment used to assess appropriate program for balance and coordination activity. Patient education as noted. Skilled judgment used to assess appropriate program for vestibular function. Billing Neuromuscular Re-Education Treatment Minutes: 38 Total Session Time (minutes): 39 Session Start Time : 0700 Session Stop Time : 738 Idalia Marcos, PT, DPT [facility] 12-10-2022 History of Present illness Narrative Episode Visit Count: 3 Therapist That Will Accept/Oversee The Plan Of Care: Helena Marcos Start of Care Date: 09/29/22 Onset Date: 05/28/22 Plan of Care Certification Date: 11/24/22 Next Certification Due Date: 02/22/23 REHABILITATION AND SPORTS THERAPY PHYSICAL THERAPY TREATMENT NOTE ASSESSMENT: Carson Mcclure tolerated the session with no issues. He demonstrated difficulty with tandem stance activities. Patient had difficulty maintaining bands and tandem stance on the Airex turning his head left and right and with vertical head turns. Patient use intermittent upper extremity support to compensate. Patient demonstrated no need to move his head or track with his eyes with 4 to backward walking noodle taps. Patient was able to adjust easily without any signs of loss of balance. Patient's tolerance to therapeutic interventions was monitored throughout session and modifications were made using clinical reasoning. Patient required combination of verbal, visual and tactile cues throughout session. The patient will continue to benefit from ongoing skilled physical therapy to progress toward set goals. PLAN FOR NEXT VISIT: Progress vestibular rehab exercises. SUBJECTIVE: Dizziness: 3/10 He has been doing his home exericse program. He has challenge with the heel toe talking. He feels improvement. He had a birthday libertarian for his son, he didn't notice dizziness moving coolers around. He isn't noticing his symptoms as much day by day. Pain: Pain Pain Level: 0 OBJECTIVE MEASURES WITH LEVEL OF FUNCTION: TREATMENT: Neuromuscular Re-Education: 1: tandem walking forward and backward, 2 laps 2: tandem walking, airex, forward and backward, 4 laps with UE support 3: tandem stance on airex, horizontal head turns, 1x60 with finger tip support 4: tandem stance, x1 viewing: horizontal, 5 laps 5: tandem stance, x1 viewing: vertical, 5 laps 6: dynamic x1 viewing: horizontal and vertical, forward and backward, 5 laps 7: single leg balance with balloon taps, x15, 5 rounds each 8: single leg balance, sustained 9: forward and backward noodle taps, 8 laps 10: Updated home exercise program to include tandem stance with horizontal and vertical head movements Skilled Intervention: Skilled judgment used to assess appropriate program for balance and coordination activity. Patient education as noted. Skilled judgment used to assess appropriate program for vestibular function. Billing Neuromuscular Re-Education Treatment Minutes: 38 Total Session Time (minutes): 39 Session Start Time : 0700 Session Stop Time : 738 Idalia Marcos PT, DPT documented in this encounter [facility] 12-06-2022 Miscellaneous Notes Updated patient and would like a virtual visit, states will call back to make an appointment. Patient is willing to use antifungal medication. Pharmacy is [facility] Please let patient know his stomach showed some inflammation, negative for H. Pylori bacteria. Biopsies from the esophagus showed some fungal elements, so could try treating with a short course of antifungal medication to see if this improves his dysphagia symptoms. If he is agreeable to his, please confirm pharmacy so medication may be sent. Patient calling for results of his EGD done on 11/30/22. Please advise. documented in this encounter [facility] 11-30-2022 Nurse Note Arrived in phase II via cart. Left lateral position. Sedated, but responds to verbal stimuli. Color normal; skin warm and dry. Respirations wnl and unlabored. Abdomen soft and with + bowel sounds in quads X 4. Patient resting comfortably Dr. Dye at bedside to review procedure and recommendations. Constance Cornelius RN documented in this encounter [facility] 11-30-2022 History and physical note UPDATED PROCEDURAL SEDATION HISTORY AND PHYSICAL EXAMINATION SERVICE DATE: 11/30/2022 SERVICE TIME: 7:49 AM PHYSICAL EXAM MUST BE COMPLETED ON ADMISSION PROCEDURE: Procedure Indications: The History and Physical (completed in the past 30 days) has been reviewed and the patient has been examined. The contents accurately reflect the patient's condition with the following additions or revisions since the H&P was completed. ASA Class: ASA Class:: Patient with mild systemic disease Examination indicates no changes. AIRWAY: Airway Visualization of Uvula: Yes Mouth opening greater than 2 fingerbreadths: Yes Neck Full Range of Motion: Yes LUNGS: Lungs clear to auscultation CARDIAC: Regular rhythm,Regular rate Provisional Diagnosis/Treatment Plan: dysphagia - EGd SEDATION GOAL: Moderate This H&P can be found in the attached. SIGNATURE: Andrez Dye MD PATIENT NAME: Carson Mcclure DATE: November 30, 2022 TIME: 7:49 AM Source Note - Andrez Dye MD - 11/30/2022 8:00 AM EDT Images from the original note were not included. HISTORY AND PHYSICAL Carson Mcclure 1955 REFERRING PHYSICIAN: Self CHIEF COMPLAINT: Follow Up (Discuss endoscopy) HPI: The patient is a 67 year old male who presents today to discuss repeat upper endoscopy. Carson notes over the last few months has noted increase in acid reflux symptoms, as well as dysphagia with certain foods such as jerky. Denies nausea, vomiting, hematemesis or dark stools. Patient denies any change in bowel habits, weight changes, blood in stools, black tarry stools or abdominal pain. He is up to date on colonoscopy-last in 2020 with repeat recommended in 5 years based on adenomatous polyp. Carson has undergone prior upper endoscopy. Last EGD by Dr. Dye 10/28/20 with finding of small type-II paraesophageal hernia. Dr. Dye had recommended follow-up endoscopy in 3-4 years to monitor the hiatal hernia. Patient denies chest pain, shortness of breath or recent hospitalizations. Denies problems with sedation in the past. PAST MEDICAL HISTORY PAST MEDICAL HISTORY Diagnosis Date Advance directive discussed with patient 02/16/2022 Discussed: 01/2022 Anal fissure 05/27/2009 Anxiety 11/06/2018 Asthma childhood Backache, unspecified 10/06/2009 Benign non-nodular prostatic hyperplasia without lower urinary tract symptoms 11/05/2015 Childhood asthma without complication 11/06/2018 Chronic right shoulder pain 09/07/2018 Closed fracture of left distal radius 02/05/2013 Elevated fasting glucose 01/26/2010 Essential hypertension 05/17/2014 External hemorrhoids 11/15/2017 GERD without esophagitis 06/13/[address] 02/16/2022 DPA: Ajzzmine () Mixed hyperlipidemia 09/02/2009 Scoliosis SVT (supraventricular tachycardia) (HCC) 03/31/2016 Traumatic complete tear of right rotator cuff 11/06/2018 S/p 10/[address] Wharton Well adult exam 07/28/2009 Last done: PAST SURGICAL HISTORY PAST SURGICAL HISTORY Procedure Laterality Date COLONOSCOPY 12/17/2015 repeat due 2025 COLONOSCOPY FLX DX W/COLLJ SPEC WHEN PFRMD 11/03/2007 Colonoscopy recheck 10 yrs COLONOSCOPY FLX DX W/COLLJ SPEC WHEN PFRMD 10/28/2020 ESOPHAGOGASTRODUODENOSCOPY TRANSORAL DIAGNOSTIC 05/20/2016 EGD ESOPHAGOGASTRODUODENOSCOPY TRANSORAL DIAGNOSTIC 10/28/2020 repeat in 3-4 years FRACTURE SURGERY HERNIA REPAIR HX 1961, 1982 x 2 right/left OPEN RX DISTAL RADIUS FX, INTRA-ARTICULAR, 3+ FRAG 02/07/2013 ORIF left distal radius with locking plate ORIF CARPOMETACARPAL DISLOC,COMPLX/JOSE REPAIR ROTATOR CUFF,ACUTE Right 10/2018 TONSILLECTOMY PRIMARY/SECONDARY <AGE 12 Tonsillectomy CURRENT MEDICATIONS Current Outpatient Medications Medication Sig lisinopril (ZESTRIL) 5 mg tablet Take 1 tablet by mouth once daily. polyethylene glycol 3350 17 gram/dose powder Take 17 g by mouth once daily. Dissolve dose in 4 - 8 ounces of liquid and take as directed. GLUC/CHND/OM3/DHA/EPA/FISH/STR (GLUCOSAMINE CHONDROITIN PLUS ORAL) Take by mouth. calcium carbonate 600 mg-cholecalciferol 200 units 600 mg-5 mcg (200 unit) tab Take 1 tablet by mouth once daily. Current Facility-Administered Medications Medication Dose Route Frequency perflutren lipid microspheres 1.3 mL in NaCl (PF) 0.9% 10 mL injection (DEFINITY) INTRAVENOUS DIRECTED PRN sodium chloride 0.9 % (flush) 10 mL (BD POSIFLUSH) 10 mL INTRAVENOUS DIRECTED PRN ALLERGIES: Patient has no known allergies. PERSONAL HISTORY: SOCIAL HISTORY Social History Tobacco Use Smoking status: Never Smokeless tobacco: Never Vaping Use Vaping Use: Never used Substance Use Topics Alcohol use: No Drug use: No FAMILY HISTORY: FAMILY HISTORY FAMILY HISTORY Problem Relation Age of Onset Alzheimer's Disease Mother Heart Mother pacemaker other (scoliosis) Mother s/p spinal fusion Diabetes Father later in life Hypertension Father and CHF Psychiatry Sister bipolar Alzheimer's Disease Sister Dx in 50's Heart Maternal Grandfather [place] other (scoliosis) Son s/p spinal fusion REVIEW OF SYSTEMS GENERAL: No weight loss, malaise or fevers HEENT: Negative for frequent or significant headaches, No changes in hearing or vision, no nose bleeds or other nasal problems NECK: Negative for lumps, goiter, pain and significant neck swelling RESPIRATORY: Negative for cough, hemoptysis, wheezing, COPD, dyspnea or shortness of breath CARDIOVASCULAR: Negative for chest pain, leg swelling, hypertension, CHF or palpitations GI: See HPI SKIN: Negative for lesions, rash, and itching PSYCH: Negative for sleep disturbance, mood disorder and recent psychosocial stressors PHYSICAL EXAMINATION: General: The patient is 67 year old male, well nourished, well hydrated in no acute distress. The patient is oriented to time, place, and person. VITALS: Blood pressure 116/80, pulse 90, temperature 36.7 C (98.1 F), height 172.7 cm (5' 8), weight 76.6 kg (168 lb 12.8 oz), SpO2 95 %. Body mass index is 25.67 kg/m . HEENT: Normal cephalic, ataumatic, pupils are equally round, sclera are anicteric, mucous membranes are moist, oropharynx is clear. Neck has no masses, asymmetry or lymphadenopathy. Respiratory: Clear to auscultation and percussion. Normal respiratory excursion and pattern. Cardiac: Examination is regular rate and rhythm. Normal S1/S2 Abdominal exam: Soft, nontender, with no palpable masses. No hepatosplenomegaly. No palpable hernias. Extremities: no clubbing, cyanosis or edema. No adenopathy. LABORATORY VALUES: As Noted RADIOLOGIC STUDIES: As Noted Assessment IMPRESSION: hiatal hernia, dysphagia PLAN: I have reviewed my findings with the surgeon. Will plan for upper endoscopy. We discussed the risks and benefits of the planned endoscopy. I have informed the patient that complications can occur including failure to complete the endoscopy and perforation. The patient had the opportunity to ask questions concerning the planned endoscopy. My staff has also explained the procedure to the patient in understandable terms and has given the patient printed material concerning the procedure. The patient freely consents to surgery. Diagnoses: (K44.9) Hiatal hernia (primary encounter diagnosis) (R13.19) Other dysphagia I spent a total of 29 minutes on the date of the service which included preparing to see the patient, [id number] patient care, completing clinical documentation, obtaining and/or reviewing separately obtained history, performing a medically appropriate examination, counseling and educating the patient/family/caregiver, and ordering medications, tests, or procedures. Ana Sewell PA-C Images from the original note were not included. HISTORY AND PHYSICAL Carson Mcclure 1955 REFERRING PHYSICIAN: Self CHIEF COMPLAINT: Follow Up (Discuss endoscopy) HPI: The patient is a 67 year old male who presents today to discuss repeat upper endoscopy. Carson notes over the last few months has noted increase in acid reflux symptoms, as well as dysphagia with certain foods such as jerky. Denies nausea, vomiting, hematemesis or dark stools. Patient denies any change in bowel habits, weight changes, blood in stools, black tarry stools or abdominal pain. He is up to date on colonoscopy-last in 2020 with repeat recommended in 5 years based on adenomatous polyp. Carson has undergone prior upper endoscopy. Last EGD by Dr. Dye 10/28/20 with finding of small type-II paraesophageal hernia. Dr. Dye had recommended follow-up endoscopy in 3-4 years to monitor the hiatal hernia. Patient denies chest pain, shortness of breath or recent hospitalizations. Denies problems with sedation in the past. PAST MEDICAL HISTORY PAST MEDICAL HISTORY Diagnosis Date Advance directive discussed with patient 02/16/2022 Discussed: 01/2022 Anal fissure 05/27/2009 Anxiety 11/06/2018 Asthma childhood Backache, unspecified 10/06/2009 Benign non-nodular prostatic hyperplasia without lower urinary tract symptoms 11/05/2015 Childhood asthma without complication 11/06/2018 Chronic right shoulder pain 09/07/2018 Closed fracture of left distal radius 02/05/2013 Elevated fasting glucose 01/26/2010 Essential hypertension 05/17/2014 External hemorrhoids 11/15/2017 GERD without esophagitis 06/13/[address] 02/16/2022 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 Wharton Well adult exam 07/28/2009 Last done: PAST SURGICAL HISTORY PAST SURGICAL HISTORY Procedure Laterality Date COLONOSCOPY 12/17/2015 repeat due 2025 COLONOSCOPY FLX DX W/COLLJ SPEC WHEN PFRMD 11/03/2007 Colonoscopy recheck 10 yrs COLONOSCOPY FLX DX W/COLLJ SPEC WHEN PFRMD 10/28/2020 ESOPHAGOGASTRODUODENOSCOPY TRANSORAL DIAGNOSTIC 05/20/2016 EGD ESOPHAGOGASTRODUODENOSCOPY TRANSORAL DIAGNOSTIC 10/28/2020 repeat in 3-4 years FRACTURE SURGERY HERNIA REPAIR HX 1961, 1982 x 2 right/left OPEN RX DISTAL RADIUS FX, INTRA-ARTICULAR, 3+ FRAG 02/07/2013 ORIF left distal radius with locking plate ORIF CARPOMETACARPAL DISLOC,COMPLX/JOSE REPAIR ROTATOR CUFF,ACUTE Right 10/2018 TONSILLECTOMY PRIMARY/SECONDARY <AGE 13 Tonsillectomy CURRENT MEDICATIONS Current Outpatient Medications Medication Sig lisinopril (ZESTRIL) 5 mg tablet Take 1 tablet by mouth once daily. polyethylene glycol 3350 17 gram/dose powder Take 17 g by mouth once daily. Dissolve dose in 4 - 8 ounces of liquid and take as directed. GLUC/CHND/OM3/DHA/EPA/FISH/STR (GLUCOSAMINE CHONDROITIN PLUS ORAL) Take by mouth. calcium carbonate 600 mg-cholecalciferol 200 units 600 mg-5 mcg (200 unit) tab Take 1 tablet by mouth once daily. Current Facility-Administered Medications Medication Dose Route Frequency perflutren lipid microspheres 1.3 mL in NaCl (PF) 0.9% 10 mL injection (DEFINITY) INTRAVENOUS DIRECTED PRN sodium chloride 0.9 % (flush) 10 mL (BD POSIFLUSH) 10 mL INTRAVENOUS DIRECTED PRN ALLERGIES: Patient has no known allergies. PERSONAL HISTORY: SOCIAL HISTORY Social History Tobacco Use Smoking status: Never Smokeless tobacco: Never Vaping Use Vaping Use: Never used Substance Use Topics Alcohol use: No Drug use: No FAMILY HISTORY: FAMILY HISTORY FAMILY HISTORY Problem Relation Age of Onset Alzheimer's Disease Mother Heart Mother pacemaker other (scoliosis) Mother s/p spinal fusion Diabetes Father later in life Hypertension Father and CHF Psychiatry Sister bipolar Alzheimer's Disease Sister Dx in 50's Heart Maternal Grandfather [place] other (scoliosis) Son s/p spinal fusion REVIEW OF SYSTEMS GENERAL: No weight loss, malaise or fevers HEENT: Negative for frequent or significant headaches, No changes in hearing or vision, no nose bleeds or other nasal problems NECK: Negative for lumps, goiter, pain and significant neck swelling RESPIRATORY: Negative for cough, hemoptysis, wheezing, COPD, dyspnea or shortness of breath CARDIOVASCULAR: Negative for chest pain, leg swelling, hypertension, CHF or palpitations GI: See HPI SKIN: Negative for lesions, rash, and itching PSYCH: Negative for sleep disturbance, mood disorder and recent psychosocial stressors PHYSICAL EXAMINATION: General: The patient is 67 year old male, well nourished, well hydrated in no acute distress. The patient is oriented to time, place, and person. VITALS: Blood pressure 116/80, pulse 90, temperature 36.7 C (98.1 F), height 172.7 cm (5' 8), weight 76.6 kg (168 lb 12.8 oz), SpO2 95 %. Body mass index is 25.67 kg/m . HEENT: Normal cephalic, ataumatic, pupils are equally round, sclera are anicteric, mucous membranes are moist, oropharynx is clear. Neck has no masses, asymmetry or lymphadenopathy. Respiratory: Clear to auscultation and percussion. Normal respiratory excursion and pattern. Cardiac: Examination is regular rate and rhythm. Normal S1/S2 Abdominal exam: Soft, nontender, with no palpable masses. No hepatosplenomegaly. No palpable hernias. Extremities: no clubbing, cyanosis or edema. No adenopathy. LABORATORY VALUES: As Noted RADIOLOGIC STUDIES: As Noted Assessment IMPRESSION: hiatal hernia, dysphagia PLAN: I have reviewed my findings with the surgeon. Will plan for upper endoscopy. We discussed the risks and benefits of the planned endoscopy. I have informed the patient that complications can occur including failure to complete the endoscopy and perforation. The patient had the opportunity to ask questions concerning the planned endoscopy. My staff has also explained the procedure to the patient in understandable terms and has given the patient printed material concerning the procedure. The patient freely consents to surgery. Diagnoses: (K44.9) Hiatal hernia (primary encounter diagnosis) (R13.19) Other dysphagia I spent a total of 29 minutes on the date of the service which included preparing to see the patient, [id number] patient care, completing clinical documentation, obtaining and/or reviewing separately obtained history, performing a medically appropriate examination, counseling and educating the patient/family/caregiver, and ordering medications, tests, or procedures. Ana Sewell PA-C documented in this encounter [facility] 11-24-2022 Note HNO ID: [id number] Author: Idalia Marcos, PT, DPT Service: ? Author Type: Physical Therapist Type: Progress Notes Filed: 11/24/2022 10:20 AM Note Text: Episode Visit Count: 2 Therapist That Will Accept/Oversee The Plan Of Care: Helena Marcos Start of Care Date: 09/29/22 Onset Date: 05/28/22 Plan of Care Certification Date: 11/24/22 Next Certification Due Date: 02/22/23 REHABILITATION AND SPORTS THERAPY PHYSICAL THERAPY PROGRESS REPORT PLAN OF CARE UPDATE: Assessment: Carson Mcclure demonstrates minimal change in symptome secondary limited compliance with home exericse program and synchronizing schedules for PT appointments. He has progressed toward goals. Patient continues to present with impairments in symptom management that interfere with . Current prognosis is Good due to: current objective clinical presentation . Patient demonstrates difficulty with dynamic movements with head turns. He has greatest restriction with horizontal and vertical head turns with walking forward and backwards. He demonstrates walking with tandem as a difficult task both forward and backwards. We initiated a home exercise program that can compete complete daily that he was encouraged to incorporate throughout his day. We will transition his program to once every 2 to 3 weeks to advance his home exercise program to resolve his symptoms of dizziness. He will benefit from continued skilled therapy services to meet the updated goals for this plan of care as noted below. Goals for Episode of Care: created on 09/29/22 through 02/22/23 Independent with home exercise program. (progressing) Patient will demonstrate improvements in Dizziness Handicap Inventory by 10 points (progressing) Patient will improve ABC scale by 10 points. (progressing) Patient will return to 180 turns in martial arts with trace report of dizziness. (progressing) Patient will return to prior level of function with trace report of Dizziness. (progressing) Planned Interventions, Frequency, and Duration: 1x every other week, 12 weeks Total Number of Visits Planned: 6 Patient to be seen for Therapeutic exercise (54168), Therapeutic activities (20133), Neuromuscular re-education (18006), Manual therapy (51371), Self-fpc management (98889), Gait Training (37307), Patient/Family/Caregiver Education PLAN FOR NEXT VISIT: Progress vestibular rehab exercises. SUBJECTIVE: Dizziness, currently: 0/10. He took an antibiotic. He reports that did not help with is balance. Patient has not been consistent with his home exercise program. He reports not doing home exercise program two times daily. He feels his balance deficit is the same. Symptom provocation: turning, dipping and turning Pain: Pain Pain Level: 0 PROMIS Scales Higher is Better 11/23/2022 09/29/2022 06/28/2022 Phys Func - Score 46 (within normal limits) 47 (within normal limits) 45 (within normal limits) Phys Func - Percentile 34 % 38 % 31 % Self-Eff Symptom - Score 49 (Average) 48 (Average) 51 (Average) Self-Eff Symptom - Percentile 46 % 42 % 54 % T-scores: mean of general population = 50. 5 points is clinically meaningfully difference Percentiles provide an indication of how the patient's score ranks in relation to the general population. Higher percentile rankings indicate better function/quality of life. 50th percentile is the average of the general population and indicates half of respondents had a worse score. OBJECTIVE MEASURES WITH LEVEL OF FUNCTION: Functional Gait Assessment Gait level surface : 3 - Normal- walks 20' no assist device, good speed, no imbalance, normal gait pattern Change in gait speed: 3 - Normal- albe to smoothly change walking speed without loss of balance or gait deivations. Shows significant difference in walking speeds Gait and horizontal head turns: 2 - Mild impairment- performs R/L head turns smoothly with slight change in gait velocity, minor disruption to smooth gait path or uses assistive device Gait and vertical head turns: 2 - Mild impairment- performs up/ down head turns smoothly with slight change in gait velocity, minor disruption to smooth gait path or uses assistive device Gait and pivot: 3 - Normal- pivot turn safely within 3 sec, stops quickly, no loss of balance Step over obstacle: 3 - Normal- is able to steop over box without changing speed, no evidence of imbalance Gait with narrow base of support : 2 - Mild impairment- ambulates 7-9 steps Gait with eyes closed : 2 - Mild impairment- walks 20' uses assist device, slower speed, mild gait deviation, deviates 6-10 outside of 12 walkway Ambulates backward : 3 - Normal- walks 20' no assist device, good speed, no imbalance, normal gait pattern, deviates no more than 6 outside 12 walk[address] Steps: 2 - Mild impairment- alternating feet, must use rail Functional Gait Assessment Total : 25 TREATMENT: Neuromuscular Re (more content not included)... [facility] 11-24-2022 History of Present illness Narrative Episode Visit Count: 2 Therapist That Will Accept/Oversee The Plan Of Care: Helena Marcos Start of Care Date: 09/29/22 Onset Date: 05/28/22 Plan of Care Certification Date: 11/24/22 Next Certification Due Date: 02/22/23 REHABILITATION AND SPORTS THERAPY PHYSICAL THERAPY PROGRESS REPORT PLAN OF CARE UPDATE: Assessment: Carson Mcclure demonstrates minimal change in symptome secondary limited compliance with home exericse program and synchronizing schedules for PT appointments. He has progressed toward goals. Patient continues to present with impairments in symptom management that interfere with . Current prognosis is Good due to: current objective clinical presentation . Patient demonstrates difficulty with dynamic movements with head turns. He has greatest restriction with horizontal and vertical head turns with walking forward and backwards. He demonstrates walking with tandem as a difficult task both forward and backwards. We initiated a home exercise program that can compete complete daily that he was encouraged to incorporate throughout his day. We will transition his program to once every 2 to 3 weeks to advance his home exercise program to resolve his symptoms of dizziness. He will benefit from continued skilled therapy services to meet the updated goals for this plan of care as noted below. Goals for Episode of Care: created on 09/29/22 through 02/22/23 Independent with home exercise program. (progressing) Patient will demonstrate improvements in Dizziness Handicap Inventory by 10 points (progressing) Patient will improve ABC scale by 10 points. (progressing) Patient will return to 180 turns in martial arts with trace report of dizziness. (progressing) Patient will return to prior level of function with trace report of Dizziness. (progressing) Planned Interventions, Frequency, and Duration: 1x every other week, 12 weeks Total Number of Visits Planned: 6 Patient to be seen for Therapeutic exercise (24707), Therapeutic activities (75993), Neuromuscular re-education (95546), Manual therapy (21367), Self-fpc management (14118), Gait Training (98986), Patient/Family/Caregiver Education PLAN FOR NEXT VISIT: Progress vestibular rehab exercises. SUBJECTIVE: Dizziness, currently: 0/10. He took an antibiotic. He reports that did not help with is balance. Patient has not been consistent with his home exercise program. He reports not doing home exercise program two times daily. He feels his balance deficit is the same. Symptom provocation: turning, dipping and turning Pain: Pain Pain Level: 0 PROMIS Scales Higher is Better 11/23/2022 09/29/2022 06/28/2022 Phys Func - Score 46 (within normal limits) 47 (within normal limits) 45 (within normal limits) Phys Func - Percentile 34 % 38 % 31 % Self-Eff Symptom - Score 49 (Average) 48 (Average) 51 (Average) Self-Eff Symptom - Percentile 46 % 42 % 54 % T-scores: mean of general population = 50. 5 points is clinically meaningfully difference Percentiles provide an indication of how the patient's score ranks in relation to the general population. Higher percentile rankings indicate better function/quality of life. 50th percentile is the average of the general population and indicates half of respondents had a worse score. OBJECTIVE MEASURES WITH LEVEL OF FUNCTION: Functional Gait Assessment Gait level surface : 3 - Normal- walks 20' no assist device, good speed, no imbalance, normal gait pattern Change in gait speed: 3 - Normal- albe to smoothly change walking speed without loss of balance or gait deivations. Shows significant difference in walking speeds Gait and horizontal head turns: 2 - Mild impairment- performs R/L head turns smoothly with slight change in gait velocity, minor disruption to smooth gait path or uses assistive device Gait and vertical head turns: 2 - Mild impairment- performs up/ down head turns smoothly with slight change in gait velocity, minor disruption to smooth gait path or uses assistive device Gait and pivot: 3 - Normal- pivot turn safely within 3 sec, stops quickly, no loss of balance Step over obstacle: 3 - Normal- is able to steop over box without changing speed, no evidence of imbalance Gait with narrow base of support : 2 - Mild impairment- ambulates 7-9 steps Gait with eyes closed : 2 - Mild impairment- walks 20' uses assist device, slower speed, mild gait deviation, deviates 6-10 outside of 12 walkway Ambulates backward : 3 - Normal- walks 20' no assist device, good speed, no imbalance, normal gait pattern, deviates no more than 6 outside 12 [address] Steps: 2 - Mild impairment- alternating feet, must use rail Functional Gait Assessment Total : 25 TREATMENT: Neuromuscular Re-Education: 1: Reassessment 2: Reviewed DHI and ABC scale. 3: FGA 4: tandem walking, forward, 4 laps 5: tandem walking, airex, forward, 4 laps with UE support 6: tandem walking, airex, forward/backward, 4 laps with UE support 7: dynamic x1 viewing: horizontal, 5 laps 8: dynamic x1 viewing: vertical, 5 laps 9: backwards walking with vertical head turns, 5 laps 10: side step with cervical rotation and nod with imaged target, 3 laps Skilled Intervention: Skilled judgment used to assess appropriate program for balance and coordination activity. Patient education as noted. Skilled judgment used to assess appropriate program for vestibular function. Self-Jail Management: 1: DHI: 16 (Decreased from 36) 2: ABC Scale: 83% (Improved 2%) Skilled Intervention: Documentation of self assessment tools. Home Exercise Program Assigned: Vestibular Rehabilitation Adaptation Exercises Dynamic X1 Viewing: Horizontal Walking forward and backward with horizontal head turns focusing on target 5 laps, approximately 15 feet 1 daily or every other day Wait until symptoms come back down to baseline before you start the next set. Dynamic X1 Viewing: Vertical Walking forward and backward with vertical head nods focusing on target 5 laps, approximately 15 feet 1 daily or every other day Wait until symptoms come back down to baseline before you start the next set. Tandem Walking Forward Forward and backward Sideways walking with cervical rotation and head nod after each side step 5 laps, approximately 15 feet 1 daily or every other day Wait until symptoms come back down to baseline before you start the next set. Exercise Guidelines: Keep target in perfect focus. Don't allow your system to increase greater than 2 points from baseline. Billing Neuromuscular Re-Education Treatment Minutes: 38 Total Treatment Time Minutes (timed/untimed): 38 Idalia Hasapis-Garduno, PT, DPT documented in this encounter [facility] 11-09-2022 History of Present illness Narrative Chief Complaint Patient presents with: Wart HPI Carson Mcclure is a 67 year old male who presents here today for warts. Office visit - warts 11/09/2021 Patient has a growth on the right palm medially and on the medial side of the right leg at the knee.He has been trying some over the counter wart remover with no resolution. He just noted a growth on the upper right calf. Past medical history, appointments, medications, allergies reviewed. Previous Medical History PAST MEDICAL HISTORY Diagnosis Date Advance directive discussed with patient 02/16/2022 Discussed: 01/2022 Anal fissure 05/27/2009 Anxiety 11/06/2018 Asthma childhood Backache, unspecified 10/06/2009 Benign non-nodular prostatic hyperplasia without lower urinary tract symptoms 11/05/2015 Childhood asthma without complication 11/06/2018 Chronic right shoulder pain 09/07/2018 Closed fracture of left distal radius 02/05/2013 Elevated fasting glucose 01/26/2010 Essential hypertension 05/17/2014 External hemorrhoids 11/15/2017 GERD without esophagitis 06/13/[address] 02/16/2022 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 Wharton Well adult exam 07/28/2009 Last done: Previous Surgical History PAST SURGICAL HISTORY Procedure Laterality Date COLONOSCOPY 12/17/2015 repeat due 2025 COLONOSCOPY FLX DX W/COLLJ SPEC WHEN PFRMD 11/03/2007 Colonoscopy recheck 10 yrs COLONOSCOPY FLX DX W/COLLJ SPEC WHEN PFRMD 10/28/2020 ESOPHAGOGASTRODUODENOSCOPY TRANSORAL DIAGNOSTIC 05/20/2016 EGD ESOPHAGOGASTRODUODENOSCOPY TRANSORAL DIAGNOSTIC 10/28/2020 repeat in 3-4 years FRACTURE SURGERY HERNIA REPAIR HX 1961, 1982 x 2 right/left OPEN RX DISTAL RADIUS FX, INTRA-ARTICULAR, 3+ FRAG 02/07/2013 ORIF left distal radius with locking plate ORIF CARPOMETACARPAL DISLOC,COMPLX/JOSE REPAIR ROTATOR CUFF,ACUTE Right 10/2018 TONSILLECTOMY PRIMARY/SECONDARY <AGE 12 Tonsillectomy Family History FAMILY HISTORY Problem Relation Age of Onset Alzheimer's Disease Mother Heart Mother pacemaker other (scoliosis) Mother s/p spinal fusion Diabetes Father later in life Hypertension Father and CHF Psychiatry Sister bipolar Alzheimer's Disease Sister Dx in 50's Heart Maternal Grandfather [place] other (scoliosis) Son s/p spinal fusion Patient Allergies ALLERGIES No Known Allergies Current Medications Current Outpatient Medications on File Prior to Visit Medication Sig lisinopril (ZESTRIL) 5 mg tablet Take 1 tablet by mouth once daily. GLUC/CHND/OM3/DHA/EPA/FISH/STR (GLUCOSAMINE CHONDROITIN PLUS ORAL) Take by mouth. calcium carbonate 600 mg-cholecalciferol 200 units 600 mg-5 mcg (200 unit) tab Take 1 tablet by mouth once daily. polyethylene glycol 3350 17 gram/dose powder Take 17 g by mouth once daily. Dissolve dose in 4 - 8 ounces of liquid and take as directed. fluticasone (FLONASE) 50 mcg/actuation nasal spray Use 2 Sprays in each nostril once daily. Rinse mouth after use. (Patient not taking: Reported on 07/07/2022) Current Facility-Administered Medications on File Prior to Visit Medication perflutren lipid microspheres 1.3 mL in NaCl (PF) 0.9% 10 mL injection (DEFINITY) sodium chloride 0.9 % (flush) 10 mL (BD POSIFLUSH) Social History Social History Tobacco Use Smoking status: Never Smokeless tobacco: Never Vaping Use Vaping Use: Never used Substance Use Topics Alcohol use: No Drug use: No Review of Symptoms REVIEW OF SYSTEMS See HPI EXAM: BP 128/86 (BP Site: Right Arm, BP Position: Sitting, BP Cuff Size: Regular Adult) Pulse 64 Resp 16 Wt 77.6 kg (171 lb) BMI 26.00 kg/m General Appearance: Well appearing, alert, in no acute distress, well-hydrated, well nourished.. Skin: has a warty growth on the medial palm of the right hand, medial right knee area and posterior upper right calf . Health Maintenance List BP CONTROLLED (<130/80) Never done ADVANCE DIRECTIVE DISCUSSION due on 03/28/2022 INFLUENZA(1) due on 11/26/2022 COVID-19 VACCINE(6 - Moderna series) due on 12/31/2022 ANNUAL PCP TEAM CHRONIC DISEASE VISIT due on 11/03/2023 DIABETES SCREEN due on 05/27/2025 COLORECTAL CANCER SCREENING due on 10/28/2025 LIPID SCREEN due on 02/16/2027 PROSTATE CANCER SCREENING DISCUSSION due on 02/16/2027 DTAP,TDAP,TD(3 - Td or Tdap) due on 11/16/2027 DEPRESSION ASSESSMENT Completed HEPATITIS C SCREENING Completed SHINGRIX VACCINE Completed PNEUMOCOCCAL: 65+ Completed SPIROMETRY Discontinued Data reviewed A/P ASSESSMENT/PLAN: 1. Viral warts, unspecified type - ICD9: 078.10, ICD10: B07.9 - discussed Tx of all three areas with cryo and verbal consent provided. Each area was treated with cryo with a 40 sec thaw phase. Patient tolerated well. F/u if no resolution. Tr Montana MD documented in this encounter [facility] 11-02-2022 Instructions Hailey Miller APRN.OCTAVIO - 11/02/2022 8:29 AM EDT Complete labs Continue current medications Follow up with Dr. Montana in 6 months for medicare wellness Schedule with Dr. Montana for wart removal. documented in this encounter [facility] 11-02-2022 History of Present illness Narrative Chief Complaint Patient presents with: 6 Month Exam HPI Carson Mcclure is a 67 year old male who presents here today for Above Complaints.. Patient presents for routine follow up. PMH HLP, HTN, SVT, elevated glucose, GERD, hemorrhoids, BPH, and anxiety. Patient reports he continues to have equilibrium problems and needs to restart vestibular PT as it was helping. Past medical history, appointments, medications, allergies reviewed. Previous Medical History PAST MEDICAL HISTORY Diagnosis Date Advance directive discussed with patient 02/16/2022 Discussed: 01/2022 Anal fissure 05/27/2009 Anxiety 11/06/2018 Asthma childhood Backache, unspecified 10/06/2009 Benign non-nodular prostatic hyperplasia without lower urinary tract symptoms 11/05/2015 Childhood asthma without complication 11/06/2018 Chronic right shoulder pain 09/07/2018 Closed fracture of left distal radius 02/05/2013 Elevated fasting glucose 01/26/2010 Essential hypertension 05/17/2014 External hemorrhoids 11/15/2017 GERD without esophagitis 06/13/[address] 02/16/2022 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 Wharton Well adult exam 07/28/2009 Last done: Previous Surgical History PAST SURGICAL HISTORY Procedure Laterality Date COLONOSCOPY 12/17/2015 repeat due 2025 COLONOSCOPY FLX DX W/COLLJ SPEC WHEN PFRMD 11/03/2007 Colonoscopy recheck 10 yrs COLONOSCOPY FLX DX W/COLLJ SPEC WHEN PFRMD 10/28/2020 ESOPHAGOGASTRODUODENOSCOPY TRANSORAL DIAGNOSTIC 05/20/2016 EGD ESOPHAGOGASTRODUODENOSCOPY TRANSORAL DIAGNOSTIC 10/28/2020 repeat in 3-4 years FRACTURE SURGERY HERNIA REPAIR HX 1961, 1982 x 2 right/left OPEN RX DISTAL RADIUS FX, INTRA-ARTICULAR, 3+ FRAG 02/07/2013 ORIF left distal radius with locking plate ORIF CARPOMETACARPAL DISLOC,COMPLX/JOSE REPAIR ROTATOR CUFF,ACUTE Right 10/2018 TONSILLECTOMY PRIMARY/SECONDARY <AGE 12 Tonsillectomy Family History FAMILY HISTORY Problem Relation Age of Onset Alzheimer's Disease Mother Heart Mother pacemaker other (scoliosis) Mother s/p spinal fusion Diabetes Father later in life Hypertension Father and CHF Psychiatry Sister bipolar Alzheimer's Disease Sister Dx in 50's Heart Maternal Grandfather [place] other (scoliosis) Son s/p spinal fusion Patient Allergies ALLERGIES No Known Allergies Current Medications Current Outpatient Medications on File Prior to Visit Medication Sig lisinopril (ZESTRIL) 5 mg tablet Take 1 tablet by mouth once daily. polyethylene glycol 3350 17 gram/dose powder Take 17 g by mouth once daily. Dissolve dose in 4 - 8 ounces of liquid and take as directed. fluticasone (FLONASE) 50 mcg/actuation nasal spray Use 2 Sprays in each nostril once daily. Rinse mouth after use. (Patient not taking: Reported on 07/07/2022) GLUC/CHND/OM3/DHA/EPA/FISH/STR (GLUCOSAMINE CHONDROITIN PLUS ORAL) Take by mouth. calcium carbonate 600 mg-cholecalciferol 200 units 600 mg-5 mcg (200 unit) tab Take 1 tablet by mouth once daily. Current Facility-Administered Medications on File Prior to Visit Medication perflutren lipid microspheres 1.3 mL in NaCl (PF) 0.9% 10 mL injection (DEFINITY) sodium chloride 0.9 % (flush) 10 mL (BD POSIFLUSH) Social History Social History Tobacco Use Smoking status: Never Smokeless tobacco: Never Vaping Use Vaping Use: Never used Substance Use Topics Alcohol use: No Drug use: No Review of Symptoms REVIEW OF SYSTEMS SEE HPI EXAM: BP 110/70 Pulse 68 Resp 14 Wt 76.2 kg (168 lb) BMI 26.51 kg/m General Appearance: Well appearing, alert, in no acute distress, well-hydrated, well nourished.. Lungs: Lungs clear to auscultation. No wheezing, rhonchi, rales.. Heart: RRR without murmur, gallop, or rubs. No ectopy. Peripheral Pulses: Normal. Health Maintenance List BP CONTROLLED (<130/80) Never done ADVANCE DIRECTIVE DISCUSSION due on 03/28/2022 INFLUENZA(1) due on 11/26/2022 COVID-19 VACCINE(6 - Moderna series) due on 12/31/2022 ANNUAL PCP TEAM CHRONIC DISEASE VISIT due on 10/14/2023 DIABETES SCREEN due on 05/27/2025 COLORECTAL CANCER SCREENING due on 10/28/2025 LIPID SCREEN due on 02/16/2027 PROSTATE CANCER SCREENING DISCUSSION due on 02/16/2027 DTAP,TDAP,TD(3 - Td or Tdap) due on 11/16/2027 DEPRESSION ASSESSMENT Completed HEPATITIS C SCREENING Completed SHINGRIX VACCINE Completed PNEUMOCOCCAL: 65+ Completed SPIROMETRY Discontinued ASSESSMENT/PLAN: 1. Medication management - ICD9: V58.69, ICD10: Z79.899 (primary diagnosis) - CBC + DIFF - COMP METABOLIC PANEL 2. GERD without esophagitis - ICD9: 530.81, ICD10: K21.9 - Discussed lifestyle modifications including losing weight, limiting caffeine, no meals three hours before sleep, and head of bed elevation 3. SVT (supraventricular tachycardia) (HCC) - ICD9: 427.89, ICD10: I47.1 -Stable 4. Essential hypertension - ICD9: 401.9, ICD10: I10 - Controlled - Continue current medications - Recommend home blood pressure monitoring, to bring results to next visit - Encouraged sodium restriction, DASH or Mediterranean diet - Recommend regular aerobic exercise 5. Mixed hyperlipidemia - ICD9: 272.2, ICD10: E78.2 - Improving control - Counseled on healthy diet and regular exercise 6. Benign non-nodular prostatic hyperplasia without lower urinary tract symptoms - ICD9: 600.90, ICD10: N40.0 -Stable 7. Vestibular disequilibrium, unspecified laterality - ICD9: 386.50, ICD10: H83.2X9 -Encouraged patient to continue with PT Hailey Miller APRN.TIER AND DETONATOR documented in this encounter [facility] 10-12-2022 History of Present illness Narrative Virtualist Progress Note Triage Call I have communicated my name and active licensure. The patient's identity and physical location were verified at the time of this visit. Either the patient or their legal manufacturers service representative has been informed of the risks and benefits of -- and alternatives to -- treatment through a remote evaluation and consents to proceed with the evaluation remotely. Triage source: Triage Call (Nurse Clinical Associate, [facility] Triage, [facility] Phone Triage) Was patient downgraded (i.e. disposition other than go to the ED was advised)? Yes Mode of contact: Audio only History/Physical Exam: Pt just noticed mild left ankle swelling this evening. Denied pain. Swelling does not involve his foot or his calf. No prior h/o this symptoms. No recent long travel, though he flew to [facility] 3 weeks ago. Denied dyspnea. No h/o gout or DVT. Received 4 hr dispo. Nurse Triage Disposition (If call is from [facility], [facility] nurse triage, or an [facility], the disposition is Go to ED Now): See provider within 4 hours Virtualist Recommended Disposition: See Provider within 24 hours Signed in as Primary Virtualist, Secondary Virtualist, or [facility] Telehealth provider: Secondary documented in this encounter [facility] 10-12-2022 Miscellaneous Notes Reason for Call: Ankle swelling. Outcome: Disposition to be seen within [address] Llanes contacted and spoke to patient. He advised that patient be seen in office tomorrow. Patient conferenced to appointment center for scheduling. Reason for Disposition [1] Thigh, calf, or ankle swelling AND [2] only 1 side Answer Assessment - Initial Assessment Questions 1. LOCATION: Left ankle. Just around the bone. 2. ONSET: Just now, tonight. 3. SIZE: Mild. 4. PAIN: No. 5. CAUSE: Unsure. 6. OTHER SYMPTOMS: No other symptoms. Protocols used: Ankle [id number] documented in this encounter [facility] 09-29-2022 Note HNO ID: [id number] Author: Idalia Marcos PT, DPT Service: ? Author Type: Physical Therapist Type: Progress Notes Filed: 09/29/2022 2:48 PM Note Text: Episode Visit Count: 1 Therapist That Will Accept/Oversee The Plan Of Care: Nicolette Kerr Start of Care Date: 09/29/22 Onset Date: 05/28/22 Plan of Care Certification Date: 06/28/22 Next Certification Due Date: 08/02/22 Patient Identified by Name and Date of : Yes REHABILITATION AND SPORTS THERAPY PHYSICAL THERAPY EVALUATION PLAN OF CARE: Assessment: Carson Mcclure presents with diagnosis of dizziness that interferes with physical activities, recreational activities, bending . He presents with impairments in balance, coordination, patient reported outcome measures, and symptom management. PROMIS? (Patient-Reported Outcomes Measurement Information System) scores were reviewed and all domains identified as within normal limits. Prognosis for therapy is . Patient presents with disequilibrium. He would benefit from retraining of vestibular and somatosensory system to return to high level activity with trace report of imbalance. He will benefit from skilled therapy services to meet the goals established for this plan of care as noted below. Goals for Episode of Care: created on 09/29/22 through Independent with home exercise program. Patient will demonstrate improvements in Dizziness Handicap Inventory by 10 points. Patient will improve ABC scale by 10 points. Patient will return to 180 turns in martial arts with trace report of dizziness. Patient will return to prior level of function with trace report of dizziness. Planned Interventions, Frequency, and Duration: Planned Treatment Interventions: Patient demonstrates good understanding of plan of care and treatment. The above goals and plan of care were discussed and agreed upon by patient/family. SUBJECTIVE: Carson Mcclure is a 67 year old male seen today for dizziness. Patient reports his had COVID in March. He reports a couple weeks after that he thought he was having a heart attack. He went to the ER. He has symptoms of dizziness. He reports the next day at work he felt his equilibrium was off. 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 His symptoms became more apparent when he returned to [employer]. He does [employer]. He noticed his symptoms with 180 turns. He had physical therapy evaluation. He did not continue with exercises prescribed. He has had an MRI and MRA. He had some sinus type symptoms. He has no hearing loss for his age. He is to follow up with primary. He was on vacation for a couple a weeks. He was hiking up a mountain on vacation. He noticed his balance was off. He feels his balance is off in his head. He feels like his ankles don't have the strength that they used to. 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 Recreation / Current Exercise: weight lifting, cardio workouts and small amount of martial arts Hobbies / Interests: karate, football, basketball Intake Information: Prescription present Falls Interview: No positive findings with falls interview Vestibular Symptom onset: sudden Dizziness: Yes Description: off sensation Rating of current symptoms: 0/10 Frequency: Intermittent Duration: seconds Symptoms worsened by: (180 turns) Symptoms improved by: none Imbalance: Yes Imbalance Comments: turning 180 degrees Fall Assessment: No falls Motion Sickness: None Headache: No Neck Symptoms: No Jaw Symptoms: No Ear Symptoms: Yes Description: fullness Rating of current symptoms: 10 Location: both ears equally Frequency: (uncertain of frequency) Hearing Changes: No recent changes Tinnitus: No recent changes History of Syncope: No History of Migraine: No Denies: neuropathy, focal weakness, headaches, neurological complaints, paresthesia, visual changes, tremors Reports: dizziness Pain: PROMIS Scales Higher is Better 09/29/2022 06/28/2022 Phys Func - Score 47 (within normal limits) 45 (within normal limits) Phys Func - Percentile 38 % 31 % Self-Eff Symptom - Score 48 (Average) 51 (Average) Self-Eff Symptom - Percentile 42 % 54 % T-scores: mean of general population = 50. 5 points is clinically meaningfully difference Percentiles provide an indication of how the patient's score ranks in relation to the general population. Higher percentile rankings indicate better function/quality of life. 50th percentile is the average of the general population and indicates half of respondents h (more content not included)... [facility] 09-29-2022 History of Present illness Narrative Episode Visit Count: 1 Therapist That Will Accept/Oversee The Plan Of Care: Nicolette Kerr Start of Care Date: 09/29/22 Onset Date: 05/28/22 Plan of Care Certification Date: 06/28/22 Next Certification Due Date: 08/02/22 Patient Identified by Name and Date of : Yes REHABILITATION AND SPORTS THERAPY PHYSICAL THERAPY EVALUATION PLAN OF CARE: Assessment: Carson Mcclure presents with diagnosis of dizziness that interferes with physical activities, recreational activities, bending . He presents with impairments in balance, coordination, patient reported outcome measures, and symptom management. PROMIS (Patient-Reported Outcomes Measurement Information System) scores were reviewed and all domains identified as within normal limits. Prognosis for therapy is . Patient presents with disequilibrium. He would benefit from retraining of vestibular and somatosensory system to return to high level activity with trace report of imbalance. He will benefit from skilled therapy services to meet the goals established for this plan of care as noted below. Goals for Episode of Care: created on 09/29/22 through Independent with home exercise program. Patient will demonstrate improvements in Dizziness Handicap Inventory by 10 points. Patient will improve ABC scale by 10 points. Patient will return to 180 turns in martial arts with trace report of dizziness. Patient will return to prior level of function with trace report of dizziness. Planned Interventions, Frequency, and Duration: Planned Treatment Interventions: Patient demonstrates good understanding of plan of care and treatment. The above goals and plan of care were discussed and agreed upon by patient/family. SUBJECTIVE: Carson Mcclure is a 67 year old male seen today for dizziness. Patient reports his had COVID in March. He reports a couple weeks after that he thought he was having a heart attack. He went to the ER. He has symptoms of dizziness. He reports the next day at work he felt his equilibrium was off. 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 His symptoms became more apparent when he returned to [employer] arts. He does [employer]. He noticed his symptoms with 180 turns. He had physical therapy evaluation. He did not continue with exercises prescribed. He has had an MRI and MRA. He had some sinus type symptoms. He has no hearing loss for his age. He is to follow up with primary. He was on vacation for a couple a weeks. He was hiking up a mountain on vacation. He noticed his balance was off. He feels his balance is off in his head. He feels like his ankles don't have the strength that they used to. 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 Recreation / Current Exercise: weight lifting, cardio workouts and small amount of martial arts Hobbies / Interests: karate, football, basketball Intake Information: Prescription present Falls Interview: No positive findings with falls interview Vestibular Symptom onset: sudden Dizziness: Yes Description: off sensation Rating of current symptoms: 0/10 Frequency: Intermittent Duration: seconds Symptoms worsened by: (180 turns) Symptoms improved by: none Imbalance: Yes Imbalance Comments: turning 180 degrees Fall Assessment: No falls Motion Sickness: None Headache: No Neck Symptoms: No Jaw Symptoms: No Ear Symptoms: Yes Description: fullness Rating of current symptoms: 4/10 Location: both ears equally Frequency: (uncertain of frequency) Hearing Changes: No recent changes Tinnitus: No recent changes History of Syncope: No History of Migraine: No Denies: neuropathy, focal weakness, headaches, neurological complaints, paresthesia, visual changes, tremors Reports: dizziness Pain: PROMIS Scales Higher is Better 09/29/2022 06/28/2022 Phys Func - Score 47 (within normal limits) 45 (within normal limits) Phys Func - Percentile 38 % 31 % Self-Eff Symptom - Score 48 (Average) 51 (Average) Self-Eff Symptom - Percentile 42 % 54 % T-scores: mean of general population = 50. 5 points is clinically meaningfully difference Percentiles provide an indication of how the patient's score ranks in relation to the general population. Higher percentile rankings indicate better function/quality of life. 50th percentile is the average of the general population and indicates half of respondents had a worse score. OBJECTIVE MEASURES WITH LEVEL OF FUNCTION: Posture / Alignment Posture: Forward head Oculomotor Testing Fixation Present Ocular ROM: WNL Spontaneous Nystagmus: No nystagmus Smooth pursuit: Horizontal, Vertical and Diagonal all WNL Saccadic eye movements: Horizontal, vertical and oblique all WNL. Head Thrusts: Negative VOR cancelation: Negative X1 Viewing - Horizontal: denies Mobility Sit To Stand: Independent Stand To Sit: Independent Functional Performance Test Results Assistive Device: None 10 Meter Walk Test Trial 1 (seconds): 5.4 10 Meter Walk Test Average (m/sec): 1.11 10 Meter Walk Test Fast Gait Trial 1 (seconds): 3.03 10 Meter Walk Test Fast Gait Average (m/sec): 1.98 30 Second Chair Stand Test: 31 reps 5 Times Sit to Stand Test : 6 sec Timed Up and Go (sec): 7.11 sec Functional Gait Assessment Gait level surface : 3 - Normal- walks 20' no assist device, good speed, no imbalance, normal gait pattern Change in gait speed: 3 - Normal- albe to smoothly change walking speed without loss of balance or gait deivations. Shows significant difference in walking speeds Gait and horizontal head turns: 2 - Mild impairment- performs R/L head turns smoothly with slight change in gait velocity, minor disruption to smooth gait path or uses assistive device Gait and vertical head turns: 2 - Mild impairment- performs up/ down head turns smoothly with slight change in gait velocity, minor disruption to smooth gait path or uses assistive device Gait and pivot: 3 - Normal- pivot turn safely within 3 sec, stops quickly, no loss of balance Step over obstacle: 3 - Normal- is able to steop over box without changing speed, no evidence of imbalance Gait with narrow base of support : 2 - Mild impairment- ambulates 7-9 steps Gait with eyes closed : 2 - Mild impairment- walks 20' uses assist device, slower speed, mild gait deviation, deviates 6-10 outside of 12 walkway Ambulates backward : 3 - Normal- walks 20' no assist device, good speed, no imbalance, normal gait pattern, deviates no more than 6 outside 12 walkway Steps: 2 - Mild impairment- alternating feet, must use rail Functional Gait Assessment Total : 25 Modified CTSIB Standing, eyes open: 30 Standing, eyes closed: 30 Standing, narrow base of support: 30, moderate sway Standing, narrow base of support, eyes closed: 30, moderate Standing, foam, eyes open: 30, moderate Standing, foam, eyes closed: 30, moderate Education: TREATMENT: PT Treatment Interventions: Neuromuscular Re-Education, Self-Jail Management Evaluation Evaluation Neuromuscular Re-Education: 1: Evaluation 2: Education on diagnosis and plan of care. Patient agreeable to plan of care. 3: 10 meter walk 4: 10 meter walk - fast 5: timed up and go 6: 30 second sit to stand 7: FGA 8: 4 stage balance 9: modified CSTSIB 10: dynamic x1 viewing: vertial, 1 lap 11: dynamic x1 viewing: horizontal, 1 lap 12: Education on home exercise program and progression. 13: Education on vestibular adaptation and neuroplasticity. Skilled Intervention: Skilled judgment used to assess appropriate program for balance and coordination activity. Patient education as noted. Skilled judgment used to assess appropriate program for vestibular function. Home Exercise Program Assigned: 1: dynamic x1 viewing: horizontal and vertical 2: standing eyes closed while completing ADLs. Billing * Evaluation Low Complexity: 1 Unit Neuromuscular Re-Education Treatment Minutes: 23 Total Treatment Time Minutes (timed/untimed): 50 Idalia Marcos, PT, DPT documented in this encounter [facility] 2022 Miscellaneous Notes Patient calls to request proof that he has screws in his left wrist for flying purposes. Patient leaving tomorrow AM. Copy of OV note with Dr. 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 Daphney Pepe RN documented in this encounter [facility] 08-27-2022 Instructions Brent Encarnacion PA-C - 08/27/2022 9:06 AM EDT I would cross inner ear function off the list as the cause of your dysequilibrium for now Suggest return to vestibular physical therapy, see if they have any additional home exercises to try Vestibular Therapy Locations - Please call to schedule. [facility] -- [facility] -- [facility] -- [facility], [facility] -- [facility], [facility] -- [facility] -- [facility] -- [facility] [place] -- [place] [facility] -- [facility] -- [facility] -- [facility] -- [facility] -- [facility] -- [facility] -- [facility] -- [facility] documented in this encounter [facility] 08-27-2022 History of Present illness Narrative Images from the original note were not included. History of Present Illness Mr. CARSON MCCLURE is a 66 year old year old male presenting for: referred by Libra Smith [address] [facility] [id number] And is a patient of MD Tr Rivera [address] [id number] Consultation requested by Libra Smith PA-C for an opinion regarding dizziness. My final recommendations will be communicated back to the requesting physician by way of shared Medical record or letter to requesting physician via [place] mail. Communication will be via the electronic record and letter. Started noticing equilibrium issues in April 2022. Describes sensation of dizziness as feeling off balance. Began around 2-3 months ago. Notices most when spinning body around quickly, has noticed problems with footing when returning to martial arts. Fell once when child ran between legs while playing basketball. Went to vestibular physical therapy once but was late to appointment and did not get full eval, was doing some at home balance exercises provided by them. Maybe noticed a slight worsening of dysequilibrium when he stopped doing those home exercises. Otalgia: denies Otorrhea: denies Ear Pressure/Fullness: complains of complains of intermittent bilateral fullness Hearing Loss: known sensorineural hearing loss, longtime wearer of hearing aids Tinnitus: denies Facial Numbness, Weakness or Tingling: denies Ear Surgery or Tube Placement: Denies Headaches: denies Neck Issues: denies Medical History: ACTIVE PROBLEM LIST Anal Fissure Well Adult Exam Scoliosis Mixed Hyperlipidemia Backache, unspecified Elevated Fasting Glucose Essential Hypertension Prostate Cancer Screening Benign Non-Nodular Prostatic Hyperplasia Without Lower Urinary Tract Symptoms Colon Cancer Screening Svt (Supraventricular Tachycardia) (Hcc) Gerd Without Esophagitis External Hemorrhoids Microscopic Hematuria Chronic Right Shoulder Pain Childhood Asthma Without Complication Anxiety Traumatic Complete Tear of Right Rotator Cuff Decreased Hearing Living Will in Place Advance Directive Discussed With Patient Stenosis of Left Carotid Artery Dizziness Surgical History: PAST SURGICAL HISTORY Procedure Laterality Date COLONOSCOPY 12/17/2015 repeat due 2025 COLONOSCOPY FLX DX W/COLLJ SPEC WHEN PFRMD 11/03/2007 Colonoscopy recheck 10 yrs COLONOSCOPY FLX DX W/COLLJ SPEC WHEN PFRMD 10/28/2020 ESOPHAGOGASTRODUODENOSCOPY TRANSORAL DIAGNOSTIC 05/20/2016 EGD ESOPHAGOGASTRODUODENOSCOPY TRANSORAL DIAGNOSTIC 10/28/2020 repeat in 3-4 years FRACTURE SURGERY HERNIA REPAIR HX 1961, 1982 x 2 right/left OPEN RX DISTAL RADIUS FX, INTRA-ARTICULAR, 3+ FRAG 02/07/2013 ORIF left distal radius with locking plate ORIF CARPOMETACARPAL DISLOC,COMPLX/JOSE REPAIR ROTATOR CUFF,ACUTE Right 10/2018 TONSILLECTOMY PRIMARY/SECONDARY <AGE 12 Tonsillectomy Allergies: ALLERGIES No Known Allergies Medications: Current Outpatient Medications on File Prior to Visit Medication Sig polyethylene glycol 3350 17 gram/dose powder Take 17 g by mouth once daily. Dissolve dose in 4 - 8 ounces of liquid and take as directed. lisinopril (ZESTRIL, PRINIVIL) 5 mg tablet Take 1 tablet by mouth once daily. GLUC/CHND/OM3/DHA/EPA/FISH/STR (GLUCOSAMINE CHONDROITIN PLUS ORAL) Take by mouth. calcium carbonate 600 mg-cholecalciferol 200 units 600 mg-5 mcg (200 unit) tab Take 1 tablet by mouth once daily. meclizine (ANTIVERT) 25 mg tab Take 1 tablet by mouth every 6 hours as needed (dizziness). (Patient not taking: Reported on 07/07/2022) fluticasone (FLONASE) 50 mcg/actuation nasal spray Use 2 Sprays in each nostril once daily. Rinse mouth after use. (Patient not taking: Reported on 07/07/2022) Current Facility-Administered Medications on File Prior to Visit Medication perflutren lipid microspheres 1.3 mL in NaCl (PF) 0.9% 10 mL injection (DEFINITY) sodium chloride 0.9 % (flush) 10 mL (BD POSIFLUSH) Social History: FAMILY HISTORY Problem Relation Age of Onset Alzheimer's Disease Mother Heart Mother pacemaker other (scoliosis) Mother s/p spinal fusion Diabetes Father later in life Hypertension Father and CHF Psychiatry Sister bipolar Alzheimer's Disease Sister Dx in 50's Heart Maternal Grandfather [place] other (scoliosis) Son s/p spinal fusion Social History Tobacco Use Smoking status: Never Smokeless tobacco: Never Vaping Use Vaping Use: Never used Substance Use Topics Alcohol use: No Drug use: No Review of Systems: Positive: As above Negative: Fever, shortness of breath Objective: There were no vitals taken for this visit. Appearance: Well appearing, alert, in no acute distress, well-hydrated, well nourished. Communication: Able to speak and communicates clearly Head/Face: normocephalic, no masses, lesions, tenderness or abnormalities Facial nerve: Normal 1/6 bilaterally Skin: no skin lesions or scarring on face Ophthalmic: Full ocular motility intact; pupils symmetric Ears: AD EAC clear. TM intact without perforation or retraction. Middle ear aerated. EAC clear. TM intact without perforation or retraction. Middle ear aerated. Nose: external exam with straight profile Oropharynx: Uvula hangs midline; mucosa is pink and moist; tonsils present Neck: No cervical or supraclavicular lymphadenopathy Neuro/Psych.: Alert and oriented - no nystagmus Cranial nervesIII, IV, : EOM normal VII: Normal strength in all divisions IX, X: Normal voice, platal elevation and sensation XII: Tongue mobility normal Gait: normal for age Eye movements: full in all gaze positions, no nystagmus Head impulse testing negative without catchup saccade bilat. Data Review: Audio: Hearing test personally reviewed, symmetric and down sloping high frequency sensorineural hearing loss consistent with age related hearing loss (presbycusis.) Tympanometry WNL bilaterally. Vestibular battery test 08/11/22 impression copied from board runner's note: OVERALL IMPRESSIONS: Unremarkable vestibular examination with the exception of postural control screening revealing sway/fall when using vestibular information alone (on foam, eyes closed) for maintenance of stance. MRI brain w/wo contrast and MRA impression copied from radiologist impression: No acute brain findings. Minimal background chronic microvascular change. No mass effect or abnormal brain enhancement. No abnormal cranial nerve enhancement. No significant inflammatory change involving either temporal bone. Moderate pansinus inflammatory mucosal disease. Patent intracranial arterial vasculature. No significant stenosis or proximal vessel occlusion. Assessment: (R42) Dizziness Vestibular battery test demonstrated essentially normal vestibular function with some problems with postural control. Otologic exam normal. Plan: Recommend returning to vestibular physical therapy for work with fall prevention and postural control. Follow-up as needed Brent Encarnacion PA-C Otology Medical Decision Making: Problems: Moderate: New problem with uncertain prognosis Data: Unique test result(s) reviewed: 3+ Risk: Minimal: Minimal risk from testing/treatment Medical Decision Making Level: 4 - Moderate documented in this encounter [facility] 08-27-2022 Nurse Note Tobacco Use: Never Was smoking cessation packet given? N/A - Patient is a non-smoker or quit >1 year ago. Was a referral initiated?N/A Patient is a non-smoker documented in this encounter [facility] 08-27-2022 History of Present illness Narrative [facility] [place] AUDIOLOGIC EVALUATION REPORT Name: Carson Mcclure CC#: [id number] Date of Service: 08/27/2022 Date of : 1955 Age: [age] year old Referred by: Libra Smith PA-C [id number] [address] Referred for: Evaluation of suspected change in hearing, tinnitus, or balance. Referral documented: [facility] Patient's major complaints: Dizziness/vertigo/imbalance Carson Mcclure was seen for an initial audiologic evaluation reporting imbalance. Of note, patient was seen for a Vestibular Test Battery with Elizabeth Golden on 08/11/2022 which was unremarkable. Patient reported known hearing loss, hearing aid use, and aural fullness bilaterally. He currently utilizes NeuroVista M90-R devices. He denied otalgia, otorrhea, tinnitus, history of noise exposure, otologic surgery and ototoxicity. See SmartForm Audiogram for additional reported history and symptoms. IMPRESSIONS RIGHT EAR: Sensorineural hearing loss LEFT EAR: Sensorineural hearing loss AUDIOLOGIC EVALUATION Following is a brief interpretation of the obtained findings from the audiologic evaluation. Refer to the Auditory Test Record for complete audiometric results. The patient was counseled about the test findings and appropriate audiologic recommendations were made. SUMMARY: Audiogram can be viewed under Forms/Audiology/SmartForm. OTOSCOPY RIGHT EAR: Otoscopic inspection revealed ear canal was clear with an identifiable cone of light. LEFT EAR: Otoscopic inspection revealed ear canal was clear with an identifiable cone of light. TYMPANOMETRY Description of procedure: This test is an objective evaluation of middle ear function. CPT code: 20718 RIGHT EAR: Normal ME function. LEFT EAR: Normal ME function. ACOUSTIC REFLEXES Description of procedure: This test is an objective measure of auditory and facial nerve pathways. CPT code: 27507, 59003 RIGHT EAR PROBE EAR: (ipsi right stimulus ear; contralateral left stimulus ear): Acoustic Reflex Pattern Did not test Acoustic Reflex Decay (left stimulus ear): Did not test. LEFT EAR PROBE EAR: (ipsi left stimulus ear; contralateral right stimulus ear): Acoustic Reflex Pattern Did not test Acoustic Reflex Decay (right stimulus ear):Did not test. PURE TONE AUDIOMETRY AND SPEECH TESTING Description of procedure: This test is an objective evaluation hearing sensitivity via air and bone conduction and speech recognition testing. CPT code: 29833 RIGHT EAR: Hearing Sensitivity: Mild sloping to severe sensorineural hearing loss. Word Recognition Score: Excellent (100%). WRS is consistent with hearing sensitivity. Words were presented at 80 dB HL is above (greater than or equal to 60 dB HL) intensity level for average conversational speech. The NU-6 Ordered by Difficulty Word List (10 words) was used for testing. Contralateral masking was employed. LEFT EAR: Hearing Sensitivity: Mild sloping to severe sensorineural hearing loss. Word Recognition Score: Excellent (90%). WRS is consistent with hearing sensitivity. Words were presented at 80 dB HL is above (greater than or equal to 60 dB HL) intensity level for average conversational speech. The NU-6 Ordered by Difficulty Word List (10 words) was used for testing. Contralateral masking was employed. RECOMMENDATIONS * Continue medical follow-up with Brent Encarnacion PA-C. * Continue daily use of binaural amplification. * Follow-up with fabric lay out worker for maintenance and programming of hearing aids. Copy of today's audiogram was provided. * Re-evaluation as medically indicated or if a change in hearing is noted. Thierry Zazueta, [facility] Clinical Head Bander And Liner Operator MARQUES Abbrev- iation Definition Degree of hearing sensitivity dB range WNL within normal limits WNL 0 - 20 SNHL sensorineural hearing loss Mild 20-40 CHL conductive hearing loss Moderate 40-55 MHL mixed hearing loss Moderately-Severe 55-70 WRS word recognition score Severe 70-90 ME middle ear Profound 90 + TM tympanic membrane documented in this encounter [facility] 07-20-2022 Miscellaneous Notes Patient calls and notified of provider recommendations. Patient voices understanding. Idalia Mora RN TC to patient to relay providers message with no answer, left VM with instructions to call office back, see providers message below. Marjorie Walker LPN Not sure what the entire question is, but an order for vestibular battery testing (or VBT) was placed for dizziness. If the local ENT office cannot do this, then he can schedule this through the [facility]. Thank you. Libra Smith PA-C Patient phoned with question for Libra Goldstein Np. Reports [facility] can do vestibular test battery but they said they do not do, he wasn't sure, but thinks they said EMG or ENG, asking if you wanted him to have that test? Please phone patient with reply. documented in this encounter [facility] 07-07-2022 Instructions Libra Smith PA-C - 07/07/2022 8:10 AM EDT MRI and MRA of the brain Vestibular battery testing Consult to ENT Follow up in 6-8 weeks documented in this encounter [facility] 07-07-2022 History of Present illness Narrative Images from the original note were not included. Neurology Outpatient Clinic Date: July 07, 2022 Patient Name: Carson Mcclure Referring provider: Marsha Butts PA-C [address] [facility] [address] Consult requested for dizziness by Marsha Butts PA-C. Recommendations will be communicated via shared medical record or US mail. Primary physician: Tr Montana [address] [place] [address] Reason for Evaluation: Dizziness Subjective HPI Carson Mcclure is a 66 year old right-handed male with history of HLD, HTN, SVT who presents for evaluation of dizziness. Marsha Butts PA-C is the referring provider. Dr. Tr Montana MD is the PCP. Chart review: Patient reporting a feeling as if being on a boat to PCP on 06/09/22. ECHO and carotid US were normal. Patient was sent to PT for dizziness. Reported some lightheadedness on 05/10/22, had stress ECHO at that time that was normal. Patient presents for evaluation of dizziness described as feeling off balance, poor equilibrium. Patient notes that he noticed this when he began taking karate classes after stopping for many years. He notes that his symptoms, and when he bends over or turns, unsure if it is worse with turning in a certain direction. The symptoms last 5-10 seconds and resolved without any intervention,, daily. Has not take any medication, unsure if anything helps alleviate symptoms. Does note some slight nausea when this occurs, but denies any tinnitus, hearing loss, headaches, vision changes. Notes that this is never happened before, but states that he is unsure if this has been occurring for a while as he has not been exercising as much as he used to. In April he did go to the emergency department for an episode of what he felt like was lightheadedness, associated with diaphoresis, nausea and abdominal symptoms. Cardiac work-up in the ER was normal, notes that he does not feel lightheaded now and his symptoms are more of a unsteadiness. No onset with sitting or lying down, not brought on by rolling over in bed. Does note occasionally he will have the unsteadiness when he stands, but this is intermittent and not every time. No presyncope. Denies any nausea, vomiting, diarrhea. Denies any history of smoking, no recent surgeries, no alcohol use, no history of stroke, no family history of same. Patient does note chronic history of hearing loss, has bilateral hearing aids. Unsure of his last hearing test, notes that it was many years ago but he did get his hearing aid serviced a few months ago. Denies any chest pain, palpitations. Patient does not drink much water, states he drinks tea mostly throughout the day that is caffeinated. Do you have to be up to have the dizziness or can you have the dizziness when seated or lying down? Mostly standing and bending over Do you feel like things are moving in when you know they are actually still? No Do you have otalgia? no Do you have tinnitus? no Do you get dizzy turning your head? no Do you have trouble with dizziness getting up from a chair or from a seat? sometimes Have you had falls? No Is there any vision change with the dizziness? No Do you have headache associated with the dizziness? no Have you had hearing loss with your dizziness: no Onset with valsalva: no (canal dehiscence) Worse in crowds, end of day or standing: no (PPPD) Nausea: slightly Labs/Imaging TSH WNL BMP-WNL CBC- WNL A1c- 6.0 ECHO 06/04/22 Normal, no evidence of ischemic disease US jina Carotids 06/02/22 IMPRESSION RIGHT SIDE Internal carotid artery: 0-19% stenosis. Vertebral artery: Patent and antegrade flow noted. Subclavian artery: Plaque visualized without evidence of hemodynamically significant stenosis. LEFT SIDE Internal carotid artery: 20-39% stenosis. Vertebral artery: Patent and antegrade flow noted. CT Brain WO 08/27/19 IMPRESSION: No acute intracranial findings. Scattered intracranial atherosclerotic changes and mild generalized volume loss. Mild ethmoid air cell mucosal thickening and secretions. Medications: Current Outpatient Medications Medication Sig Dispense Refill polyethylene glycol 3350 (MIRALAX) 17 gram/dose powder Take 17 g by mouth once daily. Dissolve dose in 4 - 8 ounces of liquid and take as directed. lisinopril (ZESTRIL, PRINIVIL) 5 mg tablet Take 1 tablet by mouth once daily. 90 tablet 1 GLUC/CHND/OM3/DHA/EPA/FISH/STR (GLUCOSAMINE CHONDROITIN PLUS ORAL) Take by mouth. calcium carbonate 600 mg-cholecalciferol 200 units 600 mg-5 mcg (200 unit) tab Take 1 tablet by mouth once daily. iv contrast (will be provided with radiology test) MRI Brain Inject, intravenously, once for 1 dose.No IV access, insert saline lock prior to beginning of sedation, infusion, injection of imaging exam.Discontinue saline lock post exam. If Pt. has a central line or IVAD, may access for administration according to line specific nursing protocol.Once exam is complete flush line and de-access according to line specific nursing protocol in the MR contrast administration guidelines link 1 Each 0 meclizine (ANTIVERT) 25 mg tab Take 1 tablet by mouth every 6 hours as needed (dizziness). (Patient not taking: Reported on 07/07/2022) 30 tablet 0 fluticasone (FLONASE) 50 mcg/actuation nasal spray Use 2 Sprays in each nostril once daily. Rinse mouth after use. (Patient not taking: Reported on 07/07/2022) 1 Each 0 Current Facility-Administered Medications Medication Dose Route Frequency Provider Last Rate Last Admin perflutren lipid microspheres 1.3 mL in NaCl (PF) 0.9% 10 mL injection (DEFINITY) INTRAVENOUS DIRECTED PRN Marsha Butts PA-C sodium chloride 0.9 % (flush) 10 mL (BD POSIFLUSH) 10 mL INTRAVENOUS DIRECTED PRN Marsha Butts PA-C ROS ROS: His ROS was positive for that mentioned in the HPI. Otherwise a 10-point ROS was completed and was negative. ALLERGIES No Known Allergies Past Medical History: PAST MEDICAL HISTORY Diagnosis Date Advance directive discussed with patient 02/16/2022 Discussed: 01/2022 Anal fissure 05/27/2009 Anxiety 11/06/2018 Asthma childhood Backache, unspecified 10/06/2009 Benign non-nodular prostatic hyperplasia without lower urinary tract symptoms 11/05/2015 Childhood asthma without complication 11/06/2018 Chronic right shoulder pain 09/07/2018 Closed fracture of left distal radius 02/05/2013 Elevated fasting glucose 01/26/2010 Essential hypertension 05/17/2014 External hemorrhoids 11/15/2017 GERD without esophagitis 06/13/[address] 02/16/2022 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 Wharton Well adult exam 07/28/2009 Last done: Family History: FAMILY HISTORY Problem Relation Age of Onset Alzheimer's Disease Mother Heart Mother pacemaker other (scoliosis) Mother s/p spinal fusion Diabetes Father later in life Hypertension Father and CHF Psychiatry Sister bipolar Alzheimer's Disease Sister Dx in 50's Heart Maternal Grandfather [place] other (scoliosis) Son s/p spinal fusion Also includes: NA. 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 Head: Normocephalic Pulm: Breathing comfortably Neck: Supple Psych: Cooperative, appropriate affect Neurological Examination: Mental Status: Alert and Oriented to Place, Person, Time and Situation and Patient follows commands.. Language: Is intact to Comprehension, Fluency and Repetition Cranial Nerves: CNII: Visual acuity normal, visual nj full to confrontation CNIII, IV, : Pupils equal, round and reactive to light, full extraoccular movements. HINTS exam demonstrates 4-5 beats of horizontal rightward nystagmus with head impulse. No skew on cover/uncover CN V: Facial sensation intact bilaterally to fine touch CN VII: Facial muscles symmetric and strong CN VIII: Hears finger rub well bilaterally CN IX: Gag Reflex not examined CN X: Palate elevates symmetrically CN XI: Full strength shoulder shrug bilaterally CN XII: Tongue protrusion full and midline Motor Exam: Tone - Normal Tone noted in all extremities Bulk - Normal bulk noted in all muscles tested. Inspection - Normal, no fasciculations or tremors noted. Power: MUSCLES Upper Extremity RIGHT LEFT Deltoid 5/5 5/5 Biceps 5/5 5/5 Triceps 5/5 5/5 Wrist Extension 5/5 5/5 Wrist Flexion 5/5 5/5 Finger Flexion 5/5 5/5 Finger Extension 5/5 5/5 Finger Abd 5/5 5/5 Finger Add 5/5 5/5 MUSCLES Lower Extremity RIGHT LEFT Hip Flexion 5/5 5/5 Hip Extension 5/5 5/5 BiFem (Knee Flex) 5/5 5/5 Quads (Knee Ext) 5/5 5/5 Gastroc (Plantflx) 5/5 5/5 TibAnt (Dorsiflx) 5/5 5/5 FlxHLong (Toe Flex) 5/5 5/5 ExtHLong (Toe Ext) 5/5 5/5 Sensory Examination Sensation is intact to light touch in upper and lower extremities. Negative extinction to double simultaneous stimulation Reflexes: 1/2 throughout and equally Right Left Medina Response Negative Negative Coordination: finger-to- nose-finger intact bilaterally and [id number] intact bilaterally. Gait: Patient's gait is normal, can heel and toe walk. Unable to tandem Romberg: Negative but with sway DATA REVIEWED Actual films/image/tracing reviewed and summarized as follows: CT brain, ECHO, US carotids Old records reviewed and summarized as follows: PCP Assessment/Plan Assessment & Plan: Carson Mcclure is a 66 year old right-handed male with a history of HLD, HTN, SVT. His examination demonstrates horizontal nystagmus with head impulse, negative skew, inability to tandem and mild sway with rhomberg. Patient with roughly 2 months of dizziness described as unsteadiness or feeling as if he is on a boat without any room spinning or presyncope. Mild nausea associated with this, but no vision changes, headache, tinnitus. Hints exam suggesting peripheral cause of his dizziness, and due to positional nature, lasting only a few seconds, hints exam, feel is most likely the cause. However, due to persistent hearing loss and difficulty describing dizziness, onset with bending over, abnormal gait noted above, will obtain MRI of the brain with and without contrast as well as MRA of the brain to rule out any structural abnormality contributing to patient's symptoms or intracranial stenosis. Ultrasound of carotids was reviewed, did show mild stenosis on the left margin from 20 to 39%. Did discuss increasing water intake as patient drinks mostly caffeinated tea throughout the day. Patient's orthostatic vitals were normal in the office, no paresthesias suggesting neuropathy, do not believe his symptoms to be caused by orthostatic hypotension at this time. Additionally, will obtain vestibular battery testing to further delineate a central versus peripheral cause of his dizziness. As I do suspect there is a peripheral component, will refer to ENT for further evaluation as well. Discussed red flag signs and symptoms that would warrant emergent evaluation emergency department, patient agrees and understands. Patient to follow-up in 6 to 8 weeks following completion of his testing or sooner should any symptoms change or worsen. Patient agreeable to treatment plan of care at this time. Carson was seen today for new patient evaluation and dizziness. Diagnoses and all orders for this visit: Dizziness - CONSULT TO NEUROLOGY - VESTIBULAR TEST BATTERY - CONSULT TO ENT; Future - MRI BRAIN WO/W IVCON; Future - MRA BRAIN WO IVCON; Future Unsteadiness - MRI BRAIN WO/W IVCON; Future - MRA BRAIN WO IVCON; Future Sensorineural hearing loss (SNHL) of both ears - MRI BRAIN WO/W IVCON; Future Lightheadedness - MRA BRAIN WO IVCON; Future Other orders - iv contrast (will be provided with radiology test); MRI Brain Inject, intravenously, once for 1 dose.No IV access, insert saline lock prior to beginning of sedation, infusion, injection of imaging exam.Discontinue saline lock post exam. If Pt. has a central line or IVAD, may access for administration according to line specific nursing protocol.Once exam is complete flush line and de-access according to line specific nursing protocol in the MR contrast administration guidelines link He should return to see me in 2 months. I spent a total of 40 minutes on the date of the service which included preparing to see the patient, [id number] patient care, completing clinical documentation, obtaining and/or reviewing separately obtained history, performing a medically appropriate examination, counseling and educating the patient/family/caregiver, and ordering medications, tests, or procedures. Libra Smith PA-C [facility] This document has been created with the use of voice recognition technology. It may contain inaccuracies: (e.g. misspellings, inaccurate syntax or word sense) that have escaped review. documented in this encounter [facility] 06-28-2022 History of Present illness Narrative Episode Visit Count: 1 Therapist That Will Accept/Oversee The Plan Of Care: Nicolette Kerr Start of Care Date: 06/28/22 Onset Date: 05/28/22 Plan of Care Certification Date: 06/28/22 Next Certification Due Date: 08/02/22 Patient Identified by Name and Date of : Yes REHABILITATION AND SPORTS THERAPY PHYSICAL THERAPY EVALUATION PLAN OF CARE: Assessment: Carson Mcclure presents with diagnosis of dizziness that interferes with bending, recreational activities . He presents with impairments in balance, independence in exercise, patient reported outcome measures, and symptom management. PROMIS (Patient-Reported Outcomes Measurement Information System) scores were reviewed and physical function domain and self efficacy domain identified as within normal limits. Prognosis for therapy is Good due to: current objective clinical presentation . He will benefit from skilled therapy services to meet the goals established for this plan of care as noted below. Goals for Episode of Care: created on 06/28/22 through 08/09/22 Patient will demonstrate normal active cervical spine range of motion to restore posture and complete ADLS with trace report of dizziness/imbalance. Patient will be independent with home exercise program and progression. Patient will return to prior level of function with all activities of daily living with trace reports of dizziness. Patient will deny dizziness with bending and turning . Patient will be able to walk household and community distances with safe, functional gait pattern with trace report of dizziness/imbalance. Patient will perform x1 viewing in standing with complex background at speed of 2 Hz without symptoms for improved VOR. Patient will demonstrate the ability to complete VOR in static and dynamic positions with trace report of dizziness. Patient Goals: return to playing basektball, football, and karate movements without limitation due to nausea or dizziness Planned Interventions, Frequency, and Duration: Current Frequency: 1x/week Duration: 6 weeks Total Number of Visits Planned: 6 Planned Treatment Interventions: Therapeutic exercise (59260), Neuromuscular re-education (68380), Manual therapy (00844), Therapeutic activities (61641), Self-fpc management (55592), Gait Training (30107), Patient/Family/Caregiver Education PLAN FOR NEXT VISIT: assess symptom response to habituation exercises Patient demonstrates good understanding of plan of care and treatment. The above goals and plan of care were discussed and agreed upon by patient/family. SUBJECTIVE: Carson Mcclure is a 66 year old male seen today for for an off sensation pt. can best describe as like being on a boat. Pt. noticed this when returning to karate movements a month ago. The senation lasts a few seconds. Bending forward and turning movements seem to be the most provocative, but do not consistently cause symptoms each time performed. Symptoms intermittently come on and resolve without specific movement nor rest. Pt. has not had this problem before. Pt. will experience nausea without vomiting intermittently, especially noticed during bent over rows with dumbells. Echo and stress test negative. Denies recent loss of hearing, head injury, and negative orthostatic testing at MD office with positional changes per pt. report. Denies visual changes, headache, or neck pain. Patient Goals: return to playing basektball, football, and karate movements without limitation due to nausea or dizziness Functional Limitations: bending, recreational activities Prior Level of Function: Independent without limitations Relevant History Past Relevant Medical Conditions: Anxiety, Asthma, Cardiac Hobbies / Interests: karate, football, basketball Intake Information: Prescription present Previous Treatment: (junior at home - given by of pt.) Falls Interview: No positive findings with falls interview Concussion History of Concussion: No Vestibular Symptoms present for: months Symptom onset: sudden Dizziness: Yes Description: off sensation Rating of current symptoms: 0/10 Frequency: Intermittent Duration: seconds Symptoms worsened by: bending, pivot turns, turning head quickly Symptoms improved by: none Imbalance: Yes Imbalance triggered by: Turning, Bending Imbalance Comments: with turning 180 degrees Fall Assessment: No falls Nausea: bent over rowing at times with dumbells Motion Sickness: None Headache: No Neck Symptoms: No Jaw Symptoms: No Ear Symptoms: No Hearing Changes: No recent changes (bilateral hearing aides) Tinnitus: No recent changes Sleep Affected by Symptoms: Not affected by dizziness, not affected by pain History of Syncope: No History of Migraine: No Denies: neuropathy, focal weakness, headaches, neurological complaints, paresthesia, visual changes, tremors Reports: dizziness Pain: Pain Pain Level: 0 Post Treatment Pain Post Treatment Pain Level: 0 Post Treatment Symptoms: denies dizziness throughout visit with the exception of brief dizziness upon standing from sitting at end of visit PROMIS Scales Higher is Better 06/28/2022 Phys Func - Score 45 (within normal limits) Phys Func - Percentile 31 % Self-Eff Symptom - Score 51 (Average) Self-Eff Symptom - Percentile 54 % T-scores: mean of general population = 50. 5 points is clinically meaningfully difference Percentiles provide an indication of how the patient's score ranks in relation to the general population. Higher percentile rankings indicate better function/quality of life. 50th percentile is the average of the general population and indicates half of respondents had a worse score. OBJECTIVE MEASURES WITH LEVEL OF FUNCTION: Oculomotor Testing Fixation Present Ocular ROM: WNL Spontaneous Nystagmus: No nystagmus Gaze Evoked Nystagmus: Not Present Smooth pursuit: Horizontal, Vertical and Diagonal all WNL Saccadic eye movements: Horizontal, vertical and oblique all WNL. Head Thrusts: Right positive, Left positive (denies dizziness, neck stiffness) VOR cancelation: Negative Convergence (Distance): >8 cm VOR to slow head movements: Positive (horrizontal, decreased visual acuity) X1 Viewing - Horizontal: positive -- denies dizziness but slight decline in visual acuity reported with fast and slow head movement X1 Viewing - Vertical: negative Oculomotor Testing Fixation Removed Gaze Evoked Nystagmus: Not present Head Shake: Negative Positional Testing Right Sixto-Hallpike: Asymptomatic, No nystagmus Left Orinda-Hallpike: Asymptomatic, No nystagmus Right Ear Down: Asymptomatic, No nystagmus Left Ear Down: No nystagmus, Asymptomatic Special Tests - Cervical Cervical Special Tests: Flexion-Rotation Test Flexion-Rotation Test: Right Negative, Left Negative (discomfort with endrange rotation L, no familiar dizziness symptoms) Education: Education Learning Preferences: Demonstration, Explanation, Performance Barriers: None Learning/educational needs: Plan of Care, Home exercise program Education Provided: Yes, see treatment interventions for education provided Education Provided To: Patient Education Mode/Type: Demonstration, Explanation/Discussion, Literature/Printed Materials, Performance Response to Education/Teach Back: States/Identifies, Return Demonstration TREATMENT: PT Treatment Interventions: Neuromuscular Re-Education, Self-Jail Management Evaluation Neuromuscular Re-Education: 1: *bending forward seated 5x, 3-5x/day habituation 2: *standing 180 degree turn 5x, 3-5x/day habituation (each direction) 3: *standing and bending forward with 180 degree turn 5x, 3-5x/day habituation (each direction) Skilled Intervention: Skilled judgment used to assess appropriate program for balance and coordination activity. Education in proprioceptive/kinesthetic awareness during habituation repeated exercises in sitting progressing to standing as pt. Demonstrated no LOB. Patient education as noted. Self-Jail Management: 1: *discussed purpose of habituation exercises 2: *discussed results of VOR testing and the role of the VOR 3: *discussed possible causes of dizziness including stress as well as unilateral vestibular loss Skilled Intervention: Skilled judgment in the selection of proper modification for activity of daily living/home management based on clinical presentation, deficits, and needs. Physical assistance was provided during education for modifications and patient safety. Educated the patient regarding recommendations and provided written instruction to facilitate compliance. Reviewed patient specific diagnosis in relation to activities of daily living/home management. Activity progression based on professional judgement. Reviewed and educated patient on additions/changes for home program as noted above with an (*). Provided written instruction for home program to facilitate proper performance and compliance. Correct performance of home program was facilitated with verbal, visual, and tactile cueing. Billing * Evaluation Low Complexity: 1 Unit Neuromuscular Re-Education Treatment Minutes: 15 Self-Care/Home Management Treatment Minutes: 10 Total Treatment Time Minutes (timed/untimed): 45 Nicolette Kerr PT documented in this encounter [facility] 06-09-2022 History of Present illness Narrative Chief Complaint Patient presents with: Recheck: 2 week follow up dizziness HPI Carson Mcclure is a 66 year old male who presents here today for recheck. Patient states he still just feels off. He feels unsteady on his feet at times. Was playing basketball and felt off. Flonase has not been beneficial. Patient had stress echo and carotid US was normal. He doesn't feel lightheaded or like he is going to pass out. He denies room spinning. States, almost feels like he's on a boat. But it isn't constant. Seems random and more with movement. Past medical history, appointments, medications, allergies reviewed. Previous Medical History PAST MEDICAL HISTORY Diagnosis Date Advance directive discussed with patient 02/16/2022 Discussed: 01/2022 Anal fissure 05/27/2009 Anxiety 11/06/2018 Asthma childhood Backache, unspecified 10/06/2009 Benign non-nodular prostatic hyperplasia without lower urinary tract symptoms 11/05/2015 Childhood asthma without complication 11/06/2018 Chronic right shoulder pain 09/07/2018 Closed fracture of left distal radius 02/05/2013 Elevated fasting glucose 01/26/2010 Essential hypertension 05/17/2014 External hemorrhoids 11/15/2017 GERD without esophagitis 06/13/[address] 02/16/2022 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 Wharton Well adult exam 07/28/2009 Last done: Previous Surgical History PAST SURGICAL HISTORY Procedure Laterality Date COLONOSCOPY 12/17/2015 repeat due 2025 COLONOSCOPY FLX DX W/COLLJ SPEC WHEN PFRMD 11/03/2007 Colonoscopy recheck 10 yrs COLONOSCOPY FLX DX W/COLLJ SPEC WHEN PFRMD 10/28/2020 ESOPHAGOGASTRODUODENOSCOPY TRANSORAL DIAGNOSTIC 05/20/2016 EGD ESOPHAGOGASTRODUODENOSCOPY TRANSORAL DIAGNOSTIC 10/28/2020 repeat in 3-4 years FRACTURE SURGERY HERNIA REPAIR HX 1961, 1982 x 2 right/left OPEN RX DISTAL RADIUS FX, INTRA-ARTICULAR, 3+ FRAG 02/07/2013 ORIF left distal radius with locking plate ORIF CARPOMETACARPAL DISLOC,COMPLX/JOSE REPAIR ROTATOR CUFF,ACUTE Right 10/2018 TONSILLECTOMY PRIMARY/SECONDARY <AGE 12 Tonsillectomy Family History FAMILY HISTORY Problem Relation Age of Onset Alzheimer's Disease Mother Heart Mother pacemaker other (scoliosis) Mother s/p spinal fusion Diabetes Father later in life Hypertension Father and CHF Psychiatry Sister bipolar Alzheimer's Disease Sister Dx in 50's Heart Maternal Grandfather [place] other (scoliosis) Son s/p spinal fusion Patient Allergies ALLERGIES No Known Allergies Current Medications Current Outpatient Medications on File Prior to Visit Medication Sig fluticasone (FLONASE) 50 mcg/actuation nasal spray Use 2 Sprays in each nostril once daily. Rinse mouth after use. polyethylene glycol 3350 (MIRALAX ORAL) Take by mouth once daily. lisinopril (ZESTRIL, PRINIVIL) 5 mg tablet Take 1 tablet by mouth once daily. GLUC/CHND/OM3/DHA/EPA/FISH/STR (GLUCOSAMINE CHONDROITIN PLUS ORAL) Take by mouth. calcium carbonate 600 mg-cholecalciferol 200 units 600 mg-5 mcg (200 unit) tab Take 1 tablet by mouth once daily. Current Facility-Administered Medications on File Prior to Visit Medication perflutren lipid microspheres 1.3 mL in NaCl (PF) 0.9% 10 mL injection (DEFINITY) sodium chloride 0.9 % (flush) 10 mL (BD POSIFLUSH) Social History Social History Tobacco Use Smoking status: Never Smokeless tobacco: Never Vaping Use Vaping Use: Never used Substance Use Topics Alcohol use: No Drug use: No Review of Symptoms REVIEW OF SYSTEMS See hpi EXAM: BP 126/88 Pulse 76 Resp 16 Wt 75.8 kg (167 lb) BMI 26.35 kg/m General Appearance: Well appearing, alert, in no acute distress, well-hydrated, well nourished.. Health Maintenance List COVID-19 VACCINE(5 - Booster for Moderna series) due on 10/30/2021 ADVANCE DIRECTIVE DISCUSSION due on 03/28/2022 ANNUAL PCP TEAM CHRONIC DISEASE VISIT due on 05/28/2023 BP CONTROLLED (<130/80) due on 05/28/2023 DIABETES SCREEN due on 05/27/2025 COLORECTAL CANCER SCREENING due on 10/28/2025 LIPID SCREEN due on 02/16/2027 PROSTATE CANCER SCREENING DISCUSSION due on 02/16/2027 DTAP,TDAP,TD(3 - Td or Tdap) due on 11/16/2027 INFLUENZA Completed DEPRESSION ASSESSMENT Completed HEPATITIS C SCREENING Completed HIV SCREENING Completed SHINGRIX VACCINE Completed PNEUMOCOCCAL: 65+ Completed SPIROMETRY Discontinued Data reviewed N/a ASSESSMENT/PLAN: 1. Dizziness - ICD9: 780.4, ICD10: R42 Set up with vestibular therapy Will get an opinion from neuro Consider cardio and/or ENT consult also. - CONSULT TO NEUROLOGY - CONSULT TO PHYSICAL THERAPY Marsha Butts PA-C documented in this encounter [facility] 06-03-2022 Miscellaneous Notes Patient notified of results and provider's instructions. Patient verbalizes understanding. Patient set up 2 week follow up on 06/09/2022. Idalia Mora RN Let patient know that his Carotid US overall is normal. He has mild stenosis on left side. R side is normal. The mild stenosis would not be cause to any of his symptoms. We will monitor this every 2 years though. Since US of carotid and stress test were normal, I would like a 2 week follow up to see how he has been doing. documented in this encounter [facility] 06-02-2022 History of Present illness Narrative Scan on 05/31/2022 11:59 AM by External Provider: Echo Please review. Suleman Weinstein MA documented in this encounter [facility] 06-01-2022 Miscellaneous Notes Patient notified and verbalized understanding. Marilyn Frank MA Let him know that his stress test was normal. Marsha Butts PA-C Pt had a stress test done yesterday 05-31-22 and when you call him with results call pt's work phone. Meaghan Hedrick LPN documented in this encounter [facility] 05-28-2022 Miscellaneous Notes Contacted Cyndie she indicated appointment with [facility] would need cancelled first before they can proceed with [facility]. Appointment cancelled at [facility]. Cyndie will take care of the rest. Notified patient. Because patient wants completed at [facility]. There will need to another pre authorization. Suleman Weinstein MA Patient calling to request insurance authorization for Stress Echo Treadmill be sent to his insurer [employer]. He says [facility] can do the test as soon as next week if it gets authorized. Vanessa Ennis RN documented in this encounter [facility] 05-28-2022 Miscellaneous Notes Patient calls and notified of results. Patient verbalizes understanding. Patient thankful for provider's quick response. Daphney Pepe RN Let patient know that his labs look okay. Marsha Butts PA-C documented in this encounter [facility] 05-27-2022 History of Present illness Narrative Chief Complaint Patient presents with: Follow Up: Equilibrium issues. HPI Carson Mcclure is a 66 year old male who presents here today for Above Complaints.. Patient states that when he went back to some karate lessons he felt like his balance was off. He then felt it again when he was walking down a steep hill. He denies lightheadedness. He denies vertigo. Just feels like his balance is off. Is scheduled for stress echo, however awaiting insurance approval. Past medical history, appointments, medications, allergies reviewed. Previous Medical History PAST MEDICAL HISTORY Diagnosis Date Advance directive discussed with patient 02/16/2022 Discussed: 01/2022 Anal fissure 05/27/2009 Anxiety 11/06/2018 Asthma childhood Backache, unspecified 10/06/2009 Benign non-nodular prostatic hyperplasia without lower urinary tract symptoms 11/05/2015 Childhood asthma without complication 11/06/2018 Chronic right shoulder pain 09/07/2018 Closed fracture of left distal radius 02/05/2013 Elevated fasting glucose 01/26/2010 Essential hypertension 05/17/2014 External hemorrhoids 11/15/2017 GERD without esophagitis 06/13/[address] 02/16/2022 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 Wharton Well adult exam 07/28/2009 Last done: Previous Surgical History PAST SURGICAL HISTORY Procedure Laterality Date COLONOSCOPY 12/17/2015 repeat due 2025 COLONOSCOPY FLX DX W/COLLJ SPEC WHEN PFRMD 11/03/2007 Colonoscopy recheck 10 yrs COLONOSCOPY FLX DX W/COLLJ SPEC WHEN PFRMD 10/28/2020 ESOPHAGOGASTRODUODENOSCOPY TRANSORAL DIAGNOSTIC 05/20/2016 EGD ESOPHAGOGASTRODUODENOSCOPY TRANSORAL DIAGNOSTIC 10/28/2020 repeat in 3-4 years FRACTURE SURGERY HERNIA REPAIR HX 196, 1982 x 2 right/left OPEN RX DISTAL RADIUS FX, INTRA-ARTICULAR, 3+ FRAG 02/07/2013 ORIF left distal radius with locking plate ORIF CARPOMETACARPAL DISLOC,COMPLX/JOSE REPAIR ROTATOR CUFF,ACUTE Right 10/2018 TONSILLECTOMY PRIMARY/SECONDARY <AGE 12 Tonsillectomy Family History FAMILY HISTORY Problem Relation Age of Onset Alzheimer's Disease Mother Heart Mother pacemaker other (scoliosis) Mother s/p spinal fusion Diabetes Father later in life Hypertension Father and CHF Psychiatry Sister bipolar Alzheimer's Disease Sister Dx in 50's Heart Maternal Grandfather [place] other (scoliosis) Son s/p spinal fusion Patient Allergies ALLERGIES No Known Allergies Current Medications Current Outpatient Medications on File Prior to Visit Medication Sig polyethylene glycol 3350 (MIRALAX ORAL) Take by mouth once daily. lisinopril (ZESTRIL, PRINIVIL) 5 mg tablet Take 1 tablet by mouth once daily. GLUC/CHND/OM3/DHA/EPA/FISH/STR (GLUCOSAMINE CHONDROITIN PLUS ORAL) Take by mouth. calcium carbonate 600 mg-cholecalciferol 200 units 600 mg-5 mcg (200 unit) tab Take 1 tablet by mouth once daily. Current Facility-Administered Medications on File Prior to Visit Medication perflutren lipid microspheres 1.3 mL in NaCl (PF) 0.9% 10 mL injection (DEFINITY) sodium chloride 0.9 % (flush) 10 mL (BD POSIFLUSH) Social History Social History Tobacco Use Smoking status: Never Smokeless tobacco: Never Vaping Use Vaping Use: Never used Substance Use Topics Alcohol use: No Drug use: No Review of Symptoms REVIEW OF SYSTEMS See hpi EXAM: BP 110/74 Pulse 81 Resp 18 Wt 75.3 kg (166 lb) SpO2 96% BMI 26.19 kg/m General Appearance: Well appearing, alert, in no acute distress, well-hydrated, well nourished.. Eyes: Anicteric sclera. Pupils are equally round and reactive to light. Extraocular movements are intact. . Ears: External ears normal, canals clear. Nose/Sinuses: Nares normal, septum midline, mucosa normal, no drainage or sinus tenderness. Neck: Supple, no adenopathy; thyroid symmetric, normal size, no bruits. Lungs: Lungs clear to auscultation. No wheezing, rhonchi, rales.. Heart: RRR with murmur, no gallop, or rubs. No ectopy today. Extremities: No deformities, edema, skin discoloration, clubbing or cyanosis. Good capillary refill. . Peripheral Pulses: Normal. Neurologic: Gait normal. Reflexes normal and symmetric. Sensation grossly intact.. no dizziness elicited with sixto hallpike maneuver. Health Maintenance List BP CONTROLLED (<130/80) Never done COVID-19 VACCINE(5 - Booster for Moderna series) due on 10/30/2021 ADVANCE DIRECTIVE DISCUSSION due on 03/28/2022 ANNUAL PCP TEAM CHRONIC DISEASE VISIT due on 05/10/2023 DIABETES SCREEN due on 02/16/2025 COLORECTAL CANCER SCREENING due on 10/28/2025 LIPID SCREEN due on 02/16/2027 PROSTATE CANCER SCREENING DISCUSSION due on 02/16/2027 DTAP,TDAP,TD(3 - Td or Tdap) due on 11/16/2027 INFLUENZA Completed DEPRESSION ASSESSMENT Completed HEPATITIS C SCREENING Completed HIV SCREENING Completed SHINGRIX VACCINE Completed PNEUMOCOCCAL: 65+ Completed SPIROMETRY Discontinued Data reviewed ASSESSMENT/PLAN: 1. Dizziness - ICD9: 780.4, ICD10: R42 (primary diagnosis) Benign exam. Orthos wnl. Negative sixto hallpike maneuver. Check labs. Check carotid US and await stress echo. Advised patient to increase fluids. Will trial flonase. Follow up after stress testing. - CBC + DIFF - BASIC METABOLIC PNL - TSH BLD 2. Lightheaded - ICD9: 780.4, ICD10: R42 As above. - CBC + DIFF - BASIC METABOLIC PNL - TSH BLD Marsha Butts PA-C documented in this encounter [facility] 05-25-2022 Miscellaneous Notes We can send stress echo order to [facility] or can see if patient is willing to travel within the clinic and see if sooner appt is available. See what patient prefers. I'm also going to order carotid US. Marsha Butts PA-C Pt notified of provider's response below. Appt made with Marsha Butts for 05/27/22 for reassessment and orthostatics. PCP office to assist in rescheduling pt's stress echo to a sooner date, per PCP advise. Arabella Tran RN Can patient be seen to be reassessed. Needs orthos done in the office. Also his stress echo needs done sooner. 2 months after the original order is not beneficial. documented in this encounter [facility] 05-10-2022 History of Present illness Narrative Chief Complaint Patient presents with: ER F/U: [facility] ER 05/06/22 weakness HPI Carson Mcclure is a 66 year old male who presents here today for ER Follow Up.. Patient presented to ER by squad early (05/06) morning due feeling weak and having a heaviness in his upper abdomen. He felt lightheaded and just off. Work up at ER was negative. Patient denied having any mid/upper chest pain or shortness of breath. Pain was upper abdomen and lower chest. But severe enough that he was concerned about heart attack. After being discharged, he just felt fatigued all day. States he had a work out on Tuesday and was feeling okay. No Symptoms over the weekend. He does report intermittent reflux symptoms. He doesn't take anything routinely for this. Patient was told before that he had a small paraesophageal hernia. Past medical history, appointments, medications, allergies reviewed. Previous Medical History PAST MEDICAL HISTORY Diagnosis Date Advance directive discussed with patient 02/16/2022 Discussed: 01/2022 Anal fissure 05/27/2009 Anxiety 11/06/2018 Asthma childhood Backache, unspecified 10/06/2009 Benign non-nodular prostatic hyperplasia without lower urinary tract symptoms 11/05/2015 Childhood asthma without complication 11/06/2018 Chronic right shoulder pain 09/07/2018 Closed fracture of left distal radius 02/05/2013 Elevated fasting glucose 01/26/2010 Essential hypertension 05/17/2014 External hemorrhoids 11/15/2017 GERD without esophagitis 06/13/[address] 02/16/2022 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 Wharton Well adult exam 07/28/2009 Last done: Previous Surgical History PAST SURGICAL HISTORY Procedure Laterality Date COLONOSCOPY 12/17/2015 repeat due 2025 COLONOSCOPY FLX DX W/COLLJ SPEC WHEN PFRMD 11/03/2007 Colonoscopy recheck 10 yrs COLONOSCOPY FLX DX W/COLLJ SPEC WHEN PFRMD 10/28/2020 ESOPHAGOGASTRODUODENOSCOPY TRANSORAL DIAGNOSTIC 05/20/2016 EGD ESOPHAGOGASTRODUODENOSCOPY TRANSORAL DIAGNOSTIC 10/28/2020 repeat in 3-4 years FRACTURE SURGERY HERNIA REPAIR HX 1961, 1982 x 2 right/left OPEN RX DISTAL RADIUS FX, INTRA-ARTICULAR, 3+ FRAG 02/07/2013 ORIF left distal radius with locking plate ORIF CARPOMETACARPAL DISLOC,COMPLX/JOSE REPAIR ROTATOR CUFF,ACUTE Right 10/2018 TONSILLECTOMY PRIMARY/SECONDARY <AGE 12 Tonsillectomy Family History FAMILY HISTORY Problem Relation Age of Onset Alzheimer's Disease Mother Heart Mother pacemaker other (scoliosis) Mother s/p spinal fusion Diabetes Father later in life Hypertension Father and CHF Psychiatry Sister bipolar Alzheimer's Disease Sister Dx in 50's Heart Maternal Grandfather [place] other (scoliosis) Son s/p spinal fusion Patient Allergies ALLERGIES No Known Allergies Current Medications Current Outpatient Medications on File Prior to Visit Medication Sig polyethylene glycol 3350 (MIRALAX ORAL) Take by mouth once daily. lisinopril (ZESTRIL, PRINIVIL) 5 mg tablet Take 1 tablet by mouth once daily. GLUC/CHND/OM3/DHA/EPA/FISH/STR (GLUCOSAMINE CHONDROITIN PLUS ORAL) Take by mouth. calcium carbonate 600 mg-cholecalciferol 200 units 600 mg-5 mcg (200 unit) tab Take 1 tablet by mouth once daily. No current facility-administered medications on file prior to visit. Social History Social History Tobacco Use Smoking status: Never Smokeless tobacco: Never Vaping Use Vaping Use: Never used Substance Use Topics Alcohol use: No Drug use: No Review of Symptoms REVIEW OF SYSTEMS See hpi EXAM: BP 122/80 (BP Site: Left Arm, BP Position: Sitting, BP Cuff Size: Regular Adult) Pulse 75 Resp 16 Wt 75.3 kg (166 lb) BMI 26.19 kg/m General Appearance: Well appearing, alert, in no acute distress, well-hydrated, well nourished.. Lungs: Lungs clear to auscultation. No wheezing, rhonchi, rales.. Heart: RRR with murmur. . Ectopy noted Abdomen: Normal abdominal exam, Abdomen soft, non-tender. Bowel sounds normal. No masses, organomegaly. Extremities: No deformities, edema, skin discoloration, clubbing or cyanosis. Good capillary refill. . Peripheral Pulses: Normal. Health Maintenance List BP CONTROLLED (<130/80) Never done COVID-19 VACCINE(5 - Booster for Moderna series) due on 10/30/2021 ADVANCE DIRECTIVE DISCUSSION due on 03/28/2022 DEPRESSION ASSESSMENT due on 03/28/2022 ANNUAL PCP TEAM CHRONIC DISEASE VISIT due on 02/16/2023 DIABETES SCREEN due on 02/16/2025 COLORECTAL CANCER SCREENING due on 10/28/2025 LIPID SCREEN due on 02/16/2027 PROSTATE CANCER SCREENING DISCUSSION due on 02/16/2027 DTAP,TDAP,TD(3 - Td or Tdap) due on 11/16/2027 INFLUENZA Completed HEPATITIS C SCREENING Completed HIV SCREENING Completed SHINGRIX VACCINE Completed PNEUMOCOCCAL: 65+ Completed SPIROMETRY Discontinued Data reviewed See HPI ASSESSMENT/PLAN: 1. Near syncope - ICD9: 780.2, ICD10: R55 (primary diagnosis) Unclear etiology My have been more of a vasovagal type sympathetic response to his abdominal pain. Will get stress echo though given finding on physical exam and to assess heart function - STRESS ECHO TREADMILL - PERFLUTREN LIPID MICROSPHERES 1.1 MG/ML INJECTION IN NS 10 ML - SODIUM CHLORIDE 0.9 % (FLUSH) INJECTION SYRINGE 2. Lightheaded - ICD9: 780.4, ICD10: R42 As above - STRESS ECHO TREADMILL - PERFLUTREN LIPID MICROSPHERES 1.1 MG/ML INJECTION IN NS 10 ML - SODIUM CHLORIDE 0.9 % (FLUSH) INJECTION SYRINGE 3. Diaphoresis - ICD9: 780.8, ICD10: R61 As above - STRESS ECHO TREADMILL - PERFLUTREN LIPID MICROSPHERES 1.1 MG/ML INJECTION IN NS 10 ML - SODIUM CHLORIDE 0.9 % (FLUSH) INJECTION SYRINGE 4. Atypical chest pain - ICD9: 786.59, ICD10: R07.89 As above. - STRESS ECHO TREADMILL - PERFLUTREN LIPID MICROSPHERES 1.1 MG/ML INJECTION IN NS 10 ML - SODIUM CHLORIDE 0.9 % (FLUSH) INJECTION SYRINGE 5. Heart murmur - ICD9: 785.2, ICD10: R01.1 Check echo - STRESS ECHO TREADMILL - PERFLUTREN LIPID MICROSPHERES 1.1 MG/ML INJECTION IN NS 10 ML - SODIUM CHLORIDE 0.9 % (FLUSH) INJECTION SYRINGE Patient to follow up as scheduled and sooner prn. Marsha Butts PA-C documented in this encounter [facility] 05-07-2022 History of Present illness Narrative Scan on 05/06/2022 7:28 AM by External Provider: Consultation - Emergency Medicine Scan on 05/06/2022 11:21 AM by External Provider: Consultation - Emergency Medicine Please review. Suleman Weinstein MA documented in this encounter [facility] 05-06-2022 History of Present illness Narrative Scan on 05/06/2022 7:28 AM by External Provider: Consultation - Emergency Medicine Please review. Suleman Weinstein MA documented in this encounter [facility] 05-06-2022 Discharge summary Note Date/Time May 06, 2022 7:01am [facility] Medical Records Department [address] [place] [id number] Emergency Department Summary 05/06/22 MR#: [id number] Acct: [id number] Name: CARSON MCCLURE Rep #:[id number] : 1955 66 From: Vani Reyes MD PCP: Dr. Tr Montana MD Status:REG ER Location: ED ADDENDUM by Dr. Pj Lyman DO on 05/06/22 at 1006 Care of the patient was turned over to me. CBC was reviewed and was within normal limits. Comprehensive metabolic profile was reviewed and was within normal limits. Initial high-sensitivity troponin was reviewed and was normal at3. 2-hour repeat high-sensitivity troponin was reviewed and was normal at 4. Patient has a HEART score of 3. Patient was advised that this is low risk for acute cardiac event. Patient is feeling better on reevaluation. Patient has had no further episodes of chest pain or angina equivalent. Patient was instructed to follow-up with his primary care physician in 3 to 5 days. Patientwas instructed return if worse in any way. Patient understood and was agreeablewith the plan. All questions were answered. 05/06/22 1006<Electronically signed by Pj Lyman DO> Cosigner Signature (if applicable): cc: Dr. Tr Montana MD ~* Signed HPI History of Present Illness Chief Complaint: Weakness Informant: patient Onset/Context/Timing Onset: Today Current Severity: Mild Maximum Severity: Moderate Narrative Narrative: Patient presents secondary to a near syncopal episode. Patient states that he woke around 3:00 this morning which is not unusual for him. He got up for shorttime and made some chili. He went back to bed and when he awoke at 6 did not feel well. He states he had a very heavy feeling in his stomach. He became lightheaded, sweaty, dizzy. He thought that he may pass out. He called 911 himself but started to feel better before EMS arrived. He denies chest pain or palpitations. [facility] Medical History Asthma Back pain Bloody stools Broken wrist Hemorrhoids Hypertension Home Medications lisinopril 5 mg tablet 5 mg PO DAILY 02/03/13 [History Last Taken 02/03/13] calcium carbonate 500 mg calcium (1,250 mg) capsule 500 mg PO BID 05/09/18 [History Last Taken Unknown] Allergy/AdvReac Type Severity Reaction Status Date / Time No Known Allergies Allergy Verified 05/06/22 06:42 Surgical History H/O hernia repair Social History Smoking Status: Never smoker alcohol intake: never ROS ROS ED Constitutional Constitutional ED: Denies chills or fever(s) Eyes Eyes: Denies change in vision or discharge from eye(s) ENT ENT ED: Denies discharge from eye(s), rhinorrhea or sore throat Cardiovascular Cardiovascular: Denies chest pain or palpitations Respiratory/Chest Respiratory/Chest: Denies cough or dyspnea Gastrointestinal Gastrointestinal: Reports abdominal pain and nausea; Denies diarrhea or vomiting Genitourinary Genitourinary ED: Denies difficulty urinating or dysuria Musculoskeletal Musculoskeletal: Denies back pain or extremity pain Integumentary Denies Abrasions or rash Neurologic Neurologic: Reports weakness; Denies headache(s) Psychiatric Psychiatric: Denies anxiety or depression Allergic/Immunologic Allergic/Immunologic ED: Denies lip swelling or urticaria EXAM Physical Exam Const Vital Signs: 05/06/22 06:36 05/06/22 06:36 Temperature 97.1 F L Temperature Source Temporal Pulse Rate 78 Respiratory Rate 18 Respiratory Effort Normal Respiratory Pattern Normal Blood Pressure 119/66 Blood Pressure Mean 83 Pulse Ox 100 Oxygen Delivery Method Room Air Positive well nourished and well developed General Appearance ED: well developed HEENT Reports normocephalic and head/scalp atraumatic Eyes PERRL and EOMs intact bilaterally Neck supple Chest Wall inspection of chest normal and palpation of chest normal Resp normal respiratory effort and clear to auscultation bilaterally Cardio regular rate and regular rhythm GI non-tender Auscultation: hypoactive bowel sounds Palpation: soft Back/Spine no CVA tenderness Extremity normal to inspection Neuro oriented x3 and no sensory deficits noted Sensorium / Orientation: alert Motor Exam: strength 5/5 throughout Psych mental status grossly normal Skin no rashes or lesions noted MDM MDM MDM Narrative Medical decision making narrative: Patient is placed on court monitor. EKG obtained to evaluate for cardiac arrhythmia or ischemia. Lab work obtained to evaluate for leukocytosis, anemia,electrolyte derangement. Patient's evaluation and work-up was initiated the endof my shift. Patient will be signed out to oncoming physician for further monitoring and treatment. Discharge Plan Triage Chief Complaint: Weakness ED Provider: Vani Reyes Dx/Rx/DC Orders Clinical Impression: Near syncope Prescriptions: No Action calcium carbonate 500 mg calcium (1,250 mg) capsule 500 mg calcium (1,250 mg) capsule 500 mg PO BID lisinopril 5 MG tablet 5 mg PO DAILY Primary Care Provider: Tr Montana Referrals: Tr Montana MD [Primary Care Provider] - What to do if you have Problems For any increased pain, shortness of breath, bleeding, nausea or vomiting, chestpain, or any unexpected problems, contact your Primary Care Provider. Call [facility] ([phone]) or report to the closest Emergency Room. Call 911 if necessary. 05/06/22 0720 <Electronically signed by Vani Reyes MD> Cosigner Signature (if applicable): CC: Dr. Tr Montana MD ~ Signed [facility] Work Phone: [phone] 291-367411-28-2022 Miscellaneous Notes* Telephone Encounter - Rene Echeverria RN - 02/22/2022 8:59 AM EST Phoned patient and given provider's message below with verbalized understanding. * Telephone Encounter - Tr Montana MD - 02/21/2022 12:51 PM EST Let patient know Thyroid lab, prostate lab, UA, lipid panel, liver functions, kidney functions and electrolytes were all ok. A1c is improved at 6% (normal is 4.3%-5.6% and diabetes is 6.5% and higher.) He was 6.2%. [facility] Instructions* Patient Instructions* Tr Montana MD - 02/16/2022 9:08 AM EST Please bring in copies of living will and durable power of collections attorney for health care. Please get labs and urine test done on or after 08/06/2022 prior to your next visit. [facility] History of Present illness Narrative* Tr Montana MD - 02/16/2022 8:40 AM EST Chief Complaint Patient presents with: Physical HPI Carson Mcclure is a 66 year old male who presents here today for Medicare Annual Visit. Patient with hx of HLP, HTN, SVT, elevated glucose, GERD, hemorrhoids, BPH, scoliosis and those as updated and reviewed below. Patient has been doing well, no new issues or concerns. Past medical history, appointments, medications, allergies reviewed. Previous Medical History PAST MEDICAL HISTORY Diagnosis Date Anal fissure 05/27/2009 Anxiety 11/06/2018 Asthma childhood Backache, unspecified 10/06/2009 Benign non-nodular prostatic hyperplasia without lower urinary tract symptoms 11/05/2015 Childhood asthma without complication 11/06/2018 Chronic right shoulder pain 09/07/2018 Closed fracture of left distal radius 02/05/2013 Elevated fasting glucose 01/26/2010 Essential hypertension 05/17/2014 External hemorrhoids 11/15/2017 GERD without esophagitis 06/13/2017 Mixed hyperlipidemia 09/02/2009 Scoliosis SVT (supraventricular tachycardia) (HCC) 03/31/2016 Traumatic complete tear of right rotator cuff 11/06/2018 S/p 10/[address] Wharton Well adult exam 07/28/2009 Last done: Previous Surgical History PAST SURGICAL HISTORY Procedure Laterality Date COLONOSCOPY 12/17/2015 repeat due 2025 COLONOSCOPY FLX DX W/COLLJ SPEC WHEN PFRMD 11/03/2007 Colonoscopy recheck 10 yrs COLONOSCOPY FLX DX W/COLLJ SPEC WHEN PFRMD 10/28/2020 ESOPHAGOGASTRODUODENOSCOPY TRANSORAL DIAGNOSTIC 05/20/2016 EGD ESOPHAGOGASTRODUODENOSCOPY TRANSORAL DIAGNOSTIC 10/28/2020 repeat in 3-4 years FRACTURE SURGERY HERNIA REPAIR HX 1961, 1982 x 2 right/left OPEN RX DISTAL RADIUS FX, INTRA-ARTICULAR, 3+ FRAG 02/07/2013 ORIF left distal radius with locking plate ORIF CARPOMETACARPAL DISLOC,COMPLX/JOSE REPAIR ROTATOR CUFF,ACUTE Right 10/2018 TONSILLECTOMY PRIMARY/SECONDARY <AGE 12 Tonsillectomy Family History FAMILY HISTORY Problem Relation Age of Onset Diabetes Father later in life Hypertension Father and CHF Heart Maternal Grandfather [place] Alzheimer's Disease Mother Heart Mother pacemaker other (scoliosis) Mother s/p spinal fusion other (scoliosis) Son s/p spinal fusion Psychiatry Sister bipolar Alzheimer's Disease Sister Dx in 50's Patient Allergies ALLERGIES No Known Allergies Current Medications Current Outpatient Medications on File Prior to Visit Medication Sig lisinopril (ZESTRIL, PRINIVIL) 5 mg tablet Take 1 tablet by mouth once daily. GLUC/CHND/OM3/DHA/EPA/FISH/STR (GLUCOSAMINE CHONDROITIN PLUS ORAL) Take by mouth. calcium carbonate 600 mg-cholecalciferol 200 units (CALCIUM 600 + D,3,) 600 mg(1,500mg) -200 unit tab Take 1 tablet by mouth once daily. No current facility-administered medications on file prior to visit. Social History Social History Tobacco Use Smoking status: Never Smokeless tobacco: Never Vaping Use Vaping Use: Never used Substance Use Topics Alcohol use: No Drug use: No Review of Symptoms REVIEW OF SYSTEMS GENERAL: No weight loss, malaise or fevers HEENT: Negative for frequent or significant headaches, No changes in hearing or vision, no nose bleeds or other nasal problems NECK: Negative for lumps, goiter, pain and significant neck swelling RESPIRATORY: Negative for cough, hemoptysis, wheezing, COPD, dyspnea or shortness of breath CARDIOVASCULAR: Negative for chest pain, leg swelling, hypertension, CHF or palpitations GI: No nausea, vomiting, or diarrhea, No heartburn or reflux symptoms, and no blood : No history of dysuria, blood MUSCULOSKELETAL: getting some pain in the left shoulder. Tore rotator cuff in the and did not have surgery. SKIN: Negative for lesions, rash, and itching PSYCH: Negative for sleep disturbance, mood disorder and recent psychosocial stressors HEMATOLOGY/LYMPHOLOGY: Negative for prolonged bleeding, bruising easily or swollen nodes ENDOCRINE: Negative for cold or heat intolerance, polyuria, polydipsia and goiter NEURO: No history of headaches, syncope, paralysis, seizures or tremors EXAM: BP 128/90 (BP Site: Right Arm, BP Position: Sitting, BP Cuff Size: Regular Adult) Pulse 76 Resp16 Ht 169.5 cm (5' 6.75) Wt 75.3 kg (166 lb) BMI 26.19 kg/m BP 122/80 Pulse 76 Resp 16 Ht 169.5 cm (5' 6.75) Wt 75.3 kg (166 lb) BMI 26.19 kg/m Last 5 Encounter Wt Readings: Date: Wt: 02/16/2022 75.3 kg (166 lb) 08/13/2021 76.2 kg (168 lb) 07/20/2021 77.1 kg (170 lb) 02/17/2021 75.3 kg (166 lb) 01/05/2021 76.7 kg (169 lb) General Appearance: Well appearing, alert, in no acute distress, well-hydrated, well nourished.. Skin: Skin color, texture, turgor normal, no suspicious rashes or lesions. Head: Normocephalic, no masses, lesions, tenderness or abnormalities. Eyes: Anicteric sclera. Pupils are equally round and reactive to light. Extraocular movements are intact. . Ears: External ears, TM's normal, canals clear. Neck: Supple, no adenopathy; thyroid symmetric, normal size, no bruits. Lungs: Lungs clear to auscultation. No wheezing, rhonchi, rales.. Heart: RRR without murmur, gallop, or rubs. No ectopy. Abdomen: Normal abdominal exam, Abdomen soft, non-tender. Bowel sounds normal. No masses, organomegaly. Extremities: No deformities, edema, skin discoloration, Good capillary refill. . Musculoskeletal: No joint swelling, deformity, or tenderness. Strength intact. Peripheral Pulses: Normal. Neurologic: Gait normal. Reflexes normal and symmetric. Sensation to light touch and crainal nerves2-12 intact.. Genitalia: Normal, Penis normal. No urethral discharge. Scrotum normal to palpation. No hernia.. Rectal: Normal exam. Prostate enlarged but smooth firm capsule. Health Maintenance List PNEUMOCOCCAL: 65+(1 - PCV) Never done BP CONTROLLED (<130/80) Never done DEPRESSION ASSESSMENT Never done COVID-19 VACCINE(4 - Booster for Moderna series) due on 03/31/2021 ADVANCE DIRECTIVE DISCUSSION Never done INFLUENZA(1) due on 11/26/2021 ANNUAL PCP TEAM CHRONIC DISEASE VISIT due on 07/20/2022 DIABETES SCREEN due on 07/20/2024 PROSTATE CANCER SCREENING DISCUSSION due on 2025 COLORECTAL CANCER SCREENING due on 10/28/2025 LIPID SCREEN due on 07/20/2026 DTAP,TDAP,TD(3 - Td or Tdap) due on 11/16/2027 HEPATITIS C SCREENING Completed HIV SCREENING Completed SHINGRIX VACCINE Completed SPIROMETRY Discontinued Data reviewed Component Latest Ref Rng & Units 07/20/2021 08/03/2021 Protein, Total 6.3 - 8.0 g/dL 7.7 Albumin 3.9 - 4.9 g/dL 4.5 Calcium 8.5 - 10.2 mg/dL 9.1 Bilirubin, Total 0.2 - 1.3 mg/dL 0.5 Alkaline Phosphatase 38 - 113 U/L 65 AST 14 - 40 U/L 26 ALT 10 - 54 U/L 19 Glucose 74 - 99 mg/dL 100 (H) BUN 9 - 24 mg/dL 20 Creatinine 0.73 - 1.22 mg/dL 0.94 Sodium 136 - 144 mmol/L 139 Potassium 3.7 - 5.1 mmol/L 4.6 Chloride 97 - 105 mmol/L 104 CO2 22 - 30 mmol/L 25 Anion Gap 9 - 18 mmol/L 10 eGFR >=60 mL/min/1.73m 91 Color Yellow Yellow Straw Clarity Clear Clear Clear Glucose, Urine Negative Negative Negative Bilirubin, Urine Negative Negative Negative Ketones, Urine Negative Negative Negative Specific [place], Ur 1.005 - 1.030 1.029 1.005 Hemoglobin/Blood,Ur Negative Negative Negative pH, Urine 5.0 - 8.0 5.0 6.0 Protein, Urine Negative 1+ (A) Negative Urobilinogen Negative Negative Negative Nitrites Negative Negative Negative Leukest Negative Negative Negative WBC, Urine 0-5 /HPF 0-5 /HPF 0-5 /HPF RBC, Urine 0-3 /HPF 0-3 /HPF 0-3 /HPF Total Cholesterol, Nonfasting <200 mg/dL 176 Triglycerides, Nonfasting <150 mg/dL 45 HDL Cholesterol, Nonfasting >39 mg/dL 50 LDL Cholesterol, Nonfasting <100 mg/dL 117 (H) Non HDL Cholesterol, Nonfasting <130 mg/dL 126 VLDL Cholesterol, Nonfasting <30 mg/dL 9 Total Chol/HDL Ratio, Nonfasting <5.10 mg/dL 3.52 LDL/HDL Ratio, Nonfasting <2.54 mg/dL 2.34 Hemoglobin A1C 4.3 - 5.6 % 6.2 (H) Estimated Average Glucose mg/dL 131 A/P ASSESSMENT/PLAN: 1. Well adult exam - ICD9: V70.0, ICD10: Z00.00 (primary diagnosis) - Counseled on healthy diet and regular exercise - Patient was counseled yhiz-[id number]-naar by myself (the billing provider) for the following immunizations and vaccine components, including side effects: Influenza and Pneumococcal . Patient consents forimmunization and understands risks and benefits. A VIS sheet on each immunization was given to the patient. - Follow up for annual exam in one year 2. Essential hypertension - ICD9: 401.9, ICD10: I10 - good control - Continue current medication(s) - Recommended regular aerobic exercise. - Recommend home blood pressure monitoring, to bring results in on next visit - Goal of BP <130/80 - COMP METABOLIC PANEL - URINALYSIS, WITH MICROSCOPIC - LIPID PANEL, NONFASTING 3. Mixed hyperlipidemia - ICD9: 272.2, ICD10: E78.2 - to be determined upon return of lab results - Encouraged following a low fat, low cholesterol diet. - Discussed the benefits of regular aerobic exercise and weight loss. - Encouraged following a low carbohydrate, healthy oil intake diet. - Continue current therapy. - COMP METABOLIC PANEL - URINALYSIS, WITH MICROSCOPIC - LIPID PANEL, NONFASTING 4. Elevated fasting glucose - ICD9: 790.21, ICD10: R73.01 - cont life style changes. Check - HGB A1C 5. GERD without esophagitis - ICD9: 530.81, ICD10: K21.9 - managed via diet. 6. SVT (supraventricular tachycardia) (HCC) - ICD9: 427.89, ICD10: I47.1 Check - TSH BLD 7. Anxiety - ICD9: 300.00, ICD10: F41.9 Check - TSH BLD 8. Benign non-nodular prostatic hyperplasia without lower urinary tract symptoms - ICD9: 600.90, ICD10: N40.0 - stable no issues 9. Living will in place - ICD9: V49.89, ICD10: Z78.9 - asked to bring in copies 10. Advance directive discussed with patient - ICD9: V65.49, ICD10: Z71.89 - as per #9 11. Prostate cancer screening - ICD9: V76.44, ICD10: Z12.5 Check - PSA/PROSTSPECAG DIAG 12. Need for vaccination - ICD9: V05.9, ICD10: Z23 - PNEUMOCOCCAL VACCINE (PREVNAR 20): given 13. Encounter for immunization - ICD9: V03.89, ICD10: Z23 - INFLUENZA SEASONAL QUADRIVALENT HIGH DOSE AGE 65+: given Requested Prescriptions Signed Prescriptions Disp Refills lisinopril (ZESTRIL, PRINIVIL) 5 mg tablet 90 tablet 1 Sig: Take 1 tablet by mouth once daily. F/u 6 months routine, check lipid and A1c prior Tr Montana MD [facility] Miscellaneous Notes* Telephone Encounter - Estefanía Bennett RN - 11/07/2021 5:46 PM EDT Reason for Call: Patient suffered a small puncture wound from a fishing knife this afternoon. Outcome: Recommended home care at this time. Reason for Disposition Minor injury or bruising from direct blow Answer Assessment - Initial Assessment Questions 1. MECHANISM: While patient was fishing today his son accidentally gave him a small puncture wound on the left bicep. 2. ONSET: This afternoon 3. LOCATION: Left bicep 4. APPEARANCE of INJURY: Small puncture site the size of a pencil tip 6. SWELLING or BRUISING: No bleeding, swelling or bruising at time of assessment 7. PAIN: No pain 8. TETANUS: Last tetanus shot was in 2018 9. OTHER SYMPTOMS: No other symptoms Protocols used: Arm [id number] documented in this encounter[facility]06[facility] Miscellaneous Notes* Telephone Encounter - Jennifer Faria RN - 09/07/2021 1:13 PM EDT Carson called. He was scheduled for an additional banding on 2021, but he is requesting that we cancel that appointment, he states that the previous banding took care of his problems. Appt. Cancelled. Jennifer Faria RN documented in this encounter[facility]06-[facility]22 Instructions* Patient Instructions* Lidia Anaya - 08/26/2021 7:23 AM EDT The following instructions are important for you related to your office visit today with the [facility] General Surgeons. Instructions After HEMORRHODIAL BANDING If you note worsening anal pain, fever or significant anal redness or swellingcontact the office immediately. Minor bleeding from the anus is common. If there is continued bleeding, you should contact our office immediately. The banded hemorrhoidal complex will slough off in 4-5 days on average. Bleeding or some tissue with a black rubber band may be seen in the toilet bowl. You may require multiple bandings to correct your internal hemorrhoidal symptoms. Please make an appointment to return to our office in 2 weeks for possible repeat banding if your symptoms have not resolved. If you note any additional difficulties, questions, or concerns, you should contact our office immediately @ [phone] and ask to be transferred to the General Surgery department. documented in this encounter[facility]06[facility]22 History of Present illness Narrative* Anderz Dye MD - 08/26/2021 7:21 AM EDT FOLLOW UP VISIT - HEMORRHOID BANDING [id number] DATE OF SERVICE: 08/26/2021 : 1955 REFERRING PHYSICIAN: Tr Montana MD Carson is a patient I am following for symptomatic internal hemorrhoids. The patient notes prolapsingtissue with bowel movements. He also had significant bleeding in the past few weeks. He underwent hemorrhoidal banding on August 13. He notes minimal bleeding since that time but still notes some left prolapsing tissue the patient returns for hemorrhoidal banding. They have not take aspirin or other blood thinners for over 7 days. VITALS: There were no vitals taken for this visit. There is no height or weight on file to calculate BMI. On examination, the patient has prolapsing interal hemorrhoidal at the left lateral. PROCEDURE: HEMORRHOIDAL BANDING The risks, benefits and anticipated outcomes of the procedure, the risks and benefits of the alternatives to the procedure, and the roles and tasks of the personnel to be involved, were discussed with the patient, and the patient consents to the procedure and agrees to proceed. After consent was obtained and the site, person, and procedure verified, the patient was positioned. A digital rectal exam was performed demonstrating internal hemorrhoids in the left lateral position without other abnormalities. An anoscope was introduced demonstrating symptomatic internal hemorrhoid. The hemorrhoidal complex was grasped with an forceps without causing discomfort to the patient.A single band was deployed over the complex. The patient remained asymptomatic. The anoscope was removed. The patient tolerated the procedure well. Assessment IMPRESSION: Status post left lateral interal hemorrhoidal banding PLAN: If the patient notes any problems or pain, they should contact me immediately. The patient was informed that- A small amount of bleeding is common when the hemorrhoid sloughs at 3-5 days. Do not thataspirin for the next week. If you have significant bleeding or other problems, contact our office. Diagnoses: (K92.1) Hematochezia (primary encounter diagnosis) (K64.8) Internal hemorrhoids Return to Clinic: The patient is instructed to follow-up with me in 2-3 weeks if requiring additional banding. Andrez Dye MD * Lidia Anaya - 08/26/2021 7:04 AM EDT UNIVERSAL PROTOCOL / SAFETY CHECKLIST Procedure to be Performed: Anoscopy and Hemorrhoidal Banding Sign In: A Moment of CARE was completed. Personnel directly involved with the procedure wore the appropriate PPE (Personal Protective Equipment). Patient/Surrogate Stated/Verified: PATIENT VERIFIED(optional for EMERGENT procedures): Patient name, Date of , Relevant allergies and The intended procedure Time Out Communication: Intended patient and procedure match the source documents. Consent documented and matches the intended procedure. Sign Out: Lidia Anaya documented in this encounter[facility]05-[facility]-2022 Miscellaneous Notes* Telephone Encounter - Rayne Yang LPN - 08/17/2021 8:40 AM EDT Please see message from pt. Rayne Yang LPN documented in this encounterProv[facility]05-19-[facility]22 History of Present illness Narrative* Andrez Dye MD - 08/13/2021 8:34 AM EDT Sign In: A Moment of CARE was completed. Personnel directly involved with the procedure wore the appropriate PPE (Personal Protective Equipment). Patient/Surrogate Stated/Verified: PATIENT VERIFIED(optional for EMERGENT procedures): Patient name, Date of , Relevant allergies and The intended procedure Time Out Communication: Intended patient and procedure match the source documents. Consent documented and matches the intended procedure. Sign Out: SIGN OUT (optional for EMERGENT procedures): No specimen collected. Lidia Anaya FOLLOW UP VISIT - HEMORRHOID BANDING NAME: Carson Ruiz [facility] NO.: [id number] DATE OF SERVICE: 08/13/2021 : 1955 REFERRING PHYSICIAN: Tr Montana MD Carson is a patient I am following for symptomatic internal hemorrhoids. The patient returns for hemorrhoidal banding. They have not take aspirin or other blood thinners for over 7 days. Occasional issues with constipation. He had undergone colonoscopy October 28, 2020 which returned as a small hepaticflexure polyp diverticulosis and some internal hemorrhoids. He did not undergo banding at that time. He noted significant bleeding at home last week for a few days. He contacted the office and presents now for hemorrhoidal banding VITALS: Blood pressure 129/86, pulse 90, temperature 36.7 C (98.1 F), height 175.3 cm (5' 9), weight 76.2 kg (168 lb), SpO2 97 %. Body mass index is 24.81 kg/m . On examination, the patient has prolapsing interal hemorrhoidal at the left lateral complex. PROCEDURE: HEMORRHOIDAL BANDING The risks, benefits and anticipated outcomes of the procedure, the risks and benefits of the alternatives to the procedure, and the roles and tasks of the personnel to be involved, were discussed with the patient, and the patient consents to the procedure and agrees to proceed. After consent was obtained and the site, person, and procedure verified, the patient was positioned. A digital rectal exam was performed demonstrating internal hemorrhoids in the left lateral position without other abnormalities. An anoscope was introduced demonstrating symptomatic internal hemorrhoid. The hemorrhoidal complex was grasped with an forceps without causing discomfort to the patient.A single band was deployed over the complex. The patient remained asymptomatic. The anoscope was removed. The patient tolerated the procedure well. Assessment IMPRESSION: Status post left lateral interal hemorrhoidal banding PLAN: If the patient notes any problems or pain, they should contact me immediately. The patient was informed that- A small amount of bleeding is common when the hemorrhoid sloughs at 3-5 days. Do not thataspirin for the next week. If you have significant bleeding or other problems, contact our office. Diagnoses: (K92.1) Hematochezia (primary encounter diagnosis) Return to Clinic: The patient is instructed to follow-up with me in 2-3 weeks for additional banding. Andrez Dye MD documented [facility] encounter[facility] Instructions* Patient Instructions* Lidia Anaya - 08/13/2021 8:34 AM EDT The following instructions are important for you related to your office visit today with the [facility]. Instructions After HEMORRHODIAL BANDING If you note worsening anal pain, fever or significant anal redness or swellingcontact the office immediately. Minor bleeding from the anus is common. If there is continued bleeding, you should contact our office immediately. The banded hemorrhoidal complex will slough off in 4-5 days on average. Bleeding or some tissue with a black rubber band may be seen in the toilet bowl. You may require multiple bandings to correct your internal hemorrhoidal symptoms. Please make an appointment to return to our office in 2 weeks for possible repeat banding if your symptoms have not resolved. If you note any additional difficulties, questions, or concerns, you should contact our office immediately @ [phone] and ask to be transferred to the General Surgery department. documented in this encounterProv[facility]04-26-2022 Miscellaneous Notes* Telephone Encounter - Maye Zamora LPN - 07/21/2021 2:07 PM EDT Pt was notified of lab results & instructions, pt states understanding. Maye Zamora LPN * Telephone Encounter - Rayne Yang LPN - 07/21/2021 1:17 PM EDT Left message for pt to contact office. Rayne Yang LPN * Telephone Encounter - Marsha Butts PA-C - 07/21/2021 12:46 PM EDT Let patient know that his a1c is 6.2%. this is getting slightly worse. Work on decreasing carbs/sugars. Cholesterol is okay. Metabolic panel is okay. Urine shows small amount of protein. Recheck in 2 weeks. Hydrate prior. Marsha Butts PA-C documented in this encounterProvidence Hospital04-25-2022 Instructions* Patient Instructions* Marsha Butts PA-C - 07/20/2021 8:04 AM EDT Please get labs today. Follow up in 6 months for physical. documented in this encounterProv[facility] Hospital04-25-2022 History of Present illness Narrative* Marsha Butts PA-C - 07/20/2021 7:51 AM EDT Chief Complaint Patient presents with: F/U 6 Month HPI Carson Mcclure is a 65 year old male who presents here today for Chronic Medical Conditions.. Patient with hx of HTN, HLP, GERD, elevated FBG, scoliosis, and those as below. Overall doing well. Has had some left foot pain on and off for the past few months. Had an xray in Jan that was normal. Pain initially was bottom of heel but now more on the back side. Past medical history, appointments, medications, allergies reviewed. Previous Medical History PAST MEDICAL HISTORY Diagnosis Date Anal fissure 05/27/2009 Anxiety 11/06/2018 Asthma childhood Backache, unspecified 10/06/2009 Benign non-nodular prostatic hyperplasia without lower urinary tract symptoms 11/05/2015 Childhood asthma without complication 11/06/2018 Chronic right shoulder pain 09/07/2018 Closed fracture of left distal radius 02/05/2013 Elevated fasting glucose 01/26/2010 Essential hypertension 05/17/2014 External hemorrhoids 11/15/2017 GERD without esophagitis 06/13/2017 Mixed hyperlipidemia 09/02/2009 Scoliosis SVT (supraventricular tachycardia) (HCC) 03/31/2016 Traumatic complete tear of right rotator cuff 11/06/2018 S/p 10/[address] Wharton Well adult exam 07/28/2009 Last done: Previous Surgical History PAST SURGICAL HISTORY Procedure Laterality Date COLONOSCOPY 12/17/2015 repeat due 2025 COLONOSCOPY FLX DX W/COLLJ SPEC WHEN PFRMD 11/03/2007 Colonoscopy recheck 10 yrs COLONOSCOPY FLX DX W/COLLJ SPEC WHEN PFRMD 10/28/2020 ESOPHAGOGASTRODUODENOSCOPY TRANSORAL DIAGNOSTIC 05/20/2016 EGD ESOPHAGOGASTRODUODENOSCOPY TRANSORAL DIAGNOSTIC 10/28/2020 repeat in 3-4 years FRACTURE SURGERY HERNIA REPAIR HX 1961, 1982 x 2 right/left OPEN RX DISTAL RADIUS FX, INTRA-ARTICULAR, 3+ FRAG 02/07/2013 ORIF left distal radius with locking plate ORIF CARPOMETACARPAL DISLOC,COMPLX/JOSE REPAIR ROTATOR CUFF,ACUTE Right 10/2018 TONSILLECTOMY PRIMARY/SECONDARY <AGE 13 Tonsillectomy Family History FAMILY HISTORY Problem Relation Age of Onset Diabetes Father later in life Hypertension Father and CHF Heart Maternal Grandfather [place] Alzheimer's Disease Mother Heart Mother pacemaker other (scoliosis) Mother s/p spinal fusion other (scoliosis) Son s/p spinal fusion Psychiatry Sister bipolar Alzheimer's Disease Sister Dx in 50's Patient Allergies ALLERGIES No Known Allergies Current Medications Current Outpatient Medications on File Prior to Visit Medication Sig lisinopril (ZESTRIL, PRINIVIL) 5 mg tablet Take 1 tablet by mouth once daily. GLUC/CHND/OM3/DHA/EPA/FISH/STR (GLUCOSAMINE CHONDROITIN PLUS ORAL) Take by mouth. calcium carbonate 600 mg-cholecalciferol 200 units (CALCIUM 600 + D,3,) 600 mg(1,500mg) -200 unit tab Take 1 tablet by mouth once daily. docusate sodium (COLACE) 100 mg capsule Take 1 capsule by mouth once daily. No current facility-administered medications on file prior to visit. Social History Social History Tobacco Use Smoking status: Never Smoker Smokeless tobacco: Never Used Vaping Use Vaping Use: Never used Substance Use Topics Alcohol use: No Drug use: No Review of Symptoms REVIEW OF SYSTEMS GENERAL: No weight loss, malaise or fevers NECK: Negative for lumps, goiter, pain and significant neck swelling RESPIRATORY: Negative for cough, hemoptysis, wheezing, COPD, dyspnea or shortness of breath CARDIOVASCULAR: Negative for chest pain, leg swelling, hypertension, CHF or palpitations NEURO: No history of headaches, syncope, paralysis, seizures or tremors EXAM: BP 106/78 (BP Site: Left Arm, BP Position: Sitting, BP Cuff Size: Large Adult) Pulse 72 Temp 36.2 C (97.2 F) Resp 16 Wt 77.1 kg (170 lb) BMI 26.68 kg/m General Appearance: Well appearing, alert, in no acute distress, well-hydrated, well nourished.. Neck: Supple, no adenopathy; thyroid symmetric, normal size, no bruits. Lungs: Lungs clear to auscultation. No wheezing, rhonchi, rales.. Heart: RRR without murmur, gallop, or rubs. No ectopy. Extremities: No deformities, edema, skin discoloration, clubbing or cyanosis. Good capillary refill. . Musculoskeletal: mild tenderness to palp of left achilles tendon. FROM NVI.. Peripheral Pulses: Normal. Health Maintenance List BP CONTROLLED (<130/80) Never done DEPRESSION SCREENING due on 07/14/2021 ANNUAL PCP TEAM CHRONIC DISEASE VISIT due on 01/05/2022 DIABETES SCREEN due on 12/26/2023 LIPID SCREEN due on 2025 PROSTATE CANCER SCREENING DISCUSSION due on 2025 COLORECTAL CANCER SCREENING due on 10/28/2025 DTAP,TDAP,TD(3 - Td or Tdap) due on 11/16/2027 INFLUENZA Completed HEPATITIS C SCREENING Completed HIV SCREENING Completed SHINGRIX VACCINE Completed COVID-19 VACCINE Completed MENINGOCOCCAL CONJUGATE Aged Out SPIROMETRY Discontinued Data reviewed N/a ASSESSMENT/PLAN: 1. Essential hypertension - ICD9: 401.9, ICD10: I10 (primary diagnosis) - good control - Continue current medication(s) - Recommended regular aerobic exercise. - Recommend home blood pressure monitoring, to bring results in on next visit - Goal of BP <130/80 2. Mixed hyperlipidemia - ICD9: 272.2, ICD10: E78.2 - to be determined upon return of lab results - Continue current therapy. 3. Elevated fasting glucose - ICD9: 790.21, ICD10: R73.01 Await labs 4. Scoliosis, unspecified scoliosis type, unspecified spinal region - ICD9: 737.30, ICD10: M41.9 No new issues 5. GERD without esophagitis - ICD9: 530.81, ICD10: K21.9 - stable 6. Microscopic hematuria - ICD9: 599.72, ICD10: R31.29 stable 7. Mild intermittent childhood asthma without complication - ICD9: 493.00, ICD10: J45.20 Stable - Avoidance of triggers recommended 8. SVT (supraventricular tachycardia) (HCC) - ICD9: 427.89, ICD10: I47.1 No new issues 9. Pain of left heel - ICD9: 729.5, ICD10: M79.672 Discussed stretches and anti-inflammatories. Consider Physical Therapy. F/u 6 months PE. Marsha Butts PA-C documented in this encounterProv[facility]11-23-2021 History of Present illness Narrative* Wil Pimentel RT(R) - 02/17/2021 9:50 AM EST Radiology Service Progress Note PATIENT NAME: Carson Mcclure DATE OF SERVICE: February 17, 2021 TIME: 9:58 AM PATIENT IDENTITY VERIFICATION COMPLETED USING TWO (2) IDENTIFIERS: Name and Date of confirmedby patient verbally. FALL SCREENING: Has the patient had 2 falls in the last year or 1 fall with injury or currently using an Ambulatory Assistive Device (Walker, Cane, Wheelchair, Crutches, etc.)? No PATIENT GENDER DATA: Female. status: : No status: NO. PATIENT RELEVANT IMPLANT DATA REVIEWED: Not Applicable RADIOLOGY DEPARTMENT: General X-ray: Exam(s) Completed: Lower Extremity X- Ray(s): Foot, Left and Wt. Bearing PERIPHERAL IV DATA: Not applicable SIGNED BY: RT Michael(Katina) February 17, 2021 9:58 AM documented in this encounterProv[facility]06-02-2021 History of Present illness Narrative* Marlene Vidal RT(Katina) - 08/27/2020 6:20 PM EDT Radiology Service Progress Note PATIENT NAME: Carson Mcclure DATE OF SERVICE: August 27, 2020 TIME: 6:29 PM PATIENT IDENTITY VERIFICATION COMPLETED USING TWO (2) IDENTIFIERS: Name and Date of confirmedby patient verbally. FALL SCREENING: Has the patient had 2 falls in the last year or 1 fall with injury or currently using an Ambulatory Assistive Device (Walker, Cane, Wheelchair, Crutches, etc.)? No PATIENT GENDER DATA: Male PATIENT RELEVANT IMPLANT DATA REVIEWED: Yes RADIOLOGY DEPARTMENT: General X-ray: Exam(s) Completed: Upper Extremity X- Ray(s): Wrist, bilateral PERIPHERAL IV DATA: Not applicable SIGNED BY: RT Edgar(Katina) August 27, 2020 6:29 PM documented in this encounterProv[facility]06-08-2010 History of Past illness Narrative* Problem Noted Date Resolved Date Wart 09/02/2009 08/03/2010 Rectal bleeding 05/27/2009 08/03/2010 Chest pain, unspecified 06/19/2007 03/12/20 08 Neoplasm of uncertain behavior of skin 18200 6 07/28/2009 documented as of this encounter (statuses as of 07/20/2021) [facility] Narrative* Problem Noted Date Resolved Date Wart 09/02/2009 08/03/2010 Rectal bleeding 05/27/2009 08/03/2010 Chest pain, unspecified 06/19/2007 03/12/20 08 Neoplasm of uncertain behavior of skin 200 6 07/28/2009 documented as of this encounter (statuses as of 07/21/2021) [facility] Narrative* Problem Noted Date Resolved Date Wart 09/02/2009 08/03/2010 Rectal bleeding 05/27/2009 08/03/2010 Chest pain, unspecified 06/19/2007 03/12/20 08 Neoplasm of uncertain behavior of skin 200 6 07/28/2009 documented as of this encounter (statuses as of 07/31/2021) [facility] Narrative* Problem Noted Date Resolved Date Wart 09/02/2009 08/03/2010 Rectal bleeding 05/27/2009 08/03/2010 Chest pain, unspecified 06/19/2007 03/12/20 08 Neoplasm of uncertain behavior of skin 200 6 07/28/2009 documented as of this encounter (statuses as of 08/13/2021) [facility] Narrative* Problem Noted Date Resolved Date Wart 09/02/2009 08/03/2010 Rectal bleeding 05/27/2009 08/03/2010 Chest pain, unspecified 06/19/2007 03/12/20 08 Neoplasm of uncertain behavior of skin 200 6 07/28/2009 documented as of this encounter (statuses as of 08/17/2021) [facility]ative* Problem Noted Date Resolved Date Wart 09/02/2009 08/03/2010 Rectal bleeding 05/27/2009 08/03/2010 Chest pain, unspecified 06/19/2007 03/12/20 08 Neoplasm of uncertain behavior of skin 18200 6 07/28/2009 documented as of this encounter (statuses as of 08/26/2021) [facility] Narrative* Problem Noted Date Resolved Date Wart 09/02/2009 08/03/2010 Rectal bleeding 05/27/2009 08/03/2010 Chest pain, unspecified 06/19/2007 03/12/20 08 Neoplasm of uncertain behavior of skin 6 07/28/2009 documented as of this encounter (statuses as of 09/07/2021) [facility]ative* Problem Noted Date Resolved Date Wart 09/02/2009 08/03/2010 Rectal bleeding 05/27/2009 08/03/2010 Chest pain, unspecified 06/19/2007 03/12/20 08 Neoplasm of uncertain behavior of skin 6 07/28/2009 documented as of this encounter (statuses as of 11/07/2021) [facility]ative* Problem Noted Date Resolved Date Wart 09/02/2009 08/03/2010 Rectal bleeding 05/27/2009 08/03/2010 Chest pain, unspecified 06/19/2007 03/12/20 08 Neoplasm of uncertain behavior of skin 6 07/28/2009 documented as of this encounter (statuses as of 02/16/2022) [facility]* Problem Noted Date Resolved Date Wart 09/02/2009 08/03/2010 Rectal bleeding 05/27/2009 08/03/2010 Chest pain, unspecified 06/19/2007 03/12/20 08 Neoplasm of uncertain behavior of skin 6 07/28/2009 documented as of this encounter (statuses as of 02/22/2022) [facility]* Problem Noted Date Resolved Date Wart 09/02/2009 08/03/2010 Rectal bleeding 05/27/2009 08/03/2010 Chest pain, unspecified 06/19/2007 03/12/20 08 Neoplasm of uncertain behavior of skin 200 6 07/28/2009 documented as of this encounter (statuses as of 05/06/2022) [facility]* Problem Noted Date Resolved Date Wart 09/02/2009 08/03/2010 Rectal bleeding 05/27/2009 08/03/2010 Chest pain, unspecified 06/19/2007 03/12/20 08 Neoplasm of uncertain behavior of skin 200 6 07/28/2009 documented as of this encounter (statuses as of 05/08/2022) [facility]* Problem Noted Date Resolved Date Wart 09/02/2009 08/03/2010 Rectal bleeding 05/27/2009 08/03/2010 Chest pain, unspecified 06/19/2007 03/12/20 08 Neoplasm of uncertain behavior of skin 200 6 07/28/2009 documented as of this encounter (statuses as of 05/10/2022) [facility]* Problem Noted Date Resolved Date Wart 09/02/2009 08/03/2010 Rectal bleeding 05/27/2009 08/03/2010 Chest pain, unspecified 06/19/2007 03/12/20 08 Neoplasm of uncertain behavior of skin 200 6 07/28/2009 documented as of this encounter (statuses as of 05/25/2022) [facility]* Problem Noted Date Resolved Date Wart 09/02/2009 08/03/2010 Rectal bleeding 05/27/2009 08/03/2010 Chest pain, unspecified 06/19/2007 03/12/20 08 Neoplasm of uncertain behavior of skin 200 6 07/28/2009 documented as of this encounter (statuses as of 05/27/2022) [facility]* Problem Noted Date Resolved Date Wart 09/02/2009 08/03/2010 Rectal bleeding 05/27/2009 08/03/2010 Chest pain, unspecified 06/19/2007 03/12/20 08 Neoplasm of uncertain behavior of skin 18/200 6 07/28/2009 documented as of this encounter (statuses as of 05/28/2022) [facility]* Problem Noted Date Resolved Date Wart 09/02/2009 08/03/2010 Rectal bleeding 05/27/2009 08/03/2010 Chest pain, unspecified 06/19/2007 03/12/20 08 Neoplasm of uncertain behavior of skin 200 6 07/28/2009 documented as of this encounter (statuses as of 06/02/2022) [facility]* Problem Noted Date Resolved Date Wart 09/02/2009 08/03/2010 Rectal bleeding 05/27/2009 08/03/2010 Chest pain, unspecified 06/19/2007 03/12/20 08 Neoplasm of uncertain behavior of skin 200 6 07/28/2009 documented as of this encounter (statuses as of 06/03/2022) [facility]* Problem Noted Date Resolved Date Wart 09/02/2009 08/03/2010 Rectal bleeding 05/27/2009 08/03/2010 Chest pain, unspecified 06/19/2007 03/12/20 08 Neoplasm of uncertain behavior of skin 200 6 07/28/2009 documented as of this encounter (statuses as of 06/03/2022) [facility]* Problem Noted Date Resolved Date Wart 09/02/2009 08/03/2010 Rectal bleeding 05/27/2009 08/03/2010 Chest pain, unspecified 06/19/2007 03/12/20 08 Neoplasm of uncertain behavior of skin 200 6 07/28/2009 documented as of this encounter (statuses as of 06/09/2022) [facility]* Problem Noted Date Resolved Date Wart 09/02/2009 08/03/2010 Rectal bleeding 05/27/2009 08/03/2010 Chest pain, unspecified 06/19/2007 03/12/20 08 Neoplasm of uncertain behavior of skin 200 6 07/28/2009 documented as of this encounter (statuses as of 06/28/2022) [facility]* Problem Noted Date Resolved Date Wart 09/02/2009 08/03/2010 Rectal bleeding 05/27/2009 08/03/2010 Chest pain, unspecified 06/19/2007 03/12/20 08 Neoplasm of uncertain behavior of skin 200 6 07/28/2009 documented as of this encounter (statuses as of 07/08/2022) [facility]* Problem Noted Date Resolved Date Wart 09/02/2009 08/03/2010 Rectal bleeding 05/27/2009 08/03/2010 Chest pain, unspecified 06/19/2007 03/12/20 08 Neoplasm of uncertain behavior of skin 6 07/28/2009 documented as of this encounter (statuses as of 07/20/2022) [facility] Problem Noted Date Resolved Date Wart 09/02/2009 08/03/2010 Rectal bleeding 05/27/2009 08/03/2010 Chest pain, unspecified 06/19/2007 03/12/20 08 Neoplasm of uncertain behavior of skin 6 07/28/2009 documented as of this encounter (statuses as of 08/27/2022) [facility]* Problem Noted Date Resolved Date Wart 09/02/2009 08/03/2010 Rectal bleeding 05/27/2009 08/03/2010 Chest pain, unspecified 06/19/2007 03/12/20 08 Neoplasm of uncertain behavior of skin 6 07/28/2009 documented as of this encounter (statuses as of 08/28/2022) [facility]* Problem Noted Date Resolved Date Wart 09/02/2009 08/03/2010 Rectal bleeding 05/27/2009 08/03/2010 Chest pain, unspecified 06/19/2007 03/12/20 08 Neoplasm of uncertain behavior of skin 200 6 07/28/2009 documented as of this encounter (statuses as of 08/30/2022) [facility]* Problem Noted Date Resolved Date Wart 09/02/2009 08/03/2010 Rectal bleeding 05/27/2009 08/03/2010 Chest pain, unspecified 06/19/2007 03/12/20 08 Neoplasm of uncertain behavior of skin 200 6 07/28/2009 documented as of this encounter (statuses as of 09/14/2022) [facility]* Problem Noted Date Resolved Date Wart 09/02/2009 08/03/2010 Rectal bleeding 05/27/2009 08/03/2010 Chest pain, unspecified 06/19/2007 03/12/20 Neoplasm of uncertain behavior of skin 6 07/28/2009 documented as of this encounter (statuses as of 09/30/2022) [facility]* Problem Noted Date Diagnosed Date Resolved Date Wart 09/02/2009 08/03/2010 Rectal bleeding 05/27/2009 08/03/2010 Chest pain, unspecified 06/19/200702/25 Neoplasm of uncertain behavior of skin 02/12/2006 07/28/2009 documented as of this encounter (statuses as of 10/13/2022) [facility]* Problem Noted Date Diagnosed Date Resolved Date Wart 09/02/2009 08/03/2010 Rectal bleeding 05/27/2009 08/03/2010 Chest pain, unspecified 06/19/200702/25 Neoplasm of uncertain behavior of skin 02/12/2006 07/28/2009 documented as of this encounter (statuses as of 10/13/2022) [facility] Problem Noted Date Diagnosed Date Resolved Date Wart 09/02/2009 08/03/2010 Rectal bleeding 05/27/2009 08/03/2010 Chest pain, unspecified 06/19/200702/25 Neoplasm of uncertain behavior of skin 02/12/2006 07/28/2009 documented as of this encounter (statuses as of 11/02/2022) [facility] Problem Noted Date Diagnosed Date Resolved Date Wart 09/02/2009 08/03/2010 Rectal bleeding 05/27/2009 08/03/2010 Chest pain, unspecified 06/19/200702/25 Neoplasm of uncertain behavior of skin 02/12/2006 07/28/2009 documented as of this encounter (statuses as of 11/10/2022) [facility] Problem Noted Date Diagnosed Date Resolved Date Wart 09/02/2009 08/03/2010 Rectal bleeding 05/27/2009 08/03/2010 Chest pain, unspecified 06/19/200702/25 Neoplasm of uncertain behavior of skin 02/12/2006 07/28/2009 documented as of this encounter (statuses as of 11/24/2022) [facility] Problem Noted Date Diagnosed Date Resolved Date Wart 09/02/2009 08/03/2010 Rectal bleeding 05/27/2009 08/03/2010 Chest pain, unspecified 06/19/200702/25 Neoplasm of uncertain behavior of skin 02/12/2006 07/28/2009 documented as of this encounter (statuses as of 12/07/2022) [facility]* Problem Noted Date Diagnosed Date Resolved Date Wart 09/02/2009 08/03/2010 Rectal bleeding 05/27/2009 08/03/2010 Chest pain, unspecified 06/19/200702/25 Neoplasm of uncertain behavior of skin 02/12/2006 07/28/2009 documented as of this encounter (statuses as of 12/10/2022) [facility]* Problem Noted Date Diagnosed Date Resolved Date Wart 09/02/2009 08/03/2010 Rectal bleeding 05/27/2009 08/03/2010 Chest pain, unspecified 06/19/200702/25 Neoplasm of uncertain behavior of skin 02/12/2006 07/28/2009 documented as of this encounter (statuses as of 01/07/2023) [facility] Problem Noted Date Diagnosed Date Resolved Date Wart 09/02/2009 08/03/2010 Rectal bleeding 05/27/2009 08/03/2010 Chest pain, unspecified 06/19/200702/25 Neoplasm of uncertain behavior of skin 02/12/2006 07/28/2009 documented as of this encounter (statuses as of 01/10/2023) [facility]* Problem Noted Date Diagnosed Date Resolved Date Wart 09/02/2009 08/03/2010 Rectal bleeding 05/27/2009 08/03/2010 Chest pain, unspecified 06/19/200702/25 Neoplasm of uncertain behavior of skin 02/12/2006 07/28/2009 documented as of this encounter (statuses as of 01/30/2023) [facility]* Problem Noted Date Diagnosed Date Resolved Date Wart 09/02/2009 08/03/2010 Rectal bleeding 05/27/2009 08/03/2010 Chest pain, unspecified 06/19/200702/25 Neoplasm of uncertain behavior of skin 02/12/2006 07/28/2009 documented as of this encounter (statuses as of 02/04/2023) [facility] History of Past illness Narrative* Problem Noted Date Diagnosed Date Resolved Date Wart 09/02/2009 08/03/2010 Rectal bleeding 05/27/2009 08/03/2010 Chest pain, unspecified 06/19/200702/25 Neoplasm of uncertain behavior of skin 02/12/2006 07/28/2009 documented as of this encounter (statuses as of 05/27/2023) [facility] History of Past illness Narrative* Problem Noted Date Diagnosed Date Resolved Date Wart 09/02/2009 08/03/2010 Rectal bleeding 05/27/2009 08/03/2010 Chest pain, unspecified 06/19/200702/25 Neoplasm of uncertain behavior of skin 02/12/2006 07/28/2009 documented as of this encounter (statuses as of 06/01/2023) [facility] History of Past illness Narrative* Problem Noted Date Diagnosed Date Resolved Date Wart 09/02/2009 08/03/2010 Rectal bleeding 05/27/2009 08/03/2010 Chest pain, unspecified 06/19/200702/25 Neoplasm of uncertain behavior of skin 02/12/2006 07/28/2009 documented as of this encounter (statuses as of 06/01/2023) [facility] History of Past illness Narrative* Problem Noted Date Diagnosed Date Resolved Date Wart 09/02/2009 08/03/2010 Rectal bleeding 05/27/2009 08/03/2010 Chest pain, unspecified 06/19/200702/25 Neoplasm of uncertain behavior of skin 02/12/2006 07/28/2009 documented as of this encounter (statuses as of 06/17/2023) [facility] History of Past illness Narrative* Problem Noted Date Diagnosed Date Resolved Date Wart 09/02/2009 08/03/2010 Rectal bleeding 05/27/2009 08/03/2010 Chest pain, unspecified 06/19/200702/25 Neoplasm of uncertain behavior of skin 02/12/2006 07/28/2009 documented as of this encounter (statuses as of 07/01/2023) [facility] History of Past illness Narrative* Problem Noted Date Diagnosed Date Resolved Date Wart 09/02/2009 08/03/2010 Rectal bleeding 05/27/2009 08/03/2010 Chest pain, unspecified 06/19/200702/25 Neoplasm of uncertain behavior of skin 02/12/2006 07/28/2009 documented as of this encounter (statuses as of 07/06/2023) [facility] History of Past illness Narrative* Problem Noted Date Diagnosed Date Resolved Date Wart 09/02/2009 08/03/2010 Rectal bleeding 05/27/2009 08/03/2010 Chest pain, unspecified 06/19/200702/25 Neoplasm of uncertain behavior of skin 02/12/2006 07/28/2009 documented as of this encounter (statuses as of 07/11/2023) [facility] No data available for this section [facility] Evaluation note* Diagnosis Essential hypertension- Primary Unspecified essential hypertension Mixed hyperlipidemia Elevated fasting glucose Impaired fasting glucose Scoliosis, unspecified scoliosis type, unspecified spinal region GERD without esophagitis Esophageal reflux Microscopic hematuria Mild intermittent childhood asthma without complication SVT (supraventricular tachycardia) (HCC) Other specified cardiac dysrhythmias Pain of left heel Pain in limb [facility] Proteinuria, unspecified type- Primary [facility] Diagnosis Hematochezia- Primary Blood in stool [facility] Diagnosis Hematochezia- Primary Blood in stool Internal hemorrhoids Internal hemorrhoids without mention of complication [facility] Diagnosis Well adult exam- Primary Routine general medical examination at a health care facility Essential hypertension Unspecified essential hypertension Mixed hyperlipidemia Elevated fasting glucose Impaired fasting glucose GERD without esophagitis Esophageal reflux SVT (supraventricular tachycardia) (HCC) Other specified cardiac dysrhythmias Anxiety Anxiety state, unspecified Benign non-nodular prostatic hyperplasia without lower urinary tract symptoms Living will in place Advance directive discussed with patient Other specified counseling Prostate cancer screening Special screening for malignant neoplasm of prostate Need for vaccination Need for prophylactic vaccination and inoculation against unspecified single disease Encounter for immunization Need for other specified prophylactic vaccination against single bacterial disease [facility] noteNo assessment information availableWH[facility] Work Phone: Evaluation note* Diagnosis Near syncope- Primary Syncope and collapse Lightheaded Dizziness and giddiness Diaphoresis Generalized hyperhidrosis Atypical chest pain Other chest pain Heart murmur Undiagnosed cardiac murmurs SVT (supraventricular tachycardia) (HCC) Other specified cardiac dysrhythmias [facility]* Diagnosis Near syncope- Primary Syncope and collapse Lightheaded Dizziness and giddiness [facility]* Diagnosis Dizziness- Primary Dizziness and giddiness Lightheaded Dizziness and giddiness [facility]* Diagnosis Dizziness- Primary Dizziness and giddiness [facility]* Diagnosis Dizziness- Primary Dizziness and giddiness [facility]* Diagnosis Dizziness- Primary Dizziness and giddiness Unsteadiness Abnormality of gait Sensorineural hearing loss (SNHL) of both ears Lightheadedness Dizziness and giddiness documented [facility] this [facility]* Diagnosis Imbalance- Primary Abnormality of gait Sensorineural hearing loss (SNHL) of both ears [facility]* Diagnosis Dizziness Dizziness and giddiness [facility]* Diagnosis Dizziness- Primary Dizziness and giddiness Imbalance Abnormality of gait [facility]* Diagnosis Examination- Primary Unspecified examination [facility]* Diagnosis Medication management- Primary Encounter for long-term (current) use of other medications GERD without esophagitis Esophageal reflux SVT (supraventricular tachycardia) (HCC) Other specified cardiac dysrhythmias Essential hypertension Unspecified essential hypertension Mixed hyperlipidemia Benign non-nodular prostatic hyperplasia without lower urinary tract symptoms Vestibular disequilibrium, unspecified laterality documented [facility] this encounter [facility]* Diagnosis Viral warts, unspecified type- Primary [facility]* Diagnosis Dizziness- Primary Dizziness and giddiness Imbalance Abnormality of gait [facility]* Diagnosis Dysphagia, unspecified type- Primary Fungal esophagitis Other esophagitis [facility]* Diagnosis Dizziness- Primary Dizziness and giddiness Imbalance Abnormality of gait [facility]* Diagnosis Hiatal hernia- Primary Diaphragmatic hernia without mention of obstruction or gangrene Gastritis and duodenitis Unspecified gastritis and gastroduodenitis without mention of hemorrhage Gastroesophageal reflux disease with esophagitis without hemorrhage [facility]* Diagnosis GERD without esophagitis- Primary Esophageal reflux Hiatal hernia Diaphragmatic hernia without mention of obstruction or gangrene Dysphagia, unspecified type [facility]* Diagnosis Dizziness- Primary Dizziness and giddiness Imbalance Abnormality of gait [facility]* Diagnosis Encounter for Medicare annual wellness exam- Primary Routine general medical examination at a health care facility Essential hypertension Unspecified essential hypertension Mixed hyperlipidemia Elevated fasting glucose Impaired fasting glucose GERD without esophagitis Esophageal reflux SVT (supraventricular tachycardia) (HCC) Other specified cardiac dysrhythmias Stenosis of left carotid artery Occlusion and stenosis of carotid artery without mention of cerebral infarction Anxiety Anxiety state, unspecified Benign non-nodular prostatic hyperplasia without lower urinary tract symptoms Inguinal hernia, right Inguinal hernia without mention of obstruction or gangrene, unilateral or unspecified, (not specified as recurrent) Encounter for immunization Need for other specified prophylactic vaccination against single bacterial disease Prostate disorder Unspecified disorder of prostate Medication management Encounter for long-term (current) use of other medications [facility] Diagnosis Common wart- Primary Other specified viral warts [facility]* Diagnosis Inguinal hernia, right Inguinal hernia without mention of obstruction or gangrene, unilateral or unspecified, (not specified as recurrent) [facility]* Diagnosis Unilateral recurrent inguinal hernia without obstruction or gangrene- Primary Inguinal hernia without mention of obstruction or gangrene, recurrent unilateral or unspecified Unilateral recurrent inguinal hernia without obstruction or gangrene Inguinal hernia without mention of obstruction or gangrene, recurrent unilateral or unspecified [facility]* Diagnosis Pre-op evaluation- Primary Preoperative examination, unspecified Unilateral recurrent inguinal hernia without obstruction or gangrene Inguinal hernia without mention of obstruction or gangrene, recurrent unilateral or unspecified Essential hypertension Unspecified essential hypertension GERD without esophagitis Esophageal reflux Mixed hyperlipidemia SVT (supraventricular tachycardia) (HCC) Other specified cardiac dysrhythmias Mild intermittent childhood asthma without complication Elevated hemoglobin A1c Other abnormal blood chemistry Anxiety Anxiety state, unspecified Stenosis of left carotid artery Occlusion and stenosis of carotid artery without mention of cerebral infarction Benign non-nodular prostatic hyperplasia without lower urinary tract symptoms Unilateral recurrent inguinal hernia without obstruction or gangrene Inguinal hernia without mention of obstruction or gangrene, recurrent unilateral or unspecified [facility]* Diagnosis Status post laparoscopic hernia repair- Primary Other postprocedural status [facility]* Diagnosis Effusion of bursa of right knee- Primary [facility]* Diagnosis Pre-operative examination- Primary Preoperative examination, unspecified Traumatic complete tear of right rotator cuff, sequela Mixed hyperlipidemia Essential hypertension Unspecified essential hypertension SVT (supraventricular tachycardia) (HCC) Other specified cardiac dysrhythmias GERD without esophagitis Esophageal reflux Dysphagia, unspecified type Elevated fasting glucose Impaired fasting glucose Benign non-nodular prostatic hyperplasia without lower urinary tract symptoms Mild intermittent childhood asthma without complication Anxiety Anxiety state, unspecified Pre-op evaluation- Primary Preoperative examination, unspecified Unilateral recurrent inguinal hernia without obstruction or gangrene Inguinal hernia without mention of obstruction or gangrene, recurrent unilateral or unspecified Essential hypertension Unspecified essential hypertension GERD without esophagitis Esophageal reflux Mixed hyperlipidemia SVT (supraventricular tachycardia) (HCC) Other specified cardiac dysrhythmias Mild intermittent childhood asthma without complication Elevated hemoglobin A1c Other abnormal blood chemistry Anxiety Anxiety state, unspecified Stenosis of left carotid artery Occlusion and stenosis of carotid artery without mention of cerebral infarction Benign non-nodular prostatic hyperplasia without lower urinary tract symptoms Rash- Primary Rash and other nonspecific skin eruption [facility]* Diagnosis Pre-operative examination- Primary Preoperative examination, unspecified Traumatic complete tear of right rotator cuff, sequela Mixed hyperlipidemia Essential hypertension Unspecified essential hypertension SVT (supraventricular tachycardia) (HCC) Other specified cardiac dysrhythmias GERD without esophagitis Esophageal reflux Dysphagia, unspecified type Elevated fasting glucose Impaired fasting glucose Benign non-nodular prostatic hyperplasia without lower urinary tract symptoms Mild intermittent childhood asthma without complication Anxiety Anxiety state, unspecified Pre-op evaluation- Primary Preoperative examination, unspecified Unilateral recurrent inguinal hernia without obstruction or gangrene Inguinal hernia without mention of obstruction or gangrene, recurrent unilateral or unspecified Essential hypertension Unspecified essential hypertension GERD without esophagitis Esophageal reflux Mixed hyperlipidemia SVT (supraventricular tachycardia) (HCC) Other specified cardiac dysrhythmias Mild intermittent childhood asthma without complication Elevated hemoglobin A1c Other abnormal blood chemistry Anxiety Anxiety state, unspecified Stenosis of left carotid artery Occlusion and stenosis of carotid artery without mention of cerebral infarction Benign non-nodular prostatic hyperplasia without lower urinary tract symptoms Pressure injury of buttock, unstageable, unspecified laterality ([facility])- Primary documented in this encounter [facility] note* Diagnosis Pre-operative examination- Primary Preoperative examination, unspecified Traumatic complete tear of right rotator cuff, sequela Mixed hyperlipidemia Essential hypertension Unspecified essential hypertension SVT (supraventricular tachycardia) ([facility]) Other specified cardiac dysrhythmias GERD without esophagitis Esophageal reflux Dysphagia, unspecified type Elevated fasting glucose Impaired fasting glucose Benign non-nodular prostatic hyperplasia without lower urinary tract symptoms Mild intermittent childhood asthma without complication Anxiety Anxiety state, unspecified Pain of left heel Pain in limb Pre-op evaluation- Primary Preoperative examination, unspecified Unilateral recurrent inguinal hernia without obstruction or gangrene Inguinal hernia without mention of obstruction or gangrene, recurrent unilateral or unspecified Essential hypertension Unspecified essential hypertension GERD without esophagitis Esophageal reflux Mixed hyperlipidemia SVT (supraventricular tachycardia) ([facility]) Other specified cardiac dysrhythmias Mild intermittent childhood asthma without complication Elevated hemoglobin A1c Other abnormal blood chemistry Anxiety Anxiety state, unspecified Stenosis of left carotid artery Occlusion and stenosis of carotid artery without mention of cerebral infarction Benign non-nodular prostatic hyperplasia without lower urinary tract symptoms documented in this encounter [facility] note* Diagnosis Pre-operative examination- Primary Preoperative examination, unspecified Traumatic complete tear of right rotator cuff, sequela Mixed hyperlipidemia Essential hypertension Unspecified essential hypertension SVT (supraventricular tachycardia) (HCC) Other specified cardiac dysrhythmias GERD without esophagitis Esophageal reflux Dysphagia, unspecified type Elevated fasting glucose Impaired fasting glucose Benign non-nodular prostatic hyperplasia without lower urinary tract symptoms Mild intermittent childhood asthma without complication Anxiety Anxiety state, unspecified Bilateral wrist pain Pain in joint, forearm Pre-op evaluation- Primary Preoperative examination, unspecified Unilateral recurrent inguinal hernia without obstruction or gangrene Inguinal hernia without mention of obstruction or gangrene, recurrent unilateral or unspecified Essential hypertension Unspecified essential hypertension GERD without esophagitis Esophageal reflux Mixed hyperlipidemia SVT (supraventricular tachycardia) (HCC) Other specified cardiac dysrhythmias Mild intermittent childhood asthma without complication Elevated hemoglobin A1c Other abnormal blood chemistry Anxiety Anxiety state, unspecified Stenosis of left carotid artery Occlusion and stenosis of carotid artery without mention of cerebral infarction Benign non-nodular prostatic hyperplasia without lower urinary tract symptoms documented in this encounter [facility] note* Diagnosis Pre-operative examination- Primary Preoperative examination, unspecified Traumatic complete tear of right rotator cuff, sequela Mixed hyperlipidemia Essential hypertension Unspecified essential hypertension SVT (supraventricular tachycardia) ([facility]) Other specified cardiac dysrhythmias GERD without esophagitis Esophageal reflux Dysphagia, unspecified type Elevated fasting glucose Impaired fasting glucose Benign non-nodular prostatic hyperplasia without lower urinary tract symptoms Mild intermittent childhood asthma without complication Anxiety Anxiety state, unspecified Pre-op evaluation- Primary Preoperative examination, unspecified Unilateral recurrent inguinal hernia without obstruction or gangrene Inguinal hernia without mention of obstruction or gangrene, recurrent unilateral or unspecified Essential hypertension Unspecified essential hypertension GERD without esophagitis Esophageal reflux Mixed hyperlipidemia SVT (supraventricular tachycardia) ([facility]) Other specified cardiac dysrhythmias Mild intermittent childhood asthma without complication Elevated hemoglobin A1c Other abnormal blood chemistry Anxiety Anxiety state, unspecified Stenosis of left carotid artery Occlusion and stenosis of carotid artery without mention of cerebral infarction Benign non-nodular prostatic hyperplasia without lower urinary tract symptoms Common wart- Primary Other specified viral warts Encounter for immunization Need for other specified prophylactic vaccination against single bacterial disease documented in this encounter [facility] note* Diagnosis Pre-operative examination- Primary Preoperative examination, unspecified Traumatic complete tear of right rotator cuff, sequela Mixed hyperlipidemia Essential hypertension Unspecified essential hypertension SVT (supraventricular tachycardia) ([facility]) Other specified cardiac dysrhythmias GERD without esophagitis Esophageal reflux Dysphagia, unspecified type Elevated fasting glucose Impaired fasting glucose Benign non-nodular prostatic hyperplasia without lower urinary tract symptoms Mild intermittent childhood asthma without complication Anxiety Anxiety state, unspecified Pre-op evaluation- Primary Preoperative examination, unspecified Unilateral recurrent inguinal hernia without obstruction or gangrene Inguinal hernia without mention of obstruction or gangrene, recurrent unilateral or unspecified Essential hypertension Unspecified essential hypertension GERD without esophagitis Esophageal reflux Mixed hyperlipidemia SVT (supraventricular tachycardia) ([facility]) Other specified cardiac dysrhythmias Mild intermittent childhood asthma without complication Elevated hemoglobin A1c Other abnormal blood chemistry Anxiety Anxiety state, unspecified Stenosis of left carotid artery Occlusion and stenosis of carotid artery without mention of cerebral infarction Benign non-nodular prostatic hyperplasia without lower urinary tract symptoms Essential hypertension- Primary Unspecified essential hypertension Mixed hyperlipidemia Elevated hemoglobin A1c Other abnormal blood chemistry GERD without esophagitis Esophageal reflux Stenosis of left carotid artery Occlusion and stenosis of carotid artery without mention of cerebral infarction Anxiety Anxiety state, unspecified [place] and callosities Prostate disorder Unspecified disorder of prostate Medication management Encounter for long-term (current) use of other medications documented in this encounter [facility] note* Diagnosis Pre-operative examination- Primary Preoperative examination, unspecified Traumatic complete tear of right rotator cuff, sequela Mixed hyperlipidemia Essential hypertension Unspecified essential hypertension SVT (supraventricular tachycardia) ([facility]) Other specified cardiac dysrhythmias GERD without esophagitis Esophageal reflux Dysphagia, unspecified type Elevated fasting glucose Impaired fasting glucose Benign non-nodular prostatic hyperplasia without lower urinary tract symptoms Mild intermittent childhood asthma without complication Anxiety Anxiety state, unspecified Pre-op evaluation- Primary Preoperative examination, unspecified Unilateral recurrent inguinal hernia without obstruction or gangrene Inguinal hernia without mention of obstruction or gangrene, recurrent unilateral or unspecified Essential hypertension Unspecified essential hypertension GERD without esophagitis Esophageal reflux Mixed hyperlipidemia SVT (supraventricular tachycardia) ([facility]) Other specified cardiac dysrhythmias Mild intermittent childhood asthma without complication Elevated hemoglobin A1c Other abnormal blood chemistry Anxiety Anxiety state, unspecified Stenosis of left carotid artery Occlusion and stenosis of carotid artery without mention of cerebral infarction Benign non-nodular prostatic hyperplasia without lower urinary tract symptoms Visit for wound check- Primary Encounter for other specified aftercare documented in this encounter [facility] note* Diagnosis Pre-operative examination- Primary Preoperative examination, unspecified Traumatic complete tear of right rotator cuff, sequela Mixed hyperlipidemia Essential hypertension Unspecified essential hypertension SVT (supraventricular tachycardia) ([facility]) Other specified cardiac dysrhythmias GERD without esophagitis Esophageal reflux Dysphagia, unspecified type Elevated fasting glucose Impaired fasting glucose Benign non-nodular prostatic hyperplasia without lower urinary tract symptoms Mild intermittent childhood asthma without complication Anxiety Anxiety state, unspecified Pre-op evaluation- Primary Preoperative examination, unspecified Unilateral recurrent inguinal hernia without obstruction or gangrene Inguinal hernia without mention of obstruction or gangrene, recurrent unilateral or unspecified Essential hypertension Unspecified essential hypertension GERD without esophagitis Esophageal reflux Mixed hyperlipidemia SVT (supraventricular tachycardia) (HCC) Other specified cardiac dysrhythmias Mild intermittent childhood asthma without complication Elevated hemoglobin A1c Other abnormal blood chemistry Anxiety Anxiety state, unspecified Stenosis of left carotid artery Occlusion and stenosis of carotid artery without mention of cerebral infarction Benign non-nodular prostatic hyperplasia without lower urinary tract symptoms Dizziness- Primary Dizziness and giddiness Stenosis of left carotid artery Occlusion and stenosis of carotid artery without mention of cerebral infarction documented in this encounter [facility] note* Diagnosis Pre-operative examination- Primary Preoperative examination, unspecified Traumatic complete tear of right rotator cuff, sequela Mixed hyperlipidemia Essential hypertension Unspecified essential hypertension SVT (supraventricular tachycardia) (HCC) Other specified cardiac dysrhythmias GERD without esophagitis Esophageal reflux Dysphagia, unspecified type Elevated fasting glucose Impaired fasting glucose Benign non-nodular prostatic hyperplasia without lower urinary tract symptoms Mild intermittent childhood asthma without complication Anxiety Anxiety state, unspecified Pre-op evaluation- Primary Preoperative examination, unspecified Unilateral recurrent inguinal hernia without obstruction or gangrene Inguinal hernia without mention of obstruction or gangrene, recurrent unilateral or unspecified Essential hypertension Unspecified essential hypertension GERD without esophagitis Esophageal reflux Mixed hyperlipidemia SVT (supraventricular tachycardia) ([facility]) Other specified cardiac dysrhythmias Mild intermittent childhood asthma without complication Elevated hemoglobin A1c Other abnormal blood chemistry Anxiety Anxiety state, unspecified Stenosis of left carotid artery Occlusion and stenosis of carotid artery without mention of cerebral infarction Benign non-nodular prostatic hyperplasia without lower urinary tract symptoms Stenosis of left carotid artery- Primary Occlusion and stenosis of carotid artery without mention of cerebral infarction documented in this encounter [facility] note* Diagnosis Pre-operative examination- Primary Preoperative examination, unspecified Traumatic complete tear of right rotator cuff, sequela Mixed hyperlipidemia Essential hypertension Unspecified essential hypertension SVT (supraventricular tachycardia) ([facility]) Other specified cardiac dysrhythmias GERD without esophagitis Esophageal reflux Dysphagia, unspecified type Elevated fasting glucose Impaired fasting glucose Benign non-nodular prostatic hyperplasia without lower urinary tract symptoms Mild intermittent childhood asthma without complication Anxiety Anxiety state, unspecified Pre-op evaluation- Primary Preoperative examination, unspecified Unilateral recurrent inguinal hernia without obstruction or gangrene Inguinal hernia without mention of obstruction or gangrene, recurrent unilateral or unspecified Essential hypertension Unspecified essential hypertension GERD without esophagitis Esophageal reflux Mixed hyperlipidemia SVT (supraventricular tachycardia) ([facility]) Other specified cardiac dysrhythmias Mild intermittent childhood asthma without complication Elevated hemoglobin A1c Other abnormal blood chemistry Anxiety Anxiety state, unspecified Stenosis of left carotid artery Occlusion and stenosis of carotid artery without mention of cerebral infarction Benign non-nodular prostatic hyperplasia without lower urinary tract symptoms URI, acute- Primary Acute upper respiratory infections of unspecified site [facility] Diagnosis Pre-operative examination- Primary Preoperative examination, unspecified Traumatic complete tear of right rotator cuff, sequela Mixed hyperlipidemia Essential hypertension Unspecified essential hypertension SVT (supraventricular tachycardia) (HCC) Other specified cardiac dysrhythmias GERD without esophagitis Esophageal reflux Dysphagia, unspecified type Elevated fasting glucose Impaired fasting glucose Benign non-nodular prostatic hyperplasia without lower urinary tract symptoms Mild intermittent childhood asthma without complication (HCC) Anxiety Anxiety state, unspecified Pre-op evaluation- Primary Preoperative examination, unspecified Unilateral recurrent inguinal hernia without obstruction or gangrene Inguinal hernia without mention of obstruction or gangrene, recurrent unilateral or unspecified Essential hypertension Unspecified essential hypertension GERD without esophagitis Esophageal reflux Mixed hyperlipidemia SVT (supraventricular tachycardia) (HCC) Other specified cardiac dysrhythmias Mild intermittent childhood asthma without complication (HCC) Elevated hemoglobin A1c Other abnormal blood chemistry Anxiety Anxiety state, unspecified Stenosis of left carotid artery Occlusion and stenosis of carotid artery without mention of cerebral infarction Benign non-nodular prostatic hyperplasia without lower urinary tract symptoms Encounter for Medicare annual wellness exam- Primary Routine general medical examination at a health care facility Essential hypertension Unspecified essential hypertension Mixed hyperlipidemia Elevated hemoglobin A1c Other abnormal blood chemistry GERD without esophagitis Esophageal reflux Stenosis of left carotid artery Occlusion and stenosis of carotid artery without mention of cerebral infarction SVT (supraventricular tachycardia) (HCC) Other specified cardiac dysrhythmias Anxiety Anxiety state, unspecified Mild intermittent childhood asthma without complication (HCC) Benign non-nodular prostatic hyperplasia without lower urinary tract symptoms Advance directive discussed with patient Other specified counseling Need for vaccination Need for prophylactic vaccination and inoculation against unspecified single disease Screening for depression [place] and callosities [facility] Outpatient Procedure (Routine) - Authorized Specialty Diagnoses / Procedures Referred By Ari ruiz Referred To [facility] Diagnoses Near syncope Lightheaded Diaphoresis Atypical chest pain Heart murmur Procedures STRESS ECHO TREADMILL ECHO TTHRC R-T 2D W/WO M-MODE COMPLETE REST&ST Marsha Butts PA-C [address] [place] [address] [facility] [address] [place] [address] Referral ID Status Reason Start Date Expiration Date Visits Requested Visits Authorized [id number] Authorized Auto-Generat ed Referral 05/10/2022 05/10/2023 1 1 [facility] for referral (narrative)* Outpatient Procedure (Routine) - Pending Review Specialty Diagnoses / Procedures Referred By Farhatac t Referred To Contact [facility] Diagnoses Near syncope Lightheaded Procedures US CAROTID ARTERIES JINA [facility] DUPLEX SCAN EXTRACRANIAL ART COMPL BI STUDY Marsha Butts PA-C [address] [place] [address] [facility] [address] [place] [id number] Referral ID Status Reason Start Date Expiration Date Visits Requested Visits Authorized [id number] Pending Review Auto-Generat ed Referral 05/25/2022 05/25/2023 1 1 [facility] for referral (narrative)* Outpatient Procedure (Routine) - Closed Specialty Diagnoses / Procedures Referred By Contac t Referred To Contact [facility] Diagnoses Hiatal hernia Dysphagia, unspecified type Procedures EGD DIAGNOSTIC ESOPHAGOGASTRODUODENOSC OPY TRANSORAL DIAGNOSTIC Ana Sewell PA-C [address] [place] [address] [facility] [address] [place] [address] Referral ID Status Reason Start Date Expiration Date V isits Requested Visits Authorized [id number] Closed Auto-Generate d Referral 11/08/2022 11/09/2023 1 1 [facility] for referral (narrative)* Diagnostic Procedure Only (Urgent) - Closed Specialty Diagnoses / Procedures Referred By Contac t Referred To Contact XR IMAGING Diagnoses Pain of left heel Procedures XR FOOT GENERAL 3V AP/LAT/OBL LEFT X-RAY FOOT MINIMUM 3 VIEWS Tr Muse, DANIELLA.TIER AND DETONATOR [address] [place] [address] [place] [address] Referral ID Status Reason Start Date Expiration Date V isits Requested Visits Authorized [id number] Closed Auto-Generate d Referral 02/17/2021 03/19/2022 1 1 [facility] for referral (narrative)* Outpatient Procedure (Routine) - Authorized Specialty Diagnoses / Procedures Referred By Contac t Referred To [facility] Diagnoses Dizziness Stenosis of left carotid artery Procedures US CAROTID ARTERIES JINA VAS LAB DUPLEX SCAN EXTRACRANIAL ART COMPL BI STUDY Tr Montana MD [address] [place] [address] [facility] [address] [place] [address] Referral ID Status Reason Start Date Expiration Date Visits Requested Visits Authorized [id number] Authorized Auto-Generat ed Referral 04/05/2024 04/05/2025 1 1 [facility] for visit Narrative* Outpatient Procedure (Routine) - Closed Specialty Diagnoses / Procedures Referred By Contac t Referred To Contact [facility] Diagnoses Hiatal hernia Dysphagia, unspecified type Procedures EGD DIAGNOSTIC ESOPHAGOGASTRODUODENOSC OPY TRANSORAL DIAGNOSTIC Ana Sewell PA-C [address] [place] [address] [facility] [address] [place], [place] [id number] Referral ID Status Reason Start Date Expiration Date V isits Requested Visits Authorized [id number] Closed Auto-Generate d Referral 11/08/2022 11/09/2023 1 1 [facility] for visit Narrative* Diagnostic Procedure Only (Urgent) - Closed Specialty Diagnoses / Procedures Referred By Contac t Referred To Contact XR IMAGING Diagnoses Pain of left heel Procedures XR FOOT GENERAL 3V AP/LAT/OBL LEFT X-RAY FOOT MINIMUM [address] VIE[address] Tr Muse APRN.OCTAVIO [address] [place] [address] X[facility] Imaging [facility] Referral ID Status Reason Start Date Expiration Date V isits Requested Visits Authorized [id number] Closed Auto-Generate d Referral 02/17/2021 03/19/2022 1 1 [facility] Advance Directives No Advanced Directives Records FoundDocuments on File Type Date Recorded 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 Advance Directive(s) 10/28/2020 6:39 AM Advance Directive(s) 10/16/2020 3:46 PM Advance Directive(s) 11/22/2018 9:18 AM Advance Directive(s) 11/10/2018 4:41 PM Advance Directive(s) 05/20/2016 8:54 AM Advance Directive(s) 12/17/2015 1:11 PM Advance Directive Response Recorded Date/ Time Living Will Yes May 06 6:36am Power of Tile [facility] Yes May 06, 2022 6:36am Name of Medical Power of Tile [facility] Jazzmine Mcclure May 06, 2022 6:36am Advance Directive Response Recorded Date/ Time Name of Medical Power of Tile [facility] Jazzmine Mcclure May 06, 2022 7:36am Living Will Yes May 06 7:36am Power of Tile [facility] Yes May 06, 2022 7:36am Chief Complaint and Reason for Visit Chief Complaint Weakness Chief Complaint Weakness SYNCOPE, LIGHTHEADED, DIAPHORESIS, CP, MURMUR Reason for Referral Specialty Diagnoses / Procedures Referred By Ari ruiz Referred To Contact [facility] Diagnoses Dizziness Procedures CONSULT TO PHYSICAL THERAPY PHYSICAL THERAPY EVALUATION HIGH COMPLEX 45 MINS Marsha Butts PA-C [address] [place] [address] [facility] [address] [place] [address] Referral ID Status Reason Start Date Expiration Date Visits Requested Visits Authorized [id number] Pending Review Auto-Generat ed Referral 06/09/2022 06/09/2023 1 1 Specialty Diagnoses / Procedures Referred By Ari ruiz Referred To Contact Neurology Diagnoses Dizziness Procedures CONSULT TO NEUROLOGY OFFICE/OUTPATIENT NEW HIGH MDM 60-74 MINUTES Marsha Butts PA-C [address] [place] [address] Referral ID Status Reason Start Date Expiration Date Visits Requested Visits Authorized [id number] Pending Review PCP Requested Referral 06/09/2022 06/09/2023 1 1 Specialty Diagnoses / Procedures Referred By Contac t Referred To Contact [facility] Diagnoses Dizziness Procedures PT REHAB FOLLOW UP ORDER THERAPEUTIC EXERCISES RE, EA 15 MIN. Nicolette Kerr, PT [facility] [address] [place] [address] Referral ID Status Reason Start Date Expiration Date Visits Requested Visits Authorized [id number] Pending Review PCP Requested Referral Auto-Generate d Referral 06/28/2022 09/26/2022 1 1 Specialty Diagnoses / Procedures Referred By Contac t Referred To Contact MR IMAGING Diagnoses Dizziness Unsteadiness Lightheadedness Procedures MRA BRAIN WO IVCON MRA, HEAD W/O CONTRAST Libra Smith PA-C [address] [place] [address] [facility] Referral ID Status Reason Start Date Expiration Date Visits Requested Visits Authorized [id number] Authorized Auto-Generat ed Referral 07/07/2022 08/06/2023 1 1 Specialty Diagnoses / Procedures Referred By Contac t Referred To Contact MR IMAGING Diagnoses Dizziness Unsteadiness Sensorineural hearing loss (SNHL) of both ears Procedures MRI BRAIN WO/W IVCON MRI BRAIN BRAIN STEM W/O W/CONTRAST MATERIAL Libra Smith PA-C [address] [place] [address] [facility] Referral ID Status Reason Start Date Expiration Date Visits Requested Visits Authorized [id number] Authorized Auto-Generat ed Referral 07/07/2022 08/06/2023 1 1 Specialty Diagnoses / Procedures Referred By Contac t Referred To Contact Ent - Otolaryngology Diagnoses Dizziness Procedures CONSULT TO ENT OFFICE/OUTPATIENT [facility] 60-74 MINUTES Libra Smith PA-C [address] [place] [address] Referral ID Status Reason Start Date Expiration Date Visits Requested Visits Authorized [id number] Pending Review PCP Requested Referral 07/07/2022 07/07/2023 1 1 Specialty Diagnoses / Procedures Referred By Contac t Referred To Contact [facility] Diagnoses Dizziness Procedures PT REHAB FOLLOW UP ORDER THERAPEUTIC EXERCISES RE, EA 15 MIN. [facility] [address] [place] [address] [facility] [address] [place] [address] Referral ID Status Reason Start Date Expiration Date Visits Requested Visits Authorized [id number] Pending Review PCP Requested Referral Auto-Generate d Referral 09/29/2022 12/28/2022 1 1 Specialty Diagnoses / Procedures Referred By Contac t Referred To Contact General Surgery Diagnoses Inguinal hernia, right Procedures CONSULT TO GENERAL SURGERY OFFICE/OUTPATIENT [facility] 60 [address]ES Tr Montana MD [address] [place] [address] Referral ID Status Reason Start Date Expiration Date Visits Requested Visits Authorized [id number] Authorized PCP Requested Referral 05/25/2023 05/24/2024 1 1 Summary Purpose Family History No Family History Records FoundNo Family History Records FoundNo Family History Records Found No data available for this section No Family History Records FoundNo Family History Records Found Medications Administered Section Inactive Administered Medications - up to 3 most recent administrations Medication Order MAR Action Action Date Dose Rate Site benzocaine 20% 1 [place] (TOPEX) 1 [place], TOPICAL, DIRECTED, Starting on Tue11/30/22 at 0830, Until Tue11/30/22 at 1229, DOSING DIRECTED BY PHYSICIAN FOR PROCEDURAL SEDATION ONLY - Pharmaceutical Waste: Aerosol -, Intraprocedure Given 11/30/2022 8:04 AM EDT 5 Sprays fentaNYL 50 mcg/mL 25-100 mcg injection (SUBLIMAZE) 25-100 mcg, INTRAVENOUS, DIRECTED, Starting on Tue11/30/22 at 0830, Until Tue11/30/22 at 1229, DOSING DIRECTED BY PHYSICIAN FOR PROCEDURAL SEDATION ONLY, Intraprocedure Given by L[facility] 11/30/2022 8:06 AM EDT 25 mcg Given by [facility] 11/30/2022 8:04 AM EDT 50 mcg lactated ringers iv infusion 30 mL/hr, INTRAVENOUS, CONTINUOUS, Starting on Tue11/30/22 at 0730, Until Tue11/30/22 at 0822, Preprocedure New Bag/Syringe/Bottle 11/30/2022 7:40 AM EDT 30 mL/hr 30 mL/hr midazolam 1-5 mg injection (VERSED) 1-5 mg, INTRAVENOUS, DIRECTED, Starting on Tue11/30/22 at 0830, Until Tue11/30/22 at 1229, DOSING DIRECTED BY PHYSICIAN FOR PROCEDURAL SEDATION ONLY, Intraprocedure Given by [facility] 11/30/2022 8:06 AM EDT 1 mg Given by [facility] 11/30/2022 8:04 AM EDT 3 mg Additional Source Comments Source Comments (unrecognize d section and content) In the event this informatio n is protected by the Federal Confidentiality of Alcohol and Drug Abuse Patient Records regulations: The Federal rules restrict any use of the information to criminally investigate or prosecute any alcohol or drug abuse patient.[facility] the event this information is protected by the Federal Confidentiality of Alcohol and Drug Abuse Patient Records regulations: The Federal rules restrict any use of the information to criminally investigate or prosecute any alcohol or drug abuse patient.[facility] the event this information is protected by the Federal Confidentiality of Alcohol and Drug Abuse Patient Records regulations: The Federal rules restrict any use of the information to criminally investigate or prosecute any alcohol or drug abuse patient.[facility] the event this information is protected by the Federal Confidentiality of Alcohol and Drug Abuse Patient Records regulations: The Federal rules restrict any use of the information to criminally investigate or prosecute any alcohol or drug abuse patient.[facility] the event this information is protected by the Federal Confidentiality of Alcohol and Drug Abuse Patient Records regulations: The Federal rules restrict any use of the information to criminally investigate or prosecute any alcohol or drug abuse patient.[facility] the event this information is protected by the Federal Confidentiality of Alcohol and Drug Abuse Patient Records regulations: The Federal rules restrict any use of the information to criminally investigate or prosecute any alcohol or drug abuse patient.[facility] the event this information is protected by the Federal Confidentiality of Alcohol and Drug Abuse Patient Records regulations: The Federal rules restrict any use of the information to criminally investigate or prosecute any alcohol or drug abuse patient.[facility] the event this information is protected by the Federal Confidentiality of Alcohol and Drug Abuse Patient Records regulations: The Federal rules restrict any use of the information to criminally investigate or prosecute any alcohol or drug abuse patient.[facility] the event this information is protected by the Federal Confidentiality of Alcohol and Drug Abuse Patient Records regulations: The Federal rules restrict any use of the information to criminally investigate or prosecute any alcohol or drug abuse patient.[facility] the event this information is protected by the Federal Confidentiality of Alcohol and Drug Abuse Patient Records regulations: The Federal rules restrict any use of the information to criminally investigate or prosecute any alcohol or drug abuse patient.[facility] the event this information is protected by the Federal Confidentiality of Alcohol and Drug Abuse Patient Records regulations: The Federal rules restrict any use of the information to criminally investigate or prosecute any alcohol or drug abuse patient.[facility] the event this information is protected by the Federal Confidentiality of Alcohol and Drug Abuse Patient Records regulations: The Federal rules restrict any use of the information to criminally investigate or prosecute any alcohol or drug abuse patient.[facility] the event this information is protected by the Federal Confidentiality of Alcohol and Drug Abuse Patient Records regulations: The Federal rules restrict any use of the information to criminally investigate or prosecute any alcohol or drug abuse patient.[facility] the event this information is protected by the Federal Confidentiality of Alcohol and Drug Abuse Patient Records regulations: The Federal rules restrict any use of the information to criminally investigate or prosecute any alcohol or drug abuse patient.[facility] the event this information is protected by the Federal Confidentiality of Alcohol and Drug Abuse Patient Records regulations: The Federal rules restrict any use of the information to criminally investigate or prosecute any alcohol or drug abuse patient.[facility] the event this information is protected by the Federal Confidentiality of Alcohol and Drug Abuse Patient Records regulations: The Federal rules restrict any use of the information to criminally investigate or prosecute any alcohol or drug abuse patient.[facility] the event this information is protected by the Federal Confidentiality of Alcohol and Drug Abuse Patient Records regulations: The Federal rules restrict any use of the information to criminally investigate or prosecute any alcohol or drug abuse patient.[facility] the event this information is protected by the Federal Confidentiality of Alcohol and Drug Abuse Patient Records regulations: The Federal rules restrict any use of the information to criminally investigate or prosecute any alcohol or drug abuse patient.[facility] the event this information is protected by the Federal Confidentiality of Alcohol and Drug Abuse Patient Records regulations: The Federal rules restrict any use of the information to criminally investigate or prosecute any alcohol or drug abuse patient.[facility] HospitalIn the event this information is protected by the Federal Confidentiality of Alcohol and Drug Abuse Patient Records regulations: The Federal rules restrict any use of the information to criminally investigate or prosecute any alcohol or drug abuse patient.[facility] HospitalIn the event this information is protected by the Federal Confidentiality of Alcohol and Drug Abuse Patient Records regulations: The Federal rules restrict any use of the information to criminally investigate or prosecute any alcohol or drug abuse patient.[facility] HospitalIn the event this information is protected by the Federal Confidentiality of Alcohol and Drug Abuse Patient Records regulations: The Federal rules restrict any use of the information to criminally investigate or prosecute any alcohol or drug abuse patient.[facility] HospitalIn the event this information is protected by the Federal Confidentiality of Alcohol and Drug Abuse Patient Records regulations: The Federal rules restrict any use of the information to criminally investigate or prosecute any alcohol or drug abuse patient.[facility] Hospital[facility] the event this information is protected by the Federal Confidentiality of Alcohol and Drug Abuse Patient Records regulations: The Federal rules restrict any use of the information to criminally investigate or prosecute any alcohol or drug abuse patient.[facility] HospitalIn the event this information is protected by the Federal Confidentiality of Alcohol and Drug Abuse Patient Records regulations: The Federal rules restrict any use of the information to criminally investigate or prosecute any alcohol or drug abuse patient.[facility] HospitalIn the event this information is protected by the Federal Confidentiality of Alcohol and Drug Abuse Patient Records regulations: The Federal rules restrict any use of the information to criminally investigate or prosecute any alcohol or drug abuse patient.[facility] HospitalIn the event this information is protected by the Federal Confidentiality of Alcohol and Drug Abuse Patient Records regulations: The Federal rules restrict any use of the information to criminally investigate or prosecute any alcohol or drug abuse patient.[facility] HospitalIn the event this information is protected by the Federal Confidentiality of Alcohol and Drug Abuse Patient Records regulations: The Federal rules restrict any use of the information to criminally investigate or prosecute any alcohol or drug abuse patient.[facility] HospitalIn the event this information is protected by the Federal Confidentiality of Alcohol and Drug Abuse Patient Records regulations: The Federal rules restrict any use of the information to criminally investigate or prosecute any alcohol or drug abuse patient.[facility] HospitalIn the event this information is protected by the Federal Confidentiality of Alcohol and Drug Abuse Patient Records regulations: The Federal rules restrict any use of the information to criminally investigate or prosecute any alcohol or drug abuse patient.[facility] HospitalIn the event this information is protected by the Federal Confidentiality of Alcohol and Drug Abuse Patient Records regulations: The Federal rules restrict any use of the information to criminally investigate or prosecute any alcohol or drug abuse patient.[facility] HospitalIn the event this information is protected by the Federal Confidentiality of Alcohol and Drug Abuse Patient Records regulations: The Federal rules restrict any use of the information to criminally investigate or prosecute any alcohol or drug abuse patient.[facility] HospitalIn the event this information is protected by the Federal Confidentiality of Alcohol and Drug Abuse Patient Records regulations: The Federal rules restrict any use of the information to criminally investigate or prosecute any alcohol or drug abuse patient.[facility] HospitalIn the event this information is protected by the Federal Confidentiality of Alcohol and Drug Abuse Patient Records regulations: The Federal rules restrict any use of the information to criminally investigate or prosecute any alcohol or drug abuse patient.[facility] HospitalIn the event this information is protected by the Federal Confidentiality of Alcohol and Drug Abuse Patient Records regulations: The Federal rules restrict any use of the information to criminally investigate or prosecute any alcohol or drug abuse patient.[facility] HospitalIn the event this information is protected by the Federal Confidentiality of Alcohol and Drug Abuse Patient Records regulations: The Federal rules restrict any use of the information to criminally investigate or prosecute any alcohol or drug abuse patient.[facility] HospitalIn the event this information is protected by the Federal Confidentiality of Alcohol and Drug Abuse Patient Records regulations: The Federal rules restrict any use of the information to criminally investigate or prosecute any alcohol or drug abuse patient.[facility] HospitalIn the event this information is protected by the Federal Confidentiality of Alcohol and Drug Abuse Patient Records regulations: The Federal rules restrict any use of the information to criminally investigate or prosecute any alcohol or drug abuse patient.[facility] HospitalIn the event this information is protected by the Federal Confidentiality of Alcohol and Drug Abuse Patient Records regulations: The Federal rules restrict any use of the information to criminally investigate or prosecute any alcohol or drug abuse patient.[facility] HospitalIn the event this information is protected by the Federal Confidentiality of Alcohol and Drug Abuse Patient Records regulations: The Federal rules restrict any use of the information to criminally investigate or prosecute any alcohol or drug abuse patient.[facility] HospitalIn the event this information is protected by the Federal Confidentiality of Alcohol and Drug Abuse Patient Records regulations: The Federal rules restrict any use of the information to criminally investigate or prosecute any alcohol or drug abuse patient.[facility] HospitalIn the event this information is protected by the Federal Confidentiality of Alcohol and Drug Abuse Patient Records regulations: The Federal rules restrict any use of the information to criminally investigate or prosecute any alcohol or drug abuse patient.[facility] HospitalIn the event this information is protected by the Federal Confidentiality of Alcohol and Drug Abuse Patient Records regulations: The Federal rules restrict any use of the information to criminally investigate or prosecute any alcohol or drug abuse patient.[facility] HospitalIn the event this information is protected by the Federal Confidentiality of Alcohol and Drug Abuse Patient Records regulations: The Federal rules restrict any use of the information to criminally investigate or prosecute any alcohol or drug abuse patient.[facility] HospitalIn the event this information is protected by the Federal Confidentiality of Alcohol and Drug Abuse Patient Records regulations: The Federal rules restrict any use of the information to criminally investigate or prosecute any alcohol or drug abuse patient.[facility] HospitalIn the event this information is protected by the Federal Confidentiality of Alcohol and Drug Abuse Patient Records regulations: The Federal rules restrict any use of the information to criminally investigate or prosecute any alcohol or drug abuse patient.[facility] HospitalIn the event this information is protected by the Federal Confidentiality of Alcohol and Drug Abuse Patient Records regulations: The Federal rules restrict any use of the information to criminally investigate or prosecute any alcohol or drug abuse patient.[facility] HospitalIn the event this information is protected by the Federal Confidentiality of Alcohol and Drug Abuse Patient Records regulations: The Federal rules restrict any use of the information to criminally investigate or prosecute any alcohol or drug abuse patient.[facility] HospitalIn the event this information is protected by the Federal Confidentiality of Alcohol and Drug Abuse Patient Records regulations: The Federal rules restrict any use of the information to criminally investigate or prosecute any alcohol or drug abuse patient.[facility] HospitalIn the event this information is protected by the Federal Confidentiality of Alcohol and Drug Abuse Patient Records regulations: The Federal rules restrict any use of the information to criminally investigate or prosecute any alcohol or drug abuse patient.[facility] HospitalIn the event this information is protected by the Federal Confidentiality of Alcohol and Drug Abuse Patient Records regulations: The Federal rules restrict any use of the information to criminally investigate or prosecute any alcohol or drug abuse patient.[facility] HospitalIn the event this information is protected by the Federal Confidentiality of Alcohol and Drug Abuse Patient Records regulations: The Federal rules restrict any use of the information to criminally investigate or prosecute any alcohol or drug abuse patient.[facility] HospitalIn the event this information is protected by the Federal Confidentiality of Alcohol and Drug Abuse Patient Records regulations: The Federal rules restrict any use of the information to criminally investigate or prosecute any alcohol or drug abuse patient.[facility] HospitalIn the event this information is protected by the Federal Confidentiality of Alcohol and Drug Abuse Patient Records regulations: The Federal rules restrict any use of the information to criminally investigate or prosecute any alcohol or drug abuse patient.[facility] HospitalIn the event this information is protected by the Federal Confidentiality of Alcohol and Drug Abuse Patient Records regulations: The Federal rules restrict any use of the information to criminally investigate or prosecute any alcohol or drug abuse patient.[facility] HospitalIn the event this information is protected by the Federal Confidentiality of Alcohol and Drug Abuse Patient Records regulations: The Federal rules restrict any use of the information to criminally investigate or prosecute any alcohol or drug abuse patient.[facility] HospitalIn the event this information is protected by the Federal Confidentiality of Alcohol and Drug Abuse Patient Records regulations: The Federal rules restrict any use of the information to criminally investigate or prosecute any alcohol or drug abuse patient.[facility] HospitalIn the event this information is protected by the Federal Confidentiality of Alcohol and Drug Abuse Patient Records regulations: The Federal rules restrict any use of the information to criminally investigate or prosecute any alcohol or drug abuse patient.[facility] HospitalIn the event this information is protected by the Federal Confidentiality of Alcohol and Drug Abuse Patient Records regulations: The Federal rules restrict any use of the information to criminally investigate or prosecute any alcohol or drug abuse patient.[facility] HospitalIn the event this information is protected by the Federal Confidentiality of Alcohol and Drug Abuse Patient Records regulations: The Federal rules restrict any use of the information to criminally investigate or prosecute any alcohol or drug abuse patient.[facility] HospitalIn the event this information is protected by the Federal Confidentiality of Alcohol and Drug Abuse Patient Records regulations: The Federal rules restrict any use of the information to criminally investigate or prosecute any alcohol or drug abuse patient.[facility] HospitalIn the event this information is protected by the Federal Confidentiality of Alcohol and Drug Abuse Patient Records regulations: The Federal rules restrict any use of the information to criminally investigate or prosecute any alcohol or drug abuse patient.[facility] HospitalIn the event this information is protected by the Federal Confidentiality of Alcohol and Drug Abuse Patient Records regulations: The Federal rules restrict any use of the information to criminally investigate or prosecute any alcohol or drug abuse patient.[facility] HospitalIn the event this information is protected by the Federal Confidentiality of Alcohol and Drug Abuse Patient Records regulations: The Federal rules restrict any use of the information to criminally investigate or prosecute any alcohol or drug abuse patient.[facility] HospitalIn the event this information is protected by the Federal Confidentiality of Alcohol and Drug Abuse Patient Records regulations: The Federal rules restrict any use of the information to criminally investigate or prosecute any alcohol or drug abuse patient.[facility] HospitalIn the event this information is protected by the Federal Confidentiality of Alcohol and Drug Abuse Patient Records regulations: The Federal rules restrict any use of the information to criminally investigate or prosecute any alcohol or drug abuse patient.[facility] HospitalIn the event this information is protected by the Federal Confidentiality of Alcohol and Drug Abuse Patient Records regulations: The Federal rules restrict any use of the information to criminally investigate or prosecute any alcohol or drug abuse patient.[facility] HospitalIn the event this information is protected by the Federal Confidentiality of Alcohol and Drug Abuse Patient Records regulations: The Federal rules restrict any use of the information to criminally investigate or prosecute any alcohol or drug abuse patient.[facility] HospitalIn the event this information is protected by the Federal Confidentiality of Alcohol and Drug Abuse Patient Records regulations: The Federal rules restrict any use of the information to criminally investigate or prosecute any alcohol or drug abuse patient.[facility] HospitalIn the event this information is protected by the Federal Confidentiality of Alcohol and Drug Abuse Patient Records regulations: The Federal rules restrict any use of the information to criminally investigate or prosecute any alcohol or drug abuse patient.[facility] HospitalIn the event this information is protected by the Federal Confidentiality of Alcohol and Drug Abuse Patient Records regulations: The Federal rules restrict any use of the information to criminally investigate or prosecute any alcohol or drug abuse patient.[facility] Reason for Visit (unrecogniz ed section and content) Reason Comments PT Progress Note Specialty Diagnoses / Procedures Referred By Contamberly t Referred To Contact PHYSICAL THERAPY Diagnoses Dizziness Procedures CONSULT TO PHYSICAL THERAPY PHYSICAL THERAPY EVALUATION HIGH COMPLEX 45 MINS Marsha Butts PA-C [address] [place] [address] Pt [facility] [address] [place] [address] Referral ID Status Reason Start Date Expiration Date Visits Requested Visits Authorized [id number] Authorized Auto-Generat ed Referral 06/10/2022 03/27/2023 20 20 Reason Comments Physical Therapy Reason Comments PT Eval Specialty Diagnoses / Procedures Referred By Contac t Referred To Contact PHYSICAL THERAPY Diagnoses Dizziness Procedures CONSULT TO PHYSICAL THERAPY PHYSICAL THERAPY EVALUATION HIGH COMPLEX 45 MINS Marsha Butts PA-C [address] [place] [address] Pt [facility] Nick [address] [place] [address] Reason Comments F/U 6 Month Specialty Diagnoses / Procedures Referred By Contac t Referred To Contact Family Practice / FAMILY MEDICINE Diagnoses 6 mo follow up Procedures EST NAN Marsha Butts PA-C [address] [place] [address] Marsha Butts PA-C [address] [place] [address] Referral ID Status Reason Start Date Expiration Date V isits Requested Visits Authorized [id number] Closed OON/Self Pay Override 01/05/2021 03/27/2021 1 1 Reason Comments Results Reason Comments Procedure Anoscopy & Hemorrhoi malka Banding Reason Comments Procedure Anoscopy and Hemorrh oidal Banding Reason Comments Appointment Cancelled Reason Comments Arm Injury Reason Comments Physical Reason Comments ER F/U Reason Comments ER F/U [facility] - Syncope Reason Comments ER F/U [facility] ER 05/06/22 weakne ss Reason Comments Follow Up Equilibrium issues. Reason Comments Opened In Error Reason Comments Insurance Authorization Reason Comments Cardiology Follow Up ECHO Reason Comments Recheck 2 week follow up dc geiger Specialty Diagnoses / Procedures Referred By Contac t Referred To Contact [facility] Diagnoses Dizziness Procedures CONSULT TO PHYSICAL THERAPY PHYSICAL THERAPY EVALUATION HIGH COMPLEX 45 MINS Marsha Butts PA-C [address] [place] [address] [facility] [address] [place] [address] Reason Comments New Patient Evaluation Dizziness Specialty Diagnoses / Procedures Referred By Contac t Referred To Contact Neurology Diagnoses Dizziness Procedures CONSULT TO NEUROLOGY OFFICE/OUTPATIENT NEW HIGH MDM 60-74 MINUTES Marsha Butts PA-C [address] [place] [address] Referral ID Status Reason Start Date Expiration Date Visits Requested Visits Authorized [id number] Pending Review PCP Requested Referral 06/09/2022 06/09/2023 1 1 Reason Comments Patient Question Reason Comments Dizziness Specialty Diagnoses / Procedures Referred By Contac t Referred To Contact Diagnoses Other specified hearing loss, unspecified ear Procedures HEARING TEST/AUDIOGRAM COMPRE AUDIOMETRY THRESHOLD EVAL Brent Ashley PA-C [address] [place] [address] [facility] [address] [place], [place] [id number] Referral ID Status Reason Start Date Expiration Date V isits Requested Visits Authorized [id number] Closed Auto-Generate d Referral 07/21/2022 10/19/2022 1 1 Reason Comments New Patient Consult Specialty Diagnoses / Procedures Referred By Contact Referred To Contact Ent - [facility] / [facility] Diagnoses Dizziness Procedures CONSULT TO ENT OFFICE/OUTPATIENT [facility] 60-74 MINUTES Libra Smith PA-C [address] [place] [address] [facility] [address] [place] [address] Referral ID Status Reason Start Date Expiration Date Visits Requested Visits Authorized [id number] Authorized PCP Requested Referral 03/28/2022 03/27/2023 99 99 Reason Comments Release Of Medical Records Reason Comments Edema Reason Onset Date Comments Escalation of Care 10/12/2022 Reason Comments 6 Month Exam Reason Comments Wart Reason Comments Follow Up Reason Comments Medicare Wellness Exam Reason Comments Consult Inguinal hernia Specialty Diagnoses / Procedures Referred By Contac t Referred To Contact General Surgery Diagnoses Inguinal hernia, right Procedures CONSULT TO GENERAL SURGERY OFFICE/OUTPATIENT [facility] 60 MINUTES Tr Montana MD [address] [place] [address] Referral ID Status Reason Start Date Expiration Date V isits Requested Visits Authorized [id number] Closed PCP Requested Referral 05/25/2023 05/24/2024 1 1 Reason Onset Date Comments Population Health Navigation Outreach 07/06/2023 [place] [facility] Reason Comments Anesthesia Consult Unilateral recurrent inguinal hernia without obstruction or gangrene Reason Comments Post Op Presents today for a Post-Op. Reason Comments Patient Update Reason Comments Post-Op Visit 08/04/23 bilateral ing uinal hernia repair w/ persistent pains Reason Comments Edema No pain nodule noted on R knee cap noticed x 1 dayWears pants Reason Onset Date Comments Refill Request 10/27/2023 Reason Comments Rash Has two spots on but tocks x 1 day Reason Comments Cancelled appt Reason Comments Rash Reason Onset Date Comments Refill Request 12/22/2023 Reason Comments F/U 6 months Reason Comments Patient Update Patient Question Reason Comments Wound Check Pt states he cut R h and ring finger earlier this week and in unsure if area was open or closed, he cleaned up rat traps this am around 3:30 and states one was bloody,he is unsure if he touched finger to any rats or not, Tdap in 2022 Reason Comments Balance Reason Comments URI Reason Onset Date Comments Refill Request 06/25/2024 Reason Comments Medicare Wellness Exam Care Teams (unrecognized sec tion and content) Care Nurse Rn Relationship Specialty Start Date End Date Tr Montana MD [address] [place] [id number] PCP - General Family Practice 05/17/14 Care Nurse Rn Relationship Specialty Start Date End Date Tr Montana MD [address] [place] [address] PCP - General Family Practice 05/17/14 Care Nurse Rn Relationship Specialty Start Date End Date Tr Montana MD [address] [place] [address] PCP - General Family Practice 05/17/14 Care Nurse Rn Relationship Specialty Start Date End Date Tr Montana MD [address] [place] [address] PCP - General Family Practice 05/17/14 Care Nurse Rn Relationship Specialty Start Date End Date Tr Montana MD [address] [place] [address] PCP - General Family Practice 05/17/14 Care Nurse Rn Relationship Specialty Start Date End Date Tr Montana MD [address] [place] [address] PCP - General Family Practice 05/17/14 Care Nurse Rn Relationship Specialty Start Date End Date Tr Montana MD [address] [place] [address] PCP - General Family Medicine 05/17/14 Care Nurse Rn Relationship Specialty Start Date End Date Tr Montana MD [address] [place] [address] PCP - General Family Medicine 05/17/14 Team Status: Active Member Role Status Dates Dr. rT Montana MD Family Provider Active Dr. Tr Montana MD Primary Care Provider Active Team Status: Inactive Member Role Status Dates Dr. Tr Montana MD Primary Care Provider Active Dr. Vani Reyes MD Emergency Provider Active Care Nurse Rn Relationship Specialty Start Date End Date Tr Montana MD [address] [place] [address] PCP - General Family Medicine 05/17/14 Care Nurse Rn Relationship Specialty Start Date End Date Tr Montana MD [address] [place] [address] PCP - General Family Medicine 05/17/14 Care Nurse Rn Relationship Specialty Start Date End Date Tr Montana MD [address] [place] [address] PCP - General Family Medicine 05/17/14 Care Nurse Rn Relationship Specialty Start Date End Date Tr Montana MD [address] [place] [address] PCP - General Family Medicine 05/17/14 Care Nurse Rn Relationship Specialty Start Date End Date Tr Montana MD [address] [place] [address] PCP - General Family Medicine 05/17/14 Care Nurse Rn Relationship Specialty Start Date End Date Tr Montana MD [address] [place] [address] PCP - General Family Medicine 05/17/14 Care Nurse Rn Relationship Specialty Start Date End Date Tr Montana MD [address] [place] [address] PCP - General Family Medicine 05/17/14 Team Status: Active Member Role Status Dates Dr. Tr Montana MD Primary Care Provider Active Dr. Raudel Sheridan MD Attending Provider Active Team Status: Inactive Member Role Status Dates Dr. Tr Montana MD Primary Care Provider Active Dr. Vani Reyes MD Attending Provider, Emergency Provider Active Team Status: Inactive Member Role Status Dates Dr. Tr Montana MD Primary Care Provider Active Marsha HAUSER, PA Attending Provider Active Care Nurse Rn Relationship Specialty Start Date End Date Tr Montana MD [address] [place] [address] PCP - General Family Medicine 05/17/14 Care Nurse Rn Relationship Specialty Start Date End Date Tr Montana MD [address] [place] [address] PCP - General Family Medicine 05/17/14 Care Nurse Rn Relationship Specialty Start Date End Date Tr Montana MD [address] [place] [address] PCP - General Family Medicine 05/17/14 Care Nurse Rn Relationship Specialty Start Date End Date Tr Montana MD [address] [place] [address] PCP - General Family Medicine 05/17/14 Care Nurse Rn Relationship Specialty Start Date End Date Tr Montana MD [address] [place] [address] PCP - General Family Medicine 05/17/14 Care Nurse Rn Relationship Specialty Start Date End Date Tr Montana MD [address] [place] [address] PCP - General Family Medicine 05/17/14 Care Nurse Rn Relationship Specialty Start Date End Date Tr Montana MD [address] [place] [address] PCP - General Family Medicine 05/17/14 Care Nurse Rn Relationship Specialty Start Date End Date Tr Montana MD [address] [place] [address] PCP - General Family Medicine 05/17/14 Care Nurse Rn Relationship Specialty Start Date End Date Tr Montana MD [address] [place] [address] PCP - General Family Medicine 05/17/14 Care Nurse Rn Relationship Specialty Start Date End Date Tr Montana MD [address] [place] [address] PCP - General Family Medicine 05/17/14 Care Nurse Rn Relationship Specialty Start Date End Date Tr Montana MD [address] [place] [address] PCP - General Family Medicine 05/17/14 Care Nurse Rn Relationship Specialty Start Date End Date Tr Montana MD [address] [place] [address] PCP - General Family Medicine 05/17/14 Care Nurse Rn Relationship Specialty Start Date End Date Tr Montana MD [address] [place] [address] PCP - General Family Medicine 05/17/14 Care Nurse Rn Relationship Specialty Start Date End Date Tr Montana MD [address] [place] [address] PCP - General Family Medicine 05/17/14 Care Nurse Rn Relationship Specialty Start Date End Date Tr Montana MD [address] [place] [address] PCP - General Family Medicine 05/17/14 Care Nurse Rn Relationship Specialty Start Date End Date Tr Montana MD [address] [place] [address] PCP - General Family Medicine 05/17/14 Care Nurse Rn Relationship Specialty Start Date End Date Tr Montana MD [address] [place] [address] PCP - General Family Medicine 05/17/14 Care Nurse Rn Relationship Specialty Start Date End Date Tr Montana MD [address] [place] [address] PCP - General Family Medicine 05/17/14 Care Nurse Rn Relationship Specialty Start Date End Date Tr Montana MD [address] [place] [address] PCP - General Family Medicine 05/17/14 Care Nurse Rn Relationship Specialty Start Date End Date Tr Montana MD [address] [place] [address] PCP - General Family Medicine 05/17/14 Care Nurse Rn Relationship Specialty Start Date End Date Tr Montana MD [address] [place] [address] PCP - General Family Medicine 05/17/14 Care Nurse Rn Relationship Specialty Start Date End Date Tr Montana MD [address] [place] [address] PCP - General Family Medicine 05/17/14 Care Nurse Rn Relationship Specialty Start Date End Date Tr Montana MD [address] [place] [address] PCP - General Family Medicine 05/17/14 Care Nurse Rn Relationship Specialty Start Date End Date Tr Montana MD [address] [place] [address] PCP - General Family Medicine 05/17/14 Care Nurse Rn Relationship Specialty Start Date End Date Tr Montana MD [address] [place] [address] PCP - General Family Medicine 05/17/14 Care Nurse Rn Relationship Specialty Start Date End Date Tr Montana MD [address] [place] [address] PCP - General Family Medicine 05/17/14 Care Nurse Rn Relationship Specialty Start Date End Date Tr Montana MD [address] [place] [address] PCP - General Family Medicine 05/17/14 Care Nurse Rn Relationship Specialty Start Date End Date Tr Montana MD [address] [place] [address] PCP - General Family Medicine 05/17/14 Care Nurse Rn Relationship Specialty Start Date End Date Tr Montana MD [address] [place] [address] PCP - General Family Medicine 05/17/14 Care Nurse Rn Relationship Specialty Start Date End Date Tr [place] MD [address] [place] [address] PCP - General Family Medicine 05/17/14 Care Nurse Rn Relationship Specialty Start Date End Date Tr Montana MD [address] [place] [address] PCP - General Family Medicine 05/17/14 Care Nurse Rn Relationship Specialty Start Date End Date Tr Montana MD [address] [place] [address] PCP - General Family Medicine 05/17/14 Hailey Miller APRN.TIER AND DETONATOR [address] [place] [address] Rn Case [facility] 03/03/24 Marsha Butts PA-C [address] [place] [address] Rn Case [facility] 03/03/24 Care Nurse Rn Relationship Specialty Start Date End Date rT [place] MD [address] [place] [address] PCP - General Family Medicine 05/17/14 Hailey Miller APRN.TIER AND DETONATOR [address] [place] [address] Rn Case Manager [facility] 03/03/24 Marsha Butts PA-C [address] [place], [place] [id number] [facility] 03/03/24 Care Nurse Rn Relationship Specialty Start Date End Date Tr Montana MD [address] [place], [place] [id number] [phone] PCP - General Family Medicine 05/17/14 Hailey Miller, FRAUD INVESTIGATOR.TIER AND DETONATOR [address] [place] [address] [facility] 03/03/24 Marsha Butts PA-C [address] [place] [address] [facility] 03/03/24 Care Nurse Rn Relationship Specialty Start Date End Date Tr Montana MD [address] [place] [address] PCP - General Family Medicine 05/17/14 Hailey Miller, FRAUD INVESTIGATOR.TIER AND DETONATOR [address] [place] [address] [facility] 08/27/24 Marsha Butts PA-C [address] [place] [address] [facility] 08/27/24 Goals (unrecognized section and content) Goals may be documented in a n alternate sectionGoals may be documented in an alternate section No data available for this section (unrecognized sect ion and content) No Status Records FoundNo Status Records FoundNo Status Records FoundNo Status Records FoundNo Status Records Found INFORMATION SOURCE (unrecogn ized section and content) DATE CREATED AUTHOR 06/14/2022 [facility] DATE CREATED AUTHOR AUTHOR'S ORGANIZ ATION 05/31/2023 [facility] DATE CREATED AUTHOR AUTHOR'S ORGANIZ ATION 08/06/2023 [facility] DATE CREATED AUTHOR AUTHOR'S ORGANIZ ATION 09/26/2023 [facility] DATE CREATED AUTHOR AUTHOR'S ORGANIZ ATION 09/03/2024 [facility] FOR RECORDS PERTAINING TO PATIENTS WHO ARE OR HAVE BEEN ENROLLED IN A CHEMICAL DEPENDENCY/SUBSTANCEABUSE PROGRAM, SOME INFORMATION MAY BE OMITTED. This clinical summary was aggregated from multiple sources. Caution should be exercised in using it in the provision of clinical care. This summary normalizes information from multiple sources, and as a consequence, information in this document may materially change the coding, format and clinical context of patient data. In addition, data may be omitted in some cases. CLINICAL DECISIONS SHOULD BE BASED ON THE PRIMARY CLINICAL RECORDS. [facility] [employer] [facility] provides no warranty or guarantee of the accuracy or completeness of information in this document.
[2024-09-15 19:54] VITALS: BP 137/83; PULSE 61; RESP 18; TEMP 37.2; O2SAT 100
== END 2024-09-15 19:55 | disposition home or self-care (01) ==
PROVIDERS: Emergency Provider Emergency Medicine; PCP Family Medicine; Visit Provider Emergency Medicine
DX: S22.32XA Fracture of one rib, left side, initial encounter for closed fracture (principal); S23.41XA Sprain of ribs, initial encounter; X58.XXXA Exposure to other specified factors, initial encounter; K21.9 Gastro-esophageal reflux disease without esophagitis; Z79.899 Other long term (current) drug therapy; I10 Essential (primary) hypertension
CPT/HCPCS: 71101; 99282